=== PATIENT | male | born 1950 | race Caucasian/White ===

== ENCOUNTER 2018-12-31 09:21 | Inpatient (IN) | payer OTHER, MEDICARE ==
[~2018-12-31] VITALS: Ht 175.3 cm; Wt 100.0 kg
[2018-12-31] VITALS (9 sets, daily range): BP systolic 106–131; BP diastolic 40–55
[~2018-12-31 09:21] MED LIST: ALBU8.5H8 INH; ASPI-1264 PO; ASPI-1265 PO; COR3.125T PO; CYAN1TAB2 PO; FENO160T; FOLI400T4 PO; FURO-150 PO; IPRA14.7 IH; LANS30CA56 PO; LISI-600 PO; MOME13HF2 INH; MONT10TA21 PO; PIOG15TA8 PO; SIMV20TA5 PO
[2018-12-31] MEDS ORDERED: normal saline 1000ML IV soln IVB ONE ×2 (10:00→13:30)
[2018-12-31 10:15] LABS: BASOPHILS % (AUTO) 0.5 % (0-1); EOSINOPHILS % (AUTO) 0.4 % (0-6); HEMATOCRIT 24.1 % (42.0-52.0); HEMOGLOBIN 8.4 g/dl (14.0-17.9); LYMPHOCYTES # (AUTO) 0.3 X10'3 (1.1-4.8); LYMPHOCYTES % (AUTO) 2.9 % (21-51); MEAN CORPUSCULAR HEMOGLOBIN 36.3 PG (27.0-31.0); MEAN CORPUSCULAR HGB CONC 34.7 g/dL (33.0-36.5); MEAN CORPUSCULAR VOLUME 104.8 FL (78-98); MEAN PLATELET VOLUME 9.1 FL (7.4-10.4); MONOCYTES # (AUTO) 0.1 X10'3 (0-0.9); NEUTROPHILS # (AUTO) 9.1 X10'3 (1.8-7.7); NEUTROPHILS % (AUTO) 95.2 % (42-75); PLATELET COUNT 168 X10'3 (140-440); WHITE BLOOD COUNT 9.5 X10'3 (4.5-11.0)
[2018-12-31 10:32] LABS: CLARITY,URINE CLOUDY (Clear); COLOR,URINE YELLOW (Yellow); GLUCOSE, URINE NEGATIVE (Neg); KETONES,URINE TRACE mg/dl (Neg); LEUKOCYTE ESTERASE ,URINE SMALL (Neg); NITRITES, URINE NEGATIVE (Neg); OCCULT BLOOD,URINE LARGE (Neg); PROTEIN,URINE 30 mg/dl (Neg)
[2018-12-31 10:36] LABS: ALANINE AMINOTRANSFERASE 52 U/L (12-78); ALBUMIN 2.4 G/DL (3.4-5.0); ALBUMIN/GLOBULIN RATIO 0.7 (1.1-1.5); ALKALINE PHOSPHATASE 71 IU/L (46-116); ANION GAP 18 (8-16); ASPARTATE AMINO TRANSFERASE 36 U/L (10-37); BILIRUBIN,TOTAL 0.6 MG/DL (0.1-1.0); BLOOD UREA NITROGEN 89 MG/DL (7-18); BUN/CREATININE RATIO 26.9 (5.4-32.0); CHLORIDE 94 MMOL/L (99-107); CREATININE 3.31 MG/DL (0.60-1.10); GLUCOSE 187 MG/DL (70-104); POTASSIUM 4.3 MMOL/L (3.5-5.1); SODIUM 129 MMOL/L (135-145); TOTAL CARBON DIOXIDE 16.6 MMOL/L (24-32); TOTAL PROTEIN 5.9 G/DL (6.4-8.2); eGFR 19 ML/MIN
[2018-12-31 10:37] LABS: UA COLLECTION TYPE FOLEY CATH
[2018-12-31 10:45] LABS: AMORPHOUS URATES 1+; BACTERIA,URINE NONE SEEN /HPF (Neg); MUCUS STRANDS FEW /LPF (Neg); RBC,URINE 0-2 /HPF (0-2); SQUAMOUS EPITHELIAL CELL,UR NONE SEEN /LPF (FEW); WBC,URINE 0-4 /HPF (0-4)
[2018-12-31 10:54] LABS: MAGNESIUM 1.6 MG/DL (1.5-2.4); PLATELET ESTIMATE NORMAL; TOTAL CELLS COUNTED 100
[2018-12-31] MEDS ORDERED: ipratropium/albuterol 3ml nebule NEB ONE (11:05)
[2018-12-31] MEDS ORDERED: CARV-50 PO (11:15)
[2018-12-31] MEDS ORDERED: IBUP-24 PO (11:16)
[2018-12-31] MEDS ORDERED: TRAM50TA2 PO (11:17)
[2018-12-31] MEDS ORDERED: ERGO500041 PO (11:19)
--- NOTE | 2018-12-31 12:06 | NUR ---
CHHAYA JAY (PT ) CELL NUMBER [phone] HOME PHONE [phone]
[2018-12-31] MEDS ORDERED: amox tr/potassium clavulanate 875/125mg TAB PO ONE (12:20)
--- NOTE | 2018-12-31 12:29 | NUR ---
SPOKE TO PROVIDER RE BP 83/42 OBTAINED ORDER 1l NS
[2018-12-31] MEDS ORDERED: normal saline 1000ml 1,000 ML IV ONE ×3 (12:30→13:26)
[2018-12-31] MEDS: normal saline 1000ml 1,000 ML IV SCH ×2 (14:13→20:49)
[2018-12-31] MEDS ORDERED: potassium Cl 40MEQ/NS 500ml 500 ML IV PRN ×2 (14:15)
[2018-12-31] MEDS ORDERED: acetaminophen 325mg tablet PO PRN (14:15)
[2018-12-31] MEDS ORDERED: morphine 4 MG/ML inj SYRINge IV PRN ×2 (14:15)
[2018-12-31] MEDS ORDERED: potassium Cl 20 mEq SR tablet PO PRN (14:15)
[2018-12-31] MEDS ORDERED: aspirin 325mg tablet PO PRN (14:20)
[2018-12-31] MEDS: montelukast 10mg tablet PO SCH (14:20)
[2018-12-31] MEDS: aspirin 81mg tab.chew PO SCH (14:20)
[2018-12-31] MEDS ORDERED: pioglitazone 15mg tablet PO SCH (14:20)
[2018-12-31] MEDS ORDERED: albuterol 2.5 MG/3 ML nebule NEB PRN (14:35)
[2018-12-31] MEDS ORDERED: albuterol 2.5 MG/3 ML nebule NEB SCH (15:00)
[2018-12-31] MEDS: ipratropium/albuterol 3ml nebule IH SCH ×3 (16:07→22:55)
--- NOTE | 2018-12-31 18:48 | NUR ---
Patient in room CICU 2010. I have received report from Casey Soto and had the opportunity to ask questions and assume patient care.
[2018-12-31] MEDS: BUDESONIDE 0.25 MG/2 ML AMPUL.NEB IH SCH (19:01)
[2018-12-31] MEDS: heparin, porcine 5000 units/ml vial SQ SCH (19:52)
[2018-12-31] MEDS: docusate sod 100mg capsule PO SCH (19:53)
[2018-12-31] MEDS: nicotine 14mg patch - 24hr TD SCH (19:53)
[2018-12-31] MEDS ORDERED: non-formulary drug (Mometasone/Formoterol (Dulera 100 Mcg/5 Mcg Inhaler) 2 PUFFS) INH SCH (20:00)
[2018-12-31] MEDS: tamsulosin 0.4mg capsule PO SCH (20:49)
[2018-12-31] MEDS: atorvastatin 10mg tablet PO SCH (20:50)
--- NOTE | 2018-12-31 22:38 | NUR ---
called HORSE TREKKING GUIDE Ilan in regards to patients rate of fluids of 150 mls/hr as pt is here for exacerbation of CHF, per Ilan, change rate to 50 mls/hr, no other new orders at this time.
[2019-01-01] VITALS (17 sets, daily range): BP systolic 102–141; BP diastolic 33–96
[2019-01-01] MEDS ORDERED: insulin Lispro (HumaLOG) vial - multi-dose SQ SCH (02:50)
[2019-01-01] MEDS ORDERED: dextrose 50%-water 50ml dispensing syringe IV PRN ×2 (02:50)
[2019-01-01] MEDS ORDERED: MESSAGE TO PHARMACY PO ONE (02:50)
[2019-01-01] MEDS ORDERED: dextrose ORAL solution 15 GM/59 ML bottle PO PRN ×2 (02:50)
[2019-01-01] MEDS ORDERED: glucagon, human recombinant 1mg kit SUBCUT PRN (02:50)
[2019-01-01] MEDS: ipratropium/albuterol 3ml nebule IH SCH ×6 (02:54→23:50)
[2019-01-01 05:32] LABS: ALANINE AMINOTRANSFERASE 41 U/L (12-78); ALBUMIN 2.1 G/DL (3.4-5.0); ALBUMIN/GLOBULIN RATIO 0.6 (1.1-1.5); ALKALINE PHOSPHATASE 56 IU/L (46-116); ANION GAP 17 (8-16); ASPARTATE AMINO TRANSFERASE 36 U/L (10-37); BILIRUBIN,TOTAL 0.6 MG/DL (0.1-1.0); BLOOD UREA NITROGEN 83 MG/DL (7-18); BUN/CREATININE RATIO 28.2 (5.4-32.0); CALCIUM 7.3 MG/DL (8.5-10.1); CHLORIDE 100 MMOL/L (99-107); CREATININE 2.94 MG/DL (0.60-1.10); GLUCOSE 165 MG/DL (70-104); MAGNESIUM 1.5 MG/DL (1.5-2.4); POTASSIUM 4.5 MMOL/L (3.5-5.1); SODIUM 134 MMOL/L (135-145); TOTAL CARBON DIOXIDE 16.7 MMOL/L (24-32); TOTAL PROTEIN 5.5 G/DL (6.4-8.2); eGFR 21 ML/MIN
[2019-01-01 05:50] LABS: EOSINOPHILS % (AUTO) 0 % (0-6); HEMOGLOBIN 8.3 g/dl (14.0-17.9)
[2019-01-01 05:51] LABS: BASOPHILS # (AUTO) 0.1 X10'3 (0-0.2); BASOPHILS % (AUTO) 0.9 % (0-1); HEMATOCRIT 23.6 % (42.0-52.0); LYMPHOCYTES # (AUTO) 0.2 X10'3 (1.1-4.8); LYMPHOCYTES % (AUTO) 1.7 % (21-51); MEAN CORPUSCULAR HEMOGLOBIN 36.6 PG (27.0-31.0); MEAN CORPUSCULAR HGB CONC 35.1 g/dL (33.0-36.5); MEAN CORPUSCULAR VOLUME 104.2 FL (78-98); MEAN PLATELET VOLUME 10.2 FL (7.4-10.4); MONOCYTES # (AUTO) 0.4 X10'3 (0-0.9); MONOCYTES % (AUTO) 2.9 % (2-12); NEUTROPHILS # (AUTO) 13.9 X10'3 (1.8-7.7); NEUTROPHILS % (AUTO) 94.5 % (42-75); PLATELET COUNT 154 X10'3 (140-440); RED BLOOD COUNT 2.27 X10'6 (4.70-6.10); WHITE BLOOD COUNT 14.6 X10'3 (4.5-11.0)
--- NOTE | 2019-01-01 06:19 | NUR ---
Problems reprioritized. Patient report given, questions answered & plan of care reviewed with Casey RN.
[2019-01-01] MEDS: docusate sod 100mg capsule PO SCH ×2 (06:51→20:00)
[2019-01-01] MEDS: aspirin 81mg tab.chew PO SCH (07:30)
[2019-01-01] MEDS: montelukast 10mg tablet PO SCH (07:30)
[2019-01-01] MEDS: vitamin B comp w/Vit. C tab 1 TAB TABLET PO SCH (07:30)
[2019-01-01] MEDS: acetaminophen 325mg tablet PO PRN (07:30)
[2019-01-01] MEDS: heparin, porcine 5000 units/ml vial SQ SCH ×2 (07:31→21:26)
[2019-01-01] MEDS: BUDESONIDE 0.25 MG/2 ML AMPUL.NEB IH SCH ×2 (07:58→18:56)
[2019-01-01] MEDS ORDERED: CYANOCOBALAMIN PO SCH (08:00)
[2019-01-01] MEDS ORDERED: [UNRECOGNIZED DRUG - OTHER] PO SCH (08:00)
[2019-01-01] MEDS ORDERED: PYRIDOXINE PO SCH (08:00)
[2019-01-01] MEDS: fenofibrate 145mg tablet PO SCH (08:54)
[2019-01-01 11:43] LABS: SODIUM,URINE RANDOM < 15 MEQ/L
[2019-01-01 12:48] LABS: UA EOSINOPHILS NO EOS /HPF
[2019-01-01] MEDS ORDERED: pneumococcal 23-VAL P-sac vacc 25 mcg/0.5ml vial IMVAC ONE (13:05)
--- NOTE | 2019-01-01 14:00 | NUR ---
Patient in room MED 307. I have received report from Casey ANN and had the opportunity to ask questions and assume patient care.
--- NOTE | 2019-01-01 14:10 | NUR ---
Patient arrived to room 307 in his hospital bed, vital signs stable. Oriented to room and call light. Patient hard of hearing.
[2019-01-01] MEDS: traMADol 50MG tablet PO PRN ×2 (14:35→21:30)
[2019-01-01] MEDS: normal saline 1000ml 1,000 ML IV SCH (14:36)
--- NOTE | 2019-01-01 15:19 | NUR ---
Called Dr Munoz to notify him that patient's states that he normally drinks whiskey every day. Patient is pretty shaky at this time. Asked doctor if he would like the ETOH protocol ordered. He stated that I could add 100mg thiamin, 1mg folic acid, and one multivitamin, all daily. He also stated that patient could have one beer with each meal.
[2019-01-01] MEDS: lactose-reduced food (Ensure High Protein) 237ml bottle PO SCH (17:30)
--- NOTE | 2019-01-01 18:18 | NUR ---
Problems reprioritized. Patient report given, questions answered & plan of care reviewed with Niraj ANN.
[2019-01-01] MEDS: insulin glargine (Lantus) pen - multi-dose SQ SCH (21:00)
[2019-01-01] MEDS: atorvastatin 10mg tablet PO SCH (21:25)
[2019-01-01] MEDS: nicotine 14mg patch - 24hr TD SCH (21:27)
[2019-01-01] MEDS: tamsulosin 0.4mg capsule PO SCH (21:38)
[2019-01-02 02:00] VITALS: BP 132/63
[2019-01-02] MEDS: ipratropium/albuterol 3ml nebule IH SCH ×6 (03:00→22:59)
[2019-01-02 06:00] VITALS: BP 115/56
[2019-01-02 06:23] LABS: ALANINE AMINOTRANSFERASE 42 U/L (12-78); ALBUMIN 1.9 G/DL (3.4-5.0); ALBUMIN/GLOBULIN RATIO 0.6 (1.1-1.5); ALKALINE PHOSPHATASE 62 IU/L (46-116); ANION GAP 18 (8-16); ASPARTATE AMINO TRANSFERASE 40 U/L (10-37); BILIRUBIN,TOTAL 0.5 MG/DL (0.1-1.0); BLOOD UREA NITROGEN 87 MG/DL (7-18); BUN/CREATININE RATIO 32.7 (5.4-32.0); CALCIUM 7.6 MG/DL (8.5-10.1); CHLORIDE 100 MMOL/L (99-107); CREATININE 2.66 MG/DL (0.60-1.10); GLUCOSE 115 MG/DL (70-104); MAGNESIUM 1.6 MG/DL (1.5-2.4); PHOSPHORUS 4.5 MG/DL (2.3-4.5); POTASSIUM 3.6 MMOL/L (3.5-5.1); SODIUM 133 MMOL/L (135-145); TOTAL CARBON DIOXIDE 15.5 MMOL/L (24-32); TOTAL PROTEIN 5.3 G/DL (6.4-8.2); eGFR 24 ML/MIN
[2019-01-02 06:26] LABS: HEMATOCRIT 22.2 % (42.0-52.0); HEMOGLOBIN 7.6 g/dl (14.0-17.9); LYMPHOCYTES # (AUTO) 0.6 X10'3 (1.1-4.8); MEAN CORPUSCULAR HEMOGLOBIN 35.3 PG (27.0-31.0); MEAN CORPUSCULAR HGB CONC 34.2 g/dL (33.0-36.5); MEAN PLATELET VOLUME 10.2 FL (7.4-10.4); NEUTROPHILS # (AUTO) 10.8 X10'3 (1.8-7.7); PLATELET COUNT 136 X10'3 (140-440); RED BLOOD COUNT 2.16 X10'6 (4.70-6.10); RED CELL DISTRIBUTION WIDTH 14.1 % (11.5-14.5); WHITE BLOOD COUNT 12.3 X10'3 (4.5-11.0)
--- NOTE | 2019-01-02 06:26 | NUR ---
Problems reprioritized. Patient report given, questions answered & plan of care reviewed with Salomon ANN.
--- NOTE | 2019-01-02 06:29 | NUR ---
Patient in room MED 307. I have received report from Niraj ANN and had the opportunity to ask questions and assume patient care.
[2019-01-02 06:31] LABS: BASOPHILS % (AUTO) 0.2 % (0-1); EOSINOPHILS % (AUTO) 0.2 % (0-6); LYMPHOCYTES % (AUTO) 4.7 % (21-51); MONOCYTES % (AUTO) 7.7 % (2-12); NEUTROPHILS % (AUTO) 87.2 % (42-75)
[2019-01-02] MEDS: BUDESONIDE 0.25 MG/2 ML AMPUL.NEB IH SCH ×2 (06:43→19:55)
[2019-01-02] MEDS: lactose-reduced food (Ensure High Protein) 237ml bottle PO SCH ×2 (07:51→17:31)
[2019-01-02] MEDS: aspirin 81mg tab.chew PO SCH (07:55)
[2019-01-02] MEDS: thiamine 100mg tablet PO SCH (07:55)
[2019-01-02] MEDS: montelukast 10mg tablet PO SCH (07:55)
[2019-01-02] MEDS: heparin, porcine 5000 units/ml vial SQ SCH ×2 (07:55→20:17)
[2019-01-02] MEDS: traMADol 50MG tablet PO PRN ×3 (07:55→23:49)
[2019-01-02] MEDS: fenofibrate 145mg tablet PO SCH (07:55)
[2019-01-02] MEDS: folic acid 1mg tablet PO SCH (07:55)
[2019-01-02] MEDS: multivitamins, therapeutics tablet PO SCH (07:55)
[2019-01-02] MEDS: vitamin B comp w/Vit. C tab 1 TAB TABLET PO SCH (07:55)
[2019-01-02] MEDS: docusate sod 100mg capsule PO SCH ×2 (07:56→20:00)
[2019-01-02] MEDS: carvedilol 6.25mg tablet PO SCH ×2 (09:15→20:00)
--- NOTE | 2019-01-02 09:16 | NUR ---
Problems reprioritized. Patient report given, questions answered & plan of care reviewed with Casey RN.
[2019-01-02] MEDS: normal saline 1000ml 1,000 ML IV SCH (09:33)
--- NOTE | 2019-01-02 10:28 | NUR ---
Low Young: Pt triggered with low Young score of 12. Per physical assessment pt with an open area to rt sacrum that was a blister but is now open. Pt previously with poor PO intake however documented 100% of meal and 50% of milk at breakfast this AM. As of this morning pt now receiving Ensure High Protein BID with breakfast and dinner with 100% intake meeting nutrient needs with additional protein provided to help with skin integrity. Will continue to follow. Addendum: 01/02/19 at [address] Amended: Links added.
[2019-01-02 11:00] VITALS: BP 118/57
--- NOTE | 2019-01-02 11:00 | NUR ---
RECEIVED FROM ACC VIA BED. AGREE WITH PRIOR ASSESSMENT. VS TO BE TAKEN BY PCT. IN VISITING.
--- NOTE | 2019-01-02 11:07 | NUR ---
Pt. delivered to U room 3020. Pt. made comfortable and give call light. Casey RN notified pt. was in the room and all questions answered.
[2019-01-02 12:38] LABS: C DIFFICILE TOXINS A&B NEGATIVE (Neg)
[2019-01-02 12:39] LABS: C DIFF ANTIGEN NEGATIVE (NEGATIVE); C DIFF SPECIMEN=DIARRHEA? ACCEPTABLE
[2019-01-02 15:00] VITALS: BP 114/52
[2019-01-02 18:00] VITALS: BP 94/42
--- NOTE | 2019-01-02 18:30 | NUR ---
Problems reprioritized. Patient report given, questions answered & plan of care reviewed with MARISSA OATES.
[2019-01-02] MEDS: insulin glargine (Lantus) pen - multi-dose SQ SCH (20:06)
[2019-01-02] MEDS: tamsulosin 0.4mg capsule PO SCH (20:14)
[2019-01-02] MEDS: atorvastatin 10mg tablet PO SCH (20:14)
[2019-01-02] MEDS: nicotine 14mg patch - 24hr TD SCH (20:16)
[2019-01-02 22:00] VITALS: BP 93/61
[2019-01-03] VITALS (10 sets, daily range): BP systolic 108–146; BP diastolic 46–87
[2019-01-03] MEDS: ipratropium/albuterol 3ml nebule IH SCH ×6 (03:32→22:47)
[2019-01-03 05:37] LABS: BASOPHILS % (AUTO) 0.2 % (0-1); EOSINOPHILS # (AUTO) 0.1 X10'3 (0-0.9); EOSINOPHILS % (AUTO) 1.1 % (0-6); LYMPHOCYTES # (AUTO) 0.6 X10'3 (1.1-4.8); LYMPHOCYTES % (AUTO) 5.2 % (21-51); MEAN CORPUSCULAR HEMOGLOBIN 36.4 PG (27.0-31.0); MEAN CORPUSCULAR HGB CONC 35.2 g/dL (33.0-36.5); MEAN CORPUSCULAR VOLUME 103.4 FL (78-98); MEAN PLATELET VOLUME 9.8 FL (7.4-10.4); MONOCYTES # (AUTO) 0.9 X10'3 (0-0.9); MONOCYTES % (AUTO) 8.1 % (2-12); NEUTROPHILS # (AUTO) 9.1 X10'3 (1.8-7.7); NEUTROPHILS % (AUTO) 85.4 % (42-75); PLATELET COUNT 143 X10'3 (140-440); RED BLOOD COUNT 1.88 X10'6 (4.70-6.10); RED CELL DISTRIBUTION WIDTH 13.7 % (11.5-14.5); WHITE BLOOD COUNT 10.6 X10'3 (4.5-11.0)
[2019-01-03 05:42] LABS: ALANINE AMINOTRANSFERASE 37 U/L (12-78); ALBUMIN 1.7 G/DL (3.4-5.0); ALBUMIN/GLOBULIN RATIO 0.5 (1.1-1.5); ALKALINE PHOSPHATASE 69 IU/L (46-116); ANION GAP 16 (8-16); ASPARTATE AMINO TRANSFERASE 35 U/L (10-37); BILIRUBIN,TOTAL 0.4 MG/DL (0.1-1.0); BLOOD UREA NITROGEN 87 MG/DL (7-18); BUN/CREATININE RATIO 34.3 (5.4-32.0); CALCIUM 7.4 MG/DL (8.5-10.1); CHLORIDE 99 MMOL/L (99-107); CREATININE 2.54 MG/DL (0.60-1.10); GLUCOSE 111 MG/DL (70-104); MAGNESIUM 1.4 MG/DL (1.5-2.4); PHOSPHORUS 3.7 MG/DL (2.3-4.5); POTASSIUM 3.3 MMOL/L (3.5-5.1); SODIUM 132 MMOL/L (135-145); eGFR 25 ML/MIN
[2019-01-03 06:05] LABS: HEMATOCRIT 19.4 % (42.0-52.0); HEMOGLOBIN 6.8 g/dl (14.0-17.9)
[2019-01-03] MEDS: normal saline 1000ml 1,000 ML IV SCH (06:25)
--- NOTE | 2019-01-03 06:40 | NUR ---
Patient in room PCU 3020. I have received report from MARISSA OATES and had the opportunity to ask questions and assume patient care.
--- NOTE | 2019-01-03 06:47 | NUR ---
Problems reprioritized. Patient report given, questions answered & plan of care reviewed with Casey RN.
--- NOTE | 2019-01-03 06:56 | NUR ---
K+ 3.4, HAS REPLACEMENT ORDERS. DISCUSSED WITH BRENDAN 2. PHARMACIST, RE: JOSEPH 2.54. BRENDAN STATES YOU SHOULD GIVE THE FULL REPLACEMENT DOSE, DO NOT GIVE 1/2 THE DOSE ".
[2019-01-03] MEDS: lactose-reduced food (Ensure High Protein) 237ml bottle PO SCH ×2 (07:30→18:47)
[2019-01-03] MEDS: heparin, porcine 5000 units/ml vial SQ SCH ×2 (08:00→19:28)
[2019-01-03] MEDS: docusate sod 100mg capsule PO SCH ×2 (08:00→19:27)
[2019-01-03] MEDS: BUDESONIDE 0.25 MG/2 ML AMPUL.NEB IH SCH ×2 (08:22→19:22)
[2019-01-03] MEDS: aspirin 81mg tab.chew PO SCH (08:30)
[2019-01-03] MEDS: carvedilol 6.25mg tablet PO SCH ×2 (08:30→20:27)
[2019-01-03] MEDS: montelukast 10mg tablet PO SCH (08:31)
[2019-01-03] MEDS: folic acid 1mg tablet PO SCH (08:31)
[2019-01-03] MEDS: vitamin B comp w/Vit. C tab 1 TAB TABLET PO SCH (08:32)
[2019-01-03] MEDS: multivitamins, therapeutics tablet PO SCH (08:32)
[2019-01-03] MEDS: thiamine 100mg tablet PO SCH (08:32)
[2019-01-03] MEDS: potassium Cl 20 mEq SR tablet PO PRN ×3 (08:33→16:46)
[2019-01-03] MEDS: traMADol 50MG tablet PO PRN ×2 (08:41→16:45)
[2019-01-03] MEDS: fenofibrate 145mg tablet PO SCH (08:42)
--- NOTE | 2019-01-03 13:48 | NUR ---
RHYS RT: Addendum: 01/03/19 at 1348 by Vinicio Rodriguez RN LISA IS REQUESTING RESP TREATMENT FOR SOB. ADRIEL [id number]. TY.
--- NOTE | 2019-01-03 14:31 | NUR ---
PAGED RT:[id number] IS REQUESTING PRN TREATMENT FOR SOB. ADRIEL [id number]. TY.
--- NOTE | 2019-01-03 15:55 | NUR ---
DR. GARCES NOTIFIED OF HEPARIN HELD THIS AM R/T CRITICAL H+H,MG+ 1.4 WITHOUT REPLACEMENT ORDERS.
[2019-01-03] MEDS: loperamide 2mg capsule PO PRN (16:46)
[2019-01-03] MEDS: furosemide 40mg tablet PO SCH (16:51)
[2019-01-03 18:46] LABS: % IRON SATURATION 19 % (11-46); IRON 33 UG/DL (53-167); TOTAL IRON BINDING CAPACITY 174 UG/DL (259-388)
--- NOTE | 2019-01-03 18:46 | NUR ---
Problems reprioritized. Patient report given, questions answered & plan of care reviewed with MARISSA MAYA.
[2019-01-03] MEDS: ondansetron/PF 4mg/2ml inj IV PRN (18:50)
[2019-01-03 19:06] LABS: FERRITIN 245 NG/ML (26-388)
[2019-01-03] MEDS ORDERED: proCHLORperazine 10 MG/2 ml inj IM ONE (19:35)
[2019-01-03] MEDS ORDERED: proCHLORperazine 10 MG/2 ml inj IV ONE (19:40)
[2019-01-03] MEDS: atorvastatin 10mg tablet PO SCH (20:27)
[2019-01-03] MEDS: nicotine 14mg patch - 24hr TD SCH (20:27)
[2019-01-03] MEDS: tamsulosin 0.4mg capsule PO SCH (20:27)
[2019-01-03] MEDS: insulin glargine (Lantus) pen - multi-dose SQ SCH (20:27)
[2019-01-03 23:43] LABS: HEMATOCRIT 24.7 % (42.0-52.0); HEMOGLOBIN 8.3 g/dl (14.0-17.9); MEAN CORPUSCULAR HEMOGLOBIN 33.7 PG (27.0-31.0); MEAN CORPUSCULAR HGB CONC 33.5 g/dL (33.0-36.5); MEAN CORPUSCULAR VOLUME 100.7 FL (78-98); MEAN PLATELET VOLUME 9.8 FL (7.4-10.4); PLATELET COUNT 154 X10'3 (140-440); RED BLOOD COUNT 2.45 X10'6 (4.70-6.10); RED CELL DISTRIBUTION WIDTH 15.1 % (11.5-14.5); WHITE BLOOD COUNT 11.4 X10'3 (4.5-11.0)
[2019-01-04] MEDS: ondansetron/PF 4mg/2ml inj IV PRN ×2 (02:23→20:17)
[2019-01-04] MEDS: ipratropium/albuterol 3ml nebule IH SCH ×7 (02:51→23:14)
[2019-01-04 03:00] VITALS: BP 129/88
[2019-01-04 05:07] LABS: BASOPHILS % (AUTO) 0.2 % (0-1); EOSINOPHILS % (AUTO) 0.3 % (0-6); HEMATOCRIT 23.3 % (42.0-52.0); HEMOGLOBIN 8.1 g/dl (14.0-17.9); LYMPHOCYTES # (AUTO) 0.4 X10'3 (1.1-4.8); MEAN CORPUSCULAR HEMOGLOBIN 34.8 PG (27.0-31.0); MEAN CORPUSCULAR HGB CONC 34.7 g/dL (33.0-36.5); MEAN CORPUSCULAR VOLUME 100.3 FL (78-98); MEAN PLATELET VOLUME 9.9 FL (7.4-10.4); MONOCYTES # (AUTO) 0.7 X10'3 (0-0.9); NEUTROPHILS # (AUTO) 9.3 X10'3 (1.8-7.7); NEUTROPHILS % (AUTO) 88.5 % (42-75); PLATELET COUNT 157 X10'3 (140-440); RED BLOOD COUNT 2.32 X10'6 (4.70-6.10); RED CELL DISTRIBUTION WIDTH 15.5 % (11.5-14.5); WHITE BLOOD COUNT 10.5 X10'3 (4.5-11.0)
[2019-01-04 05:53] LABS: ALANINE AMINOTRANSFERASE 36 U/L (12-78); ALBUMIN 1.7 G/DL (3.4-5.0); ALBUMIN/GLOBULIN RATIO 0.5 (1.1-1.5); ALKALINE PHOSPHATASE 72 IU/L (46-116); ANION GAP 15 (8-16); ASPARTATE AMINO TRANSFERASE 33 U/L (10-37); BILIRUBIN,TOTAL 0.6 MG/DL (0.1-1.0); BLOOD UREA NITROGEN 82 MG/DL (7-18); CALCIUM 7.9 MG/DL (8.5-10.1); CHLORIDE 101 MMOL/L (99-107); CREATININE 2.28 MG/DL (0.60-1.10); GLUCOSE 149 MG/DL (70-104); MAGNESIUM 1.4 MG/DL (1.5-2.4); PHOSPHORUS 3.7 MG/DL (2.3-4.5); POTASSIUM 3.9 MMOL/L (3.5-5.1); SODIUM 134 MMOL/L (135-145); TOTAL CARBON DIOXIDE 17.9 MMOL/L (24-32); eGFR 29 ML/MIN
--- NOTE | 2019-01-04 06:24 | NUR ---
Problems reprioritized. Patient report given, questions answered & plan of care reviewed with Jennifer ANN.
[2019-01-04 06:30] VITALS: BP 130/67
[2019-01-04] MEDS: BUDESONIDE 0.25 MG/2 ML AMPUL.NEB IH SCH ×2 (06:38→19:28)
[2019-01-04] MEDS: lactose-reduced food (Ensure High Protein) 237ml bottle PO SCH ×2 (07:30→17:30)
[2019-01-04] MEDS: docusate sod 100mg capsule PO SCH ×2 (08:00→20:00)
[2019-01-04] MEDS: heparin, porcine 5000 units/ml vial SQ SCH ×2 (08:08→20:18)
[2019-01-04] MEDS: multivitamins, therapeutics tablet PO SCH (08:09)
[2019-01-04] MEDS: vitamin B comp w/Vit. C tab 1 TAB TABLET PO SCH (08:11)
[2019-01-04] MEDS: montelukast 10mg tablet PO SCH (08:11)
[2019-01-04] MEDS: aspirin 81mg tab.chew PO SCH (08:11)
[2019-01-04] MEDS: fenofibrate 145mg tablet PO SCH (08:11)
[2019-01-04] MEDS: furosemide 40mg tablet PO SCH (08:11)
[2019-01-04] MEDS: thiamine 100mg tablet PO SCH (08:12)
[2019-01-04] MEDS: carvedilol 6.25mg tablet PO SCH ×2 (08:12→20:18)
[2019-01-04] MEDS: folic acid 1mg tablet PO SCH (08:15)
[2019-01-04] MEDS: traMADol 50MG tablet PO PRN ×2 (08:34→18:45)
[2019-01-04] MEDS: metroNIDAZOLE-Flagyl 500mg/NS 100 ML IV SCH ×3 (10:26→23:55)
[2019-01-04 11:11] VITALS: BP 104/99
[2019-01-04] MEDS: lisinopril 5mg tablet PO SCH (11:20)
[2019-01-04 15:15] VITALS: BP 139/60
--- NOTE | 2019-01-04 18:03 | NUR ---
REPORT GIVEN TO ZULMA ANN
[2019-01-04 18:30] VITALS: BP 129/62
[2019-01-04] MEDS: lactobacillus rhamnosus 10,000 MMU CELLS/CAPSULE PO SCH (20:18)
[2019-01-04] MEDS: nicotine 14mg patch - 24hr TD SCH (20:18)
[2019-01-04] MEDS: tamsulosin 0.4mg capsule PO SCH (20:18)
[2019-01-04] MEDS: atorvastatin 10mg tablet PO SCH (20:18)
[2019-01-04] MEDS: insulin glargine (Lantus) pen - multi-dose SQ SCH (21:00)
[2019-01-04 22:15] VITALS: BP 123/56
[2019-01-04] MEDS: acetaminophen 325mg tablet PO PRN (22:47)
[2019-01-04 23:57] LABS: OCCULT BLOOD STOOL NEGATIVE (Neg)
[2019-01-05 02:05] VITALS: BP 136/61
[2019-01-05] MEDS: ipratropium/albuterol 3ml nebule IH SCH ×6 (02:45→22:54)
[2019-01-05] MEDS: ondansetron/PF 4mg/2ml inj IV PRN ×2 (03:02→09:00)
--- NOTE | 2019-01-05 05:15 | NUR ---
Student documentation: I have reviewed and agree with all interventions, assessments performed and documented by Stacey MINOR.
--- NOTE | 2019-01-05 05:15 | NUR ---
Student Medication Administration: For this medication-pass time frame, all medication were reviewed, dispensed, administered and documented per hospital policy by Stacey MINOR.
--- NOTE | 2019-01-05 06:13 | NUR ---
Problems reprioritized. Patient report given, questions answered & plan of care reviewed with Albina ANN.
[2019-01-05 06:17] LABS: BASOPHILS % (AUTO) 0.1 % (0-1); EOSINOPHILS # (AUTO) 0.1 X10'3 (0-0.9); EOSINOPHILS % (AUTO) 0.6 % (0-6); HEMATOCRIT 22.7 % (42.0-52.0); HEMOGLOBIN 7.9 g/dl (14.0-17.9); LYMPHOCYTES # (AUTO) 0.6 X10'3 (1.1-4.8); LYMPHOCYTES % (AUTO) 6.3 % (21-51); MEAN CORPUSCULAR HEMOGLOBIN 35.1 PG (27.0-31.0); MEAN CORPUSCULAR VOLUME 100.1 FL (78-98); MEAN PLATELET VOLUME 9.8 FL (7.4-10.4); MONOCYTES % (AUTO) 9.6 % (2-12); NEUTROPHILS # (AUTO) 8.5 X10'3 (1.8-7.7); NEUTROPHILS % (AUTO) 83.4 % (42-75); PLATELET COUNT 172 X10'3 (140-440); RED BLOOD COUNT 2.26 X10'6 (4.70-6.10); RED CELL DISTRIBUTION WIDTH 15.6 % (11.5-14.5); WHITE BLOOD COUNT 10.2 X10'3 (4.5-11.0)
[2019-01-05 06:35] LABS: ALANINE AMINOTRANSFERASE 33 U/L (12-78); ALBUMIN 1.7 G/DL (3.4-5.0); ALBUMIN/GLOBULIN RATIO 0.6 (1.1-1.5); ALKALINE PHOSPHATASE 77 IU/L (46-116); ANION GAP 15 (8-16); ASPARTATE AMINO TRANSFERASE 32 U/L (10-37); BILIRUBIN,TOTAL 0.5 MG/DL (0.1-1.0); BLOOD UREA NITROGEN 81 MG/DL (7-18); BUN/CREATININE RATIO 35.4 (5.4-32.0); CALCIUM 7.7 MG/DL (8.5-10.1); CHLORIDE 101 MMOL/L (99-107); CREATININE 2.29 MG/DL (0.60-1.10); GLUCOSE 119 MG/DL (70-104); MAGNESIUM 1.3 MG/DL (1.5-2.4); PHOSPHORUS 3.3 MG/DL (2.3-4.5); SODIUM 134 MMOL/L (135-145); TOTAL CARBON DIOXIDE 18.2 MMOL/L (24-32); TOTAL PROTEIN 4.7 G/DL (6.4-8.2); eGFR 28 ML/MIN
--- NOTE | 2019-01-05 06:40 | NUR ---
Patient in room PCU 3020. I have received report from MARISSA Duong and had the opportunity to ask questions and assume patient care.
[2019-01-05 07:00] VITALS: BP 142/74
[2019-01-05 07:12] LABS: TOTAL CELLS COUNTED 100
[2019-01-05 07:18] LABS: ANISOCYTOSIS 1+; PLATELET ESTIMATE NORMAL; POLYCHROMASIA 1+; ROULEAUX 1+; TOXIC GRANULATION 1+
[2019-01-05] MEDS: lactose-reduced food (Ensure High Protein) 237ml bottle PO SCH ×2 (07:30→17:45)
[2019-01-05] MEDS: BUDESONIDE 0.25 MG/2 ML AMPUL.NEB IH SCH ×2 (08:10→19:44)
[2019-01-05] MEDS: furosemide 40mg tablet PO SCH (08:32)
[2019-01-05] MEDS: lisinopril 5mg tablet PO SCH (08:32)
[2019-01-05] MEDS: lactobacillus rhamnosus 10,000 MMU CELLS/CAPSULE PO SCH ×2 (08:32→20:22)
[2019-01-05] MEDS: folic acid 1mg tablet PO SCH (08:33)
[2019-01-05] MEDS: aspirin 81mg tab.chew PO SCH (08:33)
[2019-01-05] MEDS: carvedilol 6.25mg tablet PO SCH ×2 (08:33→20:22)
[2019-01-05] MEDS: thiamine 100mg tablet PO SCH (08:33)
[2019-01-05] MEDS: vitamin B comp w/Vit. C tab 1 TAB TABLET PO SCH (08:33)
[2019-01-05] MEDS: metroNIDAZOLE-Flagyl 500mg/NS 100 ML IV SCH ×2 (08:34→16:27)
[2019-01-05] MEDS: montelukast 10mg tablet PO SCH (08:34)
[2019-01-05] MEDS: fenofibrate 145mg tablet PO SCH (08:34)
[2019-01-05] MEDS: multivitamins, therapeutics tablet PO SCH (08:34)
[2019-01-05] MEDS: docusate sod 100mg capsule PO SCH ×2 (08:35→20:00)
[2019-01-05] MEDS: heparin, porcine 5000 units/ml vial SQ SCH ×2 (08:35→20:22)
[2019-01-05] MEDS: traMADol 50MG tablet PO PRN ×2 (09:00→17:20)
[2019-01-05 11:00] VITALS: BP 119/53
[2019-01-05 15:00] VITALS: BP 138/55
[2019-01-05] MEDS: famotidine 20mg tablet PO SCH ×2 (16:27→20:22)
--- NOTE | 2019-01-05 17:16 | NUR ---
Initial: Pt admit with chronic back pain and Edema.Per documentation pt is w/ peripheral edema 2-3+. Per documentation pt po intake previously 0-50% for the last two days w/ one meal 25% of protein, likely not meeting needs possibly due to pt on a Clear Liquid diet. Spoke with RN who stated PO intake this AM was 50% and 100% at lunch continues to not meet needs on clear liquid diet. RN stated to me she is unsure why pt is on clear liquid diet and is waiting to hear back from MD. Pt drinks 25% of High Protein-Muscle. [facility] [place] 01/04 Will continue to monitor. Rec. 1.Advance diet to CHO as medically tolerated 2.Continue Ensure High Protein when diet advanced 3.Wt per rx Addendum: 01/05/19 at [address] Amended: Links added. Addendum: 01/05/19 at [address] RD agree with note
--- NOTE | 2019-01-05 18:09 | NUR ---
Problems reprioritized. Patient report given, questions answered & plan of care reviewed with MARISSA Duong.
[2019-01-05 18:30] VITALS: BP 124/52
[2019-01-05] MEDS: nicotine 14mg patch - 24hr TD SCH (20:21)
[2019-01-05] MEDS: atorvastatin 10mg tablet PO SCH (20:22)
[2019-01-05] MEDS: tamsulosin 0.4mg capsule PO SCH (20:22)
[2019-01-05] MEDS: Melatonin 3mg tablet PO SCH (20:23)
[2019-01-05] MEDS: loperamide 2mg capsule PO PRN (20:35)
[2019-01-05] MEDS: HYDROcodone/acetaminophen 5mg/325mg tablet PO PRN (20:35)
[2019-01-05] MEDS: insulin glargine (Lantus) pen - multi-dose SQ SCH (21:00)
[2019-01-05 22:45] VITALS: BP 114/50
[2019-01-06] MEDS: metroNIDAZOLE-Flagyl 500mg/NS 100 ML IV SCH ×2 (00:33→09:29)
[2019-01-06] MEDS: HYDROcodone/acetaminophen 5mg/325mg tablet PO PRN (00:35)
[2019-01-06 02:10] VITALS: BP 115/48
[2019-01-06] MEDS: traMADol 50MG tablet PO PRN ×2 (02:48→21:44)
[2019-01-06] MEDS: ipratropium/albuterol 3ml nebule IH SCH ×6 (03:26→22:53)
--- NOTE | 2019-01-06 05:26 | NUR ---
Student Medication Administration: For this medication-pass time frame, all medication were reviewed, dispensed, administered and documented per hospital policy by Stacey MINOR. Student documentation: I have reviewed and agree with all interventions, assessments performed and documented by Stacey MINOR.
--- NOTE | 2019-01-06 06:10 | NUR ---
Problems reprioritized. Patient report given, questions answered & plan of care reviewed with Albina ANN.
[2019-01-06 07:00] VITALS: BP 123/56
--- NOTE | 2019-01-06 07:03 | NUR ---
Patient in room PCU 3020A. I have received report from MARISSA MAYA and had the opportunity to ask questions and assume patient care.
[2019-01-06 07:04] LABS: BASOPHILS % (AUTO) 0.3 % (0-1); EOSINOPHILS # (AUTO) 0.2 X10'3 (0-0.9); EOSINOPHILS % (AUTO) 1.9 % (0-6); HEMATOCRIT 22.5 % (42.0-52.0); HEMOGLOBIN 7.6 g/dl (14.0-17.9); LYMPHOCYTES # (AUTO) 0.9 X10'3 (1.1-4.8); LYMPHOCYTES % (AUTO) 10.5 % (21-51); MEAN CORPUSCULAR HEMOGLOBIN 34.3 PG (27.0-31.0); MEAN CORPUSCULAR HGB CONC 33.8 g/dL (33.0-36.5); MEAN CORPUSCULAR VOLUME 101.5 FL (78-98); MEAN PLATELET VOLUME 9.8 FL (7.4-10.4); MONOCYTES # (AUTO) 0.8 X10'3 (0-0.9); MONOCYTES % (AUTO) 9.1 % (2-12); NEUTROPHILS # (AUTO) 6.7 X10'3 (1.8-7.7); NEUTROPHILS % (AUTO) 78.2 % (42-75); PLATELET COUNT 189 X10'3 (140-440); RED BLOOD COUNT 2.22 X10'6 (4.70-6.10); RED CELL DISTRIBUTION WIDTH 15.2 % (11.5-14.5); WHITE BLOOD COUNT 8.6 X10'3 (4.5-11.0)
[2019-01-06 07:06] LABS: ALANINE AMINOTRANSFERASE 26 U/L (12-78); ALBUMIN 1.5 G/DL (3.4-5.0); ALBUMIN/GLOBULIN RATIO 0.5 (1.1-1.5); ALKALINE PHOSPHATASE 63 IU/L (46-116); ANION GAP 12 (8-16); ASPARTATE AMINO TRANSFERASE 25 U/L (10-37); BILIRUBIN,TOTAL 0.4 MG/DL (0.1-1.0); BLOOD UREA NITROGEN 82 MG/DL (7-18); BUN/CREATININE RATIO 36.8 (5.4-32.0); CALCIUM 7.5 MG/DL (8.5-10.1); CHLORIDE 101 MMOL/L (99-107); CREATININE 2.23 MG/DL (0.60-1.10); GLUCOSE 101 MG/DL (70-104); MAGNESIUM 1.2 MG/DL (1.5-2.4); PHOSPHORUS 3.2 MG/DL (2.3-4.5); POTASSIUM 3.4 MMOL/L (3.5-5.1); SODIUM 132 MMOL/L (135-145); TOTAL CARBON DIOXIDE 18.6 MMOL/L (24-32); TOTAL PROTEIN 4.4 G/DL (6.4-8.2); eGFR 29 ML/MIN
[2019-01-06] MEDS: lactose-reduced food (Ensure High Protein) 237ml bottle PO SCH ×2 (07:30→08:30)
[2019-01-06] MEDS: aspirin 81mg tab.chew PO SCH (08:00)
[2019-01-06] MEDS: BUDESONIDE 0.25 MG/2 ML AMPUL.NEB IH SCH ×2 (08:30→18:57)
[2019-01-06] MEDS: carvedilol 6.25mg tablet PO SCH ×2 (09:03→21:38)
[2019-01-06] MEDS: famotidine 20mg tablet PO SCH ×2 (09:03→21:38)
[2019-01-06] MEDS: docusate sod 100mg capsule PO SCH ×2 (09:03→20:00)
[2019-01-06] MEDS: multivitamins, therapeutics tablet PO SCH (09:04)
[2019-01-06] MEDS: folic acid 1mg tablet PO SCH (09:04)
[2019-01-06] MEDS: lactobacillus rhamnosus 10,000 MMU CELLS/CAPSULE PO SCH ×2 (09:05→21:38)
[2019-01-06] MEDS: montelukast 10mg tablet PO SCH (09:05)
[2019-01-06] MEDS: lisinopril 5mg tablet PO SCH (09:05)
[2019-01-06] MEDS: furosemide 40mg tablet PO SCH (09:05)
[2019-01-06] MEDS: fenofibrate 145mg tablet PO SCH (09:05)
[2019-01-06] MEDS: thiamine 100mg tablet PO SCH (09:06)
[2019-01-06 09:09] LABS: ANISOCYTOSIS 1+; PLATELET ESTIMATE NORMAL; POLYCHROMASIA 1+; ROULEAUX 1+; TOTAL CELLS COUNTED 100; TOXIC GRANULATION 1+
[2019-01-06] MEDS: vitamin B comp w/Vit. C tab 1 TAB TABLET PO SCH (09:09)
[2019-01-06] MEDS: heparin, porcine 5000 units/ml vial SQ SCH ×2 (09:17→21:43)
[2019-01-06] MEDS ORDERED: tuberculin, purif. prot. deriv. 5 units/0.1ml ID ONE ×2 (09:40→10:35)
[2019-01-06 11:00] VITALS: BP 112/40
[2019-01-06 15:00] VITALS: BP 136/44
[2019-01-06] MEDS: amox tr/potassium clavulanate 875/125mg TAB PO SCH (17:38)
[2019-01-06] MEDS: ferrous sulfate 325mg tablet PO SCH (17:38)
[2019-01-06 18:00] VITALS: BP 126/56
--- NOTE | 2019-01-06 18:14 | NUR ---
Problems reprioritized. Patient report given, questions answered & plan of care reviewed with MARISSA PALACIOS . Addendum: 01/06/19 at 1823 by Su Reyes RN MARISSA PERDOMO
--- NOTE | 2019-01-06 19:15 | NUR ---
Patient in room PCU 3020. I have received report from Albina ANN and had the opportunity to ask questions and assume patient care.
[2019-01-06] MEDS: insulin glargine (Lantus) pen - multi-dose SQ SCH (21:00)
[2019-01-06] MEDS: Melatonin 3mg tablet PO SCH (21:38)
[2019-01-06] MEDS: tamsulosin 0.4mg capsule PO SCH (21:38)
[2019-01-06] MEDS: loperamide 2mg capsule PO PRN (21:38)
[2019-01-06] MEDS: nicotine 14mg patch - 24hr TD SCH (21:40)
[2019-01-06] MEDS: atorvastatin 10mg tablet PO SCH (21:41)
[2019-01-06 22:00] VITALS: BP 128/63
[2019-01-07 02:00] VITALS: BP 149/53
[2019-01-07] MEDS: ipratropium/albuterol 3ml nebule IH SCH ×6 (02:53→22:52)
[2019-01-07] MEDS: traMADol 50MG tablet PO PRN ×2 (03:42→15:58)
[2019-01-07 05:36] LABS: BASOPHILS % (AUTO) 0.4 % (0-1); EOSINOPHILS # (AUTO) 0.1 X10'3 (0-0.9); EOSINOPHILS % (AUTO) 1.2 % (0-6); HEMATOCRIT 23.2 % (42.0-52.0); HEMOGLOBIN 7.9 g/dl (14.0-17.9); LYMPHOCYTES # (AUTO) 0.9 X10'3 (1.1-4.8); LYMPHOCYTES % (AUTO) 8.8 % (21-51); MEAN CORPUSCULAR HEMOGLOBIN 34.5 PG (27.0-31.0); MEAN CORPUSCULAR VOLUME 101.4 FL (78-98); MEAN PLATELET VOLUME 9.4 FL (7.4-10.4); MONOCYTES # (AUTO) 0.7 X10'3 (0-0.9); MONOCYTES % (AUTO) 7.7 % (2-12); NEUTROPHILS % (AUTO) 81.9 % (42-75); PLATELET COUNT 216 X10'3 (140-440); RED BLOOD COUNT 2.29 X10'6 (4.70-6.10); WHITE BLOOD COUNT 9.7 X10'3 (4.5-11.0)
[2019-01-07 06:09] LABS: ALANINE AMINOTRANSFERASE 27 U/L (12-78); ALBUMIN 1.6 G/DL (3.4-5.0); ALBUMIN/GLOBULIN RATIO 0.5 (1.1-1.5); ALKALINE PHOSPHATASE 62 IU/L (46-116); ANION GAP 14 (8-16); ASPARTATE AMINO TRANSFERASE 24 U/L (10-37); BILIRUBIN,TOTAL 0.5 MG/DL (0.1-1.0); BLOOD UREA NITROGEN 79 MG/DL (7-18); CALCIUM 7.7 MG/DL (8.5-10.1); CHLORIDE 101 MMOL/L (99-107); CREATININE 2.26 MG/DL (0.60-1.10); GLUCOSE 103 MG/DL (70-104); MAGNESIUM 1.1 MG/DL (1.5-2.4); PHOSPHORUS 3.5 MG/DL (2.3-4.5); POTASSIUM 3.6 MMOL/L (3.5-5.1); SODIUM 131 MMOL/L (135-145); TOTAL CARBON DIOXIDE 16.3 MMOL/L (24-32); TOTAL PROTEIN 4.6 G/DL (6.4-8.2); eGFR 29 ML/MIN
--- NOTE | 2019-01-07 06:13 | NUR ---
Problems reprioritized. Patient report given, questions answered & plan of care reviewed with Albina ANN.
--- NOTE | 2019-01-07 06:25 | NUR ---
Patient in room PCU 3020. I have received report from MARISSA Patel and had the opportunity to ask questions and assume patient care.
[2019-01-07 07:00] VITALS: BP 114/55
[2019-01-07] MEDS: lactose-reduced food (Ensure High Protein) 237ml bottle PO SCH ×2 (07:30→17:38)
[2019-01-07] MEDS: docusate sod 100mg capsule PO SCH ×2 (08:00→19:54)
[2019-01-07] MEDS: BUDESONIDE 0.25 MG/2 ML AMPUL.NEB IH SCH ×2 (08:00→19:08)
[2019-01-07] MEDS: lisinopril 5mg tablet PO SCH (09:30)
[2019-01-07] MEDS: multivitamins, therapeutics tablet PO SCH (09:30)
[2019-01-07] MEDS: famotidine 20mg tablet PO SCH ×2 (09:31→19:52)
[2019-01-07] MEDS: vitamin B comp w/Vit. C tab 1 TAB TABLET PO SCH (09:31)
[2019-01-07] MEDS: montelukast 10mg tablet PO SCH (09:31)
[2019-01-07] MEDS: folic acid 1mg tablet PO SCH (09:31)
[2019-01-07] MEDS: HYDROcodone/acetaminophen 5mg/325mg tablet PO PRN (09:32)
[2019-01-07] MEDS: aspirin 81mg tab.chew PO SCH (09:32)
[2019-01-07] MEDS: thiamine 100mg tablet PO SCH (09:33)
[2019-01-07] MEDS: fenofibrate 145mg tablet PO SCH (09:33)
[2019-01-07] MEDS: carvedilol 6.25mg tablet PO SCH ×2 (09:33→19:52)
[2019-01-07] MEDS: ferrous sulfate 325mg tablet PO SCH ×2 (09:33→17:48)
[2019-01-07] MEDS: amox tr/potassium clavulanate 875/125mg TAB PO SCH ×2 (09:34→17:51)
[2019-01-07] MEDS: furosemide 40mg tablet PO SCH (09:34)
[2019-01-07] MEDS: lactobacillus rhamnosus 10,000 MMU CELLS/CAPSULE PO SCH ×2 (09:35→19:52)
[2019-01-07] MEDS: heparin, porcine 5000 units/ml vial SQ SCH ×2 (09:36→19:52)
[2019-01-07 11:00] VITALS: BP 120/67
--- NOTE | 2019-01-07 12:00 | NUR ---
PTS MG 1.1, NOTIFIED FERNANDO TAPIA - SHE DOES NOT WISH TO REPLACE THIS ELECTROLYTE AT THIS TIME DUE TO THE PATIENT'S KIDNEY CONDITION AND THE POSSIBILITY OF MG BUILDING UP IN THE PT BODY.
[2019-01-07 15:00] VITALS: BP 119/52
--- NOTE | 2019-01-07 17:18 | NUR ---
[place] Medication Administration: For this medication-pass time frame, medications were reviewed, dispensed, administered and documented by MARISSA Wilkinson.
--- NOTE | 2019-01-07 18:14 | NUR ---
Patient in room PCU 3020. I have received report from Albina ANN and had the opportunity to ask questions and assume patient care.
--- NOTE | 2019-01-07 18:18 | NUR ---
Problems reprioritized. Patient report given, questions answered & plan of care reviewed with MARISSA Khan.
[2019-01-07 19:00] VITALS: BP 136/59
[2019-01-07] MEDS: nicotine 14mg patch - 24hr TD SCH (19:55)
[2019-01-07] MEDS: insulin glargine (Lantus) pen - multi-dose SQ SCH (21:00)
[2019-01-07] MEDS: tamsulosin 0.4mg capsule PO SCH (22:04)
[2019-01-07] MEDS: atorvastatin 10mg tablet PO SCH (22:04)
[2019-01-07] MEDS: traMADol 50MG tablet PO SCH (22:05)
[2019-01-07] MEDS: Melatonin 3mg tablet PO SCH (22:05)
[2019-01-07 23:00] VITALS: BP 120/50
[2019-01-08 03:00] VITALS: BP 117/57
[2019-01-08] MEDS: ipratropium/albuterol 3ml nebule IH SCH ×6 (03:00→22:55)
[2019-01-08 05:55] LABS: BASOPHILS % (AUTO) 0.4 % (0-1); EOSINOPHILS # (AUTO) 0.2 X10'3 (0-0.9); EOSINOPHILS % (AUTO) 2.3 % (0-6); HEMATOCRIT 23.6 % (42.0-52.0); LYMPHOCYTES # (AUTO) 0.8 X10'3 (1.1-4.8); LYMPHOCYTES % (AUTO) 8.9 % (21-51); MEAN CORPUSCULAR HGB CONC 33.7 g/dL (33.0-36.5); MEAN CORPUSCULAR VOLUME 100.9 FL (78-98); MEAN PLATELET VOLUME 9.2 FL (7.4-10.4); MONOCYTES # (AUTO) 0.4 X10'3 (0-0.9); MONOCYTES % (AUTO) 4.7 % (2-12); NEUTROPHILS # (AUTO) 7.3 X10'3 (1.8-7.7); NEUTROPHILS % (AUTO) 83.7 % (42-75); PLATELET COUNT 264 X10'3 (140-440); RED BLOOD COUNT 2.34 X10'6 (4.70-6.10); RED CELL DISTRIBUTION WIDTH 15.1 % (11.5-14.5); WHITE BLOOD COUNT 8.8 X10'3 (4.5-11.0)
[2019-01-08 06:00] VITALS: BP 121/59
[2019-01-08 06:22] LABS: ALANINE AMINOTRANSFERASE 22 U/L (12-78); ALBUMIN 1.6 G/DL (3.4-5.0); ALBUMIN/GLOBULIN RATIO 0.5 (1.1-1.5); ALKALINE PHOSPHATASE 60 IU/L (46-116); ANION GAP 13 (8-16); ASPARTATE AMINO TRANSFERASE 23 U/L (10-37); BILIRUBIN,TOTAL 0.5 MG/DL (0.1-1.0); BLOOD UREA NITROGEN 72 MG/DL (7-18); BUN/CREATININE RATIO 31.7 (5.4-32.0); CALCIUM 7.7 MG/DL (8.5-10.1); CHLORIDE 102 MMOL/L (99-107); CREATININE 2.27 MG/DL (0.60-1.10); GLUCOSE 99 MG/DL (70-104); MAGNESIUM 1.1 MG/DL (1.5-2.4); PHOSPHORUS 3.6 MG/DL (2.3-4.5); POTASSIUM 3.5 MMOL/L (3.5-5.1); SODIUM 134 MMOL/L (135-145); TOTAL CARBON DIOXIDE 19.3 MMOL/L (24-32); TOTAL PROTEIN 4.6 G/DL (6.4-8.2); eGFR 29 ML/MIN
--- NOTE | 2019-01-08 06:30 | NUR ---
Patient in room PCU 3020. I have received report from MARISSA Khan and had the opportunity to ask questions and assume patient care.
--- NOTE | 2019-01-08 06:32 | NUR ---
Problems reprioritized. Patient report given, questions answered & plan of care reviewed with Emily ANN.
[2019-01-08] MEDS: lactose-reduced food (Ensure High Protein) 237ml bottle PO SCH ×2 (07:30→17:43)
[2019-01-08] MEDS: lactobacillus rhamnosus 10,000 MMU CELLS/CAPSULE PO SCH ×3 (08:00→20:00)
[2019-01-08] MEDS: docusate sod 100mg capsule PO SCH ×2 (08:00→18:39)
[2019-01-08] MEDS: multivitamins, therapeutics tablet PO SCH ×2 (08:00→08:44)
[2019-01-08] MEDS: BUDESONIDE 0.25 MG/2 ML AMPUL.NEB IH SCH ×2 (08:00→19:08)
[2019-01-08] MEDS: vitamin B comp w/Vit. C tab 1 TAB TABLET PO SCH ×2 (08:00→08:44)
[2019-01-08] MEDS: amox tr/potassium clavulanate 875/125mg TAB PO SCH ×2 (08:30→17:36)
[2019-01-08] MEDS: fenofibrate 145mg tablet PO SCH ×2 (08:30→08:44)
[2019-01-08] MEDS: ferrous sulfate 325mg tablet PO SCH ×3 (08:30→17:37)
[2019-01-08] MEDS: traMADol 50MG tablet PO SCH ×3 (08:41→20:01)
[2019-01-08] MEDS: famotidine 20mg tablet PO SCH ×2 (08:41→19:59)
[2019-01-08] MEDS: furosemide 40mg tablet PO SCH (08:41)
[2019-01-08] MEDS: carvedilol 6.25mg tablet PO SCH ×2 (08:42→20:00)
[2019-01-08] MEDS: lisinopril 5mg tablet PO SCH (08:42)
[2019-01-08] MEDS: montelukast 10mg tablet PO SCH (08:43)
[2019-01-08] MEDS: folic acid 1mg tablet PO SCH (08:43)
[2019-01-08] MEDS: aspirin 81mg tab.chew PO SCH (08:44)
[2019-01-08] MEDS: thiamine 100mg tablet PO SCH (08:44)
[2019-01-08] MEDS: heparin, porcine 5000 units/ml vial SQ SCH ×2 (08:45→20:01)
[2019-01-08 11:00] VITALS: BP 117/56
--- NOTE | 2019-01-08 12:00 | NUR ---
reassessment: Pt PO 25-50% carb controlled soft to chew meals. Glucerna TIDWM added since receiving ONS prior to diet advancement from clear liquids. LBM 01/07 diarrhea documented but volume not documented; last imudium dose 01/06. CAROL d/w RN regarding Mg replacement per MD approval since . today on lasix. Will continue to monitor for ONS acceptance and additional protein needs. Rec. 1. continue carb controlled/soft to chew diet per MD 2. Glucerna TIDWM 3. Wt per rx Addendum: 01/08/19 at [address] Amended: Links added.
[2019-01-08] MEDS ORDERED: NUT.TX.GLUC.INTOLER,LAC-FR,SOY (GLUCERNA) 237 ML PO SCH (13:00)
[2019-01-08 15:00] VITALS: BP 121/63
[2019-01-08] MEDS: HYDROcodone/acetaminophen 5mg/325mg tablet PO PRN (17:37)
[2019-01-08 18:00] VITALS: BP 125/62
--- NOTE | 2019-01-08 18:29 | NUR ---
Student Medication Administration: For this medication-pass time frame, all medication were reviewed, dispensed, administered and documented per hospital policy by MARISSA Sapp.
--- NOTE | 2019-01-08 18:29 | NUR ---
Student documentation: I have reviewed and agree with all interventions, assessments performed and documented by MARISSA Sapp.
--- NOTE | 2019-01-08 18:29 | NUR ---
Problems reprioritized. Patient report given, questions answered & plan of care reviewed with MARISSA Mo.
--- NOTE | 2019-01-08 18:45 | NUR ---
Patient in room U 3020. I have received report from MARISSA Diaz and had the opportunity to ask questions and assume patient care. Addendum: 01/08/19 at 1845 by Chely Ramirez RN Amended: Links added.
[2019-01-08] MEDS: ondansetron/PF 4mg/2ml inj IV PRN (19:30)
[2019-01-08] MEDS: atorvastatin 10mg tablet PO SCH (19:59)
[2019-01-08] MEDS: nicotine 14mg patch - 24hr TD SCH (19:59)
[2019-01-08] MEDS: Melatonin 3mg tablet PO SCH (20:00)
[2019-01-08] MEDS: tamsulosin 0.4mg capsule PO SCH (20:00)
[2019-01-08] MEDS: insulin glargine (Lantus) pen - multi-dose SQ SCH (21:00)
[2019-01-08 22:00] VITALS: BP 119/63
[2019-01-09] MEDS: ondansetron/PF 4mg/2ml inj IV PRN (01:14)
[2019-01-09 02:00] VITALS: BP 118/41
[2019-01-09] MEDS: ipratropium/albuterol 3ml nebule IH SCH ×6 (02:56→23:36)
[2019-01-09 05:52] LABS: ALANINE AMINOTRANSFERASE 21 U/L (12-78); ALBUMIN 1.6 G/DL (3.4-5.0); ALBUMIN/GLOBULIN RATIO 0.5 (1.1-1.5); ALKALINE PHOSPHATASE 61 IU/L (46-116); ANION GAP 12 (8-16); ASPARTATE AMINO TRANSFERASE 27 U/L (10-37); BILIRUBIN,TOTAL 0.5 MG/DL (0.1-1.0); BLOOD UREA NITROGEN 69 MG/DL (7-18); BUN/CREATININE RATIO 31.9 (5.4-32.0); CALCIUM 7.7 MG/DL (8.5-10.1); CHLORIDE 100 MMOL/L (99-107); CREATININE 2.16 MG/DL (0.60-1.10); GLUCOSE 133 MG/DL (70-104); MAGNESIUM 1.2 MG/DL (1.5-2.4); PHOSPHORUS 4.1 MG/DL (2.3-4.5); POTASSIUM 3.3 MMOL/L (3.5-5.1); SODIUM 134 MMOL/L (135-145); TOTAL CARBON DIOXIDE 22.3 MMOL/L (24-32); TOTAL PROTEIN 4.8 G/DL (6.4-8.2); eGFR 30 ML/MIN
[2019-01-09 06:00] VITALS: BP 123/67
[2019-01-09 06:11] LABS: HEMOGLOBIN 8.4 g/dl (14.0-17.9); PLATELET COUNT 282 X10'3 (140-440)
--- NOTE | 2019-01-09 06:11 | NUR ---
Problems reprioritized. Patient report given, questions answered & plan of care reviewed with MARISSA Correia. Addendum: 01/09/19 at 0611 by Chely Ramirez RN Amended: Links added.
[2019-01-09 06:12] LABS: HEMATOCRIT 24.6 % (42.0-52.0); MEAN CORPUSCULAR HEMOGLOBIN 34.3 PG (27.0-31.0); MEAN CORPUSCULAR HGB CONC 34.2 g/dL (33.0-36.5); MEAN CORPUSCULAR VOLUME 100.5 FL (78-98); MEAN PLATELET VOLUME 9.2 FL (7.4-10.4); RED BLOOD COUNT 2.45 X10'6 (4.70-6.10); RED CELL DISTRIBUTION WIDTH 14.7 % (11.5-14.5); WHITE BLOOD COUNT 10.6 X10'3 (4.5-11.0)
--- NOTE | 2019-01-09 06:30 | NUR ---
Patient in room PCU 3020. I have received report from Chely ANN and had the opportunity to ask questions and assume patient care. Patient resting comfortably in bed. In no acute distress. Will continue to monitor.
[2019-01-09 06:43] LABS: TOTAL CELLS COUNTED 100
[2019-01-09 06:44] LABS: HYPOCHROMASIA 1+; PLATELET ESTIMATE NORMAL; TOXIC VACUOLATION 1+
[2019-01-09] MEDS: lactose-reduced food (Ensure High Protein) 237ml bottle PO SCH ×2 (07:30→17:30)
[2019-01-09] MEDS: docusate sod 100mg capsule PO SCH ×2 (08:00→21:36)
[2019-01-09] MEDS: folic acid 1mg tablet PO SCH (08:00)
[2019-01-09] MEDS: lactobacillus rhamnosus 10,000 MMU CELLS/CAPSULE PO SCH ×2 (08:00→21:37)
[2019-01-09] MEDS: multivitamins, therapeutics tablet PO SCH (08:00)
[2019-01-09] MEDS: BUDESONIDE 0.25 MG/2 ML AMPUL.NEB IH SCH ×2 (08:21→19:22)
[2019-01-09] MEDS: amox tr/potassium clavulanate 875/125mg TAB PO SCH ×2 (08:30→09:04)
[2019-01-09] MEDS: lisinopril 5mg tablet PO SCH (09:00)
[2019-01-09] MEDS: montelukast 10mg tablet PO SCH (09:00)
[2019-01-09] MEDS: vitamin B comp w/Vit. C tab 1 TAB TABLET PO SCH (09:01)
[2019-01-09] MEDS: carvedilol 6.25mg tablet PO SCH ×2 (09:01→21:42)
[2019-01-09] MEDS: furosemide 40mg tablet PO SCH (09:01)
[2019-01-09] MEDS: thiamine 100mg tablet PO SCH (09:01)
[2019-01-09] MEDS: fenofibrate 145mg tablet PO SCH (09:01)
[2019-01-09] MEDS: ferrous sulfate 325mg tablet PO SCH ×2 (09:02→17:50)
[2019-01-09] MEDS: traMADol 50MG tablet PO SCH ×3 (09:02→21:50)
[2019-01-09] MEDS: famotidine 20mg tablet PO SCH ×2 (09:02→21:36)
[2019-01-09] MEDS: aspirin 81mg tab.chew PO SCH (09:02)
[2019-01-09] MEDS: heparin, porcine 5000 units/ml vial SQ SCH ×2 (09:04→21:45)
--- NOTE | 2019-01-09 09:15 | NUR ---
Patient refused to take 0800 dose of augmentin. Patient stated it upsets his stomach. Offered patient PRN zofran and patient refused.
[2019-01-09 11:00] VITALS: BP 105/56
[2019-01-09 11:21] LABS: HBSAG SCREEN Negative (Negative)
[2019-01-09] MEDS ORDERED: LIDOcaine 1% 30ml vial 5 ML in potassium Cl 40MEQ/NS 500ml 500 ML IV ONE (11:45)
[2019-01-09 15:00] VITALS: BP 136/60
[2019-01-09 18:00] VITALS: BP 119/68
--- NOTE | 2019-01-09 18:35 | NUR ---
Problems reprioritized. Patient report given, questions answered & plan of care reviewed with Bren Soto.
--- NOTE | 2019-01-09 18:49 | NUR ---
Problems reprioritized. Patient report given, questions answered & plan of care reviewed with Saundra ANN.
[2019-01-09] MEDS: nicotine 14mg patch - 24hr TD SCH (20:00)
[2019-01-09] MEDS: insulin glargine (Lantus) pen - multi-dose SQ SCH (21:00)
[2019-01-09] MEDS: piperacillin/tazo 3.375gm/50ml 50 ML IV SCH (21:34)
[2019-01-09] MEDS: Melatonin 3mg tablet PO SCH (21:36)
[2019-01-09] MEDS: tamsulosin 0.4mg capsule PO SCH (21:38)
[2019-01-09] MEDS: atorvastatin 10mg tablet PO SCH (21:38)
[2019-01-09 22:00] VITALS: BP 107/50
[2019-01-10 02:00] VITALS: BP 115/65
[2019-01-10] MEDS: ipratropium/albuterol 3ml nebule IH SCH ×6 (03:37→23:47)
--- NOTE | 2019-01-10 04:05 | NUR ---
Patient took a wahs cloth for his hands and face at beginning of shift, but declined a bed bath stating that he just wanted to sleep. Cruz care to be given. Addendum: 01/10/19 at 0410 by Saundra Daly RN Amended: Links added.
[2019-01-10] MEDS: HYDROcodone/acetaminophen 5mg/325mg tablet PO PRN (04:18)
[2019-01-10 05:50] LABS: BASOPHILS # (AUTO) 0.1 X10'3 (0-0.2); BASOPHILS % (AUTO) 0.7 % (0-1); EOSINOPHILS # (AUTO) 0.1 X10'3 (0-0.9); EOSINOPHILS % (AUTO) 1.4 % (0-6); HEMATOCRIT 23.3 % (42.0-52.0); HEMOGLOBIN 7.9 g/dl (14.0-17.9); LYMPHOCYTES # (AUTO) 0.8 X10'3 (1.1-4.8); LYMPHOCYTES % (AUTO) 10.2 % (21-51); MEAN CORPUSCULAR HEMOGLOBIN 34.1 PG (27.0-31.0); MEAN CORPUSCULAR VOLUME 100.2 FL (78-98); MEAN PLATELET VOLUME 8.9 FL (7.4-10.4); MONOCYTES # (AUTO) 0.6 X10'3 (0-0.9); MONOCYTES % (AUTO) 8.1 % (2-12); NEUTROPHILS # (AUTO) 6.2 X10'3 (1.8-7.7); NEUTROPHILS % (AUTO) 79.6 % (42-75); PLATELET COUNT 296 X10'3 (140-440); RED BLOOD COUNT 2.33 X10'6 (4.70-6.10); RED CELL DISTRIBUTION WIDTH 14.8 % (11.5-14.5); WHITE BLOOD COUNT 7.8 X10'3 (4.5-11.0)
[2019-01-10 06:00] VITALS: BP 113/53
--- NOTE | 2019-01-10 06:00 | NUR ---
Patient in room PCU 3020. I have received report from Judit and had the opportunity to ask questions and assume patient care. Patient was sleeping comfortably, and observed no distress with breathing.
[2019-01-10 06:17] LABS: ALANINE AMINOTRANSFERASE 20 U/L (12-78); ALBUMIN 1.6 G/DL (3.4-5.0); ALBUMIN/GLOBULIN RATIO 0.5 (1.1-1.5); ALKALINE PHOSPHATASE 52 IU/L (46-116); ANION GAP 12 (8-16); ASPARTATE AMINO TRANSFERASE 28 U/L (10-37); BILIRUBIN,TOTAL 0.5 MG/DL (0.1-1.0); BLOOD UREA NITROGEN 66 MG/DL (7-18); BUN/CREATININE RATIO 30.3 (5.4-32.0); CALCIUM 7.8 MG/DL (8.5-10.1); CHLORIDE 101 MMOL/L (99-107); CREATININE 2.18 MG/DL (0.60-1.10); GLUCOSE 109 MG/DL (70-104); MAGNESIUM 1.2 MG/DL (1.5-2.4); PHOSPHORUS 3.3 MG/DL (2.3-4.5); POTASSIUM 3.2 MMOL/L (3.5-5.1); SODIUM 137 MMOL/L (135-145); TOTAL CARBON DIOXIDE 24.3 MMOL/L (24-32); TOTAL PROTEIN 4.7 G/DL (6.4-8.2); eGFR 30 ML/MIN
--- NOTE | 2019-01-10 06:30 | NUR ---
Patient in room PCU 3020. I have received report from Saundra ANN and had the opportunity to ask questions and assume patient care.
--- NOTE | 2019-01-10 06:36 | NUR ---
Problems reprioritized. Patient report given, questions answered & plan of care reviewed with Bren hogan.
[2019-01-10] MEDS ORDERED: LIDOcaine 1% 30ml vial 5 ML in potassium Cl 40MEQ/NS 500ml 500 ML IV NR (06:50)
[2019-01-10 07:06] LABS: TOTAL CELLS COUNTED 100
[2019-01-10 07:07] LABS: PLATELET ESTIMATE NORMAL
[2019-01-10] MEDS: lactose-reduced food (Ensure High Protein) 237ml bottle PO SCH ×2 (07:30→17:30)
[2019-01-10] MEDS: lactobacillus rhamnosus 10,000 MMU CELLS/CAPSULE PO SCH ×2 (07:35→20:30)
[2019-01-10] MEDS: vitamin B comp w/Vit. C tab 1 TAB TABLET PO SCH (07:35)
[2019-01-10] MEDS: lisinopril 5mg tablet PO SCH (07:35)
[2019-01-10] MEDS: aspirin 81mg tab.chew PO SCH (07:35)
[2019-01-10] MEDS: famotidine 20mg tablet PO SCH ×2 (07:36→20:30)
[2019-01-10] MEDS: furosemide 40mg tablet PO SCH (07:36)
[2019-01-10] MEDS: montelukast 10mg tablet PO SCH (07:36)
[2019-01-10] MEDS: multivitamins, therapeutics tablet PO SCH (07:36)
[2019-01-10] MEDS: thiamine 100mg tablet PO SCH (07:36)
[2019-01-10] MEDS: carvedilol 6.25mg tablet PO SCH ×2 (07:36→20:29)
[2019-01-10] MEDS: piperacillin/tazo 3.375gm/50ml 50 ML IV SCH ×2 (07:37→20:38)
[2019-01-10] MEDS: folic acid 1mg tablet PO SCH (07:37)
[2019-01-10] MEDS: heparin, porcine 5000 units/ml vial SQ SCH ×2 (07:38→20:31)
[2019-01-10] MEDS: traMADol 50MG tablet PO SCH ×3 (07:41→20:30)
[2019-01-10] MEDS: BUDESONIDE 0.25 MG/2 ML AMPUL.NEB IH SCH ×2 (07:57→19:53)
[2019-01-10] MEDS: docusate sod 100mg capsule PO SCH ×2 (08:00→20:00)
[2019-01-10 11:00] VITALS: BP 113/51
[2019-01-10] MEDS: ferrous sulfate 325mg tablet PO SCH ×2 (11:34→16:53)
[2019-01-10] MEDS: fenofibrate 145mg tablet PO SCH (11:34)
[2019-01-10 15:00] VITALS: BP 108/54
[2019-01-10 18:00] VITALS: BP 147/67
--- NOTE | 2019-01-10 18:41 | NUR ---
Patient in room PCU 3020. I have received report from Reji RN/MARISSA Correia and had the opportunity to ask questions and assume patient care.
--- NOTE | 2019-01-10 19:02 | NUR ---
Problems reprioritized. Patient report given, questions answered & plan of care reviewed with Cher ANN.
--- NOTE | 2019-01-10 19:04 | NUR ---
[place] documentation: I have reviewed and agree with all interventions, assessments performed and documented by Reji ANN. [place] Medication Administration: For this medication-pass time frame, all medication were reviewed, dispensed, administered and documented per hospital policy by Reji ANN.
[2019-01-10] MEDS: atorvastatin 10mg tablet PO SCH (20:29)
[2019-01-10] MEDS: tamsulosin 0.4mg capsule PO SCH (20:29)
[2019-01-10] MEDS: Melatonin 3mg tablet PO SCH (20:29)
[2019-01-10] MEDS: magnesium Cl slow-release 64mg tablet PO SCH (20:30)
[2019-01-10] MEDS: nicotine 14mg patch - 24hr TD SCH (20:31)
[2019-01-10] MEDS: insulin glargine (Lantus) pen - multi-dose SQ SCH (21:00)
[2019-01-10 22:00] VITALS: BP 135/54
[2019-01-11 02:00] VITALS: BP 121/52
[2019-01-11] MEDS: ipratropium/albuterol 3ml nebule IH SCH ×6 (03:53→23:37)
[2019-01-11 06:00] VITALS: BP 113/53
--- NOTE | 2019-01-11 06:25 | NUR ---
Patient in room PCU 3020. I have received report from MARISSA BANG and had the opportunity to ask questions and assume patient care.
--- NOTE | 2019-01-11 06:30 | NUR ---
Problems reprioritized. Patient report given, questions answered & plan of care reviewed with MARISSA Cuevas.
[2019-01-11 06:42] LABS: BASOPHILS # (AUTO) 0.1 X10'3 (0-0.2); BASOPHILS % (AUTO) 0.9 % (0-1); EOSINOPHILS # (AUTO) 0.1 X10'3 (0-0.9); HEMATOCRIT 23.9 % (42.0-52.0); HEMOGLOBIN 8.2 g/dl (14.0-17.9); LYMPHOCYTES # (AUTO) 0.8 X10'3 (1.1-4.8); LYMPHOCYTES % (AUTO) 10.9 % (21-51); MEAN CORPUSCULAR HEMOGLOBIN 34.4 PG (27.0-31.0); MEAN CORPUSCULAR HGB CONC 34.5 g/dL (33.0-36.5); MEAN CORPUSCULAR VOLUME 99.6 FL (78-98); MEAN PLATELET VOLUME 9.1 FL (7.4-10.4); MONOCYTES # (AUTO) 0.6 X10'3 (0-0.9); MONOCYTES % (AUTO) 8.9 % (2-12); NEUTROPHILS # (AUTO) 5.5 X10'3 (1.8-7.7); NEUTROPHILS % (AUTO) 77.3 % (42-75); PLATELET COUNT 298 X10'3 (140-440); RED CELL DISTRIBUTION WIDTH 14.7 % (11.5-14.5); WHITE BLOOD COUNT 7.1 X10'3 (4.5-11.0)
[2019-01-11 06:50] LABS: ALANINE AMINOTRANSFERASE 26 U/L (12-78); ALBUMIN 1.6 G/DL (3.4-5.0); ALBUMIN/GLOBULIN RATIO 0.5 (1.1-1.5); ALKALINE PHOSPHATASE 51 IU/L (46-116); ANION GAP 10 (8-16); ASPARTATE AMINO TRANSFERASE 29 U/L (10-37); BILIRUBIN,TOTAL 0.5 MG/DL (0.1-1.0); BLOOD UREA NITROGEN 63 MG/DL (7-18); CALCIUM 8.2 MG/DL (8.5-10.1); CHLORIDE 98 MMOL/L (99-107); CREATININE 2.17 MG/DL (0.60-1.10); GLUCOSE 110 MG/DL (70-104); MAGNESIUM 1.2 MG/DL (1.5-2.4); PHOSPHORUS 3.3 MG/DL (2.3-4.5); POTASSIUM 3.4 MMOL/L (3.5-5.1); SODIUM 132 MMOL/L (135-145); TOTAL CARBON DIOXIDE 23.6 MMOL/L (24-32); TOTAL PROTEIN 4.8 G/DL (6.4-8.2); eGFR 30 ML/MIN
[2019-01-11] MEDS: lactose-reduced food (Ensure High Protein) 237ml bottle PO SCH ×2 (07:30→17:30)
[2019-01-11] MEDS: thiamine 100mg tablet PO SCH (08:00)
[2019-01-11] MEDS: lactobacillus rhamnosus 10,000 MMU CELLS/CAPSULE PO SCH ×2 (08:00→20:29)
[2019-01-11] MEDS: multivitamins, therapeutics tablet PO SCH (08:00)
[2019-01-11] MEDS: docusate sod 100mg capsule PO SCH ×2 (08:00→20:00)
[2019-01-11] MEDS: vitamin B comp w/Vit. C tab 1 TAB TABLET PO SCH (08:00)
[2019-01-11] MEDS: folic acid 1mg tablet PO SCH (08:00)
[2019-01-11] MEDS: BUDESONIDE 0.25 MG/2 ML AMPUL.NEB IH SCH ×2 (08:01→19:29)
[2019-01-11] MEDS: fenofibrate 145mg tablet PO SCH (08:30)
[2019-01-11] MEDS: magnesium Cl slow-release 64mg tablet PO SCH ×2 (08:49→20:30)
[2019-01-11] MEDS: famotidine 20mg tablet PO SCH ×2 (08:49→20:30)
[2019-01-11] MEDS: montelukast 10mg tablet PO SCH (08:49)
[2019-01-11] MEDS: aspirin 81mg tab.chew PO SCH (08:49)
[2019-01-11] MEDS: ferrous sulfate 325mg tablet PO SCH ×2 (08:49→17:58)
[2019-01-11] MEDS: traMADol 50MG tablet PO SCH ×3 (08:50→20:31)
[2019-01-11] MEDS: lisinopril 5mg tablet PO SCH (08:50)
[2019-01-11] MEDS: furosemide 40mg tablet PO SCH (08:50)
[2019-01-11] MEDS: carvedilol 6.25mg tablet PO SCH ×2 (08:50→20:29)
[2019-01-11] MEDS: heparin, porcine 5000 units/ml vial SQ SCH ×2 (08:52→20:33)
[2019-01-11] MEDS: piperacillin/tazo 3.375gm/50ml 50 ML IV SCH ×2 (09:04→20:35)
--- NOTE | 2019-01-11 10:11 | NUR ---
refused boost drink Addendum: 01/11/19 at 1011 by Faith Holcomb RN Amended: Links added.
[2019-01-11 11:00] VITALS: BP 100/56
--- NOTE | 2019-01-11 11:47 | NUR ---
Reassessment: SILVANO resolved and pt with EF 45% per MD progress notes. Pt continues CHO controlled soft to chew diet with documented PO intake 0-25% however increased intake of 100% at breakfast this AM. Pt receiving ONS with intake 50% and 75% 01/10 however refused this AM. Pt likely meeting nutrient needs this AM. Per physical assessment pt with difficulty clearing secretions, RD consulted MOTEL FRONT DESK ATTENDANT for BSS. Per MOTEL FRONT DESK ATTENDANT pt has chest discomfort when swallowing however no aspiration noted and pt has difficulty with regular solids. MOTEL FRONT DESK ATTENDANT has downgraded patient's diet to pureed food and thin liquids. LBM 01/11. Will continue to follow and make recommendations as appropriate. Rec. 1. continue carb controlled/pureed food with thin liq per MOTEL FRONT DESK ATTENDANT 2. Glucerna TIDWM 3. Wt per rx Addendum: 01/11/19 at [address] Amended: Links added.
[2019-01-11 15:00] VITALS: BP 107/42
--- NOTE | 2019-01-11 18:15 | NUR ---
Received report from Faith ANN pt is awake on RA, in no apaprent distress
--- NOTE | 2019-01-11 18:25 | NUR ---
Problems reprioritized. Patient report given, questions answered & plan of care reviewed with MARISSA CARRILLO.
[2019-01-11 19:00] VITALS: BP 116/48
[2019-01-11] MEDS: tamsulosin 0.4mg capsule PO SCH (20:30)
[2019-01-11] MEDS: Melatonin 3mg tablet PO SCH (20:32)
[2019-01-11] MEDS: atorvastatin 10mg tablet PO SCH (20:32)
[2019-01-11] MEDS: nicotine 14mg patch - 24hr TD SCH (20:33)
[2019-01-11] MEDS: insulin glargine (Lantus) pen - multi-dose SQ SCH (20:58)
[2019-01-11 23:16] VITALS: BP 111/49
[2019-01-12] MEDS: ipratropium/albuterol 3ml nebule IH SCH ×3 (02:47→11:16)
[2019-01-12 03:00] VITALS: BP 127/71
[2019-01-12 06:21] LABS: BASOPHILS # (AUTO) 0.1 X10'3 (0-0.2); EOSINOPHILS # (AUTO) 0.1 X10'3 (0-0.9); HEMOGLOBIN 7.4 g/dl (14.0-17.9); LYMPHOCYTES % (AUTO) 15.3 % (21-51); MEAN CORPUSCULAR HEMOGLOBIN 34.6 PG (27.0-31.0); MEAN CORPUSCULAR HGB CONC 34.6 g/dL (33.0-36.5); MEAN CORPUSCULAR VOLUME 100.2 FL (78-98); MEAN PLATELET VOLUME 8.9 FL (7.4-10.4); MONOCYTES # (AUTO) 0.6 X10'3 (0-0.9); MONOCYTES % (AUTO) 9.2 % (2-12); NEUTROPHILS # (AUTO) 4.7 X10'3 (1.8-7.7); NEUTROPHILS % (AUTO) 72.5 % (42-75); PLATELET COUNT 285 X10'3 (140-440); RED BLOOD COUNT 2.14 X10'6 (4.70-6.10); RED CELL DISTRIBUTION WIDTH 14.7 % (11.5-14.5); WHITE BLOOD COUNT 6.5 X10'3 (4.5-11.0)
--- NOTE | 2019-01-12 06:25 | NUR ---
Patient in room PCU 3020. I have received report from MARISSA Reyes and had the opportunity to ask questions and assume patient care.
[2019-01-12 06:30] VITALS: BP 116/53
--- NOTE | 2019-01-12 06:31 | NUR ---
Gave report to Katiuska ANN pt currently getting VS taken, D/C pts F/C, pt on RA in no apparent distress
[2019-01-12 06:37] LABS: ALANINE AMINOTRANSFERASE 22 U/L (12-78); ALBUMIN 1.5 G/DL (3.4-5.0); ALBUMIN/GLOBULIN RATIO 0.5 (1.1-1.5); ALKALINE PHOSPHATASE 40 IU/L (46-116); ANION GAP 9 (8-16); ASPARTATE AMINO TRANSFERASE 28 U/L (10-37); BILIRUBIN,TOTAL 0.5 MG/DL (0.1-1.0); BLOOD UREA NITROGEN 61 MG/DL (7-18); BUN/CREATININE RATIO 27.7 (5.4-32.0); CALCIUM 7.8 MG/DL (8.5-10.1); CHLORIDE 100 MMOL/L (99-107); GLUCOSE 109 MG/DL (70-104); MAGNESIUM 1.2 MG/DL (1.5-2.4); POTASSIUM 3.2 MMOL/L (3.5-5.1); SODIUM 133 MMOL/L (135-145); TOTAL CARBON DIOXIDE 23.9 MMOL/L (24-32); TOTAL PROTEIN 4.5 G/DL (6.4-8.2); eGFR 30 ML/MIN
[2019-01-12 06:47] LABS: HEMATOCRIT 21.4 % (42.0-52.0)
[2019-01-12] MEDS: BUDESONIDE 0.25 MG/2 ML AMPUL.NEB IH SCH (07:20)
[2019-01-12 07:29] LABS: TOTAL CELLS COUNTED 100
[2019-01-12 07:30] LABS: ANISOCYTOSIS 1+; HYPOCHROMASIA 1+; PLATELET ESTIMATE NORMAL; POLYCHROMASIA 1+; ROULEAUX 1+
[2019-01-12] MEDS: lactose-reduced food (Ensure High Protein) 237ml bottle PO SCH (07:30)
[2019-01-12] MEDS: docusate sod 100mg capsule PO SCH (08:00)
[2019-01-12] MEDS: aspirin 81mg tab.chew PO SCH (09:17)
[2019-01-12] MEDS: piperacillin/tazo 3.375gm/50ml 50 ML IV SCH (09:17)
[2019-01-12] MEDS: folic acid 1mg tablet PO SCH (09:18)
[2019-01-12] MEDS: lactobacillus rhamnosus 10,000 MMU CELLS/CAPSULE PO SCH (09:18)
[2019-01-12] MEDS: carvedilol 6.25mg tablet PO SCH (09:18)
[2019-01-12] MEDS: furosemide 40mg tablet PO SCH (09:19)
[2019-01-12] MEDS: famotidine 20mg tablet PO SCH (09:19)
[2019-01-12] MEDS: magnesium Cl slow-release 64mg tablet PO SCH (09:20)
[2019-01-12] MEDS: thiamine 100mg tablet PO SCH (09:20)
[2019-01-12] MEDS: montelukast 10mg tablet PO SCH (09:20)
[2019-01-12] MEDS: multivitamins, therapeutics tablet PO SCH (09:21)
[2019-01-12] MEDS: lisinopril 5mg tablet PO SCH (09:21)
[2019-01-12] MEDS: vitamin B comp w/Vit. C tab 1 TAB TABLET PO SCH (09:21)
[2019-01-12] MEDS: fenofibrate 145mg tablet PO SCH (09:22)
[2019-01-12] MEDS: ferrous sulfate 325mg tablet PO SCH (09:22)
[2019-01-12] MEDS: traMADol 50MG tablet PO SCH ×2 (09:23→14:32)
[2019-01-12] MEDS: heparin, porcine 5000 units/ml vial SQ SCH (09:24)
[2019-01-12 11:30] VITALS: BP 99/57
[2019-01-12] MEDS ORDERED: magnesium Cl slow-release 64mg tablet PO ONE (14:15)
--- NOTE | 2019-01-12 14:30 | NUR ---
Patient discharged. PIV removed: cath tip intact. Patient is being transferred to [facility] for rehab. Patient alert and oriented.
[2019-01-13] MEDS ORDERED: HYDR-3965 PO (23:48)
[2019-01-13] MEDS ORDERED: FERR325T28 PO (23:48)
[2019-01-13] MEDS ORDERED: ATOR10TA87 PO (23:48)
[2019-01-13] MEDS ORDERED: MAGN400O6 PO (23:48)
[2019-01-13] MEDS ORDERED: OMEP40CA37 PO (23:48)
[2019-01-13] MEDS ORDERED: DOCU-20 PO (23:48)
[2019-01-13] MEDS ORDERED: IPRA3AMP31 IH (23:48)
[2019-01-13] MEDS ORDERED: FAMO20TA8 PO (23:48)
[2019-01-13] MEDS ORDERED: LOPE2CAP PO (23:48)
[2019-01-13] MEDS ORDERED: MULT-685 PO (23:48)
[2019-01-13] MEDS ORDERED: NICO-630 TOP (23:48)
[2019-01-13] MEDS ORDERED: BUDE0.5A11 IH (23:48)
[2019-01-13] MEDS ORDERED: MELA3TAB PO (23:48)
[2019-01-13] MEDS ORDERED: THIA100T66 PO (23:48)
[2019-01-13] MEDS ORDERED: LISI10TA4 PO (23:48)
[2019-01-13] MEDS ORDERED: FLO0.4C PO (23:48)
[2019-01-13] MEDS ORDERED: HEPA1DIS10 (23:48)
== END 2019-01-12 14:40 | DRG 682 ==
LOC: ER 09:21 → ED HOLD 14:13 → CICU 2S 15:27 → MED 3N 01-01 14:22 → PCU 3S 01-02 10:53
PROVIDERS: ADMIT Internal Medicine Critical Care Medicine; ATTEND Internal Medicine Critical Care Medicine
PROC: 3E02340 Introduction of Influenza Vaccine into Muscle, Percutaneous Approach (ICD-10-PCS; principal; 2019-01-01)
PROC: 3E0234Z Introduction of Serum, Toxoid and Vaccine into Muscle, Percutaneous Approach (ICD-10-PCS; 2019-01-01)
PROC: 30233N1 Transfusion of Nonautologous Red Blood Cells into Peripheral Vein, Percutaneous Approach (ICD-10-PCS; 2019-01-03)
DX: N17.9 Acute kidney failure, unspecified (principal); I50.23 Acute on chronic systolic (congestive) heart failure; I13.0 Hypertensive heart and chronic kidney disease with heart failure and stage 1 through stage 4 chronic kidney disease, or unspecified chronic kidney disease; K57.92 Diverticulitis of intestine, part unspecified, without perforation or abscess without bleeding; N18.4 Chronic kidney disease, stage 4 (severe); I95.9 Hypotension, unspecified; E11.22 Type 2 diabetes mellitus with diabetic chronic kidney disease; E78.00 Pure hypercholesterolemia, unspecified; S91.301A Unspecified open wound, right foot, initial encounter; E78.5 Hyperlipidemia, unspecified; F17.210 Nicotine dependence, cigarettes, uncomplicated; R33.9 Retention of urine, unspecified; G89.29 Other chronic pain; I25.10 Atherosclerotic heart disease of native coronary artery without angina pectoris; X58.XXXA Exposure to other specified factors, initial encounter; D50.9 Iron deficiency anemia, unspecified; J44.9 Chronic obstructive pulmonary disease, unspecified; K21.9 Gastro-esophageal reflux disease without esophagitis; M10.9 Gout, unspecified; F10.20 Alcohol dependence, uncomplicated; M54.9 Dorsalgia, unspecified; R00.0 Tachycardia, unspecified; Z71.41 Alcohol abuse counseling and surveillance of alcoholic; Z79.84 Long term (current) use of oral hypoglycemic drugs; Z95.5 Presence of coronary angioplasty implant and graft; Z23 Encounter for immunization; Z91.012 Allergy to eggs; Z79.899 Other long term (current) drug therapy; Z79.82 Long term (current) use of aspirin; Z71.6 Tobacco abuse counseling; Y93.89 Activity, other specified; Y92.89 Other specified places as the place of occurrence of the external cause; Y99.8 Other external cause status
CPT/HCPCS: 36415; 71045; 73630; 73660; 74176; 80053; 81001; 82272; 82570; 82728; 82948; 83036; 83540; 83550; 83605; 83735; 83880; 84100; 84132; 84145; 84300; 84484; 85025; 85027; 86885; 86900; 86901; 86920; 87040; 87070; 87088; 87207; 87324; 87340; 87449; 90732; 92616; 93005; 93306; 93922; 93925; 93970; 94640; 94760; 96360; 96361; 97110; 97162; 97530; 99285; G0378; J0780; J1644; J1815; J2270; J2405; J2543; J3480; J3490; J7030; P9016

== ENCOUNTER 2019-01-13 23:22 | Inpatient (IN) | payer OTHER, MEDICARE ==
[~2019-01-13] VITALS: Ht 177.8 cm; Wt 95.8 kg
[~2019-01-13 23:22] MED LIST changes: +CARV-50 PO; -COR3.125T PO; +ERGO500041 PO; +IBUP-24 PO; +TRAM50TA2 PO
[2019-01-13] MEDS ORDERED: FLO0.4C PO (23:48)
[2019-01-13] MEDS ORDERED: BUDE0.5A11 IH (23:48)
[2019-01-13] MEDS ORDERED: THIA100T66 PO (23:48)
[2019-01-13] MEDS ORDERED: IPRA3AMP31 IH (23:48)
[2019-01-13] MEDS ORDERED: FAMO20TA8 PO (23:48)
[2019-01-13] MEDS ORDERED: MELA3TAB PO (23:48)
[2019-01-13] MEDS ORDERED: HYDR-3965 PO (23:48)
[2019-01-13] MEDS ORDERED: DOCU-20 PO (23:48)
[2019-01-13] MEDS ORDERED: OMEP40CA37 PO (23:48)
[2019-01-13] MEDS ORDERED: MAGN400O6 PO (23:48)
[2019-01-13] MEDS ORDERED: FERR325T28 PO (23:48)
[2019-01-13] MEDS ORDERED: MULT-685 PO (23:48)
[2019-01-13] MEDS ORDERED: LOPE2CAP PO (23:48)
[2019-01-13] MEDS ORDERED: NICO-630 TOP (23:48)
[2019-01-13] MEDS ORDERED: ATOR10TA87 PO (23:48)
[2019-01-13] MEDS ORDERED: LISI10TA4 PO (23:48)
[2019-01-13] MEDS ORDERED: HEPA1DIS10 (23:48)
--- NOTE | 2019-01-13 23:51 | NUR ---
pictures of wounds on bilat feet taken and added to chart
[2019-01-14] VITALS (11 sets, daily range): BP systolic 86–115; BP diastolic 40–60
[2019-01-14 00:10] LABS: BASOPHILS # (AUTO) 0.1 X10'3 (0-0.2); EOSINOPHILS # (AUTO) 0.1 X10'3 (0-0.9); HEMATOCRIT 22.4 % (42.0-52.0); HEMOGLOBIN 7.6 g/dl (14.0-17.9); LYMPHOCYTES # (AUTO) 1.2 X10'3 (1.1-4.8); LYMPHOCYTES % (AUTO) 14.9 % (21-51); MEAN CORPUSCULAR HEMOGLOBIN 33.5 PG (27.0-31.0); MEAN CORPUSCULAR HGB CONC 33.7 g/dL (33.0-36.5); MEAN CORPUSCULAR VOLUME 99.3 FL (78-98); MEAN PLATELET VOLUME 8.6 FL (7.4-10.4); MONOCYTES # (AUTO) 0.7 X10'3 (0-0.9); MONOCYTES % (AUTO) 8.3 % (2-12); NEUTROPHILS # (AUTO) 6.2 X10'3 (1.8-7.7); NEUTROPHILS % (AUTO) 74.8 % (42-75); PLATELET COUNT 332 X10'3 (140-440); RED BLOOD COUNT 2.26 X10'6 (4.70-6.10); RED CELL DISTRIBUTION WIDTH 14.5 % (11.5-14.5); WHITE BLOOD COUNT 8.2 X10'3 (4.5-11.0)
[2019-01-14 00:16] LABS: ALANINE AMINOTRANSFERASE 27 U/L (12-78); ALBUMIN 1.8 G/DL (3.4-5.0); ALBUMIN/GLOBULIN RATIO 0.6 (1.1-1.5); ALKALINE PHOSPHATASE 44 IU/L (46-116); ANION GAP 6 (8-16); ASPARTATE AMINO TRANSFERASE 24 U/L (10-37); BILIRUBIN,TOTAL 0.4 MG/DL (0.1-1.0); BLOOD UREA NITROGEN 67 MG/DL (7-18); BUN/CREATININE RATIO 28.9 (5.4-32.0); CALCIUM 8.4 MG/DL (8.5-10.1); CHLORIDE 100 MMOL/L (99-107); CREATININE 2.32 MG/DL (0.60-1.10); GLUCOSE 144 MG/DL (70-104); POTASSIUM 3.1 MMOL/L (3.5-5.1); SODIUM 133 MMOL/L (135-145); TOTAL CARBON DIOXIDE 27.3 MMOL/L (24-32); TOTAL PROTEIN 4.9 G/DL (6.4-8.2); eGFR 28 ML/MIN
--- NOTE | 2019-01-14 00:16 | NUR ---
pt is nauseaus and painful to his abdomen. labs drawn, straight cathed (well tolerated), hr 101, otherwise vss. photos taken of pt's wound to his toes. awaiting er md. pt just called his she will be in to see him shortly.
[2019-01-14 00:17] LABS: INR 1.3 INR; PROTHROMBIN TIME 12.7 SECONDS (9.0-12.0)
--- NOTE | 2019-01-14 00:32 | NUR ---
DR. EDWARDS UPDATED THAT PT PAINFUL IN HIS ABDOMEN AND IS NAUSEAUS. SHE WILL ORDER ZOFRAN AND SEE HIM SHORTLY AND THEN DECIDE ON PAIN MEDS. PT BOOSTED UP IN BED TO HELP WITH PAIN AND RR OF 26. CURRENT VSS.
[2019-01-14 00:37] LABS: CLARITY,URINE CLEAR (Clear); COLOR,URINE YELLOW (Yellow); GLUCOSE, URINE NEGATIVE (Neg); KETONES,URINE NEGATIVE (Neg); LEUKOCYTE ESTERASE ,URINE NEGATIVE (Neg); NITRITES, URINE NEGATIVE (Neg); OCCULT BLOOD,URINE NEGATIVE (Neg); PH,URINE 5.5 (4.8-8.0); PROTEIN,URINE NEGATIVE (Neg); UROBILINOGEN,URINE 0.2 E.U/dL (0.2-1.0)
[2019-01-14 00:40] LABS: UA COLLECTION TYPE STRAIGHT CATH
[2019-01-14] MEDS ORDERED: ondansetron/PF 4mg/2ml inj IV ONE (01:00)
--- NOTE | 2019-01-14 01:05 | NUR ---
to ct for ct abdomen no contrast. just given zofran iv
[2019-01-14] MEDS ORDERED: mag hydrox/Alum hydrox/simeth 30ml oral suspension PO PRN (01:10)
[2019-01-14] MEDS ORDERED: glucagon, human recombinant 1mg kit SUBCUT PRN (01:10)
[2019-01-14] MEDS ORDERED: insulin Lispro (HumaLOG) vial - multi-dose SQ SCH (01:10)
[2019-01-14] MEDS ORDERED: magnesium hydroxide 30ml (MOM) UD suspension PO PRN ×2 (01:10→01:15)
[2019-01-14] MEDS ORDERED: ondansetron/PF 4mg/2ml inj IV PRN (01:10)
[2019-01-14] MEDS ORDERED: potassium Cl 20 mEq SR tablet PO PRN (01:10)
[2019-01-14] MEDS ORDERED: potassium Cl 40MEQ/NS 500ml 500 ML IV PRN ×2 (01:10)
[2019-01-14] MEDS ORDERED: dextrose 50%-water 50ml dispensing syringe IV PRN ×2 (01:10)
[2019-01-14] MEDS ORDERED: dextrose ORAL solution 15 GM/59 ML bottle PO PRN ×2 (01:10)
[2019-01-14] MEDS ORDERED: acetaminophen 325mg tablet PO PRN (01:10)
[2019-01-14] MEDS ORDERED: MESSAGE TO PHARMACY PO ONE (01:10)
[2019-01-14] MEDS ORDERED: loperamide 2mg capsule PO PRN (01:15)
[2019-01-14] MEDS ORDERED: albuterol 2.5 MG/3 ML nebule NEB PRN (01:15)
--- NOTE | 2019-01-14 01:20 | NUR ---
DR STEELE AT BEDSIDE AND TALKING WITH DR. DUNN. PT TO BE TAKEN TO GI LAB FOR ENDOSCOPY SHORTLY.
[2019-01-14] MEDS ORDERED: pantoprazole 40 MG vial IV ONE (01:30)
--- NOTE | 2019-01-14 01:44 | NUR ---
PT'S RHEA AT BEDSIDE NOW. DR. DUNN TALKING WITH HER ABOUT PLAN OF CARE. PT TO BE ADMITTED TO MEDICAL LEVEL WITH TELE. AWAITING IPA. VOMITING 200 CC'S WATERY RED WITH COFFE GROUND . GASTROCULT POSITIVE.
--- NOTE | 2019-01-14 01:53 | NUR ---
PT TAKEN TO GI LAB. FOLLOWING.
[2019-01-14] MEDS ORDERED: LIDOcaine Viscous 15ml cup ONE (02:02)
[2019-01-14] MEDS ORDERED: MIDAZolam 5mg/5ml vial ONE (02:02)
[2019-01-14] MEDS ORDERED: fentaNYL/PF 50MCG/1 ML 2ML syringe ONE (02:02)
--- NOTE | 2019-01-14 02:50 | NUR ---
ADMITTED A 68 Y.O. MALE FROM [facility] TO ROOM 351.
[2019-01-14] MEDS: normal saline 1000ml 1,000 ML IV SCH ×3 (03:03→17:00)
[2019-01-14 03:06] LABS: OCCULT BLOOD STOOL POSITIVE (Neg)
[2019-01-14 03:07] LABS: GASTRIC OCCULT BLOOD POSITIVE (Neg)
[2019-01-14] MEDS: pantoprazole 40MG/NS 100ML BAG 100 ML IV SCH ×4 (03:34→20:04)
[2019-01-14] MEDS: ipratropium/albuterol 3ml nebule IH SCH ×6 (04:01→22:53)
[2019-01-14] MEDS ORDERED: MIDAZolam 5mg/ml 2ml vial IV ONE (04:05)
[2019-01-14] MEDS ORDERED: fentaNYL/PF 50MCG/1 ML 2ML syringe IV ONE (04:05)
--- NOTE | 2019-01-14 06:15 | NUR ---
Patient in room DANTE 351. I have received report from MARISSA Ba and had the opportunity to ask questions and assume patient care.
--- NOTE | 2019-01-14 06:30 | NUR ---
Problems reprioritized. Patient report given, questions answered & plan of care reviewed with RIDDHI ANN.
[2019-01-14] MEDS ORDERED: pantoprazole 40mg Tablet.DR PO SCH (07:30)
[2019-01-14] MEDS: budesonide 0.5mg/2ml UD nebule IH SCH ×2 (07:45→19:18)
[2019-01-14] MEDS ORDERED: FOLIC ACID PO SCH (08:00)
[2019-01-14] MEDS ORDERED: non-formulary drug (Mometasone/Formoterol (Dulera 100 Mcg/5 Mcg Inhaler) 2 PUFFS) INH SCH (08:00)
[2019-01-14] MEDS ORDERED: pioglitazone 15mg tablet PO SCH (08:00)
[2019-01-14] MEDS: docusate sod 100mg capsule PO SCH ×2 (08:00→19:51)
[2019-01-14] MEDS ORDERED: famotidine 20mg tablet PO SCH (08:00)
[2019-01-14] MEDS: K and/or MAG REPLACEMENT MC SCH (08:00)
[2019-01-14] MEDS ORDERED: [UNRECOGNIZED DRUG - OTHER] PO SCH (08:00)
[2019-01-14] MEDS ORDERED: VITAMIN B COMP W C PO SCH (08:00)
[2019-01-14] MEDS: carVEDilol 12.5mg tablet PO SCH ×2 (09:14→19:52)
[2019-01-14] MEDS: folic acid 0.4mg tablet PO SCH (09:15)
[2019-01-14] MEDS: tamsulosin 0.4mg capsule PO SCH (09:15)
[2019-01-14] MEDS: ferrous sulfate 325mg tablet PO SCH ×2 (09:15→19:52)
[2019-01-14] MEDS: furosemide 40mg tablet PO SCH (09:15)
[2019-01-14] MEDS: atorvastatin 10mg tablet PO SCH (09:16)
[2019-01-14] MEDS: montelukast 10mg tablet PO SCH (09:16)
[2019-01-14] MEDS: vitamin B comp w/Vit. C tab 1 TAB TABLET PO SCH (09:17)
[2019-01-14] MEDS: multivitamins, therapeutics tablet PO SCH (09:17)
[2019-01-14] MEDS: thiamine 100mg tablet PO SCH (09:17)
[2019-01-14] MEDS: lisinopril 5mg tablet PO SCH (09:17)
[2019-01-14] MEDS: fenofibrate 145mg tablet PO SCH (09:18)
[2019-01-14] MEDS ORDERED: levoFLOXACIN-Levaquin 500mg/D5 100 ML IV SCH (09:45)
--- NOTE | 2019-01-14 11:00 | NUR ---
Spoke to Dr. Gardiner about the patient not being able to void. Went to place the galvan and the patient had voided 300. He hadn't voided at all since 0300 when he arrived during shift mechanic. Patients' sometimes does intermittent straight catheterization at home. She said that his voiding has become more and more of a problem recently. I bladder scanned him and he had 257mls. So I talked to her again and she agreed that we should hold off on the galvan and see how he does.
[2019-01-14] MEDS: metroNIDAZOLE-Flagyl 500mg/NS 100 ML IV SCH (15:35)
[2019-01-14 16:23] LABS: BASOPHILS # (AUTO) 0.1 X10'3 (0-0.2); BASOPHILS % (AUTO) 0.5 % (0-1); EOSINOPHILS # (AUTO) 0.1 X10'3 (0-0.9); EOSINOPHILS % (AUTO) 0.9 % (0-6); HEMATOCRIT 22.8 % (42.0-52.0); HEMOGLOBIN 7.6 g/dl (14.0-17.9); LYMPHOCYTES # (AUTO) 1.4 X10'3 (1.1-4.8); MEAN CORPUSCULAR HEMOGLOBIN 33.5 PG (27.0-31.0); MEAN CORPUSCULAR HGB CONC 33.2 g/dL (33.0-36.5); MEAN CORPUSCULAR VOLUME 100.7 FL (78-98); MEAN PLATELET VOLUME 9.3 FL (7.4-10.4); MONOCYTES # (AUTO) 0.6 X10'3 (0-0.9); MONOCYTES % (AUTO) 5.7 % (2-12); NEUTROPHILS # (AUTO) 8.5 X10'3 (1.8-7.7); NEUTROPHILS % (AUTO) 79.9 % (42-75); PLATELET COUNT 322 X10'3 (140-440); RED BLOOD COUNT 2.27 X10'6 (4.70-6.10); RED CELL DISTRIBUTION WIDTH 14.6 % (11.5-14.5); WHITE BLOOD COUNT 10.7 X10'3 (4.5-11.0)
[2019-01-14 16:33] LABS: ALANINE AMINOTRANSFERASE 25 U/L (12-78); ALBUMIN 1.9 G/DL (3.4-5.0); ALBUMIN/GLOBULIN RATIO 0.6 (1.1-1.5); ALKALINE PHOSPHATASE 46 IU/L (46-116); ANION GAP 6 (8-16); ASPARTATE AMINO TRANSFERASE 22 U/L (10-37); BILIRUBIN,TOTAL 0.4 MG/DL (0.1-1.0); BLOOD UREA NITROGEN 69 MG/DL (7-18); BUN/CREATININE RATIO 30.1 (5.4-32.0); CALCIUM 8.3 MG/DL (8.5-10.1); CHLORIDE 102 MMOL/L (99-107); CREATININE 2.29 MG/DL (0.60-1.10); GLUCOSE 121 MG/DL (70-104); POTASSIUM 3.3 MMOL/L (3.5-5.1); SODIUM 134 MMOL/L (135-145); TOTAL CARBON DIOXIDE 25.9 MMOL/L (24-32); TOTAL PROTEIN 5.1 G/DL (6.4-8.2); eGFR 28 ML/MIN
--- NOTE | 2019-01-14 18:24 | NUR ---
Received report from MARISSA Harp. Patient is awake and alert on room air, in no apparent distress. Call light and items of frequent use within reach. Will continue to monitor.
--- NOTE | 2019-01-14 18:25 | NUR ---
Problems reprioritized. Patient report given, questions answered & plan of care reviewed with MARISSA Oquendo.
[2019-01-14] MEDS: lactobacillus rhamnosus 10,000 MMU CELLS/CAPSULE PO SCH (19:52)
[2019-01-14] MEDS: HYDROcodone/acetaminophen 5mg/325mg tablet PO PRN (19:57)
[2019-01-14 20:45] LABS: BASOPHILS # (AUTO) 0.1 X10'3 (0-0.2); BASOPHILS % (AUTO) 0.5 % (0-1); EOSINOPHILS # (AUTO) 0.1 X10'3 (0-0.9); EOSINOPHILS % (AUTO) 0.8 % (0-6); HEMOGLOBIN 7.4 g/dl (14.0-17.9); LYMPHOCYTES # (AUTO) 1.5 X10'3 (1.1-4.8); LYMPHOCYTES % (AUTO) 14.8 % (21-51); MEAN CORPUSCULAR HEMOGLOBIN 34.1 PG (27.0-31.0); MEAN CORPUSCULAR HGB CONC 34.4 g/dL (33.0-36.5); MEAN PLATELET VOLUME 8.7 FL (7.4-10.4); MONOCYTES # (AUTO) 0.7 X10'3 (0-0.9); MONOCYTES % (AUTO) 7.5 % (2-12); NEUTROPHILS # (AUTO) 7.6 X10'3 (1.8-7.7); NEUTROPHILS % (AUTO) 76.4 % (42-75); PLATELET COUNT 336 X10'3 (140-440); RED BLOOD COUNT 2.17 X10'6 (4.70-6.10); RED CELL DISTRIBUTION WIDTH 14.6 % (11.5-14.5)
[2019-01-14 21:00] LABS: HEMATOCRIT 21.5 % (42.0-52.0)
[2019-01-14] MEDS: insulin glargine (Lantus) pen - multi-dose SQ SCH (21:00)
--- NOTE | 2019-01-14 21:02 | NUR ---
Critical lab: H/H: 7.4/21.5. MD Katie aware. "He hands out in the 7s. There will be no change in orders. Thanks"
[2019-01-15] VITALS: BP 101/47
[2019-01-15] MEDS: metroNIDAZOLE-Flagyl 500mg/NS 100 ML IV SCH ×3 (00:18→15:54)
[2019-01-15] MEDS: pantoprazole 40MG/NS 100ML BAG 100 ML IV SCH ×5 (01:33→21:16)
[2019-01-15] MEDS: ipratropium/albuterol 3ml nebule IH SCH ×6 (03:50→23:31)
[2019-01-15 05:17] LABS: ALBUMIN 1.7 G/DL (3.4-5.0); ANION GAP 9 (8-16); BLOOD UREA NITROGEN 65 MG/DL (7-18); BUN/CREATININE RATIO 28.3 (5.4-32.0); CALCIUM 7.8 MG/DL (8.5-10.1); CHLORIDE 104 MMOL/L (99-107); GLUCOSE 105 MG/DL (70-104); POTASSIUM 3.3 MMOL/L (3.5-5.1); SODIUM 137 MMOL/L (135-145); TOTAL CARBON DIOXIDE 24.3 MMOL/L (24-32); eGFR 28 ML/MIN
[2019-01-15 05:24] LABS: BASOPHILS % (AUTO) 0.5 % (0-1); EOSINOPHILS # (AUTO) 0.1 X10'3 (0-0.9); EOSINOPHILS % (AUTO) 1.6 % (0-6); HEMOGLOBIN 7.1 g/dl (14.0-17.9); LYMPHOCYTES # (AUTO) 1.1 X10'3 (1.1-4.8); LYMPHOCYTES % (AUTO) 16.1 % (21-51); MEAN CORPUSCULAR HEMOGLOBIN 34.1 PG (27.0-31.0); MEAN CORPUSCULAR HGB CONC 34.1 g/dL (33.0-36.5); MEAN PLATELET VOLUME 8.7 FL (7.4-10.4); MONOCYTES # (AUTO) 0.5 X10'3 (0-0.9); MONOCYTES % (AUTO) 7.1 % (2-12); NEUTROPHILS # (AUTO) 5.3 X10'3 (1.8-7.7); NEUTROPHILS % (AUTO) 74.7 % (42-75); PLATELET COUNT 277 X10'3 (140-440); RED BLOOD COUNT 2.07 X10'6 (4.70-6.10); RED CELL DISTRIBUTION WIDTH 14.8 % (11.5-14.5); WHITE BLOOD COUNT 7.1 X10'3 (4.5-11.0)
[2019-01-15 05:33] LABS: HEMATOCRIT 20.7 % (42.0-52.0)
--- NOTE | 2019-01-15 05:47 | NUR ---
Critical labs: H/H: 7.1/20.7 MD Katie notified. No change in orders. Will continue to monitor.
--- NOTE | 2019-01-15 06:10 | NUR ---
Problems reprioritized. Patient report given, questions answered & plan of care reviewed with MARISSA Dallas.
[2019-01-15] MEDS: budesonide 0.5mg/2ml UD nebule IH SCH ×2 (07:36→19:02)
[2019-01-15 08:00] VITALS: BP 129/58
[2019-01-15] MEDS: levoFLOXACIN-Levaquin 250mg/D5 50 ML IV SCH (08:08)
[2019-01-15] MEDS: atorvastatin 10mg tablet PO SCH (08:10)
[2019-01-15] MEDS: lactobacillus rhamnosus 10,000 MMU CELLS/CAPSULE PO SCH ×2 (08:10→19:34)
[2019-01-15] MEDS: docusate sod 100mg capsule PO SCH ×2 (08:10→19:52)
[2019-01-15] MEDS: potassium Cl 20 mEq SR tablet PO PRN ×2 (08:10→13:34)
[2019-01-15] MEDS: carVEDilol 12.5mg tablet PO SCH ×2 (08:10→19:36)
[2019-01-15] MEDS: fenofibrate 145mg tablet PO SCH (08:10)
[2019-01-15] MEDS: ferrous sulfate 325mg tablet PO SCH ×2 (08:10→19:35)
[2019-01-15] MEDS: multivitamins, therapeutics tablet PO SCH (08:10)
[2019-01-15] MEDS: folic acid 0.4mg tablet PO SCH (08:10)
[2019-01-15] MEDS: vitamin B comp w/Vit. C tab 1 TAB TABLET PO SCH (08:10)
[2019-01-15] MEDS: montelukast 10mg tablet PO SCH (08:11)
[2019-01-15] MEDS: furosemide 40mg tablet PO SCH (08:11)
[2019-01-15] MEDS: lisinopril 5mg tablet PO SCH (08:11)
[2019-01-15] MEDS: thiamine 100mg tablet PO SCH (08:11)
[2019-01-15] MEDS: tamsulosin 0.4mg capsule PO SCH (08:11)
[2019-01-15] MEDS: HYDROcodone/acetaminophen 5mg/325mg tablet PO PRN ×3 (08:22→23:59)
[2019-01-15] MEDS: K and/or MAG REPLACEMENT MC SCH (08:24)
[2019-01-15 12:00] VITALS: BP 116/64
[2019-01-15 13:13] LABS: BASOPHILS # (AUTO) 0.1 X10'3 (0-0.2); BASOPHILS % (AUTO) 0.8 % (0-1); EOSINOPHILS # (AUTO) 0.1 X10'3 (0-0.9); EOSINOPHILS % (AUTO) 1.4 % (0-6); HEMATOCRIT 22.3 % (42.0-52.0); HEMOGLOBIN 7.5 g/dl (14.0-17.9); LYMPHOCYTES # (AUTO) 1.2 X10'3 (1.1-4.8); LYMPHOCYTES % (AUTO) 16.8 % (21-51); MEAN CORPUSCULAR HEMOGLOBIN 33.7 PG (27.0-31.0); MEAN CORPUSCULAR HGB CONC 33.5 g/dL (33.0-36.5); MEAN CORPUSCULAR VOLUME 100.5 FL (78-98); MEAN PLATELET VOLUME 8.7 FL (7.4-10.4); MONOCYTES # (AUTO) 0.5 X10'3 (0-0.9); MONOCYTES % (AUTO) 7.3 % (2-12); NEUTROPHILS # (AUTO) 5.4 X10'3 (1.8-7.7); NEUTROPHILS % (AUTO) 73.7 % (42-75); PLATELET COUNT 298 X10'3 (140-440); RED BLOOD COUNT 2.21 X10'6 (4.70-6.10); WHITE BLOOD COUNT 7.4 X10'3 (4.5-11.0)
--- NOTE | 2019-01-15 13:30 | NUR ---
pt in at bedside informed of current H&H 7.5/22.3 and that it is a increase from 7.1/20.7
[2019-01-15] MEDS: normal saline 1000ml 1,000 ML IV SCH (14:38)
--- NOTE | 2019-01-15 18:33 | NUR ---
Problems reprioritized. Patient report given, questions answered & plan of care reviewed with Azra ANN.
[2019-01-15] MEDS: Melatonin 3mg tablet PO PRN (19:42)
[2019-01-15 20:00] VITALS: BP 96/52
[2019-01-15 20:13] LABS: BASOPHILS % (AUTO) 0.4 % (0-1); EOSINOPHILS # (AUTO) 0.1 X10'3 (0-0.9); EOSINOPHILS % (AUTO) 1.9 % (0-6); LYMPHOCYTES # (AUTO) 1.6 X10'3 (1.1-4.8); LYMPHOCYTES % (AUTO) 24.3 % (21-51); MEAN CORPUSCULAR HEMOGLOBIN 34.1 PG (27.0-31.0); MEAN CORPUSCULAR VOLUME 100.4 FL (78-98); MEAN PLATELET VOLUME 8.8 FL (7.4-10.4); MONOCYTES # (AUTO) 0.6 X10'3 (0-0.9); MONOCYTES % (AUTO) 8.3 % (2-12); NEUTROPHILS # (AUTO) 4.3 X10'3 (1.8-7.7); NEUTROPHILS % (AUTO) 65.1 % (42-75); PLATELET COUNT 255 X10'3 (140-440); RED CELL DISTRIBUTION WIDTH 14.7 % (11.5-14.5); WHITE BLOOD COUNT 6.6 X10'3 (4.5-11.0)
[2019-01-15 20:18] LABS: HEMOGLOBIN 6.5 g/dl (14.0-17.9)
--- NOTE | 2019-01-15 20:26 | NUR ---
PAGER ID: [phone] MESSAGE: Xiomara ANN [phone], pt Todd Vasquez, 351A, critical H/H 6.5/19.0. Thanks! Addendum: 01/15/19 at 204 by Xiomaar Keith RN Yordan GRANT aware, new order received "transfuse PRBC x1 unit; hemogram 2hours after transfusion."
[2019-01-15 20:58] LABS: TOTAL CELLS COUNTED 100
[2019-01-15 20:59] LABS: PLATELET ESTIMATE NORMAL
[2019-01-15] MEDS: insulin glargine (Lantus) pen - multi-dose SQ SCH (21:20)
[2019-01-15 23:43] VITALS: BP 108/48
[2019-01-16] VITALS (9 sets, daily range): BP systolic 109–141; BP diastolic 41–81
[2019-01-16] MEDS: metroNIDAZOLE-Flagyl 500mg/NS 100 ML IV SCH ×3 (00:04→16:40)
[2019-01-16] MEDS: ipratropium/albuterol 3ml nebule IH SCH ×6 (03:00→23:20)
[2019-01-16] MEDS: pantoprazole 40MG/NS 100ML BAG 100 ML IV SCH ×2 (03:35→09:30)
[2019-01-16 05:34] LABS: BASOPHILS % (AUTO) 0.7 % (0-1); EOSINOPHILS # (AUTO) 0.1 X10'3 (0-0.9); HEMOGLOBIN 7.4 g/dl (14.0-17.9); LYMPHOCYTES # (AUTO) 1.1 X10'3 (1.1-4.8); LYMPHOCYTES % (AUTO) 17.5 % (21-51); MEAN CORPUSCULAR HEMOGLOBIN 33.6 PG (27.0-31.0); MEAN CORPUSCULAR HGB CONC 34.8 g/dL (33.0-36.5); MEAN CORPUSCULAR VOLUME 96.8 FL (78-98); MEAN PLATELET VOLUME 8.8 FL (7.4-10.4); MONOCYTES # (AUTO) 0.5 X10'3 (0-0.9); MONOCYTES % (AUTO) 7.5 % (2-12); NEUTROPHILS # (AUTO) 4.7 X10'3 (1.8-7.7); NEUTROPHILS % (AUTO) 72.3 % (42-75); PLATELET COUNT 252 X10'3 (140-440); RED BLOOD COUNT 2.19 X10'6 (4.70-6.10); RED CELL DISTRIBUTION WIDTH 15.6 % (11.5-14.5); WHITE BLOOD COUNT 6.5 X10'3 (4.5-11.0)
[2019-01-16 05:41] LABS: ALBUMIN 1.7 G/DL (3.4-5.0); ANION GAP 9 (8-16); BLOOD UREA NITROGEN 55 MG/DL (7-18); BUN/CREATININE RATIO 24.6 (5.4-32.0); CALCIUM 7.6 MG/DL (8.5-10.1); CHLORIDE 107 MMOL/L (99-107); CREATININE 2.24 MG/DL (0.60-1.10); GLUCOSE 110 MG/DL (70-104); POTASSIUM 3.6 MMOL/L (3.5-5.1); SODIUM 139 MMOL/L (135-145); TOTAL CARBON DIOXIDE 22.7 MMOL/L (24-32); eGFR 29 ML/MIN
[2019-01-16 06:28] LABS: HEMATOCRIT 21.2 % (42.0-52.0)
--- NOTE | 2019-01-16 06:30 | NUR ---
PAGER ID: [phone] MESSAGE: [phone] - MARISSA Oquendo for Todd Vasquez in 351. Critical Hematocrit: 21.2 Thanks.
--- NOTE | 2019-01-16 06:33 | NUR ---
MD Yordan aware. No new orders, just continue Hemogram [id number].
--- NOTE | 2019-01-16 06:40 | NUR ---
Patient in room DANTE 351. I have received report from MARISSA Oquendo and had the opportunity to ask questions and assume patient care.
--- NOTE | 2019-01-16 06:42 | NUR ---
Problems reprioritized. Patient report given, questions answered & plan of care reviewed with MARISSA Arnett.
[2019-01-16 07:00] LABS: PLATELET ESTIMATE NORMAL; TOTAL CELLS COUNTED 100
[2019-01-16] MEDS: levoFLOXACIN-Levaquin 250mg/D5 50 ML IV SCH (07:21)
[2019-01-16] MEDS: HYDROcodone/acetaminophen 5mg/325mg tablet PO PRN (07:22)
[2019-01-16] MEDS: lactobacillus rhamnosus 10,000 MMU CELLS/CAPSULE PO SCH ×2 (07:23→20:27)
[2019-01-16] MEDS: montelukast 10mg tablet PO SCH (07:23)
[2019-01-16] MEDS: ferrous sulfate 325mg tablet PO SCH ×2 (07:23→20:25)
[2019-01-16] MEDS: tamsulosin 0.4mg capsule PO SCH (07:23)
[2019-01-16] MEDS: furosemide 40mg tablet PO SCH (07:23)
[2019-01-16] MEDS: docusate sod 100mg capsule PO SCH ×2 (07:23→20:00)
[2019-01-16] MEDS: lisinopril 5mg tablet PO SCH (07:23)
[2019-01-16] MEDS: folic acid 0.4mg tablet PO SCH (07:23)
[2019-01-16] MEDS: vitamin B comp w/Vit. C tab 1 TAB TABLET PO SCH (07:23)
[2019-01-16] MEDS: thiamine 100mg tablet PO SCH (07:23)
[2019-01-16] MEDS: atorvastatin 10mg tablet PO SCH (07:23)
[2019-01-16] MEDS: multivitamins, therapeutics tablet PO SCH (07:23)
[2019-01-16] MEDS: carVEDilol 12.5mg tablet PO SCH (07:24)
[2019-01-16] MEDS: budesonide 0.5mg/2ml UD nebule IH SCH ×2 (07:33→19:42)
[2019-01-16] MEDS: fenofibrate 145mg tablet PO SCH (07:43)
[2019-01-16] MEDS: K and/or MAG REPLACEMENT MC SCH (08:00)
[2019-01-16 12:12] LABS: HEMATOCRIT 22.7 % (42.0-52.0); HEMOGLOBIN 7.9 g/dl (14.0-17.9); MEAN CORPUSCULAR HEMOGLOBIN 33.5 PG (27.0-31.0); MEAN CORPUSCULAR HGB CONC 34.6 g/dL (33.0-36.5); MEAN CORPUSCULAR VOLUME 96.7 FL (78-98); MEAN PLATELET VOLUME 8.1 FL (7.4-10.4); PLATELET COUNT 268 X10'3 (140-440); RED BLOOD COUNT 2.35 X10'6 (4.70-6.10); RED CELL DISTRIBUTION WIDTH 15.8 % (11.5-14.5); WHITE BLOOD COUNT 6.7 X10'3 (4.5-11.0)
[2019-01-16] MEDS: HYDROcodone/acetaminophen 10/325mg tab PO PRN ×2 (13:20→20:24)
[2019-01-16] MEDS ORDERED: nicotine 14mg patch - 24hr TD ONE (14:15)
[2019-01-16] MEDS: pantoprazole 40mg Tablet.DR PO SCH (16:44)
--- NOTE | 2019-01-16 18:30 | NUR ---
Patient in room DANTE 351. I have received report from Hope ANN and had the opportunity to ask questions and assume patient care. Patient finished dinner, will continue to monitor.
--- NOTE | 2019-01-16 18:40 | NUR ---
Problems reprioritized. Patient report given, questions answered & plan of care reviewed with MARISSA Julio.
[2019-01-16] MEDS: carvedilol 6.25mg tablet PO SCH (20:26)
[2019-01-16] MEDS: insulin glargine (Lantus) pen - multi-dose SQ SCH (21:00)
[2019-01-17] MEDS: metroNIDAZOLE-Flagyl 500mg/NS 100 ML IV SCH ×2 (00:28→07:27)
[2019-01-17] MEDS: HYDROcodone/acetaminophen 10/325mg tab PO PRN ×4 (03:00→22:35)
[2019-01-17] MEDS: ipratropium/albuterol 3ml nebule IH SCH ×6 (03:00→23:00)
[2019-01-17 05:14] LABS: BASOPHILS % (AUTO) 0.7 % (0-1); EOSINOPHILS # (AUTO) 0.2 X10'3 (0-0.9); EOSINOPHILS % (AUTO) 2.9 % (0-6); HEMOGLOBIN 7.3 g/dl (14.0-17.9); LYMPHOCYTES # (AUTO) 1.1 X10'3 (1.1-4.8); LYMPHOCYTES % (AUTO) 16.5 % (21-51); MEAN CORPUSCULAR HEMOGLOBIN 33.2 PG (27.0-31.0); MEAN CORPUSCULAR HGB CONC 33.7 g/dL (33.0-36.5); MEAN CORPUSCULAR VOLUME 98.6 FL (78-98); MEAN PLATELET VOLUME 8.9 FL (7.4-10.4); MONOCYTES # (AUTO) 0.5 X10'3 (0-0.9); NEUTROPHILS # (AUTO) 4.8 X10'3 (1.8-7.7); NEUTROPHILS % (AUTO) 72.9 % (42-75); PLATELET COUNT 244 X10'3 (140-440); RED BLOOD COUNT 2.21 X10'6 (4.70-6.10); WHITE BLOOD COUNT 6.6 X10'3 (4.5-11.0)
[2019-01-17 05:16] LABS: HEMATOCRIT 21.8 % (42.0-52.0)
[2019-01-17 05:26] LABS: ALBUMIN 1.7 G/DL (3.4-5.0); ANION GAP 8 (8-16); BLOOD UREA NITROGEN 48 MG/DL (7-18); BUN/CREATININE RATIO 22.6 (5.4-32.0); CALCIUM 7.6 MG/DL (8.5-10.1); CHLORIDE 108 MMOL/L (99-107); CREATININE 2.12 MG/DL (0.60-1.10); GLUCOSE 96 MG/DL (70-104); POTASSIUM 3.3 MMOL/L (3.5-5.1); SODIUM 139 MMOL/L (135-145); eGFR 31 ML/MIN
--- NOTE | 2019-01-17 06:00 | NUR ---
Notified Dr. Farr that the patient's HCT critical 21.8 HBG 7.3. Received order to defer to dayshift hospitalist. Will continue to monitor.
--- NOTE | 2019-01-17 06:25 | NUR ---
Patient in room DANTE 351. I have received report from MARISSA Julio and had the opportunity to ask questions and assume patient care.
--- NOTE | 2019-01-17 06:39 | NUR ---
Patient in room DANTE 351. I have received report from Hope and had the opportunity to ask questions and assume patient care.
--- NOTE | 2019-01-17 06:40 | NUR ---
Patient in room DANTE 357A. I have received report from Hope and had the opportunity to ask questions and assume patient care.
--- NOTE | 2019-01-17 06:44 | NUR ---
Problems reprioritized. Patient report given, questions answered & plan of care reviewed with Hope RN. Patient resting in bed, appears in no distress.
--- NOTE | 2019-01-17 07:15 | NUR ---
Notified Dr. Isaac of critical Hct of 21.8 this am. Per MD, no change in orders.
[2019-01-17] MEDS: vitamin B comp w/Vit. C tab 1 TAB TABLET PO SCH (07:27)
[2019-01-17] MEDS: atorvastatin 10mg tablet PO SCH (07:27)
[2019-01-17] MEDS: carvedilol 6.25mg tablet PO SCH ×2 (07:27→19:50)
[2019-01-17] MEDS: lisinopril 5mg tablet PO SCH (07:27)
[2019-01-17] MEDS: furosemide 40mg tablet PO SCH (07:28)
[2019-01-17] MEDS: tamsulosin 0.4mg capsule PO SCH (07:28)
[2019-01-17] MEDS: docusate sod 100mg capsule PO SCH ×2 (07:28→19:51)
[2019-01-17] MEDS: ferrous sulfate 325mg tablet PO SCH ×2 (07:28→19:51)
[2019-01-17] MEDS: thiamine 100mg tablet PO SCH (07:28)
[2019-01-17] MEDS: folic acid 0.4mg tablet PO SCH (07:28)
[2019-01-17] MEDS: lactobacillus rhamnosus 10,000 MMU CELLS/CAPSULE PO SCH ×2 (07:28→19:50)
[2019-01-17] MEDS: montelukast 10mg tablet PO SCH (07:28)
[2019-01-17] MEDS: budesonide 0.5mg/2ml UD nebule IH SCH ×2 (07:28→20:00)
[2019-01-17] MEDS: multivitamins, therapeutics tablet PO SCH (07:29)
[2019-01-17] MEDS: nicotine 14mg patch - 24hr TD SCH (07:29)
[2019-01-17] MEDS: pantoprazole 40mg Tablet.DR PO SCH ×2 (07:37→16:43)
[2019-01-17] MEDS: fenofibrate 145mg tablet PO SCH (07:37)
[2019-01-17 08:00] VITALS: BP 117/49
[2019-01-17] MEDS: K and/or MAG REPLACEMENT MC SCH (08:00)
[2019-01-17] MEDS: levoFLOXACIN-Levaquin 250mg/D5 50 ML IV SCH (09:39)
[2019-01-17] MEDS ORDERED: magnesium 4gm in 100ml NS 100 ML IV PRN (11:25)
[2019-01-17] MEDS ORDERED: magnesium Cl slow-release 64mg tablet PO PRN (11:25)
[2019-01-17] MEDS ORDERED: potassium Cl 20 mEq SR tablet PO PRN (11:25)
[2019-01-17] MEDS ORDERED: potassium Cl 40MEQ/NS 500ml 500 ML IV PRN ×2 (11:25)
[2019-01-17 12:00] VITALS: BP 124/70
[2019-01-17] MEDS: potassium Cl 20 mEq SR tablet PO PRN ×3 (12:04→22:35)
[2019-01-17 15:05] VITALS: BP 123/69
[2019-01-17] MEDS: metroNIDAZOLE 500mg tablet PO SCH (16:08)
--- NOTE | 2019-01-17 19:03 | NUR ---
Problems reprioritized. Patient report given, questions answered & plan of care reviewed with MARISSA Richardson. .
[2019-01-17 19:41] VITALS: BP 116/52
[2019-01-17] MEDS: insulin glargine (Lantus) pen - multi-dose SQ SCH (22:41)
[2019-01-18 00:27] VITALS: BP 120/60
[2019-01-18] MEDS: Melatonin 3mg tablet PO PRN ×2 (01:20→23:21)
[2019-01-18] MEDS: metroNIDAZOLE 500mg tablet PO SCH ×4 (01:20→23:22)
[2019-01-18] MEDS: ipratropium/albuterol 3ml nebule IH SCH ×6 (03:00→23:30)
[2019-01-18] MEDS: HYDROcodone/acetaminophen 10/325mg tab PO PRN ×4 (04:20→23:22)
[2019-01-18 05:53] LABS: ALBUMIN 1.7 G/DL (3.4-5.0); ANION GAP 11 (8-16); BLOOD UREA NITROGEN 42 MG/DL (7-18); CALCIUM 7.6 MG/DL (8.5-10.1); CHLORIDE 105 MMOL/L (99-107); GLUCOSE 94 MG/DL (70-104); POTASSIUM 3.8 MMOL/L (3.5-5.1); SODIUM 137 MMOL/L (135-145); TOTAL CARBON DIOXIDE 21.5 MMOL/L (24-32); eGFR 31 ML/MIN
[2019-01-18 05:56] LABS: BASOPHILS % (AUTO) 0.6 % (0-1); EOSINOPHILS # (AUTO) 0.2 X10'3 (0-0.9); EOSINOPHILS % (AUTO) 2.5 % (0-6); HEMOGLOBIN 7.4 g/dl (14.0-17.9); LYMPHOCYTES # (AUTO) 1.4 X10'3 (1.1-4.8); LYMPHOCYTES % (AUTO) 18.3 % (21-51); MEAN CORPUSCULAR HEMOGLOBIN 33.3 PG (27.0-31.0); MEAN CORPUSCULAR HGB CONC 33.8 g/dL (33.0-36.5); MEAN CORPUSCULAR VOLUME 98.6 FL (78-98); MEAN PLATELET VOLUME 9.1 FL (7.4-10.4); MONOCYTES # (AUTO) 0.5 X10'3 (0-0.9); MONOCYTES % (AUTO) 6.9 % (2-12); NEUTROPHILS # (AUTO) 5.4 X10'3 (1.8-7.7); NEUTROPHILS % (AUTO) 71.7 % (42-75); PLATELET COUNT 224 X10'3 (140-440); RED BLOOD COUNT 2.23 X10'6 (4.70-6.10); RED CELL DISTRIBUTION WIDTH 16.1 % (11.5-14.5); WHITE BLOOD COUNT 7.6 X10'3 (4.5-11.0)
--- NOTE | 2019-01-18 06:05 | NUR ---
Patient in room DANTE 351. I have received report from MARISSA Richardson and had the opportunity to ask questions and assume patient care.
--- NOTE | 2019-01-18 06:28 | NUR ---
Problems reprioritized. Patient report given, questions answered & plan of care reviewed with MARISSA HANNON. Addendum: 01/18/19 at 3129 by Carole Rock RN Amended: Links added.
--- NOTE | 2019-01-18 06:30 | NUR ---
Patient in room DANTE 357A. I have received report from Katiuska and had the opportunity to ask questions and assume patient care.
--- NOTE | 2019-01-18 06:30 | NUR ---
Patient in room DANTE 351. I have received report from Katiuska and had the opportunity to ask questions and assume patient care.
[2019-01-18 07:11] VITALS: BP 124/61
[2019-01-18] MEDS: budesonide 0.5mg/2ml UD nebule IH SCH ×2 (07:34→19:45)
[2019-01-18] MEDS: lactobacillus rhamnosus 10,000 MMU CELLS/CAPSULE PO SCH ×2 (08:06→20:58)
[2019-01-18] MEDS: vitamin B comp w/Vit. C tab 1 TAB TABLET PO SCH (08:06)
[2019-01-18] MEDS: montelukast 10mg tablet PO SCH (08:06)
[2019-01-18] MEDS: folic acid 0.4mg tablet PO SCH (08:06)
[2019-01-18] MEDS: ferrous sulfate 325mg tablet PO SCH ×2 (08:06→20:58)
[2019-01-18] MEDS: lisinopril 5mg tablet PO SCH (08:06)
[2019-01-18] MEDS: thiamine 100mg tablet PO SCH (08:07)
[2019-01-18] MEDS: tamsulosin 0.4mg capsule PO SCH (08:07)
[2019-01-18] MEDS: carvedilol 6.25mg tablet PO SCH ×2 (08:07→20:58)
[2019-01-18] MEDS: docusate sod 100mg capsule PO SCH ×2 (08:07→20:00)
[2019-01-18] MEDS: multivitamins, therapeutics tablet PO SCH (08:07)
[2019-01-18] MEDS: atorvastatin 10mg tablet PO SCH (08:07)
[2019-01-18] MEDS: pantoprazole 40mg Tablet.DR PO SCH ×2 (08:07→16:50)
[2019-01-18] MEDS: nicotine 14mg patch - 24hr TD SCH (08:08)
[2019-01-18] MEDS: furosemide 40mg tablet PO SCH (08:08)
[2019-01-18] MEDS: K and/or MAG REPLACEMENT MC SCH (08:13)
[2019-01-18] MEDS: fenofibrate 145mg tablet PO SCH (08:42)
--- NOTE | 2019-01-18 09:03 | NUR ---
Student Medication Administration: For this medication-pass time frame, all medication were reviewed, dispensed, administered and documented per hospital policy by MILY Palomo [facility].
[2019-01-18] MEDS: levoFLOXACIN 250mg tablet PO SCH (10:49)
[2019-01-18 11:03] VITALS: BP 114/51
[2019-01-18 12:30] VITALS: BP 102/52
--- NOTE | 2019-01-18 18:00 | NUR ---
Problems reprioritized. Patient report given, questions answered & plan of care reviewed with MARISSA Richardson.
--- NOTE | 2019-01-18 18:19 | NUR ---
Patient in room DANTE 351. I have received report from MARISSA Harp and had the opportunity to ask questions and assume patient care. Addendum: 01/18/19 at 1820 by Carole Rock RN Amended: Links added.
[2019-01-18 18:30] VITALS: BP 125/64
[2019-01-18 23:54] VITALS: BP 148/64
[2019-01-19] MEDS: ipratropium/albuterol 3ml nebule IH SCH ×6 (03:03→22:40)
[2019-01-19 05:19] LABS: BASOPHILS % (AUTO) 0.3 % (0-1); EOSINOPHILS # (AUTO) 0.2 X10'3 (0-0.9); EOSINOPHILS % (AUTO) 2.3 % (0-6); HEMATOCRIT 22.6 % (42.0-52.0); HEMOGLOBIN 7.6 g/dl (14.0-17.9); LYMPHOCYTES # (AUTO) 1.3 X10'3 (1.1-4.8); LYMPHOCYTES % (AUTO) 17.2 % (21-51); MEAN CORPUSCULAR HEMOGLOBIN 33.4 PG (27.0-31.0); MEAN CORPUSCULAR HGB CONC 33.7 g/dL (33.0-36.5); MEAN PLATELET VOLUME 9.3 FL (7.4-10.4); MONOCYTES # (AUTO) 0.6 X10'3 (0-0.9); MONOCYTES % (AUTO) 8.2 % (2-12); NEUTROPHILS # (AUTO) 5.5 X10'3 (1.8-7.7); PLATELET COUNT 210 X10'3 (140-440); RED BLOOD COUNT 2.28 X10'6 (4.70-6.10); RED CELL DISTRIBUTION WIDTH 15.9 % (11.5-14.5); WHITE BLOOD COUNT 7.7 X10'3 (4.5-11.0)
[2019-01-19] MEDS: HYDROcodone/acetaminophen 10/325mg tab PO PRN ×3 (05:31→18:50)
[2019-01-19 05:32] LABS: ALBUMIN 1.7 G/DL (3.4-5.0); ANION GAP 9 (8-16); BLOOD UREA NITROGEN 37 MG/DL (7-18); BUN/CREATININE RATIO 17.2 (5.4-32.0); CALCIUM 7.7 MG/DL (8.5-10.1); CHLORIDE 103 MMOL/L (99-107); CREATININE 2.15 MG/DL (0.60-1.10); GLUCOSE 99 MG/DL (70-104); POTASSIUM 3.5 MMOL/L (3.5-5.1); SODIUM 135 MMOL/L (135-145); TOTAL CARBON DIOXIDE 22.6 MMOL/L (24-32); eGFR 31 ML/MIN
--- NOTE | 2019-01-19 06:17 | NUR ---
Problems reprioritized. Patient report given, questions answered & plan of care reviewed with MARISSA Gipson. Addendum: 01/19/19 at 0618 by Carole Rock RN Amended: Links added.
--- NOTE | 2019-01-19 06:38 | NUR ---
Patient in room DANTE 351. I have received report from Debra ANN and had the opportunity to ask questions and assume patient care.
[2019-01-19] MEDS: budesonide 0.5mg/2ml UD nebule IH SCH ×2 (07:12→19:15)
[2019-01-19 08:00] VITALS: BP 118/63
[2019-01-19] MEDS: K and/or MAG REPLACEMENT MC SCH (08:00)
[2019-01-19] MEDS: pantoprazole 40mg Tablet.DR PO SCH ×2 (08:15→15:37)
[2019-01-19] MEDS: folic acid 0.4mg tablet PO SCH (08:16)
[2019-01-19] MEDS: lactobacillus rhamnosus 10,000 MMU CELLS/CAPSULE PO SCH ×2 (08:16→20:27)
[2019-01-19] MEDS: multivitamins, therapeutics tablet PO SCH (08:16)
[2019-01-19] MEDS: vitamin B comp w/Vit. C tab 1 TAB TABLET PO SCH (08:16)
[2019-01-19] MEDS: atorvastatin 10mg tablet PO SCH (08:16)
[2019-01-19] MEDS: carvedilol 6.25mg tablet PO SCH ×2 (08:16→20:27)
[2019-01-19] MEDS: docusate sod 100mg capsule PO SCH ×2 (08:16→20:27)
[2019-01-19] MEDS: montelukast 10mg tablet PO SCH (08:16)
[2019-01-19] MEDS: metroNIDAZOLE 500mg tablet PO SCH ×3 (08:16→23:33)
[2019-01-19] MEDS: tamsulosin 0.4mg capsule PO SCH (08:16)
[2019-01-19] MEDS: ferrous sulfate 325mg tablet PO SCH ×2 (08:16→20:27)
[2019-01-19] MEDS: furosemide 40mg tablet PO SCH (08:16)
[2019-01-19] MEDS: thiamine 100mg tablet PO SCH (08:16)
[2019-01-19] MEDS: nicotine 14mg patch - 24hr TD SCH (08:17)
[2019-01-19] MEDS: fenofibrate 145mg tablet PO SCH (08:17)
[2019-01-19] MEDS: lisinopril 5mg tablet PO SCH (08:17)
[2019-01-19] MEDS: levoFLOXACIN 250mg tablet PO SCH (11:46)
[2019-01-19 13:13] VITALS: BP 100/59
--- NOTE | 2019-01-19 17:50 | NUR ---
Student documentation: I have reviewed and agree with all interventions, assessments performed and documented by Stacey DONG from [facility]. Student Medication Administration: For this medication-pass time frame, all medication were reviewed, dispensed, administered and documented per hospital policy by Stacey ANN from [facility].
--- NOTE | 2019-01-19 18:15 | NUR ---
Received report from Leonela ANN pt is awake on RA eating dinner and watching tv, pt requesting pain medication
[2019-01-19 19:00] VITALS: BP 115/36
[2019-01-19] MEDS: Melatonin 3mg tablet PO PRN (20:27)
[2019-01-20] VITALS: BP_SYST 120; BP_SYST 155; BP_DIAS 53; BP_DIAS 70
[2019-01-20] MEDS: ipratropium/albuterol 3ml nebule IH SCH ×6 (02:34→22:59)
--- NOTE | 2019-01-20 06:27 | NUR ---
Problems reprioritized. Patient report given, questions answered & plan of care reviewed with Jaja ANN.
[2019-01-20] MEDS: budesonide 0.5mg/2ml UD nebule IH SCH ×2 (07:13→19:02)
[2019-01-20] MEDS: K and/or MAG REPLACEMENT MC SCH (07:22)
[2019-01-20] MEDS: folic acid 0.4mg tablet PO SCH (07:24)
[2019-01-20] MEDS: montelukast 10mg tablet PO SCH (07:24)
[2019-01-20] MEDS: metroNIDAZOLE 500mg tablet PO SCH ×3 (07:24→23:49)
[2019-01-20] MEDS: tamsulosin 0.4mg capsule PO SCH (07:25)
[2019-01-20] MEDS: carvedilol 6.25mg tablet PO SCH ×2 (07:25→20:52)
[2019-01-20] MEDS: ferrous sulfate 325mg tablet PO SCH ×2 (07:25→20:52)
[2019-01-20] MEDS: thiamine 100mg tablet PO SCH (07:26)
[2019-01-20] MEDS: multivitamins, therapeutics tablet PO SCH (07:26)
[2019-01-20] MEDS: lactobacillus rhamnosus 10,000 MMU CELLS/CAPSULE PO SCH ×2 (07:26→20:52)
[2019-01-20] MEDS: vitamin B comp w/Vit. C tab 1 TAB TABLET PO SCH (07:26)
[2019-01-20] MEDS: lisinopril 5mg tablet PO SCH (07:26)
[2019-01-20] MEDS: docusate sod 100mg capsule PO SCH ×2 (07:27→20:00)
[2019-01-20] MEDS: furosemide 40mg tablet PO SCH (07:27)
[2019-01-20] MEDS: atorvastatin 10mg tablet PO SCH (07:27)
[2019-01-20] MEDS: pantoprazole 40mg Tablet.DR PO SCH ×2 (07:27→17:29)
[2019-01-20] MEDS: nicotine 14mg patch - 24hr TD SCH (07:28)
[2019-01-20 07:34] VITALS: BP 115/54
[2019-01-20] MEDS: HYDROcodone/acetaminophen 10/325mg tab PO PRN ×3 (07:48→20:52)
[2019-01-20] MEDS: fenofibrate 145mg tablet PO SCH (07:48)
[2019-01-20 11:19] VITALS: BP 108/66
[2019-01-20] MEDS: levoFLOXACIN 250mg tablet PO SCH (12:29)
--- NOTE | 2019-01-20 14:42 | NUR ---
Initial: Pt admit w/ UGIB s/p EGD showing no active bleed, sigmoid colitis to f/u as outpatient, and CHF EF 45-50%. Advanced to heart healthy diet PO 25-50% avg meals not meeting needs. LBM 3/7 on colace. Pt has severe pitting LE edema +4. Ensure enlive TIDWM added for additional needs; notified. Will continue to monitor. Rec: 1. continue heart healthy diet 2. ensure enlive TIDWM 3. wt per rx Addendum: 01/20/19 at [address] Amended: Links added.
[2019-01-20 18:00] VITALS: BP 121/56
--- NOTE | 2019-01-20 19:03 | NUR ---
GAVE REPORT TO MARY ALICE. PT AWAKE AND ALERT EATING DINNER AND WATCHING TV IN NO APPARENT DISTRESS.
--- NOTE | 2019-01-20 19:04 | NUR ---
Patient in room DANTE 351. I have received report from MARISSA Wilkinson and had the opportunity to ask questions and assume patient care.
[2019-01-21] VITALS: BP 103/68
[2019-01-21] MEDS: ipratropium/albuterol 3ml nebule IH SCH ×6 (03:16→22:35)
[2019-01-21] MEDS: HYDROcodone/acetaminophen 10/325mg tab PO PRN ×2 (03:28→09:29)
--- NOTE | 2019-01-21 06:19 | NUR ---
Problems reprioritized. Patient report given, questions answered & plan of care reviewed with MARISSA Wilkinson.
[2019-01-21] MEDS: budesonide 0.5mg/2ml UD nebule IH SCH ×2 (06:51→18:52)
[2019-01-21 07:17] VITALS: BP 107/59
[2019-01-21] MEDS: K and/or MAG REPLACEMENT MC SCH (08:00)
[2019-01-21] MEDS: thiamine 100mg tablet PO SCH (09:22)
[2019-01-21] MEDS: folic acid 0.4mg tablet PO SCH (09:22)
[2019-01-21] MEDS: carvedilol 6.25mg tablet PO SCH ×2 (09:22→20:16)
[2019-01-21] MEDS: lactobacillus rhamnosus 10,000 MMU CELLS/CAPSULE PO SCH ×2 (09:23→20:17)
[2019-01-21] MEDS: montelukast 10mg tablet PO SCH (09:23)
[2019-01-21] MEDS: tamsulosin 0.4mg capsule PO SCH (09:23)
[2019-01-21] MEDS: metroNIDAZOLE 500mg tablet PO SCH ×2 (09:23→15:57)
[2019-01-21] MEDS: docusate sod 100mg capsule PO SCH ×2 (09:23→20:00)
[2019-01-21] MEDS: furosemide 40mg tablet PO SCH (09:24)
[2019-01-21] MEDS: lisinopril 5mg tablet PO SCH (09:24)
[2019-01-21] MEDS: vitamin B comp w/Vit. C tab 1 TAB TABLET PO SCH (09:24)
[2019-01-21] MEDS: pantoprazole 40mg Tablet.DR PO SCH ×2 (09:24→18:50)
[2019-01-21] MEDS: ferrous sulfate 325mg tablet PO SCH ×2 (09:24→20:17)
[2019-01-21] MEDS: atorvastatin 10mg tablet PO SCH (09:24)
[2019-01-21] MEDS: multivitamins, therapeutics tablet PO SCH (09:24)
[2019-01-21] MEDS: levoFLOXACIN 250mg tablet PO SCH (09:24)
[2019-01-21] MEDS: fenofibrate 145mg tablet PO SCH (09:24)
[2019-01-21] MEDS: nicotine 14mg patch - 24hr TD SCH (09:25)
[2019-01-21 11:22] VITALS: BP 105/60
--- NOTE | 2019-01-21 14:23 | NUR ---
pt refusing to raise lower extremities to reduce swelling. does not want feet on pillows and lowers the elevation of the foot of the bed. Education provided.
[2019-01-21] MEDS ORDERED: HYDROcodone/acetaminophen 10/325mg tab PO SCH (16:00)
--- NOTE | 2019-01-21 18:40 | NUR ---
Patient in room DANTE 351. I have received report from Jaja ANN and had the opportunity to ask questions and assume patient care. Patient finishing dinner, will continue to monitor.
--- NOTE | 2019-01-21 18:47 | NUR ---
pt. in stable condition resting comfortably in bed. Gave report to Nori ANN.
[2019-01-21 20:00] VITALS: BP 120/70
[2019-01-21] MEDS: oxyCODONE/APAP 10/325mg tablet PO PRN (20:33)
--- NOTE | 2019-01-21 23:00 | NUR ---
Problems reprioritized. Patient report given, questions answered & plan of care reviewed with Myrtle ANN.
[2019-01-21 23:59] VITALS: BP 107/48
[2019-01-22] VITALS: BP 118/53
--- NOTE | 2019-01-22 | NUR ---
Patient in room DANTE 351. I have received report from Nori ANN and had the opportunity to ask questions and assume patient care.
[2019-01-22] MEDS: metroNIDAZOLE 500mg tablet PO SCH ×3 (00:05→16:08)
[2019-01-22] MEDS: ipratropium/albuterol 3ml nebule IH SCH ×6 (02:36→23:25)
[2019-01-22 06:13] LABS: BASOPHILS % (AUTO) 0.4 % (0-1); EOSINOPHILS # (AUTO) 0.3 X10'3 (0-0.9); EOSINOPHILS % (AUTO) 3.2 % (0-6); HEMOGLOBIN 7.5 g/dl (14.0-17.9); LYMPHOCYTES # (AUTO) 1.3 X10'3 (1.1-4.8); MEAN CORPUSCULAR HEMOGLOBIN 34.2 PG (27.0-31.0); MEAN CORPUSCULAR VOLUME 97.8 FL (78-98); MEAN PLATELET VOLUME 9.6 FL (7.4-10.4); MONOCYTES # (AUTO) 0.6 X10'3 (0-0.9); MONOCYTES % (AUTO) 7.1 % (2-12); NEUTROPHILS # (AUTO) 6.3 X10'3 (1.8-7.7); NEUTROPHILS % (AUTO) 74.3 % (42-75); PLATELET COUNT 212 X10'3 (140-440); RED BLOOD COUNT 2.19 X10'6 (4.70-6.10); RED CELL DISTRIBUTION WIDTH 15.7 % (11.5-14.5); WHITE BLOOD COUNT 8.5 X10'3 (4.5-11.0)
[2019-01-22 06:18] LABS: ALBUMIN 1.6 G/DL (3.4-5.0); ANION GAP 11 (8-16); BLOOD UREA NITROGEN 32 MG/DL (7-18); CHLORIDE 103 MMOL/L (99-107); CREATININE 2.13 MG/DL (0.60-1.10); GLUCOSE 109 MG/DL (70-104); POTASSIUM 3.4 MMOL/L (3.5-5.1); SODIUM 135 MMOL/L (135-145); TOTAL CARBON DIOXIDE 21.4 MMOL/L (24-32); eGFR 31 ML/MIN
[2019-01-22 06:22] LABS: HEMATOCRIT 21.4 % (42.0-52.0)
--- NOTE | 2019-01-22 06:42 | NUR ---
Problems reprioritized. Patient report given, questions answered & plan of care reviewed with Jaja ANN.
[2019-01-22] MEDS: budesonide 0.5mg/2ml UD nebule IH SCH ×2 (07:13→19:49)
[2019-01-22 07:56] VITALS: BP 104/50
[2019-01-22] MEDS: K and/or MAG REPLACEMENT MC SCH (08:00)
[2019-01-22] MEDS: multivitamins, therapeutics tablet PO SCH (08:04)
[2019-01-22] MEDS: furosemide 40mg tablet PO SCH (08:04)
[2019-01-22] MEDS: ferrous sulfate 325mg tablet PO SCH ×2 (08:04→21:29)
[2019-01-22] MEDS: pantoprazole 40mg Tablet.DR PO SCH ×2 (08:04→16:08)
[2019-01-22] MEDS: atorvastatin 10mg tablet PO SCH (08:04)
[2019-01-22] MEDS: vitamin B comp w/Vit. C tab 1 TAB TABLET PO SCH (08:04)
[2019-01-22] MEDS: lactobacillus rhamnosus 10,000 MMU CELLS/CAPSULE PO SCH ×2 (08:05→21:26)
[2019-01-22] MEDS: docusate sod 100mg capsule PO SCH ×2 (08:05→21:30)
[2019-01-22] MEDS: fenofibrate 145mg tablet PO SCH (08:05)
[2019-01-22] MEDS: oxyCODONE/APAP 10/325mg tablet PO PRN ×4 (08:05→21:29)
[2019-01-22] MEDS: carvedilol 6.25mg tablet PO SCH ×2 (08:06→21:37)
[2019-01-22] MEDS: lisinopril 5mg tablet PO SCH (08:06)
[2019-01-22] MEDS: tamsulosin 0.4mg capsule PO SCH (08:06)
[2019-01-22] MEDS: thiamine 100mg tablet PO SCH (08:06)
[2019-01-22] MEDS: folic acid 0.4mg tablet PO SCH (08:06)
[2019-01-22] MEDS: montelukast 10mg tablet PO SCH (08:06)
[2019-01-22] MEDS ORDERED: potassium Cl 20 mEq SR tablet PO PRN (08:15)
[2019-01-22] MEDS ORDERED: potassium Cl 40MEQ/NS 500ml 500 ML IV PRN ×2 (08:15)
[2019-01-22] MEDS ORDERED: magnesium Cl slow-release 64mg tablet PO PRN (08:15)
[2019-01-22] MEDS ORDERED: magnesium 4gm in 100ml NS 100 ML IV PRN (08:15)
[2019-01-22] MEDS: potassium Cl 20 mEq SR tablet PO PRN ×3 (08:40→17:54)
[2019-01-22] MEDS: levoFLOXACIN 250mg tablet PO SCH (11:35)
[2019-01-22 11:42] VITALS: BP 134/56
--- NOTE | 2019-01-22 12:35 | NUR ---
Pt. leg and noted increase in edema. At 4+ pitting edema. RLE reduced edema at 2+ pitting edema. Dopplers heard on pedal pulses. Pt. unable to lift L leg, is complaining of increased knee pain, and is refusing PT today. Pt. is taking 40mg lasix daily. made aware. New order for L Leg xray.
[2019-01-22 17:00] VITALS: BP 152/69
--- NOTE | 2019-01-22 18:15 | NUR ---
Patient in room DANTE 351. I have received report from SAM ANN and had the opportunity to ask questions and assume patient care. Addendum: 01/22/19 at 1942 by Jalyn Lema RN Amended: Links added.
--- NOTE | 2019-01-22 18:49 | NUR ---
pt. has received pain relief medication and has recently been turned, he is alert and stable laying comfortably in bed. Gave report to Jovani college student.
--- NOTE | 2019-01-22 19:11 | NUR ---
I received report from Jaja ANN and assumed care of patient
[2019-01-22 19:34] VITALS: BP 98/50
--- NOTE | 2019-01-22 20:00 | NUR ---
Student documentation: I have reviewed and agree with all interventions, assessments performed and documented by MARV FERRARO [facility] RN STUDENT. Addendum: 01/23/19 at 0216 by Jalyn Lema RN Amended: Links added.
--- NOTE | 2019-01-22 21:00 | NUR ---
pt hs meds given repositioned up in bed and to comfort. pulses posterior tibial and pedal present bilat by doppler left foot more swollen than right but doppler pulses stronger of the left than the right and pulse locations marked with a pen. steve boots on legs bilat and feet elevated.
[2019-01-22] MEDS: Melatonin 3mg tablet PO PRN (21:26)
--- NOTE | 2019-01-22 23:00 | NUR ---
pt resositioned had galvan care done no changes.
--- NOTE | 2019-01-23 00:30 | NUR ---
pt awoke for po Flagyl and repositioned up in bed and turned.
[2019-01-23] MEDS: metroNIDAZOLE 500mg tablet PO SCH ×2 (00:35→08:57)
--- NOTE | 2019-01-23 02:30 | NUR ---
resting positioned on back no changes.
[2019-01-23] MEDS: ipratropium/albuterol 3ml nebule IH SCH ×3 (03:00→11:00)
--- NOTE | 2019-01-23 03:35 | NUR ---
PT RESTING AFTER REPOSITIONING HIM.
[2019-01-23] MEDS: oxyCODONE/APAP 10/325mg tablet PO PRN (05:38)
--- NOTE | 2019-01-23 05:38 | NUR ---
PT MEDICATED FOR PAIN ON BACK AND LEGS.
[2019-01-23 05:47] LABS: BASOPHILS % (AUTO) 0.3 % (0-1); EOSINOPHILS # (AUTO) 0.3 X10'3 (0-0.9); EOSINOPHILS % (AUTO) 4.3 % (0-6); HEMATOCRIT 22.9 % (42.0-52.0); LYMPHOCYTES # (AUTO) 1.4 X10'3 (1.1-4.8); LYMPHOCYTES % (AUTO) 17.2 % (21-51); MEAN CORPUSCULAR HEMOGLOBIN 34.1 PG (27.0-31.0); MEAN CORPUSCULAR HGB CONC 35.1 g/dL (33.0-36.5); MEAN CORPUSCULAR VOLUME 97.3 FL (78-98); MEAN PLATELET VOLUME 9.5 FL (7.4-10.4); MONOCYTES # (AUTO) 0.6 X10'3 (0-0.9); MONOCYTES % (AUTO) 7.2 % (2-12); NEUTROPHILS # (AUTO) 5.7 X10'3 (1.8-7.7); PLATELET COUNT 237 X10'3 (140-440); RED BLOOD COUNT 2.35 X10'6 (4.70-6.10); RED CELL DISTRIBUTION WIDTH 15.5 % (11.5-14.5)
--- NOTE | 2019-01-23 06:13 | NUR ---
Student documentation: I have reviewed and agree with all interventions, assessments performed and documented by Yuly bruno Rn student.Student Medication Administration: For this medication-pass time frame, all medication were reviewed, dispensed, administered and documented per hospital policy by Yuly bruno Rn student. Problems reprioritized. Patient report given, questions answered & plan of care reviewed with Teresa Soto. Addendum: 01/23/19 at 0614 by Jalyn Lema RN Amended: Links added.
[2019-01-23 06:17] LABS: ALBUMIN 1.7 G/DL (3.4-5.0); ANION GAP 8 (8-16); BLOOD UREA NITROGEN 32 MG/DL (7-18); BUN/CREATININE RATIO 13.9 (5.4-32.0); CALCIUM 8.1 MG/DL (8.5-10.1); CHLORIDE 104 MMOL/L (99-107); GLUCOSE 93 MG/DL (70-104); MAGNESIUM 1.2 MG/DL (1.5-2.4); POTASSIUM 4.3 MMOL/L (3.5-5.1); SODIUM 135 MMOL/L (135-145); TOTAL CARBON DIOXIDE 22.7 MMOL/L (24-32); eGFR 28 ML/MIN
--- NOTE | 2019-01-23 06:53 | NUR ---
Problems reprioritized. Patient report given, questions answered & plan of care reviewed with Faith Soto. Addendum: 01/23/19 at 0655 by Jalyn Lema RN Amended: Links added.
--- NOTE | 2019-01-23 07:02 | NUR ---
Patient in room DANTE 351. I have received report from Jalyn ANN and had the opportunity to ask questions and assume patient care.
[2019-01-23] MEDS: budesonide 0.5mg/2ml UD nebule IH SCH (07:13)
[2019-01-23 07:21] VITALS: BP 105/48
[2019-01-23] MEDS: K and/or MAG REPLACEMENT MC SCH (08:00)
[2019-01-23] MEDS: docusate sod 100mg capsule PO SCH (08:56)
[2019-01-23] MEDS: multivitamins, therapeutics tablet PO SCH (08:56)
[2019-01-23] MEDS: tamsulosin 0.4mg capsule PO SCH (08:57)
[2019-01-23] MEDS: lisinopril 5mg tablet PO SCH (08:57)
[2019-01-23] MEDS: fenofibrate 145mg tablet PO SCH (08:57)
[2019-01-23] MEDS: pantoprazole 40mg Tablet.DR PO SCH (08:57)
[2019-01-23] MEDS: montelukast 10mg tablet PO SCH (08:57)
[2019-01-23] MEDS: thiamine 100mg tablet PO SCH (08:57)
[2019-01-23] MEDS: vitamin B comp w/Vit. C tab 1 TAB TABLET PO SCH (08:57)
[2019-01-23] MEDS: carvedilol 6.25mg tablet PO SCH (08:57)
[2019-01-23] MEDS: lactobacillus rhamnosus 10,000 MMU CELLS/CAPSULE PO SCH (08:57)
[2019-01-23] MEDS: folic acid 0.4mg tablet PO SCH (08:57)
[2019-01-23] MEDS: atorvastatin 10mg tablet PO SCH (08:57)
[2019-01-23] MEDS: furosemide 40mg tablet PO SCH (08:57)
[2019-01-23] MEDS: ferrous sulfate 325mg tablet PO SCH (08:57)
[2019-01-23] MEDS: HYDROcodone/acetaminophen 10/325mg tab PO PRN ×2 (08:58→13:33)
[2019-01-23] MEDS: levoFLOXACIN 250mg tablet PO SCH (11:16)
[2019-01-23 11:51] VITALS: BP 100/45
--- NOTE | 2019-01-23 13:52 | NUR ---
[facility] Bhupinder ANN. Patient to be picked up at 1430.
[2019-01-23] MEDS ORDERED: METR500T PO (13:53)
[2019-01-23] MEDS ORDERED: LEVO250T58 PO (13:53)
== END 2019-01-23 14:10 | DRG 377 ==
LOC: ER 23:22 → ED HOLD 01-14 01:09 → SUR 3N 01-14 02:48
PROVIDERS: ADMIT Hospitalist; ATTEND Internal Medicine
PROC: 0DJ08ZZ Inspection of Upper Intestinal Tract, Via Natural or Artificial Opening Endoscopic (ICD-10-PCS; principal; 2019-01-14)
PROC: 30233N1 Transfusion of Nonautologous Red Blood Cells into Peripheral Vein, Percutaneous Approach (ICD-10-PCS; 2019-01-15)
DX: K92.0 Hematemesis (principal); E43 Unspecified severe protein-calorie malnutrition; I13.0 Hypertensive heart and chronic kidney disease with heart failure and stage 1 through stage 4 chronic kidney disease, or unspecified chronic kidney disease; N17.9 Acute kidney failure, unspecified; E87.1 Hypo-osmolality and hyponatremia; E11.52 Type 2 diabetes mellitus with diabetic peripheral angiopathy with gangrene; J98.11 Atelectasis; E86.0 Dehydration; D64.9 Anemia, unspecified; K21.0 Gastro-esophageal reflux disease with esophagitis; E87.6 Hypokalemia; F17.210 Nicotine dependence, cigarettes, uncomplicated; N18.9 Chronic kidney disease, unspecified; F10.20 Alcohol dependence, uncomplicated; E11.22 Type 2 diabetes mellitus with diabetic chronic kidney disease; M79.602 Pain in left arm; E78.00 Pure hypercholesterolemia, unspecified; E78.5 Hyperlipidemia, unspecified; I25.10 Atherosclerotic heart disease of native coronary artery without angina pectoris; I50.9 Heart failure, unspecified; J44.9 Chronic obstructive pulmonary disease, unspecified; K52.9 Noninfective gastroenteritis and colitis, unspecified; N40.0 Benign prostatic hyperplasia without lower urinary tract symptoms; Z79.51 Long term (current) use of inhaled steroids; Z79.84 Long term (current) use of oral hypoglycemic drugs; Z79.899 Other long term (current) drug therapy; Z68.30 Body mass index [BMI] 30.0-30.9, adult
CPT/HCPCS: 36415; 70544; 70551; 71045; 72141; 73020; 73060; 73070; 73200; 73564; 73590; 74176; 80048; 80053; 81003; 82271; 82272; 82948; 83036; 83735; 84132; 85025; 85027; 85610; 86885; 86900; 86901; 86920; 87070; 93971; 94640; 94760; 96374; 97110; 97116; 97162; 97164; 97530; 99152; 99285; A4620; C9113; G0378; J1815; J1956; J2250; J2405; J3010; J3480; J3490; J7030; J7626; P9016

== ENCOUNTER 2019-02-12 13:04 | Day surgery (SDC) | payer OTHER, MEDICARE ==
[~2019-02-12] VITALS: Ht 177.8 cm; Wt 86.8 kg
[~2019-02-12 13:04] MED LIST changes: -ASPI-1264 PO; -ASPI-1265 PO; +ATOR10TA87 PO; +BUDE0.5A11 IH; -CYAN1TAB2 PO; +DOCU-20 PO; +FERR325T28 PO; +FLO0.4C PO; +HEPA1DIS10; +HYDR-3965 PO; -IBUP-24 PO; +IPRA3AMP31 IH; +LEVO250T58 PO; -LISI-600 PO; +LISI10TA4 PO; +LOPE2CAP PO; +MAGN400O6 PO; +MELA3TAB PO; +METR500T PO; +MULT-685 PO; +OMEP40CA37 PO; -SIMV20TA5 PO; +THIA100T66 PO
[2019-02-12 13:15] VITALS: BP 143/57
[2019-02-12] MEDS ORDERED: fentaNYL/PF 50MCG/1 ML 2ML syringe ONE (13:39)
[2019-02-12] MEDS ORDERED: MIDAZolam 5mg/5ml vial ONE (13:40)
[2019-02-12] MEDS ORDERED: HYDR-4353 PO (13:43)
[2019-02-12] MEDS ORDERED: ACET650T11 PO (13:47)
[2019-02-12] MEDS ORDERED: LACTC PO (13:48)
[2019-02-12] MEDS ORDERED: BISA10SU60 RC (13:49)
[2019-02-12] MEDS ORDERED: MAGN400O6 PO (13:50)
[2019-02-12] MEDS ORDERED: NA P133E4 RC (13:50)
[2019-02-12 14:10] VITALS: BP 113/65
[2019-02-12 14:20] VITALS: BP 133/68
[2019-02-12 14:30] VITALS: BP 114/64
[2019-02-12 14:40] VITALS: BP 129/75
== END 2019-02-12 15:30 | disposition home or self-care (01) ==
LOC: GI LAB 13:04
PROVIDERS: ATTEND Internal Medicine Gastroenterology
DX: K57.30 Diverticulosis of large intestine without perforation or abscess without bleeding (principal); K63.3 Ulcer of intestine; K55.9 Vascular disorder of intestine, unspecified; K64.8 Other hemorrhoids
CPT/HCPCS: 45380; 99152; 99153; J2250; J3010; J7030; 88305; A4620

== ENCOUNTER 2019-03-26 10:33 | Inpatient (IN) | payer OTHER, MEDICARE ==
[~2019-03-26] VITALS: Ht 180.3 cm; Wt 81.2 kg
[~2019-03-26 10:33] MED LIST changes: +ACET650T11 PO; +BISA10SU60 RC; -FENO160T; +FENO160T PO; -HEPA1DIS10; -HYDR-3965 PO; +HYDR-4353 PO; +LACTC PO; -LANS30CA56 PO; -LOPE2CAP PO; +NA P133E4 RC; -PIOG15TA8 PO; -TRAM50TA2 PO
--- NOTE | 2019-03-26 11:09 | NUR ---
REPAIRER PUMP STATES THEY WOULD TAKE THE PT BUT HE IS NOT CALM ENOUGH TO STAY STILL AND ARE WAITING ON MD REYNOLDS TO ORDER SOMETHING TO GIVE HIM TO HELP HIM STAY CALM
[2019-03-26 11:23] LABS: BASOPHILS # (AUTO) 0.1 X10'3 (0-0.2); BASOPHILS % (AUTO) 0.4 % (0-1); EOSINOPHILS % (AUTO) 0.3 % (0-6); HEMATOCRIT 24.4 % (42.0-52.0); HEMOGLOBIN 8.5 g/dl (14.0-17.9); LYMPHOCYTES # (AUTO) 2.3 X10'3 (1.1-4.8); LYMPHOCYTES % (AUTO) 13.7 % (21-51); MEAN CORPUSCULAR HEMOGLOBIN 35.9 PG (27.0-31.0); MEAN CORPUSCULAR HGB CONC 34.9 g/dL (33.0-36.5); MEAN PLATELET VOLUME 7.9 FL (7.4-10.4); MONOCYTES % (AUTO) 6.1 % (2-12); NEUTROPHILS # (AUTO) 13.3 X10'3 (1.8-7.7); NEUTROPHILS % (AUTO) 79.5 % (42-75); PLATELET COUNT 379 X10'3 (140-440); RED BLOOD COUNT 2.37 X10'6 (4.70-6.10); RED CELL DISTRIBUTION WIDTH 14.1 % (11.5-14.5); WHITE BLOOD COUNT 16.7 X10'3 (4.5-11.0)
[2019-03-26 11:26] LABS: PARTIAL THROMBOPLASTIN TIME 34 SECONDS (22-32)
[2019-03-26 11:33] LABS: ALANINE AMINOTRANSFERASE 29 U/L (12-78); ALBUMIN 1.5 G/DL (3.4-5.0); ALBUMIN/GLOBULIN RATIO 0.4 (1.1-1.5); ALKALINE PHOSPHATASE 82 IU/L (46-116); ANION GAP 9 (8-16); ASPARTATE AMINO TRANSFERASE 30 U/L (10-37); BILIRUBIN,TOTAL 0.8 MG/DL (0.1-1.0); BLOOD UREA NITROGEN 45 MG/DL (7-18); BUN/CREATININE RATIO 23.1 (5.4-32.0); CALCIUM 8.2 MG/DL (8.5-10.1); CHLORIDE 106 MMOL/L (99-107); CREATININE 1.95 MG/DL (0.60-1.10); ETHANOL < 0.010 GM/DL (0.0-0.010); GLUCOSE 124 MG/DL (70-104); POTASSIUM 4.3 MMOL/L (3.5-5.1); SODIUM 138 MMOL/L (135-145); TOTAL CARBON DIOXIDE 23.2 MMOL/L (24-32); TOTAL PROTEIN 5.7 G/DL (6.4-8.2); eGFR 34 ML/MIN
[2019-03-26] MEDS ORDERED: LORazepam 2 mg/ml vial IV ONE (11:40)
[2019-03-26 11:51] LABS: PLATELET ESTIMATE NORMAL
--- NOTE | 2019-03-26 12:05 | NUR ---
pt calm enough for ct. stroke nurse went with pt to ct
[2019-03-26] MEDS ORDERED: CefTRIAXone 2gm/D5W 50ml 50 ML IV ONE (12:30)
[2019-03-26 12:57] LABS: CLARITY,URINE CLEAR (Clear); COLOR,URINE YELLOW (Yellow); GLUCOSE, URINE NEGATIVE (Neg); KETONES,URINE NEGATIVE (Neg); LEUKOCYTE ESTERASE ,URINE NEGATIVE (Neg); NITRITES, URINE NEGATIVE (Neg); OCCULT BLOOD,URINE TRACE-INTACT (Neg); PH,URINE 5.5 (4.8-8.0); PROTEIN,URINE NEGATIVE (Neg); UROBILINOGEN,URINE 0.2 E.U/dL (0.2-1.0)
[2019-03-26 12:59] LABS: UA COLLECTION TYPE STRAIGHT CATH
[2019-03-26] MEDS ORDERED: normal saline 1000ml 1,000 ML IV ONE (13:05)
[2019-03-26 13:07] LABS: URINE AMPHETAMINE SCREEN NEGATIVE (Neg); URINE BARBITUATE SCREEN NEGATIVE (Neg); URINE BENZODIAZEPINES SCREEN NEGATIVE (Neg); URINE CANNABINOID SCREEN NEGATIVE (Neg); URINE COCAINE SCREEN NEGATIVE (Neg); URINE METHADONE SCREEN NEGATIVE (Neg); URINE OPIATE SCREEN POSITIVE (Neg); URINE PHENCYCLIDINE SCREEN NEGATIVE (Neg)
[2019-03-26] MEDS ORDERED: CRAN3875 PO (13:14)
[2019-03-26] MEDS ORDERED: VIT1TABL83 PO (13:14)
[2019-03-26] MEDS ORDERED: BUDE0.5A11 NEB (13:14)
[2019-03-26] MEDS ORDERED: TRAM50TA2 PO (13:14)
[2019-03-26] MEDS ORDERED: LACT10SO PO (13:14)
[2019-03-26] MEDS ORDERED: FOLI1TAB16 PO (13:14)
[2019-03-26] MEDS ORDERED: PHEN1SUP96 PR (13:14)
[2019-03-26 13:15] LABS: WBC,URINE 0-4 /HPF (0-4)
[2019-03-26 13:16] LABS: BACTERIA,URINE NONE SEEN /HPF (Neg); RBC,URINE 0-2 /HPF (0-2); SQUAMOUS EPITHELIAL CELL,UR FEW /LPF (FEW)
[2019-03-26] MEDS ORDERED: IPRA4AER IH (13:20)
[2019-03-26] MEDS ORDERED: mag hydrox/Alum hydrox/simeth 30ml oral suspension PO PRN (13:25)
[2019-03-26] MEDS ORDERED: vancomycin/NS 1 GM ADD-VANTAGE 250 ML IV SCH (13:25)
[2019-03-26] MEDS ORDERED: ondansetron/PF 4mg/2ml inj IV PRN (13:25)
[2019-03-26] MEDS ORDERED: potassium Cl 20 mEq SR tablet PO PRN ×2 (13:25)
[2019-03-26] MEDS ORDERED: magnesium Cl slow-release 64mg tablet PO PRN (13:25)
[2019-03-26] MEDS ORDERED: bisacodyl 10mg suppository rectal RC PRN (13:25)
[2019-03-26] MEDS ORDERED: magnesium 2GM in 50ml NS 50 ML IV PRN (13:25)
[2019-03-26] MEDS: K and/or MAG REPLACEMENT MC SCH (13:25)
[2019-03-26] MEDS ORDERED: magnesium 4gm in 100ml NS 100 ML IV PRN (13:25)
[2019-03-26] MEDS ORDERED: acetaminophen 325mg tablet PO PRN (13:25)
[2019-03-26] MEDS ORDERED: potassium Cl 40MEQ/NS 500ml 500 ML IV PRN ×2 (13:25)
[2019-03-26] MEDS ORDERED: magnesium hydroxide 30ml (MOM) UD suspension PO PRN ×2 (13:25→13:35)
[2019-03-26] MEDS ORDERED: [UNRECOGNIZED DRUG - OTHER] IH PRN (13:35)
[2019-03-26] MEDS ORDERED: DOBUTamine-DoBUTrex 500mg/D5W 250 ML IV SCH (13:35)
[2019-03-26] MEDS ORDERED: glucagon, human recombinant 1mg kit SUBCUT PRN (13:35)
[2019-03-26] MEDS ORDERED: ALBUTEROL SULFATE IH PRN (13:35)
[2019-03-26] MEDS ORDERED: insulin Lispro (HumaLOG) vial - multi-dose SQ SCH (13:35)
[2019-03-26] MEDS ORDERED: IPRATROPIUM IH PRN (13:35)
[2019-03-26] MEDS ORDERED: MESSAGE TO PHARMACY PO ONE (13:35)
[2019-03-26] MEDS ORDERED: Melatonin 3mg tablet PO PRN (13:35)
[2019-03-26] MEDS ORDERED: dextrose ORAL solution 15 GM/59 ML bottle PO PRN ×2 (13:35)
[2019-03-26] MEDS ORDERED: non-formulary drug (Albuterol Sulfate (Proair Hfa) 2 PUFFS) INH SCH (13:35)
[2019-03-26] MEDS ORDERED: epiNEPHrine 0.1mg/ml 10ml syringe ONE (14:00)
[2019-03-26] MEDS ORDERED: sod chloride 0.9% 10ml flush syringe IV ONE (14:00)
[2019-03-26] MEDS ORDERED: calcium chloride 100 MG/1 ML inj IV ONE (14:00)
[2019-03-26] MEDS: lactulose 20gm/30ml cup NG SCH ×2 (14:00→20:47)
[2019-03-26 14:36] LABS: ABG BASE EXCESS -2.5 mmol/L (-2.0-3.0); ABG HCO3 20.3 mmol/L (22.0-26.0); ABG PH (T) 7.479 (7.350-7.450); ABG PO2 (T) 136.6 mmHg (83-108); ALLEN'S TEST Positive; FCOHb 0.3 % (0.5-1.5); FMetHb 0.1 % (0.3-1.12); FO2Hb 97.6 % (94-100); TOTAL HEMOGLOBIN 9.2 G/dl (14.0-18.0)
[2019-03-26] MEDS ORDERED: ipratropium/albuterol 3ml nebule NEB SCH (15:00)
[2019-03-26] MEDS: albuterol 2.5 MG/3 ML nebule NEB SCH ×2 (15:00→19:00)
[2019-03-26] MEDS: pantoprazole 40 MG vial IV SCH (15:29)
--- NOTE | 2019-03-26 16:16 | NUR ---
Patient in ED . I have received report from MARISSA Ferro and had the opportunity to ask questions. Waiting pt's arrival to PCU room 8421I.
--- NOTE | 2019-03-26 16:30 | NUR ---
Pt arrived from ED via gurney & transferred in to bed using slide board. Vital signs obtained, call light within reach. Tele monitor applied, heel boots applied. Will continue to closely monitor.
[2019-03-26 16:45] VITALS: BP 120/77
[2019-03-26 17:05] LABS: HEMOGLOBIN A1C 4.3 % (4.5-6.2)
[2019-03-26 18:00] VITALS: BP 131/69
--- NOTE | 2019-03-26 18:18 | NUR ---
Problems reprioritized. Patient report given, questions answered & plan of care reviewed with MARISSA Cuevas.
--- NOTE | 2019-03-26 18:22 | NUR ---
[place]rientee documentation: I have reviewed and agree with all interventions, assessments performed and documented by MARISSA Hickey.
[2019-03-26] MEDS: cefepime 1GM/NS ADD-VANTAGE 100 ML IV SCH ×2 (18:43→23:44)
[2019-03-26] MEDS: BUDESONIDE 0.25 MG/2 ML AMPUL.NEB IH SCH (19:42)
[2019-03-26] MEDS: ipratropium/albuterol 3ml nebule IH PRN (19:42)
[2019-03-26] MEDS ORDERED: non-formulary drug (Mometasone/Formoterol (Dulera 100 Mcg/5 Mcg Inhaler) 2 PUFFS) INH SCH (20:00)
[2019-03-26] MEDS ORDERED: docusate sod 100mg capsule PO SCH (20:00)
[2019-03-26] MEDS: docusate sod 100mg capsule PO SCH (20:00)
[2019-03-26] MEDS ORDERED: non-formulary drug (Lactobacillus Acidophilus (ACIDOPHILUS capsule) 1 CAP) PO SCH (20:00)
[2019-03-26] MEDS: lactobacillus rhamnosus 10,000 MMU CELLS/CAPSULE PO SCH (20:47)
[2019-03-26] MEDS: heparin, porcine 5000 units/ml vial SQ SCH (20:47)
[2019-03-26] MEDS: ferrous sulfate 325mg tablet PO SCH (20:47)
[2019-03-26] MEDS: LORazepam 2 mg/ml vial IV PRN (21:38)
[2019-03-26 22:00] VITALS: BP 113/47
--- NOTE | 2019-03-26 22:15 | NUR ---
MD Patel called and notified of patient's increased agitation resulting in HR 130's and RR 30's and multiple attempts to pull out corpak. Orders received for ativan IV 1mg q3h PRN and mitts. Discussed Dobutamine gtt order - BPs 130s/60s - agreed to hold off on gtt.
--- NOTE | 2019-03-27 01:32 | NUR ---
Bladder scan >400. MD Patel notified; galvan placed for retention.
[2019-03-27 02:00] VITALS: BP 121/65
[2019-03-27] MEDS: lactulose 20gm/30ml cup NG SCH ×4 (02:03→20:00)
[2019-03-27 05:47] LABS: BASOPHILS # (AUTO) 0.1 X10'3 (0-0.2); BASOPHILS % (AUTO) 0.5 % (0-1); EOSINOPHILS # (AUTO) 0.1 X10'3 (0-0.9); EOSINOPHILS % (AUTO) 0.5 % (0-6); HEMATOCRIT 22.6 % (42.0-52.0); HEMOGLOBIN 7.6 g/dl (14.0-17.9); LYMPHOCYTES # (AUTO) 1.7 X10'3 (1.1-4.8); LYMPHOCYTES % (AUTO) 12.7 % (21-51); MEAN CORPUSCULAR HGB CONC 33.4 g/dL (33.0-36.5); MEAN CORPUSCULAR VOLUME 104.8 FL (78-98); MEAN PLATELET VOLUME 8.5 FL (7.4-10.4); MONOCYTES # (AUTO) 0.7 X10'3 (0-0.9); MONOCYTES % (AUTO) 5.7 % (2-12); NEUTROPHILS # (AUTO) 10.6 X10'3 (1.8-7.7); NEUTROPHILS % (AUTO) 80.6 % (42-75); PLATELET COUNT 264 X10'3 (140-440); RED BLOOD COUNT 2.16 X10'6 (4.70-6.10); RED CELL DISTRIBUTION WIDTH 14.7 % (11.5-14.5); WHITE BLOOD COUNT 13.2 X10'3 (4.5-11.0)
[2019-03-27 05:56] LABS: ALANINE AMINOTRANSFERASE 32 U/L (12-78); ALBUMIN 1.3 G/DL (3.4-5.0); ALBUMIN/GLOBULIN RATIO 0.3 (1.1-1.5); ALKALINE PHOSPHATASE 78 IU/L (46-116); ANION GAP 9 (8-16); ASPARTATE AMINO TRANSFERASE 24 U/L (10-37); BILIRUBIN,TOTAL 0.6 MG/DL (0.1-1.0); BLOOD UREA NITROGEN 42 MG/DL (7-18); CALCIUM 7.9 MG/DL (8.5-10.1); CHLORIDE 110 MMOL/L (99-107); CREATININE 1.91 MG/DL (0.60-1.10); GLUCOSE 197 MG/DL (70-104); MAGNESIUM 1.7 MG/DL (1.5-2.4); POTASSIUM 3.9 MMOL/L (3.5-5.1); SODIUM 141 MMOL/L (135-145); TOTAL CARBON DIOXIDE 21.9 MMOL/L (24-32); TOTAL PROTEIN 5.1 G/DL (6.4-8.2); eGFR 35 ML/MIN
[2019-03-27 06:00] VITALS: BP 118/58
--- NOTE | 2019-03-27 06:46 | NUR ---
Patient in room PCU 3025. I have received report from Faith and had the opportunity to ask questions and assume patient care.
[2019-03-27] MEDS: albuterol 2.5 MG/3 ML nebule NEB SCH ×4 (07:00→19:47)
[2019-03-27] MEDS: ferrous sulfate 325mg tablet PO SCH ×2 (08:00→20:00)
[2019-03-27] MEDS: folic acid 1mg tablet PO SCH (08:00)
[2019-03-27] MEDS: tamsulosin 0.4mg capsule PO SCH (08:00)
[2019-03-27] MEDS ORDERED: MULTIVITS TH W FE OTHER MIN PO SCH (08:00)
[2019-03-27] MEDS: docusate sod 100mg capsule PO SCH ×2 (08:00→20:00)
[2019-03-27] MEDS: K and/or MAG REPLACEMENT MC SCH (08:00)
[2019-03-27] MEDS ORDERED: FENOFIBRATE 145 MG PO SCH (08:00)
[2019-03-27] MEDS: thiamine 100mg tablet PO SCH (08:00)
[2019-03-27] MEDS: multivitamins, therapeutics tablet PO SCH (08:00)
[2019-03-27] MEDS: lactobacillus rhamnosus 10,000 MMU CELLS/CAPSULE PO SCH ×2 (08:00→20:00)
[2019-03-27] MEDS: atorvastatin 10mg tablet PO SCH (08:00)
[2019-03-27] MEDS: montelukast 10mg tablet PO SCH (08:00)
[2019-03-27] MEDS: fenofibrate 145mg tablet PO SCH (08:30)
[2019-03-27] MEDS: pantoprazole 40 MG vial IV SCH (08:35)
[2019-03-27] MEDS: heparin, porcine 5000 units/ml vial SQ SCH ×2 (08:35→23:18)
[2019-03-27] MEDS: cefepime 1GM/NS ADD-VANTAGE 100 ML IV SCH ×2 (08:35→16:42)
--- NOTE | 2019-03-27 10:07 | NUR ---
PAGER ID: [phone] MESSAGE: Room 3025A Pedro. corpak appeared out of nose. KUB obtained. IMPRESSION:Corpak type device the tip projecting over the stomach. Multiple gas-filled loops of bowel. Clinical correlation is recommended. please advise roly [id number]
--- NOTE | 2019-03-27 10:23 | NUR ---
Informed Dr arboleda of patients corpak being displaced, not receiving morning meds yet, ammonia level, dobutamine drip has not been started, low out put for NOC
--- NOTE | 2019-03-27 10:27 | NUR ---
Tube feeding consult. Patient currently in process of having corpak placed. Pt corpak had moved to stomach pending KUB for verified placement prior to TF initiation.Patient brought to ED by family d/t confusion, possible pneumonia,hypotensive. Has elevated ammonia 147, history of heavy EtOH and liver cirrhosis. Very poor appetite and not eating well. Additional history of COPD, CAD, and DM, A1C 4.3 and glucose 107-197 mg/dl. RD d/w RN for bed scale wt in order to determine accurate wt hx given bed scale wt 100kg in December and current 80kg pt stated. TF recs below for pt needs. Recommend: 1. Once corpak place verified, recommend Glucerna 1.2 at 90 ml/hr to provide 2160 ml volume, 2592 cals, 130 g protein, and 1750 ml free water. 2. additional water flush per MD 3. Prealbumin q Tuesday and 4. Daily weights 5. continue thiamine, folic acid, and MVM Addendum: 03/27/19 at [address] Amended: Links added.
--- NOTE | 2019-03-27 10:33 | NUR ---
Dr arboleda stated to hold dobutamine drip
--- NOTE | 2019-03-27 10:47 | NUR ---
F/u: Pt has bed scale and per RN 82.2kg current wt likely most accurate baseline dry weight. Addendum: 03/27/19 at [address] Amended: Links added.
[2019-03-27 11:00] VITALS: BP 110/57
[2019-03-27] MEDS: BUDESONIDE 0.25 MG/2 ML AMPUL.NEB IH SCH ×2 (11:13→19:47)
--- NOTE | 2019-03-27 12:00 | NUR ---
Corpak tube moved,to be moved past stomach into jejunum, feeding stopped until placement can be confirmed. MD Cotto aware.
--- NOTE | 2019-03-27 12:50 | NUR ---
Malnutrition consult: Pt has bed scale and per RN 82.2kg current wt. Likely most accurate baseline dry weight. Pt has mild edema present w/ cirrhosis hx and prior wts other scaled versions besides bed in addition to fluid changes given hx. Pt has weakness but severity not documented; in addition pt has visible muscle/fat wasting and qualifies for severe malnutrition at this time; notified. Addendum: 03/27/19 at [address] Amended: Links added.
[2019-03-27] MEDS: vancomycin/NS 1 GM ADD-VANTAGE 250 ML IV SCH (14:59)
[2019-03-27 15:00] VITALS: BP 117/64
--- NOTE | 2019-03-27 17:29 | NUR ---
PAGER ID: [phone] MESSAGE: [id number], Todd Vasquez, third KUB complete, result still "tip projecting over stomach". is this ok placement to start feeding and meds, please advise. Fito ANN [phone]
--- NOTE | 2019-03-27 17:43 | NUR ---
PAGER ID: [phone] MESSAGE: Room [id number] marichuy Vasquez. Charge nurse asking for reglan IV to help increase peristalsis. roly [phone]
[2019-03-27] MEDS ORDERED: metoclopramide 5 mg/ml inj IV ONE (17:50)
--- NOTE | 2019-03-27 18:30 | NUR ---
Patient in room PCU 3025. I have received report from Connie ANN and had the opportunity to ask questions and assume patient care. at bedside, pt lying in bed, in no distress at this time. will continue to monitor
--- NOTE | 2019-03-27 18:38 | NUR ---
Problems reprioritized. Patient report given, questions answered & plan of care reviewed with Liseth Bryan RN, pt seen at bedside.
[2019-03-27 19:00] VITALS: BP 116/53
--- NOTE | 2019-03-27 21:30 | NUR ---
reglan administered and repeat KUB ordered. if corepak still in stomach instructed by ICU gas charger to call hospitalist to see if ok to use for meds only at this time.
[2019-03-27 23:00] VITALS: BP 111/71
--- NOTE | 2019-03-27 23:03 | NUR ---
spoke with Dr Patel re repeat KUB to confirm placement, cannot tell based on xray so for now we are not to access it for TF or meds until read by radiologist. MD aware pt supposed to be getting lactulose q6h for high ammonia level, ok to non-admin this per MD. also mention HR sustaining int he 130's, little to no urine output so far this shift, order rc'd to start NS @ 50ml/hr. will continue to monitor pt closely
[2019-03-27] MEDS: normal saline 1000ml 1,000 ML IV SCH (23:24)
[2019-03-28] VITALS (11 sets, daily range): BP systolic 61–124; BP diastolic 29–66
[2019-03-28] MEDS: cefepime 1GM/NS ADD-VANTAGE 100 ML IV SCH ×4 (00:09→17:25)
[2019-03-28] MEDS: lactulose 20gm/30ml cup NG SCH (01:17)
--- NOTE | 2019-03-28 03:22 | NUR ---
called Dr Patel re pts HR still above 100, BP now dropping with SBP below 100. order rc'd for 500ml NS bolus. also asked if ok to draw AM labs now and add ammonia level to draw, ok'd.
[2019-03-28] MEDS ORDERED: normal saline 1000ml 1,000 ML IV ONE (03:25)
[2019-03-28 04:10] LABS: BASOPHILS # (AUTO) 0.1 X10'3 (0-0.2); BASOPHILS % (AUTO) 0.7 % (0-1); EOSINOPHILS # (AUTO) 0.1 X10'3 (0-0.9); EOSINOPHILS % (AUTO) 0.7 % (0-6); LYMPHOCYTES # (AUTO) 2.3 X10'3 (1.1-4.8); LYMPHOCYTES % (AUTO) 19.4 % (21-51); MEAN CORPUSCULAR HEMOGLOBIN 34.2 PG (27.0-31.0); MEAN CORPUSCULAR HGB CONC 32.8 g/dL (33.0-36.5); MEAN CORPUSCULAR VOLUME 104.3 FL (78-98); MEAN PLATELET VOLUME 7.9 FL (7.4-10.4); MONOCYTES # (AUTO) 0.5 X10'3 (0-0.9); MONOCYTES % (AUTO) 4.3 % (2-12); NEUTROPHILS # (AUTO) 8.9 X10'3 (1.8-7.7); NEUTROPHILS % (AUTO) 74.9 % (42-75); PLATELET COUNT 288 X10'3 (140-440); RED BLOOD COUNT 2.04 X10'6 (4.70-6.10); RED CELL DISTRIBUTION WIDTH 14.5 % (11.5-14.5); WHITE BLOOD COUNT 11.9 X10'3 (4.5-11.0)
[2019-03-28 04:19] LABS: HEMATOCRIT 21.3 % (42.0-52.0)
[2019-03-28 04:22] LABS: ALANINE AMINOTRANSFERASE 27 U/L (12-78); ALBUMIN 1.2 G/DL (3.4-5.0); ALBUMIN/GLOBULIN RATIO 0.3 (1.1-1.5); ALKALINE PHOSPHATASE 65 IU/L (46-116); ANION GAP 8 (8-16); ASPARTATE AMINO TRANSFERASE 23 U/L (10-37); BILIRUBIN,TOTAL 0.6 MG/DL (0.1-1.0); BLOOD UREA NITROGEN 43 MG/DL (7-18); BUN/CREATININE RATIO 22.9 (5.4-32.0); CALCIUM 7.9 MG/DL (8.5-10.1); CHLORIDE 114 MMOL/L (99-107); CREATININE 1.88 MG/DL (0.60-1.10); GLUCOSE 114 MG/DL (70-104); MAGNESIUM 1.7 MG/DL (1.5-2.4); POTASSIUM 3.8 MMOL/L (3.5-5.1); SODIUM 144 MMOL/L (135-145); TOTAL CARBON DIOXIDE 21.6 MMOL/L (24-32); TOTAL PROTEIN 5.1 G/DL (6.4-8.2); eGFR 36 ML/MIN
--- NOTE | 2019-03-28 04:36 | NUR ---
called Dr Patel re pts crit H/H: 7.0/21.3, no orders to transfuse at this time. no orders to redraw a hemogram at this time.
--- NOTE | 2019-03-28 06:26 | NUR ---
Problems reprioritized. Patient report given, questions answered & plan of care reviewed with Emily ANN.
--- NOTE | 2019-03-28 06:51 | NUR ---
Patient in room PCU 3025. I have received report from Liseth ANN and had the opportunity to ask questions and assume patient care.
[2019-03-28] MEDS: albuterol 2.5 MG/3 ML nebule NEB SCH ×4 (07:00→19:41)
[2019-03-28] MEDS: ipratropium/albuterol 3ml nebule IH PRN (07:56)
[2019-03-28] MEDS: BUDESONIDE 0.25 MG/2 ML AMPUL.NEB IH SCH ×2 (07:57→19:41)
[2019-03-28] MEDS: folic acid 1mg tablet PO SCH (08:00)
[2019-03-28] MEDS: K and/or MAG REPLACEMENT MC SCH (08:00)
[2019-03-28] MEDS: docusate sod 100mg capsule PO SCH ×2 (08:00→19:11)
[2019-03-28] MEDS: tamsulosin 0.4mg capsule PO SCH (08:00)
[2019-03-28] MEDS: atorvastatin 10mg tablet PO SCH (08:00)
[2019-03-28] MEDS: lactobacillus rhamnosus 10,000 MMU CELLS/CAPSULE PO SCH ×2 (08:00→19:12)
[2019-03-28] MEDS: montelukast 10mg tablet PO SCH (08:00)
[2019-03-28] MEDS: multivitamins, therapeutics tablet PO SCH (08:00)
[2019-03-28] MEDS: ferrous sulfate 325mg tablet PO SCH ×2 (08:00→19:12)
[2019-03-28] MEDS: thiamine 100mg tablet PO SCH (08:00)
[2019-03-28] MEDS: pantoprazole 40 MG vial IV SCH ×2 (08:10→09:17)
[2019-03-28] MEDS: heparin, porcine 5000 units/ml vial SQ SCH ×2 (08:10→19:05)
[2019-03-28] MEDS: fenofibrate 145mg tablet PO SCH (08:30)
--- NOTE | 2019-03-28 08:35 | NUR ---
0800 cephapime and protonix both IV, both pulled and set up, when attempting to flush before administration IV was painful to pt on flush, IV access lost, PICC nurse notified. medications will be held until IV access is restored.
--- NOTE | 2019-03-28 09:48 | NUR ---
Extended PIV inserted to the right upper arm basilic vein x 1 attempt after 1 failed attempt to the right upper arm cephalic vein both using ultrasound. Brien well. Addendum: 03/28/19 at 0949 by Kaylynn Chacon RN Amended: Links added.
[2019-03-28] MEDS: LORazepam 2 mg/ml vial IV PRN ×4 (11:43→22:17)
[2019-03-28] MEDS: vancomycin/NS 1 GM ADD-VANTAGE 250 ML IV SCH (15:41)
--- NOTE | 2019-03-28 16:55 | NUR ---
Dr. Cotto telephoned. Order received to D/C attempts to place NG tube. Lactulose to be given rectally.
[2019-03-28] MEDS: lactulose 20gm/30ml cup RC SCH ×2 (17:25→20:36)
--- NOTE | 2019-03-28 18:45 | NUR ---
Problems reprioritized. Patient report given, questions answered & plan of care reviewed with MARISSA Kwon.
--- NOTE | 2019-03-28 18:57 | NUR ---
Patient in room PCU 3025. I have received report from Emily RN and Fito RN and had the opportunity to ask questions and assume patient care.
[2019-03-28] MEDS: normal saline 1000ml 1,000 ML IV SCH (19:10)
[2019-03-28] MEDS: morphine 2 MG/ML inj. syringe IV PRN (20:31)
--- NOTE | 2019-03-28 22:20 | NUR ---
Patients mobile in room showed BP at 61/29, HR 113. Manual BP indicated SBP in the 70's. Mobile showed possible ST elevation. Dr. Patel called and EKG performed. Patients Zarina was called and updated on everything that was going on. She wanted pt to remain a full code because that was his wishes. Patients BP then went up to 112/56 and then 92/42. Dr. Patel would like pt's BP to be monitored at this time, no other change in orders.
[2019-03-29] VITALS (20 sets, daily range): BP systolic 71–133; BP diastolic 42–94
[2019-03-29] MEDS: cefepime 1GM/NS ADD-VANTAGE 100 ML IV SCH ×2 (00:31→08:20)
[2019-03-29] MEDS: morphine 2 MG/ML inj. syringe IV PRN ×3 (00:31→21:48)
[2019-03-29] MEDS: LORazepam 2 mg/ml vial IV PRN ×3 (01:44→23:26)
[2019-03-29] MEDS: lactulose 20gm/30ml cup RC SCH ×4 (02:26→19:38)
[2019-03-29 02:56] LABS: BASOPHILS % (AUTO) 0.4 % (0-1); EOSINOPHILS # (AUTO) 0.1 X10'3 (0-0.9); LYMPHOCYTES # (AUTO) 1.3 X10'3 (1.1-4.8); LYMPHOCYTES % (AUTO) 12.8 % (21-51); MEAN CORPUSCULAR HEMOGLOBIN 35.3 PG (27.0-31.0); MEAN CORPUSCULAR HGB CONC 33.6 g/dL (33.0-36.5); MEAN PLATELET VOLUME 7.9 FL (7.4-10.4); MONOCYTES # (AUTO) 0.7 X10'3 (0-0.9); MONOCYTES % (AUTO) 7.1 % (2-12); NEUTROPHILS # (AUTO) 7.8 X10'3 (1.8-7.7); NEUTROPHILS % (AUTO) 78.7 % (42-75); PLATELET COUNT 222 X10'3 (140-440); RED BLOOD COUNT 1.79 X10'6 (4.70-6.10); RED CELL DISTRIBUTION WIDTH 15.2 % (11.5-14.5); WHITE BLOOD COUNT 9.9 X10'3 (4.5-11.0)
[2019-03-29 03:00] LABS: HEMATOCRIT 18.8 % (42.0-52.0); HEMOGLOBIN 6.3 g/dl (14.0-17.9)
[2019-03-29 03:07] LABS: ALANINE AMINOTRANSFERASE 29 U/L (12-78); ALBUMIN 1.1 G/DL (3.4-5.0); ALBUMIN/GLOBULIN RATIO 0.3 (1.1-1.5); ALKALINE PHOSPHATASE 57 IU/L (46-116); ANION GAP 12 (8-16); ASPARTATE AMINO TRANSFERASE 27 U/L (10-37); BILIRUBIN,TOTAL 0.5 MG/DL (0.1-1.0); BLOOD UREA NITROGEN 43 MG/DL (7-18); BUN/CREATININE RATIO 23.8 (5.4-32.0); CALCIUM 7.4 MG/DL (8.5-10.1); CHLORIDE 119 MMOL/L (99-107); CREATININE 1.81 MG/DL (0.60-1.10); GLUCOSE 122 MG/DL (70-104); MAGNESIUM 1.7 MG/DL (1.5-2.4); POTASSIUM 3.4 MMOL/L (3.5-5.1); PREALBUMIN 6.2 MG/DL (19-36); SODIUM 150 MMOL/L (135-145); TOTAL CARBON DIOXIDE 19.1 MMOL/L (24-32); TOTAL PROTEIN 4.7 G/DL (6.4-8.2); eGFR 37 ML/MIN
--- NOTE | 2019-03-29 03:10 | NUR ---
Dr. Patel made aware about critical H&H. No change in orders. Dr. Patel was also made aware of patients blood pressure being decreased yet again at 89/53
[2019-03-29] MEDS: normal saline 1000ml 1,000 ML IV SCH (05:03)
--- NOTE | 2019-03-29 06:35 | NUR ---
Problems reprioritized. Patient report given, questions answered & plan of care reviewed with MARISSA Rosales
[2019-03-29] MEDS: docusate sod 100mg capsule PO SCH ×2 (08:00→19:27)
[2019-03-29] MEDS: K and/or MAG REPLACEMENT MC SCH (08:00)
[2019-03-29] MEDS: folic acid 1mg tablet PO SCH (08:00)
[2019-03-29] MEDS ORDERED: K and/or MAG REPLACEMENT MC SCH (08:00)
[2019-03-29] MEDS: heparin, porcine 5000 units/ml vial SQ SCH ×2 (08:00→19:27)
[2019-03-29] MEDS: pantoprazole 40 MG vial IV SCH (08:20)
[2019-03-29] MEDS: albuterol 2.5 MG/3 ML nebule NEB SCH (08:42)
[2019-03-29] MEDS: BUDESONIDE 0.25 MG/2 ML AMPUL.NEB IH SCH ×2 (08:42→20:43)
--- NOTE | 2019-03-29 08:45 | NUR ---
hold heparin dose due to hgb 6.3 per MD Blacku
--- NOTE | 2019-03-29 08:45 | NUR ---
informed MD Rusu of patient status; pt low output, hgb level, BP during food prep worker, no new orders, continue to monitor
[2019-03-29] MEDS ORDERED: VANCOMYCIN LEVEL IV NR (14:30)
[2019-03-29] MEDS: atorvastatin 10mg tablet PO SCH (15:41)
[2019-03-29] MEDS: thiamine 100mg tablet PO SCH (15:41)
[2019-03-29] MEDS: multivitamins, therapeutics tablet PO SCH (15:41)
[2019-03-29] MEDS: lactobacillus rhamnosus 10,000 MMU CELLS/CAPSULE PO SCH ×2 (15:41→19:38)
[2019-03-29] MEDS: ferrous sulfate 325mg tablet PO SCH ×2 (15:41→19:38)
[2019-03-29] MEDS: fenofibrate 145mg tablet PO SCH (15:41)
[2019-03-29] MEDS: tamsulosin 0.4mg capsule PO SCH (15:41)
[2019-03-29] MEDS: montelukast 10mg tablet PO SCH (15:42)
--- NOTE | 2019-03-29 16:56 | NUR ---
PAGER ID: [phone] MESSAGE: Room 1674T Todd Vasquez. blood culture positive, gram + cocci clusters @65.96 hours right arm, roly [phone]
--- NOTE | 2019-03-29 17:20 | NUR ---
PAGER ID: [phone] MESSAGE: Room 1463Y Todd Vasquez. blood culture positive, gram + cocci clusters @65.96 hours right arm, roly [phone]
--- NOTE | 2019-03-29 17:56 | NUR ---
MD Cristobal aware of patients blood culture results and patient current status
--- NOTE | 2019-03-29 18:15 | NUR ---
Problems reprioritized. Patient report given, questions answered & plan of care reviewed with Cher Manzo pt seen at bedside.
--- NOTE | 2019-03-29 18:33 | NUR ---
Patient in room PCU 3025. I have received report from MARISSA Rosales and had the opportunity to ask questions and assume patient care.
[2019-03-29] MEDS ORDERED: magnesium 2GM in 50ml NS 50 ML IV PRN (18:40)
[2019-03-29] MEDS ORDERED: magnesium Cl slow-release 64mg tablet PO PRN (18:40)
[2019-03-29] MEDS ORDERED: potassium Cl 40MEQ/NS 500ml 500 ML IV PRN ×2 (18:40)
[2019-03-29] MEDS ORDERED: potassium Cl 20 mEq SR tablet PO PRN ×2 (18:40)
[2019-03-29] MEDS ORDERED: magnesium 4gm in 100ml NS 100 ML IV PRN (18:40)
--- NOTE | 2019-03-29 19:00 | NUR ---
Dr. Camacho ordered compression stockings for patient. Unable to find compression stocking supply to give to patient.
[2019-03-29] MEDS: potassium Cl oral solution 20 MEQ/15 ML PO PRN (19:39)
[2019-03-29 23:04] LABS: HEMATOCRIT 25.5 % (42.0-52.0); HEMOGLOBIN 8.6 g/dl (14.0-17.9); MEAN CORPUSCULAR HEMOGLOBIN 34.3 PG (27.0-31.0); MEAN CORPUSCULAR HGB CONC 33.7 g/dL (33.0-36.5); MEAN CORPUSCULAR VOLUME 101.9 FL (78-98); MEAN PLATELET VOLUME 8.1 FL (7.4-10.4); PLATELET COUNT 240 X10'3 (140-440); RED CELL DISTRIBUTION WIDTH 16.7 % (11.5-14.5); WHITE BLOOD COUNT 10.5 X10'3 (4.5-11.0)
[2019-03-30] MEDS: potassium Cl oral solution 20 MEQ/15 ML PO PRN (00:03)
[2019-03-30] MEDS: lactulose 20gm/30ml cup RC SCH ×4 (01:42→20:33)
[2019-03-30] MEDS: morphine 2 MG/ML inj. syringe IV PRN (01:59)
[2019-03-30] MEDS: LORazepam 2 mg/ml vial IV PRN ×2 (02:15→05:14)
[2019-03-30] MEDS: normal saline 1000ml 1,000 ML IV SCH (02:53)
[2019-03-30 06:00] VITALS: BP 123/69
--- NOTE | 2019-03-30 06:32 | NUR ---
Problems reprioritized. Patient report given, questions answered & plan of care reviewed with MARISSA Guzman and MARISSA Srivastava.
--- NOTE | 2019-03-30 06:42 | NUR ---
Patient in room PCU 3027U. I have received report from Cher ANN at the bedside and had the opportunity to ask questions and assume patient care. Patient is laying in bed, moaning. Lab is at the bedside drawing morning labs. Tube feed currently running at 15, NS running at 50mL/hr. Patient's bed is low and locked, call light in place, patient close to nurses station. Will continue to monitor at this time.
[2019-03-30 07:32] LABS: BASOPHILS % (AUTO) 0.3 % (0-1); EOSINOPHILS # (AUTO) 0.2 X10'3 (0-0.9); EOSINOPHILS % (AUTO) 1.3 % (0-6); HEMATOCRIT 29.5 % (42.0-52.0); HEMOGLOBIN 9.6 g/dl (14.0-17.9); LYMPHOCYTES # (AUTO) 1.6 X10'3 (1.1-4.8); LYMPHOCYTES % (AUTO) 11.9 % (21-51); MEAN CORPUSCULAR HGB CONC 32.6 g/dL (33.0-36.5); MEAN CORPUSCULAR VOLUME 104.3 FL (78-98); MEAN PLATELET VOLUME 8.1 FL (7.4-10.4); MONOCYTES % (AUTO) 7.4 % (2-12); NEUTROPHILS # (AUTO) 10.8 X10'3 (1.8-7.7); NEUTROPHILS % (AUTO) 79.1 % (42-75); PLATELET COUNT 224 X10'3 (140-440); RED BLOOD COUNT 2.83 X10'6 (4.70-6.10); RED CELL DISTRIBUTION WIDTH 18.6 % (11.5-14.5); WHITE BLOOD COUNT 13.6 X10'3 (4.5-11.0)
[2019-03-30] MEDS: BUDESONIDE 0.25 MG/2 ML AMPUL.NEB IH SCH ×2 (07:50→20:22)
[2019-03-30 07:58] LABS: ALANINE AMINOTRANSFERASE 33 U/L (12-78); ALBUMIN 1.4 G/DL (3.4-5.0); ALBUMIN/GLOBULIN RATIO 0.3 (1.1-1.5); ALKALINE PHOSPHATASE 76 IU/L (46-116); ANION GAP 10 (8-16); ASPARTATE AMINO TRANSFERASE 28 U/L (10-37); BILIRUBIN,TOTAL 0.7 MG/DL (0.1-1.0); BLOOD UREA NITROGEN 40 MG/DL (7-18); BUN/CREATININE RATIO 20.8 (5.4-32.0); CALCIUM 8.3 MG/DL (8.5-10.1); CHLORIDE 123 MMOL/L (99-107); CREATININE 1.92 MG/DL (0.60-1.10); GLUCOSE 169 MG/DL (70-104); MAGNESIUM 1.9 MG/DL (1.5-2.4); POTASSIUM 3.7 MMOL/L (3.5-5.1); SODIUM 152 MMOL/L (135-145); TOTAL CARBON DIOXIDE 18.8 MMOL/L (24-32); TOTAL PROTEIN 5.5 G/DL (6.4-8.2); eGFR 35 ML/MIN
[2019-03-30] MEDS: docusate sod 100mg capsule PO SCH ×2 (08:00→20:00)
[2019-03-30] MEDS: K and/or MAG REPLACEMENT MC SCH (08:00)
[2019-03-30] MEDS: heparin, porcine 5000 units/ml vial SQ SCH ×2 (08:00→20:32)
[2019-03-30 09:16] LABS: NUCLEATED RED BLOOD CELLS 1 /100WBC (0-0); TOTAL CELLS COUNTED 0
[2019-03-30] MEDS: pantoprazole 40 MG vial IV SCH (09:23)
[2019-03-30 09:33] LABS: HYPOCHROMASIA 1+; PLATELET ESTIMATE NORMAL; POLYCHROMASIA 1+
[2019-03-30 09:34] LABS: ANISOCYTOSIS 2+
[2019-03-30] MEDS: atorvastatin 10mg tablet PO SCH (09:34)
[2019-03-30] MEDS: thiamine 100mg tablet PO SCH (09:34)
[2019-03-30] MEDS: tamsulosin 0.4mg capsule PO SCH (09:35)
[2019-03-30] MEDS: fenofibrate 145mg tablet PO SCH (09:40)
[2019-03-30] MEDS: ferrous sulfate 325mg tablet PO SCH ×2 (09:40→20:33)
[2019-03-30] MEDS: folic acid 1mg tablet PO SCH (09:43)
[2019-03-30] MEDS: lactobacillus rhamnosus 10,000 MMU CELLS/CAPSULE PO SCH ×2 (09:43→20:33)
[2019-03-30] MEDS: montelukast 10mg tablet PO SCH (09:43)
[2019-03-30] MEDS: multivitamins, therapeutics tablet PO SCH (09:43)
[2019-03-30 09:45] LABS: NEUTROPHILS % (MANUAL) 83 % (42-75)
[2019-03-30 09:46] LABS: BANDS% (MANUAL) 1 % (0-10); EOSINOPHILS % (MANUAL) 1 % (0-6); METAMYLEOCYTES% (MANUAL) 1 % (0-0); MONOCYTES % (MANUAL) 3 % (2-12)
[2019-03-30 09:47] LABS: LYMPHOCYTES % (MANUAL) 11 % (21-51)
[2019-03-30 11:00] VITALS: BP 142/69
[2019-03-30] MEDS ORDERED: albuterol 2.5 MG/3 ML nebule NEB SCH (11:00)
--- NOTE | 2019-03-30 12:28 | NUR ---
Reassessment: patient's sodium elevated at 152, MD started patient on water flush of 200 ml q 6, order in at 10:00 today. GRV up to 450 ml this morning, tube feeding turned down to 45ml/hr. Continues with liquid stools r/t lactulose, pt has rectal tube. Ammonia is decreasing, at 40 today. Continue to follow and monitor sodium and need for increase in water flush amount or frequency. Recommend: 1. Once corpak place verified, recommend Glucerna 1.2 at 90 ml/hr to provide 2160 ml volume, 2592 cals, 130 g protein, and 1750 ml free water. 2. additional water flush 200 q 6 per MD 3. Prealbumin q Tuesday and 4. Daily weights 5. continue thiamine, folic acid, and MVM Addendum: 03/30/19 at [address] Amended: Links added.
--- NOTE | 2019-03-30 13:08 | NUR ---
PAGER ID: [phone] MESSAGE: Megan ANN Ext [phone] Zarina is at bedside, thank you :)
--- NOTE | 2019-03-30 13:50 | NUR ---
PAGER ID: [phone] MESSAGE: Megan ANN Ext [phone] Pedro has 2 episodes of vomitus, lungs sound wet, they had not sounded wet earlier. Thank you.
--- NOTE | 2019-03-30 14:14 | NUR ---
Patient had 2 episodes of emesis, tube feed temporarily halted. MD aware. Will continue to monitor vomit production.
[2019-03-30 15:00] VITALS: BP 113/70
--- NOTE | 2019-03-30 15:19 | NUR ---
Spoke with Dr Cristobal who verbalized to temporarily hold off on the patients tube feeding. Dr rCistobal also requests to hold off on free flowing water until patient becomes less "wet" No change in patients cognition at this time. MD aware of patients vomitus and increased crackles. RT paged and at bedside. Will continue to monitor at this time.
--- NOTE | 2019-03-30 17:05 | NUR ---
PRESSURE ULCER EDUCATION: DEFINITION: A pressure ulcer is an area of skin that breaks down when you stay in one position too long. The constant pressure against the skin reduces the blood flow to that area and the affected tissue dies. CAUSES: "Being bedridden or in a wheelchair "Fragile skin "Having a chronic condition, such as diabetes or vascular disease "Inability to move certain parts of your body without assistance "Older age "Incontinence of urine or stool SYMPTOMS: "A reddened area that DOES NOT turn white when pressed on - this can be the beginning of a pressure ulcer "A blister, deep sore or a crater - these can be advanced pressure ulcers FIRST AID: "Relieve the pressure on this area "Keep the area clean and dry "Call your primary doctor if you see any of the above symptoms "DO NOT massage the area "DO NOT use a donut shaped or ring shaped pillow- these actually interfere with the blood flow and cause complications PREVENTION: "Check for pressure ulcers everyday "Change position at least every two hours to relieve pressure "Use items that help relieve pressure- pillows, sheepskin, foam padding, and powders. "Keep skin clean and dry "Eat healthy well balanced meals "Exercise daily IF YOU SEE ANY OF THESE SYMPTOMS WHILE IN THE HOSPITAL - TELL YOUR NURSE IMMEDIATELY. IF YOU SEE ANY OF THESE SYMPTOMS WHILE AT HOME OR HAVE ANY QUESTIONS OR CONCERNS ABOUT PRESSURE ULCERS - CALL YOUR PRIMARY DOCTOR IMMEDIATELY. Addendum: 03/30/19 at 1706 by Yanci Fairbanks RN Amended: Links added.
[2019-03-30 18:00] VITALS: BP 105/61
--- NOTE | 2019-03-30 18:22 | NUR ---
Problems reprioritized. Patient report given, questions answered & plan of care reviewed with Lilibeth ANN at the bedside. Patient hemodynamically stable at transfer of care. Any charting and medication administrations completed by Carola ANN has been reviewed. Constructive criticism given as needed.
--- NOTE | 2019-03-30 18:30 | NUR ---
Patient in room PCU 3025. I have received report from MARISSA uGzman and had the opportunity to ask questions and assume patient care.
[2019-03-30 22:00] VITALS: BP 100/71
[2019-03-31] VITALS (14 sets, daily range): BP systolic 77–123; BP diastolic 39–69
[2019-03-31] MEDS ORDERED: normal saline 500ml IV soln 500 ML IV ONE ×3 (00:25→05:40)
[2019-03-31] MEDS: lactulose 20gm/30ml cup RC SCH ×4 (02:27→19:56)
--- NOTE | 2019-03-31 05:50 | NUR ---
Responded to rapid response for patient w/low BP despite fluid resuscitation; pt unarousable, moaning; [id number], HR 120s, sats 95% on RA; pt full code; called to give update on condition and confirm code status; update given to Dr. Wilson and Dr. Wilson requesting to call him to discuss plan of care.
--- NOTE | 2019-03-31 06:00 | NUR ---
Problems reprioritized. Patient report given, questions answered & plan of care reviewed with MARISSA Guzman.
--- NOTE | 2019-03-31 06:53 | NUR ---
Patient in room PCU 3025. I have received report from Lilibeth ANN and had the opportunity to ask questions and assume patient care.
[2019-03-31] MEDS: BUDESONIDE 0.25 MG/2 ML AMPUL.NEB IH SCH ×2 (07:38→20:02)
[2019-03-31] MEDS: atorvastatin 10mg tablet PO SCH (08:00)
[2019-03-31] MEDS: K and/or MAG REPLACEMENT MC SCH (08:00)
[2019-03-31] MEDS: docusate sod 100mg capsule PO SCH ×2 (08:00→19:57)
[2019-03-31] MEDS: heparin, porcine 5000 units/ml vial SQ SCH ×2 (08:00→19:56)
[2019-03-31] MEDS: multivitamins, therapeutics tablet PO SCH (08:00)
[2019-03-31] MEDS: tamsulosin 0.4mg capsule PO SCH (08:00)
[2019-03-31] MEDS: thiamine 100mg tablet PO SCH (08:00)
[2019-03-31] MEDS: lactobacillus rhamnosus 10,000 MMU CELLS/CAPSULE PO SCH ×2 (08:00→19:56)
[2019-03-31] MEDS: ferrous sulfate 325mg tablet PO SCH ×2 (08:00→19:56)
[2019-03-31] MEDS: folic acid 1mg tablet PO SCH (08:00)
[2019-03-31] MEDS: pantoprazole 40 MG vial IV SCH (08:00)
[2019-03-31] MEDS: montelukast 10mg tablet PO SCH (08:00)
--- NOTE | 2019-03-31 08:00 | NUR ---
PAGER ID: [phone] MESSAGE: Megan ANN Ext [phone] Pedro's Zarina inquiring about ICU transfer. Thank you
[2019-03-31] MEDS: fenofibrate 145mg tablet PO SCH (08:30)
[2019-03-31] MEDS ORDERED: albumin (human) 25% 100 ML IV solution IV ONE (09:20)
[2019-03-31 09:41] LABS: ALBUMIN 1.2 G/DL (3.4-5.0); ANION GAP 13 (8-16); BASOPHILS # (AUTO) 0.1 X10'3 (0-0.2); BASOPHILS % (AUTO) 0.2 % (0-1); BLOOD UREA NITROGEN 35 MG/DL (7-18); BUN/CREATININE RATIO 14.8 (5.4-32.0); CHLORIDE 125 MMOL/L (99-107); CREATININE 2.36 MG/DL (0.60-1.10); EOSINOPHILS % (AUTO) 0.1 % (0-6); GLUCOSE 159 MG/DL (70-104); HEMATOCRIT 24.8 % (42.0-52.0); LYMPHOCYTES # (AUTO) 1.5 X10'3 (1.1-4.8); LYMPHOCYTES % (AUTO) 5.1 % (21-51); MEAN CORPUSCULAR HEMOGLOBIN 33.4 PG (27.0-31.0); MEAN CORPUSCULAR HGB CONC 32.4 g/dL (33.0-36.5); MEAN CORPUSCULAR VOLUME 103.1 FL (78-98); MEAN PLATELET VOLUME 8.6 FL (7.4-10.4); MONOCYTES % (AUTO) 3.4 % (2-12); NEUTROPHILS % (AUTO) 91.2 % (42-75); PLATELET COUNT 198 X10'3 (140-440); POTASSIUM 3.3 MMOL/L (3.5-5.1); RED CELL DISTRIBUTION WIDTH 17.8 % (11.5-14.5); TOTAL CARBON DIOXIDE 17.6 MMOL/L (24-32); eGFR 27 ML/MIN
[2019-03-31 09:43] LABS: SODIUM 156 MMOL/L (135-145)
[2019-03-31 09:48] LABS: WHITE BLOOD COUNT 28.5 X10'3 (4.5-11.0)
[2019-03-31] MEDS ORDERED: piperacillin/tazo 4.5gm/100ml 100 ML IV STA (09:51)
--- NOTE | 2019-03-31 10:01 | NUR ---
Spoke with Dr Cristobal who implemented the following orders: Q12H BMP lab draws to monitor sodium levels, Zosyn 4.5 IV Q8H with one STAT dose now to control elevated critical WBC count. Will begin to run D5 water at 75mL/hr per MD order. Dr Cristobal verbalizes wanting tube feeding to begin again, and to start at 15mL/hr. Patient again full code per families wishes. Will continue to monitor patient at this time.
[2019-03-31 10:34] LABS: ANISOCYTOSIS 1+; PLATELET ESTIMATE NORMAL; TOTAL CELLS COUNTED 100
[2019-03-31] MEDS: dextrose 5%-water 1,000 ML IV SCH ×2 (12:02→23:15)
--- NOTE | 2019-03-31 15:10 | NUR ---
reassessment: Pt TF remains at 15ml/hr even though tolerating w/ no elevated GRV since unable to take via corpak. Na 156 today w/ 200ml Q6 water flushes added likely inadequate given not enough free water in addition to low feed rate. CAROL eldridge MD for approval to advance rate to goal per protocol and increased free water to 300ml Q4; no reply at this time. Pt LBM 03/30 x7 documented via rectal tube but no ml output documented and pt still receiving colace. CAROL unable to reach RN at this time. Will continue to monitor for nutrition support advancement per ASPEN guidelines in order to optimize pt nutrition needs. Recommend: 1. Once corpak place verified, recommend Glucerna 1.2 at 90 ml/hr to provide 2160 ml volume, 2592 cals, 130 g protein, and 1750 ml free water. 2. recommend 300ml Q4 water flush; Na 156 3. Prealbumin q Tuesday and 4. Daily weights 5. continue thiamine, folic acid, and MVM 6. Advance TF to goal per ASPEN guidelines Addendum: 03/31/19 at [address] Amended: Links added.
--- NOTE | 2019-03-31 15:19 | NUR ---
Page to Dr Cristobal re: Room 0128E Todd MANUEL for NG tube placement complete, please review report and advise Heidi [phone], awaiting call back
[2019-03-31] MEDS: piperacillin/tazo 4.5gm/100ml 100 ML IV SCH ×2 (16:51→23:14)
--- NOTE | 2019-03-31 16:59 | NUR ---
NG tube pulled by patient overnight, MD aware. Unable to adequately place new NG. MD aware of medications and tube feed being temporarily halted. Dr Cristobal states to begin tube feed as soon as NG placed. Currently awaiting results from KUB to verify NG placement.
--- NOTE | 2019-03-31 18:14 | NUR ---
Problems reprioritized. Patient report given, questions answered & plan of care reviewed with Faith ANN at the bedside. Charting and med pass completed by Heidi ANN has been reviewed. Constructive criticism given as needed.
[2019-03-31 19:50] LABS: BASOPHILS % (AUTO) 0.2 % (0-1); EOSINOPHILS % (AUTO) 0.1 % (0-6); HEMATOCRIT 23.4 % (42.0-52.0); HEMOGLOBIN 7.5 g/dl (14.0-17.9); LYMPHOCYTES # (AUTO) 1.7 X10'3 (1.1-4.8); LYMPHOCYTES % (AUTO) 7.5 % (21-51); MEAN CORPUSCULAR HEMOGLOBIN 33.3 PG (27.0-31.0); MEAN CORPUSCULAR HGB CONC 32.3 g/dL (33.0-36.5); MEAN CORPUSCULAR VOLUME 103.3 FL (78-98); MEAN PLATELET VOLUME 8.6 FL (7.4-10.4); MONOCYTES # (AUTO) 0.5 X10'3 (0-0.9); MONOCYTES % (AUTO) 2.3 % (2-12); NEUTROPHILS % (AUTO) 89.9 % (42-75); PLATELET COUNT 172 X10'3 (140-440); RED BLOOD COUNT 2.26 X10'6 (4.70-6.10); RED CELL DISTRIBUTION WIDTH 17.9 % (11.5-14.5); WHITE BLOOD COUNT 22.2 X10'3 (4.5-11.0)
[2019-03-31] MEDS: ipratropium/albuterol 3ml nebule IH PRN (19:56)
[2019-03-31 20:02] LABS: ALBUMIN 1.6 G/DL (3.4-5.0); ANION GAP 15 (8-16); BLOOD UREA NITROGEN 37 MG/DL (7-18); BUN/CREATININE RATIO 14.5 (5.4-32.0); CALCIUM 8.2 MG/DL (8.5-10.1); CHLORIDE 123 MMOL/L (99-107); CREATININE 2.55 MG/DL (0.60-1.10); GLUCOSE 230 MG/DL (70-104); SODIUM 154 MMOL/L (135-145); eGFR 25 ML/MIN
[2019-03-31] MEDS: potassium Cl oral solution 20 MEQ/15 ML PO PRN ×2 (20:24→23:40)
[2019-03-31 23:33] LABS: ANISOCYTOSIS 1+; PLATELET ESTIMATE NORMAL; TOTAL CELLS COUNTED 100
[2019-04-01] MEDS: lactulose 20gm/30ml cup RC SCH ×4 (02:14→21:55)
[2019-04-01] MEDS: insulin regular, human vial - multi-dose SQ SCH ×4 (02:27→21:49)
[2019-04-01] MEDS: potassium Cl oral solution 20 MEQ/15 ML PO PRN (04:40)
[2019-04-01 05:47] LABS: ALANINE AMINOTRANSFERASE 30 U/L (12-78); ALBUMIN 1.5 G/DL (3.4-5.0); ALBUMIN/GLOBULIN RATIO 0.4 (1.1-1.5); ALKALINE PHOSPHATASE 79 IU/L (46-116); ASPARTATE AMINO TRANSFERASE 25 U/L (10-37); BILIRUBIN,TOTAL 0.5 MG/DL (0.1-1.0); BLOOD UREA NITROGEN 36 MG/DL (7-18); BUN/CREATININE RATIO 12.8 (5.4-32.0); CALCIUM 8.3 MG/DL (8.5-10.1); CHLORIDE 122 MMOL/L (99-107); CREATININE 2.81 MG/DL (0.60-1.10); GLUCOSE 274 MG/DL (70-104); TOTAL PROTEIN 5.1 G/DL (6.4-8.2); eGFR 22 ML/MIN
[2019-04-01 05:52] LABS: POTASSIUM 4.2 MMOL/L (3.5-5.1)
[2019-04-01 05:55] LABS: ANION GAP 16 (8-16); MAGNESIUM 1.8 MG/DL (1.5-2.4); SODIUM 152 MMOL/L (135-145)
[2019-04-01 06:00] VITALS: BP 116/54
[2019-04-01 06:10] LABS: TOTAL CARBON DIOXIDE 13.7 MMOL/L (24-32)
--- NOTE | 2019-04-01 06:10 | NUR ---
Critical value received from lab, notified MARISSA Patino.
--- NOTE | 2019-04-01 07:28 | NUR ---
Todd Vasquez 6252 A Critical Co2 13.7 this morning lab
--- NOTE | 2019-04-01 07:28 | NUR ---
Critical Co2 paged to Dr Levar BRIZUELA
[2019-04-01] MEDS: thiamine 100mg tablet PO SCH (08:00)
[2019-04-01] MEDS: montelukast 10mg tablet PO SCH (08:00)
[2019-04-01] MEDS: K and/or MAG REPLACEMENT MC SCH (08:00)
[2019-04-01] MEDS: docusate sod 100mg capsule PO SCH ×2 (08:00→20:00)
[2019-04-01] MEDS: albuterol 2.5 MG/3 ML nebule NEB PRN (08:22)
[2019-04-01] MEDS: BUDESONIDE 0.25 MG/2 ML AMPUL.NEB IH SCH ×2 (08:22→19:49)
[2019-04-01] MEDS: pantoprazole 40 MG vial IV SCH (08:39)
[2019-04-01] MEDS: piperacillin/tazo 4.5gm/100ml 100 ML IV SCH ×2 (08:40→15:35)
[2019-04-01] MEDS: heparin, porcine 5000 units/ml vial SQ SCH ×2 (08:42→20:00)
[2019-04-01] MEDS: folic acid 1mg tablet PO SCH (08:42)
[2019-04-01] MEDS: lactobacillus rhamnosus 10,000 MMU CELLS/CAPSULE PO SCH ×2 (08:42→21:50)
[2019-04-01] MEDS: multivitamins, therapeutics tablet PO SCH (08:42)
[2019-04-01] MEDS: ferrous sulfate 325mg tablet PO SCH ×2 (08:42→21:52)
[2019-04-01] MEDS: atorvastatin 10mg tablet PO SCH (08:43)
[2019-04-01] MEDS: fenofibrate 145mg tablet PO SCH (08:43)
[2019-04-01] MEDS: tamsulosin 0.4mg capsule PO SCH (09:30)
[2019-04-01 11:00] VITALS: BP 110/59
--- NOTE | 2019-04-01 11:29 | NUR ---
Patient Pearl Vasquezter 8718 A at the bed site she is ok with MRI test Carey ANN Phone [phone] Cristobal
--- NOTE | 2019-04-01 11:38 | NUR ---
F/u: Pt TF advanced to 55ml/hr and tolerating; held r/t episode of vomiting yesterday per RN. Abdomen x-ray 03/31 shows corpak tip in fundus and needs 10-12cm advancement to be in antrum; CAROL d/w RN recommends corpak advancement to proximal jejunum for proper post-pyloric feedings in order to optimize nutrition support and tolerance. Pt receiving 300ml Q4 water flushes now for Na per MD; down to 152 from 156 yesterday. Will continue to monitor. reassessment: Pt TF remains at 15ml/hr even though tolerating w/ no elevated GRV since unable to take via corpak. Na 156 today w/ 200ml Q6 water flushes added likely inadequate given not enough free water in addition to low feed rate. CAROL hdz.ash GRANT for approval to advance rate to goal per protocol and increased free water to 300ml Q4; no reply at this time. Pt LBM 03/30 x7 documented via rectal tube but no ml output documented and pt still receiving colace. RD unable to reach RN at this time. Will continue to monitor for nutrition support advancement per ASPEN guidelines in order to optimize pt nutrition needs. Recommend: 1. Once corpak place verified, recommend Glucerna 1.2 at 90 ml/hr to provide 2160 ml volume, 2592 cals, 130 g protein, and 1750 ml free water. 2. recommend 300ml Q4 water flush; Na 156 3. Prealbumin q Tuesday and , daily wts 4. Corpak advancement to proximal jejunum for optimal nutrition support tolerance and delivery 5. continue thiamine, folic acid, and MVM 6. Advance TF to goal per ASPEN guidelines Addendum: 04/01/19 at [address] Amended: Links added.
[2019-04-01] MEDS: dextrose 5%-water 1,000 ML IV SCH (12:45)
[2019-04-01 15:00] VITALS: BP 111/59
[2019-04-01 18:00] VITALS: BP 109/47
--- NOTE | 2019-04-01 18:43 | NUR ---
Patient in room PCU 3025. I have received report from MARISSA Patino and had the opportunity to ask questions and assume patient care.
[2019-04-01 22:00] VITALS: BP 117/57
[2019-04-02] VITALS (20 sets, daily range): BP systolic 76–123; BP diastolic 40–74
[2019-04-02] MEDS: piperacillin/tazo 4.5gm/100ml 100 ML IV SCH ×3 (00:09→16:13)
[2019-04-02] MEDS: insulin regular, human vial - multi-dose SQ SCH (02:17)
[2019-04-02] MEDS: lactulose 20gm/30ml cup RC SCH ×2 (02:18→10:20)
[2019-04-02] MEDS: dextrose 5%-water 1,000 ML IV SCH (02:50)
[2019-04-02 05:19] LABS: ALBUMIN 1.4 G/DL (3.4-5.0); ANION GAP 12 (8-16); BLOOD UREA NITROGEN 38 MG/DL (7-18); BUN/CREATININE RATIO 11.8 (5.4-32.0); CALCIUM 8.6 MG/DL (8.5-10.1); CHLORIDE 119 MMOL/L (99-107); CREATININE 3.21 MG/DL (0.60-1.10); GLUCOSE 182 MG/DL (70-104); MAGNESIUM 1.7 MG/DL (1.5-2.4); POTASSIUM 4.7 MMOL/L (3.5-5.1); SODIUM 148 MMOL/L (135-145); TOTAL CARBON DIOXIDE 16.8 MMOL/L (24-32); eGFR 19 ML/MIN
--- NOTE | 2019-04-02 05:29 | NUR ---
[place] Medication Administration: For this medication-pass time frame, all medication were reviewed, dispensed, administered and documented per hospital policy by Lorri ANN. [place] documentation: I have reviewed and agree with all interventions, assessments performed and documented by Lorri ANN.
--- NOTE | 2019-04-02 06:24 | NUR ---
Problems reprioritized. Patient report given, questions answered & plan of care reviewed with Carey ANN.
--- NOTE | 2019-04-02 06:30 | NUR ---
Assumed patient care PRATIBHA Polk RN
[2019-04-02] MEDS: albuterol 2.5 MG/3 ML nebule NEB PRN (06:54)
[2019-04-02] MEDS: BUDESONIDE 0.25 MG/2 ML AMPUL.NEB IH SCH ×2 (06:54→18:53)
[2019-04-02] MEDS: folic acid 1mg tablet PO SCH (08:00)
[2019-04-02] MEDS: tamsulosin 0.4mg capsule PO SCH (08:00)
[2019-04-02] MEDS: K and/or MAG REPLACEMENT MC SCH (08:00)
[2019-04-02] MEDS: docusate sod 100mg capsule PO SCH ×2 (08:00→20:00)
--- NOTE | 2019-04-02 08:00 | NUR ---
Called by recreation technician, HR declined, assessed patient HR dropped from 110 to 67 to 37, called rapid respond and after 4 min lost pulse called sukumar michaels at 0758 am. After successful resuscitation patient transfered to ICU at 0830 Ignacia Polk RN
[2019-04-02] MEDS ORDERED: midazolam 2 mg/2 ml injection ONE (08:45)
[2019-04-02 08:51] LABS: ABG BASE EXCESS -13.5 mmol/L (-2.0-3.0); ABG HCO3 13.5 mmol/L (22.0-26.0); ABG OXYGEN SATURATION 92.9 % (95-98); ABG PH (T) 7.203 (7.350-7.450); ABG PO2 (T) 72.8 mmHg (83-108); ALLEN'S TEST Positive; FLOW 50 L/min; FMetHb 0.2 % (0.3-1.12); FO2Hb 92.7 % (94-100); PEEP 5 cm H2O; RESPIRATORY RATE 12 b/min; TIDAL VOLUME 400 mL; TOTAL HEMOGLOBIN 11.7 G/dl (14.0-18.0)
[2019-04-02] MEDS ORDERED: midazolam 100mg in NS 100ml 100 ML IV PRN (09:00)
[2019-04-02] MEDS: FENTANYL-0.9 % NACL/PF 100 ML IV PRN (09:10)
[2019-04-02] MEDS: lactobacillus rhamnosus 10,000 MMU CELLS/CAPSULE PO SCH ×2 (10:19→20:35)
[2019-04-02] MEDS: multivitamins, therapeutics tablet PO SCH (10:19)
[2019-04-02] MEDS: ferrous sulfate 325mg tablet PO SCH ×2 (10:19→20:35)
[2019-04-02] MEDS: pantoprazole 40 MG vial IV SCH (10:20)
[2019-04-02] MEDS: thiamine 100mg tablet PO SCH (10:20)
[2019-04-02] MEDS: sodium chloride 0.45% 1,000 ML IV SCH ×3 (11:18→21:10)
[2019-04-02] MEDS ORDERED: potassium Cl 40MEQ/NS 500ml 500 ML IV PRN ×2 (11:20)
[2019-04-02] MEDS ORDERED: acetaminophen 325mg tablet PO PRN ×2 (11:20)
[2019-04-02] MEDS ORDERED: potassium Cl 20 mEq SR tablet PO PRN ×2 (11:20)
[2019-04-02] MEDS ORDERED: potassium Cl 40MEQ/250ML bag 250 ML IV PRN ×2 (11:20)
[2019-04-02] MEDS ORDERED: ondansetron/PF 4mg/2ml inj IV PRN (11:20)
[2019-04-02] MEDS ORDERED: ipratropium/albuterol 3ml nebule NEB PRN (11:20)
[2019-04-02] MEDS ORDERED: vancomycin/NS 1 GM ADD-VANTAGE 250 ML IV PRN (11:30)
[2019-04-02] MEDS ORDERED: vancomycin/NS 1 GM ADD-VANTAGE 250 ML IV ONE (11:45)
[2019-04-02] MEDS: normal saline 1000ml 1,000 ML IV PRN (12:00)
[2019-04-02 12:38] LABS: CLARITY,URINE TURBID (Clear); COLOR,URINE YELLOW (Yellow); GLUCOSE, URINE NEGATIVE (Neg); KETONES,URINE NEGATIVE (Neg); LEUKOCYTE ESTERASE ,URINE NEGATIVE (Neg); NITRITES, URINE NEGATIVE (Neg); OCCULT BLOOD,URINE LARGE (Neg); PH,URINE 5.5 (4.8-8.0); PROTEIN,URINE 100 mg/dl (Neg); UROBILINOGEN,URINE 0.2 E.U/dL (0.2-1.0)
[2019-04-02 12:44] LABS: UA COLLECTION TYPE FOLEY CATH
[2019-04-02 12:55] LABS: TOTAL PROTEIN,URINE RANDOM 244.5 MG/DL
[2019-04-02 12:58] LABS: COARSE GRANULAR CAST 0-3 /LPF (NEGATIVE); MUCUS STRANDS NONE SEEN /LPF (Neg); SQUAMOUS EPITHELIAL CELL,UR FEW /LPF (FEW)
[2019-04-02 12:59] LABS: RBC,URINE 50-100 /HPF (0-2); RENAL CELLS, URINE MODERATE /HPF; TRANSITIONAL EPI CELLS,URINE MODERATE /HPF; WBC,URINE 0-4 /HPF (0-4)
[2019-04-02 13:00] LABS: AMORPHOUS URATES 3+; BACTERIA,URINE FEW /HPF (Neg)
[2019-04-02 13:15] LABS: UA EOSINOPHILS NO EOS /HPF
[2019-04-02] MEDS: atorvastatin 10mg tablet PO SCH (14:19)
[2019-04-02] MEDS: fenofibrate 145mg tablet PO SCH (14:20)
[2019-04-02] MEDS: montelukast 10mg tablet PO SCH (14:20)
[2019-04-02] MEDS: lactulose 20gm/30ml cup OGT SCH ×2 (14:20→20:34)
[2019-04-02] MEDS: ipratropium/albuterol 3ml nebule NEB SCH ×3 (16:19→22:34)
[2019-04-02 16:51] LABS: OXYGEN SATURATION (MIXED VEN) 68.2 % (60-80); PO2 MIXED VENOUS (TEMP COR) 34.2 mmHg (35-46)
[2019-04-02] MEDS ORDERED: normal saline 1000ml 1,000 ML IV PRN (17:10)
--- NOTE | 2019-04-02 18:25 | NUR ---
Patient in room ICU 2043. I have received report from Radha ANN, and had the opportunity to ask questions and assume patient care.
--- NOTE | 2019-04-02 19:15 | NUR ---
PT is intubated and mechanically vented, tolerating settings well. O2 >97%. VSS. Pt receiving sedation, Fentanyl and versed, tolerating well. PT has Corpak to RT nare with Glucerna running @ 30ml/hr, will advance as tolerated. Cruz in place and draining to gravity. Rectal tube in place draining to gravity. Bed is locked and low. Bilat soft wrist restraints in place and secure. Will continue to monitor.
[2019-04-02] MEDS: famotidine/PF 10 mg/ml inj IV SCH (20:34)
[2019-04-02] MEDS: heparin, porcine 5000 units/ml vial SQ SCH (20:35)
[2019-04-02] MEDS: rifaximin 20mg/ml oral suspension 60 ML BOTTLE PO SCH (20:52)
--- NOTE | 2019-04-02 22:30 | NUR ---
PT resting with no s/s of distress noted at this time. VSS. Bed is locked and low. Bilat soft wrist restraints remain in place and secure. Will continue to monitor.
[2019-04-03] VITALS (24 sets, daily range): BP systolic 83–150; BP diastolic 32–68
[2019-04-03] MEDS: piperacillin/tazo 4.5gm/100ml 100 ML IV SCH ×3 (00:42→16:08)
[2019-04-03] MEDS: ipratropium/albuterol 3ml nebule NEB SCH ×6 (02:35→23:30)
[2019-04-03 02:48] LABS: BASOPHILS % (AUTO) 0.2 % (0-1); EOSINOPHILS % (AUTO) 0.3 % (0-6); HEMATOCRIT 22.2 % (42.0-52.0); HEMOGLOBIN 7.1 g/dl (14.0-17.9); LYMPHOCYTES # (AUTO) 1.3 X10'3 (1.1-4.8); LYMPHOCYTES % (AUTO) 9.5 % (21-51); MEAN CORPUSCULAR HEMOGLOBIN 33.6 PG (27.0-31.0); MEAN CORPUSCULAR HGB CONC 31.8 g/dL (33.0-36.5); MEAN CORPUSCULAR VOLUME 105.5 FL (78-98); MEAN PLATELET VOLUME 9.7 FL (7.4-10.4); MONOCYTES # (AUTO) 0.4 X10'3 (0-0.9); MONOCYTES % (AUTO) 2.7 % (2-12); NEUTROPHILS # (AUTO) 11.8 X10'3 (1.8-7.7); NEUTROPHILS % (AUTO) 87.3 % (42-75); PLATELET COUNT 92 X10'3 (140-440); RED CELL DISTRIBUTION WIDTH 18.8 % (11.5-14.5); WHITE BLOOD COUNT 13.5 X10'3 (4.5-11.0)
[2019-04-03] MEDS: lactulose 20gm/30ml cup OGT SCH ×4 (02:59→20:21)
[2019-04-03] MEDS: sodium chloride 0.45% 1,000 ML IV SCH (02:59)
[2019-04-03] MEDS: VANCOMYCIN LEVEL IV SCH (03:00)
[2019-04-03 03:08] LABS: ALANINE AMINOTRANSFERASE 25 U/L (12-78); ALBUMIN 0.9 G/DL (3.4-5.0); ALBUMIN/GLOBULIN RATIO 0.3 (1.1-1.5); ALKALINE PHOSPHATASE 75 IU/L (46-116); ANION GAP 14 (8-16); ASPARTATE AMINO TRANSFERASE 22 U/L (10-37); BILIRUBIN,TOTAL 0.4 MG/DL (0.1-1.0); BLOOD UREA NITROGEN 32 MG/DL (7-18); BUN/CREATININE RATIO 11.6 (5.4-32.0); CALCIUM 7.2 MG/DL (8.5-10.1); CHLORIDE 119 MMOL/L (99-107); CREATININE 2.76 MG/DL (0.60-1.10); GLUCOSE 162 MG/DL (70-104); MAGNESIUM 1.2 MG/DL (1.5-2.4); POTASSIUM 4.4 MMOL/L (3.5-5.1); SODIUM 146 MMOL/L (135-145); TOTAL PROTEIN 3.9 G/DL (6.4-8.2); VANCOMYCIN,RANDOM 23.9 UG/ML; eGFR 23 ML/MIN
[2019-04-03 03:15] LABS: TOTAL CARBON DIOXIDE 13.2 MMOL/L (24-32)
[2019-04-03 03:25] LABS: ANISOCYTOSIS 2+; PLATELET ESTIMATE DECREASED
[2019-04-03 03:55] LABS: ABG BASE EXCESS -15.4 mmol/L (-2.0-3.0); ABG HCO3 10.1 mmol/L (22.0-26.0); ABG OXYGEN SATURATION 95.8 % (95-98); ABG PCO2 (T) 22.2 mmHg (35.0-48.0); ABG PH (T) 7.272 (7.350-7.450); ABG PO2 (T) 84.6 mmHg (83-108); ALLEN'S TEST Positive; FCOHb 0.3 % (0.5-1.5); FMetHb 0.1 % (0.3-1.12); FO2Hb 95.4 % (94-100); MINUTE VOLUME 14 L/min; PATIENT TEMPERATURE 36.7; PEEP 5 cm H2O; RESPIRATORY RATE 20 b/min; RESPIRATORY RATE (OBSERVED) 25 b/min; TIDAL VOLUME 400 mL; TOTAL HEMOGLOBIN 7.8 G/dl (14.0-18.0)
--- NOTE | 2019-04-03 04:00 | NUR ---
Received critical CO2 and PHOS, ADDY Bo notified, states she would look over labs and put orders in. Will continue to monitor.
--- NOTE | 2019-04-03 06:30 | NUR ---
Patient in room ICU 2043. I have received report from MARISSA Polanco and had the opportunity to ask questions and assume patient care.
--- NOTE | 2019-04-03 06:56 | NUR ---
Problems reprioritized. Patient report given, questions answered & plan of care reviewed with Abby ANN.
[2019-04-03] MEDS: sodium bicarbonate (8.4%) inj. 100 MEQ in dextrose 5%-water 1,000 ML IV SCH ×2 (07:20→18:27)
[2019-04-03] MEDS: BUDESONIDE 0.25 MG/2 ML AMPUL.NEB IH SCH ×2 (07:37→19:03)
[2019-04-03] MEDS: tamsulosin 0.4mg capsule PO SCH (08:00)
[2019-04-03] MEDS: montelukast 10mg tablet PO SCH (08:00)
[2019-04-03] MEDS: fenofibrate 145mg tablet PO SCH (08:00)
[2019-04-03] MEDS: K and/or MAG REPLACEMENT MC SCH (08:00)
[2019-04-03] MEDS: docusate sod 100mg capsule PO SCH ×2 (08:00→20:00)
[2019-04-03] MEDS: ferrous sulfate 325mg tablet PO SCH ×2 (08:01→20:21)
[2019-04-03] MEDS: thiamine 100mg tablet PO SCH (08:01)
[2019-04-03] MEDS: lactobacillus rhamnosus 10,000 MMU CELLS/CAPSULE PO SCH ×2 (08:01→20:21)
[2019-04-03] MEDS: atorvastatin 10mg tablet PO SCH (08:01)
[2019-04-03] MEDS: multivitamins, therapeutics tablet PO SCH (08:01)
[2019-04-03] MEDS: rifaximin 20mg/ml oral suspension 60 ML BOTTLE PO SCH ×3 (08:02→22:33)
[2019-04-03] MEDS: heparin, porcine 5000 units/ml vial SQ SCH ×2 (08:04→22:34)
[2019-04-03] MEDS: famotidine/PF 10 mg/ml inj IV SCH ×2 (08:04→20:21)
[2019-04-03] MEDS: folic acid 1mg tablet PO SCH (08:04)
[2019-04-03] MEDS: insulin regular, human vial - multi-dose SQ SCH ×3 (08:43→20:36)
[2019-04-03] MEDS: FENTANYL-0.9 % NACL/PF 100 ML IV PRN (09:12)
--- NOTE | 2019-04-03 11:00 | NUR ---
pt is intubated, sedation off since 929, pt opens eyes to pain, does not follow verbal commands, Dr. Munoz arrived on unit and updated on pt condition. advancing TF as tolerated per MD order. updated family on plan of care.
--- NOTE | 2019-04-03 12:20 | NUR ---
Reassessment: sodium now down to 146 with free water flush of 300 ml Q4H. Tube feeding at 80 ml/hr as of 7:00 this am, closer to goal rate of 90 ml/hr. Has rectal tube placed and receiving lactulose r/t elevated ammonia, which is 189 today. documented 400 ml stool out so far. GRV is WNL. H/p EtOH and liver cirrhosis. Very poor appetite and not eating well prior to intubation. Additional history of COPD, CAD, and DM, A1C 4.3. Will continue to follow. Recommend: 1. Continue Glucerna 1.2 per corpak at 90 ml/hr to provide 2160 ml volume, 2592 cals, 130 g protein, and 1750 ml free water. 2. recommend 300ml Q4H water flush; Na 148 3. Prealbumin q Tuesday and , daily wts 4. continue thiamine, folic acid, and MVM 5. Advance TF to goal Addendum: 04/03/19 at [address] Amended: Links added.
[2019-04-03] MEDS: mineral oil/petrolatum ophthal oint EACHEYE SCH ×2 (13:53→20:21)
--- NOTE | 2019-04-03 18:30 | NUR ---
Patient in room ICU 2043. I have received report from Abby ANN, and had the opportunity to ask questions and assume patient care.
--- NOTE | 2019-04-03 20:00 | NUR ---
PT is intubated and mechanically vented, tolerating settings well. O2 >97%. VSS. Sedation is off and PT tolerating well. PT has Corpak to RT nare with Glucerna running @ goal rate of 90ml/hr. Cruz in place and draining to gravity. Rectal tube in place draining to gravity. Bed is locked and low. Will continue to monitor.
[2019-04-03] MEDS: insulin glargine (Lantus) pen - multi-dose SQ SCH (21:25)
--- NOTE | 2019-04-03 23:00 | NUR ---
PT resting with no s/s of distress noted at this time. VSS. Bed is locked and low. Will continue to monitor.
[2019-04-04] VITALS (24 sets, daily range): BP systolic 75–116; BP diastolic 36–53
[2019-04-04 01:07] LABS: BASOPHILS % (AUTO) 0.4 % (0-1); EOSINOPHILS # (AUTO) 0.1 X10'3 (0-0.9); EOSINOPHILS % (AUTO) 0.7 % (0-6); LYMPHOCYTES # (AUTO) 1.2 X10'3 (1.1-4.8); LYMPHOCYTES % (AUTO) 10.8 % (21-51); MEAN CORPUSCULAR HGB CONC 32.3 g/dL (33.0-36.5); MEAN CORPUSCULAR VOLUME 105.4 FL (78-98); MEAN PLATELET VOLUME 10.7 FL (7.4-10.4); MONOCYTES # (AUTO) 0.5 X10'3 (0-0.9); MONOCYTES % (AUTO) 4.7 % (2-12); NEUTROPHILS # (AUTO) 9.4 X10'3 (1.8-7.7); NEUTROPHILS % (AUTO) 83.4 % (42-75); RED BLOOD COUNT 2.06 X10'6 (4.70-6.10); RED CELL DISTRIBUTION WIDTH 17.9 % (11.5-14.5); WHITE BLOOD COUNT 11.3 X10'3 (4.5-11.0)
[2019-04-04 01:13] LABS: HEMATOCRIT 21.7 % (42.0-52.0)
[2019-04-04 01:20] LABS: ALANINE AMINOTRANSFERASE 23 U/L (12-78); ALBUMIN 0.9 G/DL (3.4-5.0); ALBUMIN/GLOBULIN RATIO 0.3 (1.1-1.5); ALKALINE PHOSPHATASE 77 IU/L (46-116); ANION GAP 11 (8-16); ASPARTATE AMINO TRANSFERASE 16 U/L (10-37); BILIRUBIN,TOTAL 0.4 MG/DL (0.1-1.0); BLOOD UREA NITROGEN 35 MG/DL (7-18); BUN/CREATININE RATIO 11.5 (5.4-32.0); CALCIUM 7.1 MG/DL (8.5-10.1); CHLORIDE 115 MMOL/L (99-107); CREATININE 3.05 MG/DL (0.60-1.10); GLUCOSE 278 MG/DL (70-104); MAGNESIUM 1.3 MG/DL (1.5-2.4); POTASSIUM 4.3 MMOL/L (3.5-5.1); SODIUM 142 MMOL/L (135-145); TOTAL CARBON DIOXIDE 15.7 MMOL/L (24-32); TOTAL PROTEIN 4.1 G/DL (6.4-8.2); VANCOMYCIN,RANDOM 21.7 UG/ML; eGFR 20 ML/MIN
[2019-04-04 01:21] LABS: PARTIAL THROMBOPLASTIN TIME 46 SECONDS (22-32)
[2019-04-04 01:23] LABS: PHOSPHORUS 0.6 MG/DL (2.3-4.5)
[2019-04-04 01:24] LABS: PLATELET COUNT 64 X10'3 (140-440)
[2019-04-04 01:25] LABS: ANISOCYTOSIS 1+; HYPOCHROMASIA 1+; LARGE PLATELETS FEW; PLATELET ESTIMATE DECREASED
[2019-04-04] MEDS ORDERED: magnesium 2GM in 50ml NS 50 ML IV ONE (01:40)
--- NOTE | 2019-04-04 02:00 | NUR ---
PT had a short run of SVT. Labs were drawn and Mag was 1.3. TELECOMMUNICATIONS LINESWORKER Anupam notified, received orders for replacement. Will continue to monitor.
[2019-04-04] MEDS: ipratropium/albuterol 3ml nebule NEB SCH ×6 (02:33→23:11)
[2019-04-04] MEDS: lactulose 20gm/30ml cup OGT SCH ×4 (02:33→19:47)
[2019-04-04] MEDS: piperacillin/tazo 4.5gm/100ml 100 ML IV SCH ×3 (02:33→16:37)
[2019-04-04] MEDS: mineral oil/petrolatum ophthal oint EACHEYE SCH ×4 (02:35→19:48)
[2019-04-04] MEDS: insulin regular, human vial - multi-dose SQ SCH ×4 (02:39→20:33)
[2019-04-04] MEDS: VANCOMYCIN LEVEL IV SCH (03:00)
[2019-04-04 03:46] LABS: ABG BASE EXCESS -13.7 mmol/L (-2.0-3.0); ABG HCO3 12.6 mmol/L (22.0-26.0); ABG PCO2 (T) 30.1 mmHg (35.0-48.0); ABG PH (T) 7.237 (7.350-7.450); ABG PO2 (T) 79.8 mmHg (83-108); ALLEN'S TEST Positive; FCOHb 0.3 % (0.5-1.5); FO2Hb 94.7 % (94-100); MINUTE VOLUME 14 L/min; PATIENT TEMPERATURE 36.5; PEEP 5 cm H2O; RESPIRATORY RATE 20 b/min; RESPIRATORY RATE (OBSERVED) 28 b/min; TIDAL VOLUME 400 mL; TOTAL HEMOGLOBIN 9.2 G/dl (14.0-18.0)
[2019-04-04] MEDS: sodium bicarbonate (8.4%) inj. 100 MEQ in dextrose 5%-water 1,000 ML IV SCH ×2 (05:16→16:37)
--- NOTE | 2019-04-04 06:33 | NUR ---
Problems reprioritized. Patient report given, questions answered & plan of care reviewed with Abby ANN.
[2019-04-04] MEDS: BUDESONIDE 0.25 MG/2 ML AMPUL.NEB IH SCH ×2 (07:48→21:17)
[2019-04-04] MEDS: rifaximin 20mg/ml oral suspension 60 ML BOTTLE PO SCH ×3 (07:52→20:57)
[2019-04-04] MEDS: multivitamins, therapeutics tablet PO SCH (07:53)
[2019-04-04] MEDS: fenofibrate 145mg tablet PO SCH (07:53)
[2019-04-04] MEDS: thiamine 100mg tablet PO SCH (07:53)
[2019-04-04] MEDS: montelukast 10mg tablet PO SCH (07:53)
[2019-04-04] MEDS: lactobacillus rhamnosus 10,000 MMU CELLS/CAPSULE PO SCH ×2 (07:53→19:48)
[2019-04-04] MEDS: atorvastatin 10mg tablet PO SCH (07:53)
[2019-04-04] MEDS: ferrous sulfate 325mg tablet PO SCH ×2 (07:53→19:48)
[2019-04-04] MEDS: folic acid 1mg tablet PO SCH (07:53)
[2019-04-04] MEDS: heparin, porcine 5000 units/ml vial SQ SCH ×2 (08:00→19:49)
[2019-04-04] MEDS: K and/or MAG REPLACEMENT MC SCH (08:00)
[2019-04-04] MEDS: famotidine/PF 10 mg/ml inj IV SCH ×2 (08:00→19:48)
[2019-04-04] MEDS: tamsulosin 0.4mg capsule PO SCH (08:00)
[2019-04-04] MEDS: docusate sod 100mg capsule PO SCH ×2 (08:00→19:48)
[2019-04-04 08:35] LABS: MEAN CORPUSCULAR HEMOGLOBIN 34.3 PG (27.0-31.0); MEAN CORPUSCULAR HGB CONC 33.3 g/dL (33.0-36.5); MEAN CORPUSCULAR VOLUME 103.1 FL (78-98); MEAN PLATELET VOLUME 10.7 FL (7.4-10.4); PLATELET COUNT 67 X10'3 (140-440); RED BLOOD COUNT 2.01 X10'6 (4.70-6.10); RED CELL DISTRIBUTION WIDTH 17.2 % (11.5-14.5)
[2019-04-04 09:10] LABS: HEMOGLOBIN 6.9 g/dl (14.0-17.9)
[2019-04-04 09:11] LABS: HEMATOCRIT 20.7 % (42.0-52.0)
--- NOTE | 2019-04-04 14:26 | NUR ---
Tube feed consult: sodium now down to 146 with free water flush of 300 ml Q4H. Ammonia is 229 today. Recommend change in tube feeding formula and rate to provide lower protein while still meeting caloric needs. Recommend Jevity 1.2 at 70 ml/hr. Has rectal tube placed and receiving lactulose. Documented 1700 ml stool out 04/03. H/p EtOH and liver cirrhosis. Very poor appetite and not eating well prior to intubation. Additional history of COPD, CAD, and DM, A1C 4.3. Will continue to follow. Recommend: 1. Change tube feeding per cristelaak to Jevity 1.2 at 70 ml/hr to provide 1680 ml volume, 2000 cals, 93 g protein, and 1361 ml free water. D/w RN, , and patient's family 2. recommend 300ml Q4H water flush; Na 148 3. Prealbumin q Tuesday and , daily wts 4. continue thiamine, folic acid, and MVM 5. continue lactulose per Addendum: 04/04/19 at [address] Amended: Links added.
--- NOTE | 2019-04-04 16:00 | NUR ---
head CT order by Dr. Munoz for unequal, reactive pupils. transported to CT via bed with Rt and transportation specialist. pt tolerated procedure well.
--- NOTE | 2019-04-04 17:30 | NUR ---
Dr Munoz aware of hypotension, fluid bolus order received and infusing
[2019-04-04] MEDS ORDERED: normal saline 1000ml 1,000 ML IV ONE (17:35)
--- NOTE | 2019-04-04 18:26 | NUR ---
Problems reprioritized. Patient report given, questions answered & plan of care reviewed with MARISSA Polanco.
--- NOTE | 2019-04-04 18:30 | NUR ---
Patient in room ICU 2043. I have received report from Abby ANN, and had the opportunity to ask questions and assume patient care.
--- NOTE | 2019-04-04 19:30 | NUR ---
PT is intubated and mechanically vented, tolerating settings well. O2 >97%. VSS. Sedation remains off and PT tolerating well. PT's 2 sisters are at bedside visiting. PT has Corpak to RT nare with Glucerna running @ goal rate of 70ml/hr. Cruz in place and draining to gravity. Rectal tube in place draining to gravity. Bed is locked and low. Will continue to monitor.
[2019-04-04] MEDS: insulin glargine (Lantus) pen - multi-dose SQ SCH (20:34)
--- NOTE | 2019-04-04 23:30 | NUR ---
PT resting with no s/s of distress noted at this time. VSS. Bed is locked and low. Will continue to monitor.
[2019-04-05] VITALS (25 sets, daily range): BP systolic 76–120; BP diastolic 31–59
[2019-04-05] MEDS: piperacillin/tazo 4.5gm/100ml 100 ML IV SCH ×3 (00:56→18:00)
[2019-04-05] MEDS: mineral oil/petrolatum ophthal oint EACHEYE SCH ×4 (02:09→20:57)
[2019-04-05] MEDS: lactulose 20gm/30ml cup OGT SCH ×2 (02:09→07:55)
[2019-04-05] MEDS: ipratropium/albuterol 3ml nebule NEB SCH ×6 (02:54→23:03)
[2019-04-05 02:57] LABS: BASOPHILS % (AUTO) 0.3 % (0-1); EOSINOPHILS # (AUTO) 0.1 X10'3 (0-0.9); EOSINOPHILS % (AUTO) 0.8 % (0-6); LYMPHOCYTES # (AUTO) 1.7 X10'3 (1.1-4.8); LYMPHOCYTES % (AUTO) 14.2 % (21-51); MEAN CORPUSCULAR HEMOGLOBIN 33.6 PG (27.0-31.0); MEAN CORPUSCULAR HGB CONC 32.5 g/dL (33.0-36.5); MEAN CORPUSCULAR VOLUME 103.5 FL (78-98); MEAN PLATELET VOLUME 11.8 FL (7.4-10.4); MONOCYTES # (AUTO) 0.8 X10'3 (0-0.9); MONOCYTES % (AUTO) 6.8 % (2-12); NEUTROPHILS # (AUTO) 9.2 X10'3 (1.8-7.7); NEUTROPHILS % (AUTO) 77.9 % (42-75); PLATELET COUNT 56 X10'3 (140-440); RED BLOOD COUNT 1.81 X10'6 (4.70-6.10); RED CELL DISTRIBUTION WIDTH 16.8 % (11.5-14.5); WHITE BLOOD COUNT 11.8 X10'3 (4.5-11.0)
[2019-04-05] MEDS: VANCOMYCIN LEVEL IV SCH (03:00)
[2019-04-05 03:02] LABS: HEMATOCRIT 18.7 % (42.0-52.0); HEMOGLOBIN 6.1 g/dl (14.0-17.9)
[2019-04-05 03:11] LABS: PARTIAL THROMBOPLASTIN TIME 42 SECONDS (22-32)
[2019-04-05 03:16] LABS: ALANINE AMINOTRANSFERASE 20 U/L (12-78); ALBUMIN 0.7 G/DL (3.4-5.0); ALBUMIN/GLOBULIN RATIO 0.2 (1.1-1.5); ALKALINE PHOSPHATASE 62 IU/L (46-116); ANION GAP 9 (8-16); ASPARTATE AMINO TRANSFERASE 19 U/L (10-37); BILIRUBIN,TOTAL 0.3 MG/DL (0.1-1.0); BLOOD UREA NITROGEN 40 MG/DL (7-18); BUN/CREATININE RATIO 12.2 (5.4-32.0); CALCIUM 6.8 MG/DL (8.5-10.1); CHLORIDE 111 MMOL/L (99-107); CREATININE 3.29 MG/DL (0.60-1.10); GLUCOSE 178 MG/DL (70-104); MAGNESIUM 1.4 MG/DL (1.5-2.4); POTASSIUM 4.3 MMOL/L (3.5-5.1); SODIUM 139 MMOL/L (135-145); TOTAL CARBON DIOXIDE 19.5 MMOL/L (24-32); TOTAL PROTEIN 3.8 G/DL (6.4-8.2); VANCOMYCIN,RANDOM 21.4 UG/ML; eGFR 19 ML/MIN
[2019-04-05 03:22] LABS: PHOSPHORUS 0.5 MG/DL (2.3-4.5)
[2019-04-05] MEDS: sodium bicarbonate (8.4%) inj. 100 MEQ in dextrose 5%-water 1,000 ML IV SCH ×2 (03:30→14:00)
--- NOTE | 2019-04-05 03:30 | NUR ---
Received critical H&H. ADDY Bo notified. Order received for new type and screen and to transfuse 1 unit PRBCs. Will continue to monitor.
[2019-04-05 04:00] LABS: ABG BASE EXCESS -7.6 mmol/L (-2.0-3.0); ABG HCO3 16.9 mmol/L (22.0-26.0); ABG PCO2 (T) 29.2 mmHg (35.0-48.0); ABG PH (T) 7.378 (7.350-7.450); ABG PO2 (T) 92.2 mmHg (83-108); ALLEN'S TEST Positive; FCOHb 0.3 % (0.5-1.5); FMetHb 0.2 % (0.3-1.12); FO2Hb 96.5 % (94-100); MINUTE VOLUME 11 L/min; PATIENT TEMPERATURE 36.6; PEEP 5 cm H2O; RESPIRATORY RATE 20 b/min; RESPIRATORY RATE (OBSERVED) 26 b/min; TIDAL VOLUME 400 mL; TOTAL HEMOGLOBIN 6.8 G/dl (14.0-18.0)
--- NOTE | 2019-04-05 06:30 | NUR ---
Problems reprioritized. Patient report given, questions answered & plan of care reviewed with Dennis ANN.
[2019-04-05] MEDS: normal saline 1000ml 1,000 ML IV PRN ×3 (07:44→15:29)
[2019-04-05] MEDS: lactobacillus rhamnosus 10,000 MMU CELLS/CAPSULE PO SCH (07:55)
[2019-04-05] MEDS: folic acid 1mg tablet PO SCH (07:55)
[2019-04-05] MEDS: fenofibrate 145mg tablet PO SCH (07:55)
[2019-04-05] MEDS: famotidine/PF 10 mg/ml inj IV SCH ×2 (07:56→20:56)
[2019-04-05] MEDS: multivitamins, therapeutics tablet PO SCH (07:56)
[2019-04-05] MEDS: montelukast 10mg tablet PO SCH (07:56)
[2019-04-05] MEDS: atorvastatin 10mg tablet PO SCH (07:56)
[2019-04-05] MEDS: thiamine 100mg tablet PO SCH (07:56)
[2019-04-05] MEDS: rifaximin 20mg/ml oral suspension 60 ML BOTTLE PO SCH ×3 (07:56→21:06)
[2019-04-05] MEDS: ferrous sulfate 325mg tablet PO SCH (07:57)
[2019-04-05] MEDS: tamsulosin 0.4mg capsule PO SCH (07:57)
[2019-04-05] MEDS: docusate sod 100mg capsule PO SCH (08:00)
[2019-04-05] MEDS: K and/or MAG REPLACEMENT MC SCH (08:00)
[2019-04-05] MEDS: heparin, porcine 5000 units/ml vial SQ SCH ×2 (08:00→20:00)
[2019-04-05] MEDS: BUDESONIDE 0.25 MG/2 ML AMPUL.NEB IH SCH ×2 (08:06→19:55)
[2019-04-05] MEDS ORDERED: sodium phosphate inj. 30 MMOL in dextrose 5%-water 250 ML IV ONE (09:30)
[2019-04-05] MEDS: insulin regular, human vial - multi-dose SQ SCH ×3 (09:34→21:15)
[2019-04-05] MEDS ORDERED: acetaminophen 325mg/10.15ml oral unit dose solution PO PRN (11:05)
[2019-04-05] MEDS ORDERED: acetaminophen 325mg/10.15ml oral unit dose solution CORPAK PRN (11:05)
[2019-04-05] MEDS ORDERED: dextrose ORAL solution 15 GM/59 ML bottle CORPAK PRN ×2 (11:06)
[2019-04-05] MEDS ORDERED: heparin 1,000unit/ml 10ml vial 10 ML IV ONE (11:43)
[2019-04-05] MEDS ORDERED: normal saline 1000ml 250 ML IV PRN (11:43)
[2019-04-05] MEDS ORDERED: epoetin 20,000 units/ml inj IV ONE (11:45)
[2019-04-05] MEDS ORDERED: heparin 1,000 units/ml 10ml inj HE ONE ×2 (11:50)
[2019-04-05] MEDS: lactulose 20gm/30ml cup CORPAK SCH ×2 (14:39→20:57)
[2019-04-05] MEDS: NORepinephrine 8mg/ 250ml NS 250 ML IV PRN (15:14)
[2019-04-05] MEDS: docusate sodium 100mg/10ml UD cup CORPAK SCH (20:00)
[2019-04-05] MEDS: lactobacillus rhamnosus 10,000 MMU CELLS/CAPSULE CORPAK SCH (20:56)
[2019-04-05] MEDS: ferrous sulfate 300mg/5ml UD oral liquid CORPAK SCH (20:56)
[2019-04-05] MEDS: insulin glargine (Lantus) pen - multi-dose SQ SCH (21:16)
[2019-04-06] VITALS (23 sets, daily range): BP systolic 79–128; BP diastolic 34–69
[2019-04-06] MEDS: sodium bicarbonate (8.4%) inj. 100 MEQ in dextrose 5%-water 1,000 ML IV SCH (02:46)
[2019-04-06] MEDS: lactulose 20gm/30ml cup CORPAK SCH ×4 (02:47→20:48)
[2019-04-06] MEDS: mineral oil/petrolatum ophthal oint EACHEYE SCH ×4 (02:47→20:48)
[2019-04-06] MEDS: VANCOMYCIN LEVEL IV SCH (02:47)
[2019-04-06] MEDS: insulin regular, human vial - multi-dose SQ SCH ×2 (02:49→21:23)
[2019-04-06 03:08] LABS: BASOPHILS # (AUTO) 0.1 X10'3 (0-0.2); EOSINOPHILS # (AUTO) 0.1 X10'3 (0-0.9); MONOCYTES # (AUTO) 1.4 X10'3 (0-0.9); MONOCYTES % (AUTO) 8.8 % (2-12); RED CELL DISTRIBUTION WIDTH 19.2 % (11.5-14.5)
[2019-04-06 03:10] LABS: BASOPHILS % (AUTO) 0.7 % (0-1); EOSINOPHILS % (AUTO) 0.5 % (0-6); HEMATOCRIT 25.4 % (42.0-52.0); HEMOGLOBIN 8.7 g/dl (14.0-17.9); LYMPHOCYTES # (AUTO) 2.4 X10'3 (1.1-4.8); LYMPHOCYTES % (AUTO) 15.4 % (21-51); MEAN CORPUSCULAR HEMOGLOBIN 32.6 PG (27.0-31.0); MEAN CORPUSCULAR VOLUME 95.7 FL (78-98); MEAN PLATELET VOLUME 12.2 FL (7.4-10.4); NEUTROPHILS # (AUTO) 11.7 X10'3 (1.8-7.7); NEUTROPHILS % (AUTO) 74.6 % (42-75); PLATELET COUNT 77 X10'3 (140-440); RED BLOOD COUNT 2.66 X10'6 (4.70-6.10); WHITE BLOOD COUNT 15.7 X10'3 (4.5-11.0)
[2019-04-06 03:26] LABS: ALANINE AMINOTRANSFERASE 23 U/L (12-78); ALBUMIN 0.8 G/DL (3.4-5.0); ALBUMIN/GLOBULIN RATIO 0.2 (1.1-1.5); ALKALINE PHOSPHATASE 68 IU/L (46-116); ANION GAP 10 (8-16); ASPARTATE AMINO TRANSFERASE 22 U/L (10-37); BILIRUBIN,TOTAL 0.4 MG/DL (0.1-1.0); BLOOD UREA NITROGEN 33 MG/DL (7-18); BUN/CREATININE RATIO 11.9 (5.4-32.0); CALCIUM 6.5 MG/DL (8.5-10.1); CHLORIDE 107 MMOL/L (99-107); CREATININE 2.78 MG/DL (0.60-1.10); GLUCOSE 131 MG/DL (70-104); MAGNESIUM 1.4 MG/DL (1.5-2.4); POTASSIUM 3.9 MMOL/L (3.5-5.1); SODIUM 139 MMOL/L (135-145); TOTAL CARBON DIOXIDE 22.3 MMOL/L (24-32); TOTAL PROTEIN 4.2 G/DL (6.4-8.2); VANCOMYCIN,RANDOM 19.4 UG/ML; eGFR 23 ML/MIN
[2019-04-06 03:28] LABS: PHOSPHORUS 1.2 MG/DL (2.3-4.5)
[2019-04-06] MEDS: ipratropium/albuterol 3ml nebule NEB SCH ×5 (04:03→23:07)
[2019-04-06 04:07] LABS: PARTIAL THROMBOPLASTIN TIME 37 SECONDS (22-32)
[2019-04-06 04:26] LABS: ABG BASE EXCESS -3.7 mmol/L (-2.0-3.0); ABG HCO3 18.8 mmol/L (22.0-26.0); ABG OXYGEN SATURATION 96.7 % (95-98); ABG PCO2 (T) 27.9 mmHg (35.0-48.0); ABG PH (T) 7.453 (7.350-7.450); ABG PO2 (T) 92.5 mmHg (83-108); ALLEN'S TEST Positive; FCOHb 0.3 % (0.5-1.5); FMetHb 0.1 % (0.3-1.12); FO2Hb 96.3 % (94-100); MINUTE VOLUME 12 L/min; PATIENT TEMPERATURE 38.7; PEEP 5 cm H2O; RESPIRATORY RATE 20 b/min; RESPIRATORY RATE (OBSERVED) 27 b/min; TIDAL VOLUME 400 mL; TOTAL HEMOGLOBIN 9.5 G/dl (14.0-18.0)
[2019-04-06 04:41] LABS: NUCLEATED RED BLOOD CELLS 3 /100WBC (0-0); TOTAL CELLS COUNTED 100
[2019-04-06 04:42] LABS: ANISOCYTOSIS 2+; PLATELET ESTIMATE DECREASED; POLYCHROMASIA 1+
[2019-04-06] MEDS: BUDESONIDE 0.25 MG/2 ML AMPUL.NEB IH SCH ×2 (07:42→18:58)
[2019-04-06] MEDS ORDERED: heparin 1,000 units/ml 10ml inj HE ONE ×2 (08:00)
[2019-04-06] MEDS: docusate sodium 100mg/10ml UD cup CORPAK SCH ×2 (08:00→20:00)
[2019-04-06] MEDS ORDERED: normal saline 1000ml 250 ML IV PRN (08:00)
[2019-04-06] MEDS ORDERED: heparin 1,000unit/ml 10ml vial 10 ML IV ONE (08:00)
[2019-04-06] MEDS ORDERED: epoetin 20,000 units/ml inj IV ONE (08:00)
[2019-04-06] MEDS: K and/or MAG REPLACEMENT MC SCH (08:00)
[2019-04-06] MEDS: heparin, porcine 5000 units/ml vial SQ SCH ×2 (08:00→20:00)
[2019-04-06] MEDS: ferrous sulfate 300mg/5ml UD oral liquid CORPAK SCH ×2 (08:42→20:48)
[2019-04-06] MEDS: tamsulosin 0.4mg capsule PO SCH (08:42)
[2019-04-06] MEDS: lactobacillus rhamnosus 10,000 MMU CELLS/CAPSULE CORPAK SCH ×2 (08:43→20:48)
[2019-04-06] MEDS: fenofibrate 145mg tablet CORPAK SCH (08:43)
[2019-04-06] MEDS: folic acid 1mg tablet CORPAK SCH (08:44)
[2019-04-06] MEDS: montelukast 10mg tablet CORPAK SCH (08:44)
[2019-04-06] MEDS: atorvastatin 10mg tablet CORPAK SCH (08:44)
[2019-04-06] MEDS: famotidine/PF 10 mg/ml inj IV SCH ×2 (08:44→20:48)
[2019-04-06] MEDS: thiamine 100mg tablet CORPAK SCH (08:45)
[2019-04-06] MEDS: rifaximin 20mg/ml oral suspension 60 ML BOTTLE PO SCH ×3 (08:46→20:49)
[2019-04-06] MEDS: piperacillin/tazo 4.5gm/100ml 100 ML IV SCH ×3 (09:19→16:56)
[2019-04-06] MEDS: normal saline 1000ml 1,000 ML IV PRN ×3 (10:34→14:56)
--- NOTE | 2019-04-06 10:54 | NUR ---
Reassessment: ammonia levels lower today at 138. Sodium is also down and now WNL at 139 mg/dl. Per water flush cut from 300 ml q 4 to 100 ml q 4 hours. Tolerating tube feeding at Jevity 1.2 at 70 ml/hr. Has rectal tube placed and receiving lactulose. Documented 3400 ml stool out 04/04 and 1650 ml stool output on 04/05. Lactulose continues. H/o EtOH and liver cirrhosis. Very poor appetite and not eating well prior to intubation. Additional history of COPD, CAD, and DM, A1C 4.3. Will continue to follow. Recommend: 1. Continue tube feeding with Jevity 1.2 at 70 ml/hr to provide 1680 ml volume, 2000 cals, 93 g protein, and 1361 ml free water. D/w RN, , and patient's family 2. 100 ml water flush Q4H per 3. Prealbumin q Tuesday and , daily wts 4. continue thiamine, folic acid, and MVM 5. continue lactulose per MD Addendum: 04/06/19 at [address] Amended: Links added.
[2019-04-06 12:46] LABS: OCCULT BLOOD STOOL NEGATIVE (Neg)
[2019-04-06] MEDS: multivitamin oral liquid (Certavite) 5ml cup CORPAK SCH (13:39)
[2019-04-06] MEDS: insulin glargine (Lantus) pen - multi-dose SQ SCH (21:02)
[2019-04-07] VITALS (24 sets, daily range): BP systolic 80–142; BP diastolic 44–77
[2019-04-07] MEDS: piperacillin/tazo 4.5gm/100ml 100 ML IV SCH ×4 (00:55→23:34)
[2019-04-07] MEDS: mineral oil/petrolatum ophthal oint EACHEYE SCH ×4 (02:11→20:31)
[2019-04-07] MEDS: lactulose 20gm/30ml cup CORPAK SCH ×3 (02:11→13:26)
[2019-04-07] MEDS: insulin regular, human vial - multi-dose SQ SCH ×2 (02:32→20:35)
[2019-04-07] MEDS: VANCOMYCIN LEVEL IV SCH (02:34)
[2019-04-07 02:42] LABS: BASOPHILS # (AUTO) 0.1 X10'3 (0-0.2); BASOPHILS % (AUTO) 0.3 % (0-1); EOSINOPHILS # (AUTO) 0.1 X10'3 (0-0.9); EOSINOPHILS % (AUTO) 0.3 % (0-6); HEMATOCRIT 25.7 % (42.0-52.0); HEMOGLOBIN 8.6 g/dl (14.0-17.9); LYMPHOCYTES # (AUTO) 3.3 X10'3 (1.1-4.8); LYMPHOCYTES % (AUTO) 16.9 % (21-51); MEAN CORPUSCULAR HEMOGLOBIN 32.4 PG (27.0-31.0); MEAN CORPUSCULAR HGB CONC 33.5 g/dL (33.0-36.5); MEAN CORPUSCULAR VOLUME 96.5 FL (78-98); MEAN PLATELET VOLUME 11.6 FL (7.4-10.4); MONOCYTES # (AUTO) 1.7 X10'3 (0-0.9); NEUTROPHILS # (AUTO) 14.1 X10'3 (1.8-7.7); NEUTROPHILS % (AUTO) 73.5 % (42-75); PLATELET COUNT 96 X10'3 (140-440); RED BLOOD COUNT 2.66 X10'6 (4.70-6.10); RED CELL DISTRIBUTION WIDTH 18.9 % (11.5-14.5); WHITE BLOOD COUNT 19.2 X10'3 (4.5-11.0)
[2019-04-07 02:55] LABS: PARTIAL THROMBOPLASTIN TIME 36 SECONDS (22-32)
[2019-04-07 03:06] LABS: ALANINE AMINOTRANSFERASE 23 U/L (12-78); ALBUMIN 0.8 G/DL (3.4-5.0); ALBUMIN/GLOBULIN RATIO 0.2 (1.1-1.5); ALKALINE PHOSPHATASE 69 IU/L (46-116); ANION GAP 10 (8-16); ASPARTATE AMINO TRANSFERASE 24 U/L (10-37); BILIRUBIN,TOTAL 0.4 MG/DL (0.1-1.0); BLOOD UREA NITROGEN 24 MG/DL (7-18); BUN/CREATININE RATIO 10.4 (5.4-32.0); CALCIUM 6.4 MG/DL (8.5-10.1); CHLORIDE 108 MMOL/L (99-107); CREATININE 2.31 MG/DL (0.60-1.10); GLUCOSE 127 MG/DL (70-104); MAGNESIUM 1.4 MG/DL (1.5-2.4); PHOSPHORUS 1.3 MG/DL (2.3-4.5); POTASSIUM 3.9 MMOL/L (3.5-5.1); SODIUM 140 MMOL/L (135-145); TOTAL CARBON DIOXIDE 22.1 MMOL/L (24-32); TOTAL PROTEIN 4.5 G/DL (6.4-8.2); VANCOMYCIN,RANDOM 14.9 UG/ML; eGFR 28 ML/MIN
[2019-04-07] MEDS: ipratropium/albuterol 3ml nebule NEB SCH ×6 (03:20→22:33)
[2019-04-07 03:45] LABS: ABG BASE EXCESS -2.3 mmol/L (-2.0-3.0); ABG HCO3 20.4 mmol/L (22.0-26.0); ABG OXYGEN SATURATION 95.4 % (95-98); ABG PCO2 (T) 28.1 mmHg (35.0-48.0); ALLEN'S TEST Positive; FCOHb 0.2 % (0.5-1.5); FO2Hb 95.2 % (94-100); MINUTE VOLUME 10 L/min; PATIENT TEMPERATURE 36.9; PEEP 5 cm H2O; RESPIRATORY RATE 12 b/min; RESPIRATORY RATE (OBSERVED) 25 b/min; TIDAL VOLUME 400 mL; TOTAL HEMOGLOBIN 10.2 G/dl (14.0-18.0)
[2019-04-07] MEDS: NORepinephrine 8mg/ 250ml NS 250 ML IV PRN (05:57)
--- NOTE | 2019-04-07 06:30 | NUR ---
Patient in room ICU 2043. I have received report from night nurse and had the opportunity to ask questions and assume patient care.
[2019-04-07] MEDS: BUDESONIDE 0.25 MG/2 ML AMPUL.NEB IH SCH ×2 (07:18→18:40)
[2019-04-07 07:27] LABS: NUCLEATED RED BLOOD CELLS 6 /100WBC (0-0); TOTAL CELLS COUNTED 100
[2019-04-07 07:28] LABS: ANISOCYTOSIS 2+; LARGE PLATELETS FEW; PLATELET ESTIMATE DECREASED; POLYCHROMASIA 2+
[2019-04-07] MEDS ORDERED: heparin 1,000 units/ml 10ml inj HE ONE ×2 (08:00)
[2019-04-07] MEDS: docusate sodium 100mg/10ml UD cup CORPAK SCH ×2 (08:00→20:00)
[2019-04-07] MEDS: K and/or MAG REPLACEMENT MC SCH (08:00)
[2019-04-07] MEDS ORDERED: heparin 1,000unit/ml 10ml vial 10 ML IV ONE (08:00)
[2019-04-07] MEDS: heparin, porcine 5000 units/ml vial SQ SCH ×2 (08:00→20:00)
[2019-04-07] MEDS ORDERED: normal saline 1000ml 250 ML IV PRN (08:00)
[2019-04-07] MEDS ORDERED: epoetin 20,000 units/ml inj IV ONE (08:00)
[2019-04-07] MEDS ORDERED: methylnaltrexone br 12mg/0.6ml inj***SubQ only SQ SCH (08:00)
[2019-04-07] MEDS: dextrose 50%-water 50ml dispensing syringe IV PRN (08:08)
[2019-04-07 08:10] LABS: HBSAG SCREEN Negative (Negative)
[2019-04-07] MEDS: atorvastatin 10mg tablet CORPAK SCH (08:11)
[2019-04-07] MEDS: multivitamin oral liquid (Certavite) 5ml cup CORPAK SCH (08:11)
[2019-04-07] MEDS: fenofibrate 145mg tablet CORPAK SCH (08:11)
[2019-04-07] MEDS: ferrous sulfate 300mg/5ml UD oral liquid CORPAK SCH ×2 (08:11→20:31)
[2019-04-07] MEDS: famotidine/PF 10 mg/ml inj IV SCH ×2 (08:12→20:31)
[2019-04-07] MEDS: lactobacillus rhamnosus 10,000 MMU CELLS/CAPSULE CORPAK SCH ×2 (08:12→20:31)
[2019-04-07] MEDS: thiamine 100mg tablet CORPAK SCH (08:12)
[2019-04-07] MEDS: tamsulosin 0.4mg capsule PO SCH (08:12)
[2019-04-07] MEDS: folic acid 1mg tablet CORPAK SCH (08:12)
[2019-04-07] MEDS: montelukast 10mg tablet CORPAK SCH (08:12)
[2019-04-07] MEDS: rifaximin 20mg/ml oral suspension 60 ML BOTTLE PO SCH ×3 (08:13→20:31)
--- NOTE | 2019-04-07 09:00 | NUR ---
Dr Joanna may, updated on current status, new orders received.
[2019-04-07] MEDS ORDERED: magnesium 2GM in 50ml NS 50 ML IV ONE (10:15)
[2019-04-07] MEDS ORDERED: albumin (human) 25% 100 ML IV solution IV ONE (10:15)
[2019-04-07] MEDS ORDERED: vitamin D (cholecalciferol) 1,000 unit tablet PO ONE (13:10)
[2019-04-07] MEDS: potassium phosphate inj 30 MMOL in normal saline 500ml IV soln 490 ML IV SCH ×2 (13:23→20:33)
[2019-04-07 15:15] LABS: OXYGEN SATURATION (MIXED VEN) 68.7 % (60-80); PO2 MIXED VENOUS (TEMP COR) 29.4 mmHg (35-46)
--- NOTE | 2019-04-07 17:45 | NUR ---
eyes open spontaneously, asked pt to squeeze hands, unable to do so.
[2019-04-07] MEDS: insulin glargine (Lantus) pen - multi-dose SQ SCH (20:36)
[2019-04-08] VITALS (23 sets, daily range): BP systolic 104–143; BP diastolic 52–68
[2019-04-08] MEDS: mineral oil/petrolatum ophthal oint EACHEYE SCH ×4 (02:00→19:42)
[2019-04-08] MEDS: ipratropium/albuterol 3ml nebule NEB SCH ×6 (02:36→22:34)
[2019-04-08] MEDS: VANCOMYCIN LEVEL IV SCH (03:00)
[2019-04-08 03:10] LABS: BASOPHILS # (AUTO) 0.1 X10'3 (0-0.2); LYMPHOCYTES # (AUTO) 2.3 X10'3 (1.1-4.8); MEAN CORPUSCULAR VOLUME 97.7 FL (78-98); NEUTROPHILS # (AUTO) 11.9 X10'3 (1.8-7.7)
[2019-04-08 03:11] LABS: BASOPHILS % (AUTO) 0.4 % (0-1); EOSINOPHILS % (AUTO) 0.3 % (0-6); HEMATOCRIT 22.1 % (42.0-52.0); HEMOGLOBIN 7.4 g/dl (14.0-17.9); MEAN CORPUSCULAR HEMOGLOBIN 32.6 PG (27.0-31.0); MEAN CORPUSCULAR HGB CONC 33.4 g/dL (33.0-36.5); MEAN PLATELET VOLUME 12.6 FL (7.4-10.4); MONOCYTES # (AUTO) 0.9 X10'3 (0-0.9); MONOCYTES % (AUTO) 5.7 % (2-12); NEUTROPHILS % (AUTO) 78.6 % (42-75); PLATELET COUNT 90 X10'3 (140-440); RED BLOOD COUNT 2.26 X10'6 (4.70-6.10); RED CELL DISTRIBUTION WIDTH 18.7 % (11.5-14.5); WHITE BLOOD COUNT 15.2 X10'3 (4.5-11.0)
[2019-04-08 03:15] LABS: PARTIAL THROMBOPLASTIN TIME 37 SECONDS (22-32)
[2019-04-08 03:18] LABS: ALANINE AMINOTRANSFERASE 21 U/L (12-78); ALBUMIN 1.4 G/DL (3.4-5.0); ALBUMIN/GLOBULIN RATIO 0.5 (1.1-1.5); ALKALINE PHOSPHATASE 65 IU/L (46-116); ANION GAP 5 (8-16); ASPARTATE AMINO TRANSFERASE 26 U/L (10-37); BILIRUBIN,TOTAL 0.6 MG/DL (0.1-1.0); BLOOD UREA NITROGEN 18 MG/DL (7-18); BUN/CREATININE RATIO 10.5 (5.4-32.0); CALCIUM 6.5 MG/DL (8.5-10.1); CHLORIDE 106 MMOL/L (99-107); CREATININE 1.72 MG/DL (0.60-1.10); GLUCOSE 109 MG/DL (70-104); MAGNESIUM 1.8 MG/DL (1.5-2.4); POTASSIUM 5.1 MMOL/L (3.5-5.1); SODIUM 138 MMOL/L (135-145); TOTAL CARBON DIOXIDE 27.1 MMOL/L (24-32); TOTAL PROTEIN 4.5 G/DL (6.4-8.2); VANCOMYCIN,RANDOM 12.5 UG/ML; eGFR 39 ML/MIN
[2019-04-08 04:56] LABS: ABG BASE EXCESS 0.5 mmol/L (-2.0-3.0); ABG HCO3 23.8 mmol/L (22.0-26.0); ABG OXYGEN SATURATION 94.8 % (95-98); ABG PCO2 (T) 32.5 mmHg (35.0-48.0); ABG PH (T) 7.481 (7.350-7.450); ABG PO2 (T) 73.4 mmHg (83-108); ALLEN'S TEST Positive; FCOHb 0.3 % (0.5-1.5); FMetHb 0.3 % (0.3-1.12); FO2Hb 94.2 % (94-100); MINUTE VOLUME 8 L/min; PATIENT TEMPERATURE 37.1; PEEP 5 cm H2O; RESPIRATORY RATE 0 b/min; RESPIRATORY RATE (OBSERVED) 22 b/min; TIDAL VOLUME 406 mL; TOTAL HEMOGLOBIN 7.9 G/dl (14.0-18.0)
--- NOTE | 2019-04-08 05:50 | NUR ---
RN Note -Pt waking up and becoming more responsive. Opening eyes to voice, nods intermittently to questions.
[2019-04-08 06:11] LABS: ANISOCYTOSIS 2+; NUCLEATED RED BLOOD CELLS 4 /100WBC (0-0); PLATELET ESTIMATE DECREASED; TOTAL CELLS COUNTED 100
[2019-04-08 06:12] LABS: LARGE PLATELETS FEW; POLYCHROMASIA 2+
--- NOTE | 2019-04-08 06:30 | NUR ---
Patient in room ICU 2043. I have received report from shift mgr and had the opportunity to ask questions and assume patient care.
[2019-04-08] MEDS ORDERED: sodium phosphate inj. 30 MMOL in dextrose 5%-water 250 ML IV PRN (06:55)
[2019-04-08] MEDS ORDERED: Neutra Phos packet PO PRN (06:55)
[2019-04-08] MEDS ORDERED: sodium phosphate inj. 15 MMOL in dextrose 5%-water 150 ML IV PRN ×2 (06:55→06:57)
[2019-04-08] MEDS: BUDESONIDE 0.25 MG/2 ML AMPUL.NEB IH SCH ×2 (07:30→18:30)
[2019-04-08] MEDS: piperacillin/tazo 4.5gm/100ml 100 ML IV SCH ×2 (07:50→16:43)
[2019-04-08] MEDS: ferrous sulfate 300mg/5ml UD oral liquid CORPAK SCH ×2 (07:50→19:41)
[2019-04-08] MEDS: multivitamin oral liquid (Certavite) 5ml cup CORPAK SCH (07:50)
[2019-04-08] MEDS: folic acid 1mg tablet CORPAK SCH (07:51)
[2019-04-08] MEDS: lactobacillus rhamnosus 10,000 MMU CELLS/CAPSULE CORPAK SCH ×2 (07:51→19:41)
[2019-04-08] MEDS: montelukast 10mg tablet CORPAK SCH (07:51)
[2019-04-08] MEDS: famotidine/PF 10 mg/ml inj IV SCH ×2 (07:51→19:42)
[2019-04-08] MEDS: atorvastatin 10mg tablet CORPAK SCH (07:51)
[2019-04-08] MEDS: rifaximin 20mg/ml oral suspension 60 ML BOTTLE PO SCH ×3 (07:51→21:10)
[2019-04-08] MEDS: tamsulosin 0.4mg capsule PO SCH (07:51)
[2019-04-08] MEDS: thiamine 100mg tablet CORPAK SCH (07:51)
[2019-04-08] MEDS: fenofibrate 145mg tablet CORPAK SCH (07:53)
[2019-04-08] MEDS: heparin, porcine 5000 units/ml vial SQ SCH ×2 (08:00→20:00)
[2019-04-08] MEDS: K and/or MAG REPLACEMENT MC SCH (08:00)
[2019-04-08] MEDS: docusate sodium 100mg/10ml UD cup CORPAK SCH ×2 (08:00→19:41)
[2019-04-08] MEDS: insulin regular, human vial - multi-dose SQ SCH ×2 (08:03→20:13)
--- NOTE | 2019-04-08 08:30 | NUR ---
Dr Joanna may, updated on patients status, improved neuro fuctioning, responding to commands, spontaneous eye opening, and labs.
[2019-04-08] MEDS ORDERED: normal saline 1000ml 250 ML IV PRN (08:33)
[2019-04-08] MEDS ORDERED: epoetin 20,000 units/ml inj IV ONE (08:35)
[2019-04-08] MEDS ORDERED: heparin 1,000 units/ml 10ml inj HE ONE (08:40)
[2019-04-08] MEDS ORDERED: albumin (human) 25% 100 ML IV solution IV ONE (11:30)
--- NOTE | 2019-04-08 15:40 | NUR ---
Problems reprioritized. Patient report given, questions answered & plan of care reviewed with Kye Duff RN.
--- NOTE | 2019-04-08 15:45 | NUR ---
Patient in room ICU 2043. I have received report from MARISSA Kelly and had the opportunity to ask questions and assume patient care.
--- NOTE | 2019-04-08 18:30 | NUR ---
Patient in room ICU 2043. I have received report from Kimberly ANN, and had the opportunity to ask questions and assume patient care.
--- NOTE | 2019-04-08 19:00 | NUR ---
Pt intubated and mechanically vented, on CPAP/PS mode, tolerating well, O2 Sat >92%. PT is not on any sedation and tolerating well. PT has family at bedside visiting. Corpak to RT nare with Jevity running at goal rate of 70ml/hr. Cruz cath and rectal tube in place both draining to gravity. PT is awake, opens eyes to name and tracks to voice. Bed is locked and low. Will continue to monitor.
[2019-04-08] MEDS: insulin glargine (Lantus) pen - multi-dose SQ SCH (20:14)
--- NOTE | 2019-04-08 23:00 | NUR ---
PT resting, sleeping off and on with no s/s of distress noted at this time. VSS. Bed is locked and low. Will continue to monitor.
[2019-04-09] VITALS (23 sets, daily range): BP systolic 104–151; BP diastolic 51–71
[2019-04-09] MEDS: piperacillin/tazo 4.5gm/100ml 100 ML IV SCH ×3 (00:29→16:13)
[2019-04-09] MEDS: ipratropium/albuterol 3ml nebule NEB SCH ×6 (02:23→22:43)
[2019-04-09] MEDS: mineral oil/petrolatum ophthal oint EACHEYE SCH ×4 (02:28→20:14)
[2019-04-09 02:31] LABS: BASOPHILS % (AUTO) 0.3 % (0-1); EOSINOPHILS # (AUTO) 0.1 X10'3 (0-0.9); EOSINOPHILS % (AUTO) 0.4 % (0-6); LYMPHOCYTES # (AUTO) 1.6 X10'3 (1.1-4.8); MEAN CORPUSCULAR HEMOGLOBIN 32.8 PG (27.0-31.0); MEAN CORPUSCULAR HGB CONC 32.9 g/dL (33.0-36.5); MEAN CORPUSCULAR VOLUME 99.6 FL (78-98); MONOCYTES # (AUTO) 0.7 X10'3 (0-0.9); MONOCYTES % (AUTO) 4.6 % (2-12); NEUTROPHILS % (AUTO) 83.7 % (42-75); PLATELET COUNT 86 X10'3 (140-440); RED BLOOD COUNT 2.04 X10'6 (4.70-6.10); RED CELL DISTRIBUTION WIDTH 18.3 % (11.5-14.5); WHITE BLOOD COUNT 14.3 X10'3 (4.5-11.0)
[2019-04-09] MEDS: insulin regular, human vial - multi-dose SQ SCH ×4 (02:32→20:42)
[2019-04-09 02:38] LABS: PARTIAL THROMBOPLASTIN TIME 39 SECONDS (22-32)
[2019-04-09 02:41] LABS: ALANINE AMINOTRANSFERASE 22 U/L (12-78); ALBUMIN 1.6 G/DL (3.4-5.0); ALBUMIN/GLOBULIN RATIO 0.6 (1.1-1.5); ALKALINE PHOSPHATASE 59 IU/L (46-116); ANION GAP 4 (8-16); ASPARTATE AMINO TRANSFERASE 29 U/L (10-37); BILIRUBIN,TOTAL 0.6 MG/DL (0.1-1.0); BLOOD UREA NITROGEN 12 MG/DL (7-18); BUN/CREATININE RATIO 9.3 (5.4-32.0); CALCIUM 6.9 MG/DL (8.5-10.1); CHLORIDE 104 MMOL/L (99-107); CREATININE 1.29 MG/DL (0.60-1.10); GLUCOSE 107 MG/DL (70-104); MAGNESIUM 1.7 MG/DL (1.5-2.4); POTASSIUM 4.1 MMOL/L (3.5-5.1); SODIUM 137 MMOL/L (135-145); TOTAL CARBON DIOXIDE 29.1 MMOL/L (24-32); TOTAL PROTEIN 4.4 G/DL (6.4-8.2); VANCOMYCIN,RANDOM 8.9 UG/ML; eGFR 55 ML/MIN
[2019-04-09 02:44] LABS: HEMATOCRIT 20.3 % (42.0-52.0); HEMOGLOBIN 6.7 g/dl (14.0-17.9)
[2019-04-09] MEDS: VANCOMYCIN LEVEL IV SCH (03:00)
--- NOTE | 2019-04-09 03:10 | NUR ---
Received critical Hgb of 6.7 and Hct of 20.3. Order received for Type and screen. Will continue to monitor.
[2019-04-09 03:46] LABS: ABG BASE EXCESS 4.2 mmol/L (-2.0-3.0); ABG HCO3 28.2 mmol/L (22.0-26.0); ABG PCO2 (T) 40.8 mmHg (35.0-48.0); ABG PO2 (T) 66.6 mmHg (83-108); ALLEN'S TEST Positive; FCOHb 0.2 % (0.5-1.5); FMetHb 0.2 % (0.3-1.12); FO2Hb 92.6 % (94-100); MINUTE VOLUME 8 L/min; PATIENT TEMPERATURE 37.8; PEEP 5 cm H2O; RESPIRATORY RATE 0 b/min; RESPIRATORY RATE (OBSERVED) 21 b/min; TIDAL VOLUME 339 mL; TOTAL HEMOGLOBIN 7.8 G/dl (14.0-18.0)
--- NOTE | 2019-04-09 06:13 | NUR ---
Problems reprioritized. Patient report given, questions answered & plan of care reviewed with Radha ANN.
[2019-04-09] MEDS: tamsulosin 0.4mg capsule PO SCH (06:53)
[2019-04-09] MEDS: docusate sodium 100mg/10ml UD cup CORPAK SCH (06:54)
[2019-04-09] MEDS ORDERED: vancomycin/NS 1 GM ADD-VANTAGE 250 ML IV ONE (07:05)
[2019-04-09] MEDS: famotidine/PF 10 mg/ml inj IV SCH ×2 (07:10→20:14)
[2019-04-09] MEDS: ferrous sulfate 300mg/5ml UD oral liquid CORPAK SCH ×2 (07:10→20:13)
[2019-04-09] MEDS: montelukast 10mg tablet CORPAK SCH (07:10)
[2019-04-09] MEDS: atorvastatin 10mg tablet CORPAK SCH (07:10)
[2019-04-09] MEDS: multivitamin oral liquid (Certavite) 5ml cup CORPAK SCH (07:10)
[2019-04-09] MEDS: folic acid 1mg tablet CORPAK SCH (07:10)
[2019-04-09] MEDS: thiamine 100mg tablet CORPAK SCH (07:10)
[2019-04-09] MEDS: fenofibrate 145mg tablet CORPAK SCH (07:11)
[2019-04-09] MEDS: lactobacillus rhamnosus 10,000 MMU CELLS/CAPSULE CORPAK SCH ×2 (07:11→20:14)
[2019-04-09] MEDS: rifaximin 20mg/ml oral suspension 60 ML BOTTLE PO SCH ×3 (07:12→20:14)
[2019-04-09] MEDS: BUDESONIDE 0.25 MG/2 ML AMPUL.NEB IH SCH ×2 (07:55→18:46)
[2019-04-09] MEDS: K and/or MAG REPLACEMENT MC SCH (08:00)
[2019-04-09 08:04] LABS: NUCLEATED RED BLOOD CELLS 1 /100WBC (0-0); TOTAL CELLS COUNTED 100
[2019-04-09 08:05] LABS: ANISOCYTOSIS 3+; PLATELET ESTIMATE DECREASED
[2019-04-09 08:07] LABS: HYPOCHROMASIA 1+; POLYCHROMASIA 3+; ROULEAUX 1+; TOXIC GRANULATION 1+
[2019-04-09 08:08] LABS: LARGE PLATELETS MODERATE; STOMATOCYTES 1+
--- NOTE | 2019-04-09 11:11 | NUR ---
reassessment: Pt tolerating TF at goal. Rectal tube 100ml output down from 1950ml previous on lactulose. Will continue to monitor. Recommend: 1. Continue tube feeding with Jevity 1.2 at 70 ml/hr to provide 1680 ml volume, 2000 cals, 93 g protein, and 1361 ml free water. D/w RNMD, and patient's family 2. 100 ml water flush Q4H per MD 3. Prealbumin q Tuesday and , daily wts 4. continue thiamine, folic acid, and MVM 5. continue lactulose per MD Addendum: 04/09/19 at [address] Amended: Links added.
[2019-04-09] MEDS: lactulose 20gm/30ml cup PO SCH ×2 (14:19→20:13)
--- NOTE | 2019-04-09 18:50 | NUR ---
Received pt. report from Manju ANN.
[2019-04-09] MEDS: dextrose 50%-water 50ml dispensing syringe IV PRN (19:39)
[2019-04-09] MEDS: insulin glargine (Lantus) pen - multi-dose SQ SCH (20:43)
[2019-04-10] VITALS (23 sets, daily range): BP systolic 97–152; BP diastolic 43–77
[2019-04-10] MEDS: piperacillin/tazo 4.5gm/100ml 100 ML IV SCH ×3 (00:58→16:17)
[2019-04-10] MEDS: dextrose 50%-water 50ml dispensing syringe IV PRN (01:16)
[2019-04-10 01:39] LABS: BASOPHILS % (AUTO) 0.2 % (0-1); EOSINOPHILS # (AUTO) 0.1 X10'3 (0-0.9); EOSINOPHILS % (AUTO) 0.4 % (0-6); HEMATOCRIT 22.8 % (42.0-52.0); HEMOGLOBIN 7.3 g/dl (14.0-17.9); LYMPHOCYTES # (AUTO) 1.4 X10'3 (1.1-4.8); LYMPHOCYTES % (AUTO) 9.4 % (21-51); MEAN CORPUSCULAR HGB CONC 32.1 g/dL (33.0-36.5); MEAN CORPUSCULAR VOLUME 102.8 FL (78-98); MEAN PLATELET VOLUME 12.4 FL (7.4-10.4); MONOCYTES # (AUTO) 0.7 X10'3 (0-0.9); MONOCYTES % (AUTO) 4.8 % (2-12); NEUTROPHILS # (AUTO) 12.6 X10'3 (1.8-7.7); NEUTROPHILS % (AUTO) 85.2 % (42-75); PLATELET COUNT 105 X10'3 (140-440); RED BLOOD COUNT 2.22 X10'6 (4.70-6.10); RED CELL DISTRIBUTION WIDTH 19.3 % (11.5-14.5); WHITE BLOOD COUNT 14.8 X10'3 (4.5-11.0)
[2019-04-10 01:47] LABS: ALANINE AMINOTRANSFERASE 22 U/L (12-78); ALBUMIN 1.3 G/DL (3.4-5.0); ALBUMIN/GLOBULIN RATIO 0.4 (1.1-1.5); ALKALINE PHOSPHATASE 70 IU/L (46-116); ANION GAP 10 (8-16); ASPARTATE AMINO TRANSFERASE 33 U/L (10-37); BILIRUBIN,TOTAL 0.6 MG/DL (0.1-1.0); BLOOD UREA NITROGEN 20 MG/DL (7-18); BUN/CREATININE RATIO 11.6 (5.4-32.0); CHLORIDE 103 MMOL/L (99-107); CREATININE 1.72 MG/DL (0.60-1.10); GLUCOSE 51 MG/DL (70-104); MAGNESIUM 1.7 MG/DL (1.5-2.4); POTASSIUM 4.3 MMOL/L (3.5-5.1); SODIUM 140 MMOL/L (135-145); TOTAL CARBON DIOXIDE 27.3 MMOL/L (24-32); TOTAL PROTEIN 4.5 G/DL (6.4-8.2); VANCOMYCIN,RANDOM 18.8 UG/ML; eGFR 39 ML/MIN
[2019-04-10 01:49] LABS: PARTIAL THROMBOPLASTIN TIME 36 SECONDS (22-32)
[2019-04-10] MEDS: mineral oil/petrolatum ophthal oint EACHEYE SCH ×4 (02:00→19:30)
--- NOTE | 2019-04-10 02:00 | NUR ---
Pt hypoglycemic, no insulin coverage for tube feeding given.
[2019-04-10 02:25] LABS: ANISOCYTOSIS 2+; HYPOCHROMASIA 1+; NUCLEATED RED BLOOD CELLS 1 /100WBC (0-0); PLATELET ESTIMATE DECREASED; POLYCHROMASIA 1+; TOTAL CELLS COUNTED 100
[2019-04-10 02:26] LABS: LARGE PLATELETS FEW; STOMATOCYTES FEW
[2019-04-10] MEDS: ipratropium/albuterol 3ml nebule NEB SCH ×6 (02:46→23:12)
[2019-04-10] MEDS: VANCOMYCIN LEVEL IV SCH (03:00)
[2019-04-10] MEDS: lactulose 20gm/30ml cup PO SCH ×4 (03:48→19:30)
[2019-04-10 03:51] LABS: ABG BASE EXCESS 1.9 mmol/L (-2.0-3.0); ABG HCO3 25.7 mmol/L (22.0-26.0); ABG PCO2 (T) 35.4 mmHg (35.0-48.0); ABG PH (T) 7.476 (7.350-7.450); ABG PO2 (T) 71.6 mmHg (83-108); ALLEN'S TEST Positive; FCOHb 0.2 % (0.5-1.5); FMetHb 0.2 % (0.3-1.12); FO2Hb 94.6 % (94-100); MINUTE VOLUME 8 L/min; PATIENT TEMPERATURE 36.3; PEEP 5 cm H2O; RESPIRATORY RATE 0 b/min; RESPIRATORY RATE (OBSERVED) 26 b/min; TIDAL VOLUME 341 mL; TOTAL HEMOGLOBIN 8.4 G/dl (14.0-18.0)
--- NOTE | 2019-04-10 06:13 | NUR ---
Pt. report given to Gloria ANN
[2019-04-10] MEDS: K and/or MAG REPLACEMENT MC SCH (06:29)
[2019-04-10] MEDS: tamsulosin 0.4mg capsule PO SCH (06:30)
[2019-04-10] MEDS: BUDESONIDE 0.25 MG/2 ML AMPUL.NEB IH SCH ×2 (06:44→19:37)
[2019-04-10] MEDS: atorvastatin 10mg tablet CORPAK SCH (07:08)
[2019-04-10] MEDS: ferrous sulfate 300mg/5ml UD oral liquid CORPAK SCH ×2 (07:08→19:30)
[2019-04-10] MEDS: folic acid 1mg tablet CORPAK SCH (07:08)
[2019-04-10] MEDS: fenofibrate 145mg tablet CORPAK SCH (07:08)
[2019-04-10] MEDS: famotidine/PF 10 mg/ml inj IV SCH ×2 (07:08→19:30)
[2019-04-10] MEDS: multivitamin oral liquid (Certavite) 5ml cup CORPAK SCH (07:08)
[2019-04-10] MEDS: montelukast 10mg tablet CORPAK SCH (07:08)
[2019-04-10] MEDS: thiamine 100mg tablet CORPAK SCH (07:08)
[2019-04-10] MEDS: lactobacillus rhamnosus 10,000 MMU CELLS/CAPSULE CORPAK SCH ×2 (07:08→19:30)
[2019-04-10] MEDS: rifaximin 20mg/ml oral suspension 60 ML BOTTLE PO SCH ×3 (07:09→20:31)
[2019-04-10] MEDS ORDERED: heparin 1,000unit/ml 10ml vial 10 ML IV ONE (08:00)
[2019-04-10] MEDS ORDERED: heparin 1,000 units/ml 10ml inj HE ONE ×2 (08:00)
[2019-04-10] MEDS ORDERED: epoetin 20,000 units/ml inj IV ONE (08:00)
[2019-04-10] MEDS ORDERED: normal saline 1000ml 250 ML IV PRN (08:00)
[2019-04-10] MEDS ORDERED: carVEDilol 3.125mg tablet PO ONE (14:20)
--- NOTE | 2019-04-10 18:14 | NUR ---
Patient in room ICU 2043. I have received report from Radha ANN, and had the opportunity to ask questions and assume patient care.
--- NOTE | 2019-04-10 19:30 | NUR ---
Pt intubated and mechanically vented, on CPAP/PS mode, tolerating well, O2 Sat >95%. PT is not on any sedation and tolerating well. Corpak to RT nare with Jevity running at goal rate of 70ml/hr. Cruz cath and rectal tube in place both draining to gravity. PT is awake, opens eyes to name and tracks to voice and is moving hands/fingers a bit more. Bed is locked and low. Will continue to monitor.
[2019-04-10] MEDS ORDERED: albumin (human) 25% 100 ML IV solution IV ONE (20:20)
[2019-04-10] MEDS: carVEDilol 3.125mg tablet PO SCH (20:27)
[2019-04-10] MEDS: insulin regular, human vial - multi-dose SQ SCH (20:30)
[2019-04-10] MEDS: insulin glargine (Lantus) pen - multi-dose SQ SCH (20:31)
[2019-04-10] MEDS ORDERED: DOPamine 400mg/D5W 250ml 250 ML IV ONE (23:17)
[2019-04-11] VITALS (24 sets, daily range): BP systolic 94–141; BP diastolic 34–82
[2019-04-11] MEDS: piperacillin/tazo 4.5gm/100ml 100 ML IV SCH ×3 (00:22→16:05)
[2019-04-11 02:31] LABS: ABG BASE EXCESS 5.1 mmol/L (-2.0-3.0); ABG HCO3 27.5 mmol/L (22.0-26.0); ABG OXYGEN SATURATION 93.8 % (95-98); ABG PCO2 (T) 32.5 mmHg (35.0-48.0); ABG PH (T) 7.548 (7.350-7.450); ABG PO2 (T) 67.9 mmHg (83-108); ALLEN'S TEST Positive; FCOHb 0.2 % (0.5-1.5); FMetHb 0.2 % (0.3-1.12); FO2Hb 93.4 % (94-100); MINUTE VOLUME 8 L/min; PATIENT TEMPERATURE 37.4; PEEP 5 cm H2O; RESPIRATORY RATE (OBSERVED) 23 b/min; TOTAL HEMOGLOBIN 8.1 G/dl (14.0-18.0)
[2019-04-11] MEDS: ipratropium/albuterol 3ml nebule NEB SCH ×6 (02:54→23:17)
[2019-04-11] MEDS: VANCOMYCIN LEVEL IV SCH (03:00)
[2019-04-11 03:03] LABS: BASOPHILS % (AUTO) 0.5 % (0-1); EOSINOPHILS % (AUTO) 0.2 % (0-6); LYMPHOCYTES # (AUTO) 1.5 X10'3 (1.1-4.8); MEAN CORPUSCULAR HEMOGLOBIN 33.7 PG (27.0-31.0); MEAN CORPUSCULAR HGB CONC 32.5 g/dL (33.0-36.5); MEAN CORPUSCULAR VOLUME 103.5 FL (78-98); MEAN PLATELET VOLUME 11.7 FL (7.4-10.4); MONOCYTES # (AUTO) 0.6 X10'3 (0-0.9); MONOCYTES % (AUTO) 6.1 % (2-12); NEUTROPHILS # (AUTO) 7.7 X10'3 (1.8-7.7); NEUTROPHILS % (AUTO) 78.2 % (42-75); PLATELET COUNT 138 X10'3 (140-440); RED BLOOD COUNT 1.98 X10'6 (4.70-6.10); RED CELL DISTRIBUTION WIDTH 26.8 % (11.5-14.5); WHITE BLOOD COUNT 9.9 X10'3 (4.5-11.0)
[2019-04-11] MEDS: lactulose 20gm/30ml cup PO SCH ×2 (03:03→08:33)
[2019-04-11] MEDS: mineral oil/petrolatum ophthal oint EACHEYE SCH ×4 (03:03→19:44)
[2019-04-11] MEDS: insulin regular, human vial - multi-dose SQ SCH ×4 (03:06→20:02)
[2019-04-11 03:16] LABS: ALANINE AMINOTRANSFERASE 21 U/L (12-78); ALBUMIN 1.9 G/DL (3.4-5.0); ALBUMIN/GLOBULIN RATIO 0.6 (1.1-1.5); ALKALINE PHOSPHATASE 63 IU/L (46-116); ANION GAP 8 (8-16); ASPARTATE AMINO TRANSFERASE 26 U/L (10-37); BILIRUBIN,TOTAL 0.7 MG/DL (0.1-1.0); BLOOD UREA NITROGEN 16 MG/DL (7-18); CALCIUM 7.3 MG/DL (8.5-10.1); CHLORIDE 103 MMOL/L (99-107); CREATININE 1.45 MG/DL (0.60-1.10); GLUCOSE 145 MG/DL (70-104); MAGNESIUM 1.8 MG/DL (1.5-2.4); PHOSPHORUS 2.8 MG/DL (2.3-4.5); POTASSIUM 3.7 MMOL/L (3.5-5.1); SODIUM 139 MMOL/L (135-145); TOTAL CARBON DIOXIDE 28.2 MMOL/L (24-32); TOTAL PROTEIN 4.9 G/DL (6.4-8.2); VANCOMYCIN,RANDOM 13.6 UG/ML; eGFR 48 ML/MIN
[2019-04-11 03:18] LABS: HEMATOCRIT 20.5 % (42.0-52.0); HEMOGLOBIN 6.7 g/dl (14.0-17.9)
[2019-04-11 03:37] LABS: ANISOCYTOSIS 3+; PLATELET ESTIMATE DECREASED; POLYCHROMASIA 1+
--- NOTE | 2019-04-11 03:48 | NUR ---
Received critical Hgb of 6.7 and Hcg of 20.5. ADDY Talavera notified, nonew orders received at this time. PT is A-Symptomatic at this time. Will continue to monitor.
--- NOTE | 2019-04-11 06:56 | NUR ---
Problems reprioritized. Patient report given, questions answered & plan of care reviewed with Kar ANN.
[2019-04-11] MEDS: BUDESONIDE 0.25 MG/2 ML AMPUL.NEB IH SCH ×2 (07:14→23:17)
[2019-04-11] MEDS: tamsulosin 0.4mg capsule PO SCH (08:00)
[2019-04-11] MEDS: K and/or MAG REPLACEMENT MC SCH (08:00)
[2019-04-11] MEDS: lactobacillus rhamnosus 10,000 MMU CELLS/CAPSULE CORPAK SCH ×2 (08:33→19:44)
[2019-04-11] MEDS: ferrous sulfate 300mg/5ml UD oral liquid CORPAK SCH ×2 (08:33→19:44)
[2019-04-11] MEDS: multivitamin oral liquid (Certavite) 5ml cup CORPAK SCH (08:33)
[2019-04-11] MEDS: famotidine/PF 10 mg/ml inj IV SCH ×2 (08:33→19:44)
[2019-04-11] MEDS: atorvastatin 10mg tablet CORPAK SCH (08:34)
[2019-04-11] MEDS: folic acid 1mg tablet CORPAK SCH (08:34)
[2019-04-11] MEDS: thiamine 100mg tablet CORPAK SCH (08:34)
[2019-04-11] MEDS: fenofibrate 145mg tablet CORPAK SCH (08:34)
[2019-04-11] MEDS: montelukast 10mg tablet CORPAK SCH (08:34)
[2019-04-11] MEDS: carVEDilol 3.125mg tablet PO SCH (08:34)
[2019-04-11] MEDS: rifaximin 20mg/ml oral suspension 60 ML BOTTLE PO SCH (08:35)
--- NOTE | 2019-04-11 10:39 | NUR ---
Patient's Hgb/Hct 6.7 and 20.5; Per Dr. Munoz, will hold off on blood transfusion at this time; will re-assess in the AM prior to Dialysis. Also, patient's Hari is 8 days old per Infection Control; MD aware; no new orders at this time.
[2019-04-11] MEDS ORDERED: potassium Cl 20 mEq SR tablet CORPAK PRN ×2 (11:52)
[2019-04-11] MEDS ORDERED: Neutra Phos packet CORPAK PRN (11:52)
[2019-04-11] MEDS: lactulose 20gm/30ml cup CORPAK SCH ×2 (14:18→19:44)
[2019-04-11] MEDS: rifaximin 20mg/ml oral suspension 60 ML BOTTLE CORPAK SCH ×2 (14:19→20:04)
--- NOTE | 2019-04-11 18:31 | NUR ---
Problems reprioritized. Patient report given, questions answered & plan of care reviewed with Coy ANN.
[2019-04-11] MEDS: carVEDilol 3.125mg tablet CORPAK SCH (19:44)
[2019-04-11] MEDS: insulin glargine (Lantus) pen - multi-dose SQ SCH (20:03)
[2019-04-12] VITALS (23 sets, daily range): BP systolic 94–126; BP diastolic 32–74
[2019-04-12] MEDS: piperacillin/tazo 4.5gm/100ml 100 ML IV SCH ×3 (00:36→16:04)
[2019-04-12] MEDS: VANCOMYCIN LEVEL IV SCH (02:36)
[2019-04-12] MEDS: lactulose 20gm/30ml cup CORPAK SCH ×4 (02:36→20:31)
[2019-04-12] MEDS: mineral oil/petrolatum ophthal oint EACHEYE SCH ×4 (02:36→20:31)
[2019-04-12] MEDS: insulin regular, human vial - multi-dose SQ SCH ×3 (02:57→20:36)
[2019-04-12 02:58] LABS: BASOPHILS # (AUTO) 0.1 X10'3 (0-0.2); BASOPHILS % (AUTO) 0.6 % (0-1); EOSINOPHILS % (AUTO) 0.4 % (0-6); HEMOGLOBIN 7.1 g/dl (14.0-17.9); LYMPHOCYTES # (AUTO) 1.3 X10'3 (1.1-4.8); LYMPHOCYTES % (AUTO) 14.2 % (21-51); MEAN CORPUSCULAR HEMOGLOBIN 33.8 PG (27.0-31.0); MEAN CORPUSCULAR HGB CONC 32.9 g/dL (33.0-36.5); MEAN CORPUSCULAR VOLUME 102.6 FL (78-98); MONOCYTES # (AUTO) 0.7 X10'3 (0-0.9); MONOCYTES % (AUTO) 8.3 % (2-12); NEUTROPHILS # (AUTO) 6.8 X10'3 (1.8-7.7); NEUTROPHILS % (AUTO) 76.5 % (42-75); PLATELET COUNT 180 X10'3 (140-440); RED BLOOD COUNT 2.09 X10'6 (4.70-6.10); RED CELL DISTRIBUTION WIDTH 26.5 % (11.5-14.5)
[2019-04-12 03:04] LABS: HEMATOCRIT 21.5 % (42.0-52.0)
[2019-04-12] MEDS: ipratropium/albuterol 3ml nebule NEB SCH ×6 (03:12→22:41)
[2019-04-12 03:14] LABS: ANISOCYTOSIS 3+; HYPOCHROMASIA 1+; PLATELET ESTIMATE NORMAL; POLYCHROMASIA 1+
[2019-04-12 03:23] LABS: ALANINE AMINOTRANSFERASE 24 U/L (12-78); ALBUMIN 1.4 G/DL (3.4-5.0); ALBUMIN/GLOBULIN RATIO 0.4 (1.1-1.5); ALKALINE PHOSPHATASE 65 IU/L (46-116); ANION GAP 8 (8-16); ASPARTATE AMINO TRANSFERASE 29 U/L (10-37); BILIRUBIN,TOTAL 0.6 MG/DL (0.1-1.0); BLOOD UREA NITROGEN 22 MG/DL (7-18); BUN/CREATININE RATIO 11.1 (5.4-32.0); CALCIUM 7.6 MG/DL (8.5-10.1); CHLORIDE 105 MMOL/L (99-107); CREATININE 1.99 MG/DL (0.60-1.10); GLUCOSE 105 MG/DL (70-104); MAGNESIUM 1.8 MG/DL (1.5-2.4); PHOSPHORUS 3.5 MG/DL (2.3-4.5); POTASSIUM 4.1 MMOL/L (3.5-5.1); SODIUM 140 MMOL/L (135-145); TOTAL CARBON DIOXIDE 26.8 MMOL/L (24-32); TOTAL PROTEIN 4.7 G/DL (6.4-8.2); VANCOMYCIN,RANDOM 13.2 UG/ML; eGFR 33 ML/MIN
[2019-04-12 05:36] LABS: ABG BASE EXCESS 2.8 mmol/L (-2.0-3.0); ABG HCO3 24.5 mmol/L (22.0-26.0); ABG OXYGEN SATURATION 95.6 % (95-98); ABG PCO2 (T) 26.4 mmHg (35.0-48.0); ABG PH (T) 7.586 (7.350-7.450); ABG PO2 (T) 74.5 mmHg (83-108); ALLEN'S TEST Positive; FCOHb 0.3 % (0.5-1.5); FMetHb 0.2 % (0.3-1.12); FO2Hb 95.1 % (94-100); MINUTE VOLUME 8 L/min; PATIENT TEMPERATURE 36.8; PEEP 5 cm H2O; RESPIRATORY RATE (OBSERVED) 27 b/min; TOTAL HEMOGLOBIN 7.5 G/dl (14.0-18.0)
--- NOTE | 2019-04-12 06:25 | NUR ---
Problems reprioritized. Patient report given, questions answered & plan of care reviewed with Kar ANN.
[2019-04-12] MEDS: BUDESONIDE 0.25 MG/2 ML AMPUL.NEB IH SCH ×2 (06:46→19:16)
[2019-04-12] MEDS ORDERED: heparin 1,000 units/ml 10ml inj HE ONE ×2 (08:00)
[2019-04-12] MEDS: K and/or MAG REPLACEMENT MC SCH (08:00)
[2019-04-12] MEDS: tamsulosin 0.4mg capsule PO SCH (08:00)
[2019-04-12] MEDS ORDERED: normal saline 1000ml 250 ML IV PRN (08:00)
[2019-04-12] MEDS ORDERED: heparin 1,000unit/ml 10ml vial 10 ML IV ONE (08:00)
[2019-04-12] MEDS ORDERED: epoetin 20,000 units/ml inj IV ONE (08:00)
[2019-04-12] MEDS: ferrous sulfate 300mg/5ml UD oral liquid CORPAK SCH ×2 (08:03→20:31)
[2019-04-12] MEDS: multivitamin oral liquid (Certavite) 5ml cup CORPAK SCH (08:03)
[2019-04-12] MEDS: famotidine/PF 10 mg/ml inj IV SCH ×2 (08:03→20:31)
[2019-04-12] MEDS: lactobacillus rhamnosus 10,000 MMU CELLS/CAPSULE CORPAK SCH ×2 (08:03→20:31)
[2019-04-12] MEDS: atorvastatin 10mg tablet CORPAK SCH (08:03)
[2019-04-12] MEDS: montelukast 10mg tablet CORPAK SCH (08:04)
[2019-04-12] MEDS: rifaximin 20mg/ml oral suspension 60 ML BOTTLE CORPAK SCH ×4 (08:04→21:30)
[2019-04-12] MEDS: carVEDilol 3.125mg tablet CORPAK SCH ×2 (08:04→20:31)
[2019-04-12] MEDS: folic acid 1mg tablet CORPAK SCH (08:04)
[2019-04-12] MEDS: fenofibrate 145mg tablet CORPAK SCH (08:04)
[2019-04-12] MEDS: thiamine 100mg tablet CORPAK SCH (08:04)
--- NOTE | 2019-04-12 09:17 | NUR ---
Patient's Tube feeding stopped at 0800 for TDC placement; blood sugar this AM 91; held humulin at this time, Lantus admin last night. Per Dr. Munoz, okay to hold off on D10 at this time; monitor blood sugar as needed.
[2019-04-12] MEDS ORDERED: LIDOcaine 1%/PF 5ML 10 MG/ML VIAL ONE (11:50)
--- NOTE | 2019-04-12 11:59 | NUR ---
Patient down to Angio
[2019-04-12] MEDS ORDERED: heparin 1,000unit/ml 10ml vial 10 ML ONE (12:11)
--- NOTE | 2019-04-12 18:30 | NUR ---
Patient in room ICU 2043. I have received report from Kar ANN and had the opportunity to ask questions and assume patient care.
--- NOTE | 2019-04-12 18:52 | NUR ---
Problems reprioritized. Patient report given, questions answered & plan of care reviewed with Coy ANN.
[2019-04-12] MEDS: insulin glargine (Lantus) pen - multi-dose SQ SCH (20:37)
[2019-04-13] VITALS (24 sets, daily range): BP systolic 84–116; BP diastolic 42–56
[2019-04-13] MEDS: piperacillin/tazo 4.5gm/100ml 100 ML IV SCH ×2 (00:29→07:53)
[2019-04-13] MEDS: VANCOMYCIN LEVEL IV SCH (02:05)
[2019-04-13] MEDS: mineral oil/petrolatum ophthal oint EACHEYE SCH ×4 (02:19→20:53)
[2019-04-13] MEDS: lactulose 20gm/30ml cup CORPAK SCH ×4 (02:19→20:32)
[2019-04-13] MEDS: ipratropium/albuterol 3ml nebule NEB SCH ×6 (02:27→22:49)
[2019-04-13] MEDS: insulin regular, human vial - multi-dose SQ SCH ×3 (02:38→20:35)
[2019-04-13 02:49] LABS: BASOPHILS # (AUTO) 0.1 X10'3 (0-0.2); BASOPHILS % (AUTO) 1.1 % (0-1); NEUTROPHILS # (AUTO) 4.9 X10'3 (1.8-7.7); RED BLOOD COUNT 1.93 X10'6 (4.70-6.10)
[2019-04-13 02:51] LABS: EOSINOPHILS # (AUTO) 0.1 X10'3 (0-0.9); EOSINOPHILS % (AUTO) 0.8 % (0-6); LYMPHOCYTES # (AUTO) 1.3 X10'3 (1.1-4.8); LYMPHOCYTES % (AUTO) 18.9 % (21-51); MEAN CORPUSCULAR HEMOGLOBIN 34.2 PG (27.0-31.0); MEAN CORPUSCULAR HGB CONC 33.3 g/dL (33.0-36.5); MEAN CORPUSCULAR VOLUME 102.6 FL (78-98); MEAN PLATELET VOLUME 10.4 FL (7.4-10.4); MONOCYTES # (AUTO) 0.8 X10'3 (0-0.9); MONOCYTES % (AUTO) 10.9 % (2-12); NEUTROPHILS % (AUTO) 68.3 % (42-75); PLATELET COUNT 192 X10'3 (140-440); RED CELL DISTRIBUTION WIDTH 25.1 % (11.5-14.5); WHITE BLOOD COUNT 7.1 X10'3 (4.5-11.0)
[2019-04-13 02:58] LABS: HEMATOCRIT 19.8 % (42.0-52.0); HEMOGLOBIN 6.6 g/dl (14.0-17.9)
[2019-04-13 03:04] LABS: ALANINE AMINOTRANSFERASE 25 U/L (12-78); ALBUMIN 1.2 G/DL (3.4-5.0); ALBUMIN/GLOBULIN RATIO 0.4 (1.1-1.5); ALKALINE PHOSPHATASE 68 IU/L (46-116); ANION GAP 4 (8-16); ASPARTATE AMINO TRANSFERASE 28 U/L (10-37); BILIRUBIN,TOTAL 0.6 MG/DL (0.1-1.0); BLOOD UREA NITROGEN 14 MG/DL (7-18); BUN/CREATININE RATIO 10.3 (5.4-32.0); CALCIUM 7.7 MG/DL (8.5-10.1); CHLORIDE 105 MMOL/L (99-107); CREATININE 1.36 MG/DL (0.60-1.10); GLUCOSE 111 MG/DL (70-104); MAGNESIUM 1.7 MG/DL (1.5-2.4); PHOSPHORUS 2.7 MG/DL (2.3-4.5); POTASSIUM 4.1 MMOL/L (3.5-5.1); SODIUM 139 MMOL/L (135-145); TOTAL CARBON DIOXIDE 29.9 MMOL/L (24-32); TOTAL PROTEIN 4.6 G/DL (6.4-8.2); VANCOMYCIN,RANDOM 8.3 UG/ML; eGFR 52 ML/MIN
--- NOTE | 2019-04-13 03:28 | NUR ---
H/H is 6.6/19.8 this morning. i notified Bharati Bo NP at this time. she placed orders to obtain current type and screen, and to reassess hemogram later. BP maintaining. continue to monitor.
[2019-04-13 03:50] LABS: ABG BASE EXCESS 4.8 mmol/L (-2.0-3.0); ABG OXYGEN SATURATION 95.5 % (95-98); ABG PCO2 (T) 29.9 mmHg (35.0-48.0); ABG PH (T) 7.574 (7.350-7.450); ABG PO2 (T) 74.9 mmHg (83-108); ALLEN'S TEST Positive; FCOHb 0.2 % (0.5-1.5); FMetHb 0.2 % (0.3-1.12); FO2Hb 95.1 % (94-100); MINUTE VOLUME 8 L/min; PATIENT TEMPERATURE 36.9; PEEP 5 cm H2O; TOTAL HEMOGLOBIN 7.5 G/dl (14.0-18.0)
--- NOTE | 2019-04-13 06:25 | NUR ---
Problems reprioritized. Patient report given, questions answered & plan of care reviewed with Kar ANN.
[2019-04-13] MEDS: BUDESONIDE 0.25 MG/2 ML AMPUL.NEB IH SCH ×2 (06:55→21:00)
[2019-04-13 07:01] LABS: ANISOCYTOSIS 3+; HYPOCHROMASIA 1+; PLATELET ESTIMATE NORMAL; POLYCHROMASIA 2+; STOMATOCYTES 1+
[2019-04-13] MEDS: ferrous sulfate 300mg/5ml UD oral liquid CORPAK SCH ×2 (07:52→20:32)
[2019-04-13] MEDS: famotidine/PF 10 mg/ml inj IV SCH ×2 (07:52→20:33)
[2019-04-13] MEDS: multivitamin oral liquid (Certavite) 5ml cup CORPAK SCH (07:52)
[2019-04-13] MEDS: thiamine 100mg tablet CORPAK SCH (07:53)
[2019-04-13] MEDS: fenofibrate 145mg tablet CORPAK SCH (07:53)
[2019-04-13] MEDS: lactobacillus rhamnosus 10,000 MMU CELLS/CAPSULE CORPAK SCH ×2 (07:53→20:33)
[2019-04-13] MEDS: rifaximin 20mg/ml oral suspension 60 ML BOTTLE CORPAK SCH ×3 (07:53→20:33)
[2019-04-13] MEDS: folic acid 1mg tablet CORPAK SCH (07:53)
[2019-04-13] MEDS: montelukast 10mg tablet CORPAK SCH (07:53)
[2019-04-13] MEDS: carVEDilol 3.125mg tablet CORPAK SCH ×2 (07:53→20:32)
[2019-04-13] MEDS: atorvastatin 10mg tablet CORPAK SCH (07:53)
[2019-04-13] MEDS: K and/or MAG REPLACEMENT MC SCH (07:54)
[2019-04-13] MEDS: tamsulosin 0.4mg capsule PO SCH (07:54)
[2019-04-13] MEDS ORDERED: vancomycin/NS 1 GM ADD-VANTAGE 250 ML IV ONE (08:10)
[2019-04-13] MEDS: dextrose 50%-water 50ml dispensing syringe IV PRN (08:21)
[2019-04-13 08:35] LABS: MEAN CORPUSCULAR HEMOGLOBIN 33.6 PG (27.0-31.0); MEAN CORPUSCULAR VOLUME 101.9 FL (78-98); MEAN PLATELET VOLUME 10.2 FL (7.4-10.4); PLATELET COUNT 203 X10'3 (140-440); RED BLOOD COUNT 2.04 X10'6 (4.70-6.10); RED CELL DISTRIBUTION WIDTH 25.3 % (11.5-14.5); WHITE BLOOD COUNT 8.1 X10'3 (4.5-11.0)
[2019-04-13 08:38] LABS: HEMATOCRIT 20.8 % (42.0-52.0); HEMOGLOBIN 6.9 g/dl (14.0-17.9)
--- NOTE | 2019-04-13 11:50 | NUR ---
reassessment: Pt tolerating TF at goal. Still intubated. Ammonia is down to 43 today. Rectal tube has plenty of stool output down at 2,100 ml likely d/t patient receiving lactulose. Has TDC now for HD. Will continue to monitor. No change in nutrition therapy at this time. Recommend: 1. Continue tube feeding with Jevity 1.2 at 70 ml/hr to provide 1680 ml volume, 2000 cals, 93 g protein, and 1361 ml free water. 2. 100 ml water flush Q4H per MD 3. Prealbumin q Tuesday and , daily wts 4. continue thiamine, folic acid, and MVM 5. continue lactulose per MD Addendum: 04/13/19 at [address] Amended: Links added.
[2019-04-13 16:13] LABS: % IRON SATURATION 33 % (11-46); IRON 13 UG/DL (53-167); TOTAL IRON BINDING CAPACITY 39 UG/DL (259-388)
[2019-04-13 16:29] LABS: FERRITIN 332 NG/ML (26-388)
--- NOTE | 2019-04-13 18:30 | NUR ---
Patient in room ICU 2043. I have received report from Kar ANN and had the opportunity to ask questions and assume patient care.
[2019-04-13] MEDS: insulin glargine (Lantus) pen - multi-dose SQ SCH (20:57)
[2019-04-14] VITALS (27 sets, daily range): BP systolic 94–145; BP diastolic 47–75
[2019-04-14] MEDS: insulin regular, human vial - multi-dose SQ SCH ×3 (02:50→21:11)
[2019-04-14] MEDS: lactulose 20gm/30ml cup CORPAK SCH ×4 (02:51→21:02)
[2019-04-14] MEDS: mineral oil/petrolatum ophthal oint EACHEYE SCH ×4 (02:51→21:02)
[2019-04-14] MEDS: VANCOMYCIN LEVEL IV SCH (03:00)
[2019-04-14] MEDS: ipratropium/albuterol 3ml nebule NEB SCH ×6 (03:04→22:59)
[2019-04-14 03:22] LABS: BASOPHILS # (AUTO) 0.1 X10'3 (0-0.2); EOSINOPHILS # (AUTO) 0.1 X10'3 (0-0.9); EOSINOPHILS % (AUTO) 0.6 % (0-6); MEAN CORPUSCULAR VOLUME 102.6 FL (78-98); MONOCYTES # (AUTO) 0.9 X10'3 (0-0.9)
[2019-04-14 03:26] LABS: BASOPHILS % (AUTO) 0.8 % (0-1); LYMPHOCYTES # (AUTO) 1.5 X10'3 (1.1-4.8); LYMPHOCYTES % (AUTO) 16.7 % (21-51); MEAN CORPUSCULAR HEMOGLOBIN 34.8 PG (27.0-31.0); MEAN CORPUSCULAR HGB CONC 33.9 g/dL (33.0-36.5); MEAN PLATELET VOLUME 9.8 FL (7.4-10.4); MONOCYTES % (AUTO) 9.8 % (2-12); NEUTROPHILS # (AUTO) 6.5 X10'3 (1.8-7.7); NEUTROPHILS % (AUTO) 72.1 % (42-75); PLATELET COUNT 290 X10'3 (140-440); RED BLOOD COUNT 1.98 X10'6 (4.70-6.10); RED CELL DISTRIBUTION WIDTH 25.1 % (11.5-14.5)
[2019-04-14 03:31] LABS: HEMATOCRIT 20.3 % (42.0-52.0); HEMOGLOBIN 6.9 g/dl (14.0-17.9)
[2019-04-14 03:40] LABS: ABG BASE EXCESS 3.2 mmol/L (-2.0-3.0); ABG HCO3 25.6 mmol/L (22.0-26.0); ABG OXYGEN SATURATION 95.6 % (95-98); ABG PCO2 (T) 30.1 mmHg (35.0-48.0); ABG PH (T) 7.548 (7.350-7.450); ABG PO2 (T) 79.3 mmHg (83-108); ALLEN'S TEST Positive; FCOHb 0.1 % (0.5-1.5); FMetHb 0.1 % (0.3-1.12); FO2Hb 95.4 % (94-100); PEEP 5 cm H2O; RESPIRATORY RATE (OBSERVED) 24 b/min; TOTAL HEMOGLOBIN 7.4 G/dl (14.0-18.0)
[2019-04-14 04:02] LABS: ALANINE AMINOTRANSFERASE 23 U/L (12-78); ALBUMIN 1.1 G/DL (3.4-5.0); ALBUMIN/GLOBULIN RATIO 0.3 (1.1-1.5); ALKALINE PHOSPHATASE 71 IU/L (46-116); ANION GAP 7 (8-16); ASPARTATE AMINO TRANSFERASE 23 U/L (10-37); BILIRUBIN,TOTAL 0.5 MG/DL (0.1-1.0); BLOOD UREA NITROGEN 23 MG/DL (7-18); BUN/CREATININE RATIO 11.4 (5.4-32.0); CALCIUM 7.5 MG/DL (8.5-10.1); CHLORIDE 105 MMOL/L (99-107); CREATININE 2.01 MG/DL (0.60-1.10); GLUCOSE 142 MG/DL (70-104); MAGNESIUM 1.7 MG/DL (1.5-2.4); PHOSPHORUS 3.6 MG/DL (2.3-4.5); POTASSIUM 4.4 MMOL/L (3.5-5.1); SODIUM 140 MMOL/L (135-145); TOTAL CARBON DIOXIDE 28.4 MMOL/L (24-32); TOTAL PROTEIN 4.8 G/DL (6.4-8.2); VANCOMYCIN,RANDOM 8.6 UG/ML; eGFR 33 ML/MIN
--- NOTE | 2019-04-14 06:30 | NUR ---
Patient in room ICU 2043. I have received report from MARISSA Cespedes and had the opportunity to ask questions and assume patient care.
--- NOTE | 2019-04-14 06:49 | NUR ---
Problems reprioritized. Patient report given, questions answered & plan of care reviewed with Abby ANN.
[2019-04-14] MEDS: BUDESONIDE 0.25 MG/2 ML AMPUL.NEB IH SCH ×2 (06:59→19:05)
[2019-04-14] MEDS: ferrous sulfate 300mg/5ml UD oral liquid CORPAK SCH ×2 (07:50→21:02)
[2019-04-14] MEDS: rifaximin 20mg/ml oral suspension 60 ML BOTTLE CORPAK SCH ×3 (07:50→22:15)
[2019-04-14] MEDS: multivitamin oral liquid (Certavite) 5ml cup CORPAK SCH (07:50)
[2019-04-14] MEDS: famotidine/PF 10 mg/ml inj IV SCH ×2 (07:51→21:02)
[2019-04-14] MEDS: fenofibrate 145mg tablet CORPAK SCH (07:51)
[2019-04-14] MEDS: carVEDilol 3.125mg tablet CORPAK SCH ×2 (07:51→21:04)
[2019-04-14] MEDS: lactobacillus rhamnosus 10,000 MMU CELLS/CAPSULE CORPAK SCH ×2 (07:51→21:02)
[2019-04-14] MEDS: atorvastatin 10mg tablet CORPAK SCH (07:51)
[2019-04-14] MEDS: folic acid 1mg tablet CORPAK SCH (07:51)
[2019-04-14] MEDS: montelukast 10mg tablet CORPAK SCH (07:51)
[2019-04-14] MEDS: thiamine 100mg tablet CORPAK SCH (07:52)
[2019-04-14] MEDS: tamsulosin 0.4mg capsule PO SCH (07:52)
[2019-04-14] MEDS: K and/or MAG REPLACEMENT MC SCH (08:00)
--- NOTE | 2019-04-14 10:00 | NUR ---
pt is awake and alert, nod head with yes or no question. Dr. Nunez arrived on unit and assessed pt, plan for dialysis and transfusing for low H&H. updated family on plan of care.
[2019-04-14] MEDS ORDERED: normal saline 1000ml 250 ML IV PRN (11:21)
[2019-04-14] MEDS ORDERED: heparin 1,000unit/ml 10ml vial 10 ML IV ONE (11:21)
[2019-04-14] MEDS ORDERED: epoetin 20,000 units/ml inj IV ONE (11:25)
[2019-04-14] MEDS ORDERED: heparin 1,000 units/ml 10ml inj HE ONE ×2 (11:25)
--- NOTE | 2019-04-14 18:30 | NUR ---
Patient in room ICU 2043. I have received report from Abby ANN and had the opportunity to ask questions and assume patient care. Pt on vent via ETT, vent set to CPAP mode with Fio2 at 30%. Extended PIV at TKO. See interventions for further information. All monitoring alarms audible. Will continue to monitor.
--- NOTE | 2019-04-14 18:31 | NUR ---
Problems reprioritized. Patient report given, questions answered & plan of care reviewed with MARISSA Rainey.
[2019-04-14] MEDS: insulin glargine (Lantus) pen - multi-dose SQ SCH (21:12)
[2019-04-15] VITALS (24 sets, daily range): BP systolic 101–153; BP diastolic 46–78
[2019-04-15] MEDS: lactulose 20gm/30ml cup CORPAK SCH ×4 (02:41→20:22)
[2019-04-15] MEDS: mineral oil/petrolatum ophthal oint EACHEYE SCH ×4 (02:41→20:22)
[2019-04-15] MEDS: insulin regular, human vial - multi-dose SQ SCH ×3 (02:43→20:20)
[2019-04-15 03:01] LABS: ALANINE AMINOTRANSFERASE 27 U/L (12-78); ALBUMIN 1.2 G/DL (3.4-5.0); ALBUMIN/GLOBULIN RATIO 0.3 (1.1-1.5); ALKALINE PHOSPHATASE 75 IU/L (46-116); ANION GAP 4 (8-16); ASPARTATE AMINO TRANSFERASE 26 U/L (10-37); BILIRUBIN,TOTAL 0.5 MG/DL (0.1-1.0); BLOOD UREA NITROGEN 16 MG/DL (7-18); BUN/CREATININE RATIO 11.7 (5.4-32.0); CALCIUM 7.6 MG/DL (8.5-10.1); CHLORIDE 104 MMOL/L (99-107); CREATININE 1.37 MG/DL (0.60-1.10); GLUCOSE 104 MG/DL (70-104); MAGNESIUM 1.6 MG/DL (1.5-2.4); PHOSPHORUS 2.7 MG/DL (2.3-4.5); POTASSIUM 3.9 MMOL/L (3.5-5.1); SODIUM 139 MMOL/L (135-145); TOTAL PROTEIN 4.9 G/DL (6.4-8.2); eGFR 51 ML/MIN
[2019-04-15 03:13] LABS: BASOPHILS # (AUTO) 0.1 X10'3 (0-0.2); BASOPHILS % (AUTO) 1.3 % (0-1); EOSINOPHILS # (AUTO) 0.1 X10'3 (0-0.9); EOSINOPHILS % (AUTO) 0.6 % (0-6); HEMATOCRIT 22.7 % (42.0-52.0); HEMOGLOBIN 7.6 g/dl (14.0-17.9); LYMPHOCYTES # (AUTO) 1.6 X10'3 (1.1-4.8); LYMPHOCYTES % (AUTO) 17.7 % (21-51); MEAN CORPUSCULAR HEMOGLOBIN 32.8 PG (27.0-31.0); MEAN CORPUSCULAR HGB CONC 33.3 g/dL (33.0-36.5); MEAN CORPUSCULAR VOLUME 98.6 FL (78-98); MONOCYTES # (AUTO) 0.9 X10'3 (0-0.9); MONOCYTES % (AUTO) 9.9 % (2-12); NEUTROPHILS # (AUTO) 6.3 X10'3 (1.8-7.7); NEUTROPHILS % (AUTO) 70.5 % (42-75); PLATELET COUNT 233 X10'3 (140-440); RED BLOOD COUNT 2.31 X10'6 (4.70-6.10); RED CELL DISTRIBUTION WIDTH 20.2 % (11.5-14.5); WHITE BLOOD COUNT 8.9 X10'3 (4.5-11.0)
[2019-04-15] MEDS: ipratropium/albuterol 3ml nebule NEB SCH ×6 (03:44→23:28)
[2019-04-15 04:01] LABS: ABG BASE EXCESS 4.8 mmol/L (-2.0-3.0); ABG HCO3 26.8 mmol/L (22.0-26.0); ABG OXYGEN SATURATION 95.7 % (95-98); ABG PH (T) 7.571 (7.350-7.450); ALLEN'S TEST Positive; FCOHb 0.3 % (0.5-1.5); FMetHb 0.1 % (0.3-1.12); FO2Hb 95.3 % (94-100); MINUTE VOLUME 7 L/min; PATIENT TEMPERATURE 37.2; PEEP 5 cm H2O; TOTAL HEMOGLOBIN 8.3 G/dl (14.0-18.0)
[2019-04-15 04:23] LABS: ANISOCYTOSIS 3+; PLATELET ESTIMATE NORMAL; POLYCHROMASIA FEW; STOMATOCYTES FEW
[2019-04-15 04:24] LABS: LARGE PLATELETS FEW
--- NOTE | 2019-04-15 05:00 | NUR ---
Pt tracking when in room. not squeezing hands to command but moves to tactile stimuli. Not moving lower extremities to command.
--- NOTE | 2019-04-15 06:30 | NUR ---
Patient in room ICU 2043. I have received report from MARISSA Rainey and had the opportunity to ask questions and assume patient care.
--- NOTE | 2019-04-15 06:39 | NUR ---
Problems reprioritized. Patient report given, questions answered & plan of care reviewed with Abby ANN.
[2019-04-15] MEDS: BUDESONIDE 0.25 MG/2 ML AMPUL.NEB IH SCH ×2 (06:49→19:21)
[2019-04-15] MEDS: K and/or MAG REPLACEMENT MC SCH (08:00)
[2019-04-15] MEDS: tamsulosin 0.4mg capsule PO SCH (08:00)
[2019-04-15] MEDS: lactobacillus rhamnosus 10,000 MMU CELLS/CAPSULE CORPAK SCH ×2 (08:37→20:22)
[2019-04-15] MEDS: thiamine 100mg tablet CORPAK SCH (08:37)
[2019-04-15] MEDS: montelukast 10mg tablet CORPAK SCH (08:37)
[2019-04-15] MEDS: famotidine/PF 10 mg/ml inj IV SCH ×2 (08:37→20:22)
[2019-04-15] MEDS: atorvastatin 10mg tablet CORPAK SCH (08:37)
[2019-04-15] MEDS: ferrous sulfate 300mg/5ml UD oral liquid CORPAK SCH ×2 (08:37→20:22)
[2019-04-15] MEDS: multivitamin oral liquid (Certavite) 5ml cup CORPAK SCH (08:37)
[2019-04-15] MEDS: folic acid 1mg tablet CORPAK SCH (08:37)
[2019-04-15] MEDS: fenofibrate 145mg tablet CORPAK SCH (08:38)
[2019-04-15] MEDS: rifaximin 20mg/ml oral suspension 60 ML BOTTLE CORPAK SCH ×3 (08:38→20:31)
[2019-04-15] MEDS: carVEDilol 3.125mg tablet CORPAK SCH ×2 (08:38→20:22)
--- NOTE | 2019-04-15 09:16 | NUR ---
pt is awake and calm, intubated, not on sedation. Dr. Nunez arrived on unit and assessed pt, updated on pt condition, okay to hold lactulose dose for copious amount of diarrhea via rectal tube and skin issues.
--- NOTE | 2019-04-15 10:59 | NUR ---
Wound care nurse called and left message for wound care consult.
--- NOTE | 2019-04-15 18:11 | NUR ---
Problems reprioritized. Patient report given, questions answered & plan of care reviewed with MARISSA Rainey.
--- NOTE | 2019-04-15 18:12 | NUR ---
Patient in room ICU 2043. I have received report from Abby ANN and had the opportunity to ask questions and assume patient care. Pt on vent at 30% on CPAP mode, spo2 at 97%, Extended PIV saline locked, tube feeding infusing via Corpak, Cruz cath to gravity drainage, rectal tube in place. See interventions for further information. All monitoring alarms audible. Will continue to monitor.
[2019-04-15] MEDS: insulin glargine (Lantus) pen - multi-dose SQ SCH (20:19)
[2019-04-16] VITALS (26 sets, daily range): BP systolic 97–130; BP diastolic 38–75
[2019-04-16] MEDS: lactulose 20gm/30ml cup CORPAK SCH ×2 (02:00→07:20)
[2019-04-16] MEDS: mineral oil/petrolatum ophthal oint EACHEYE SCH ×4 (02:43→19:54)
[2019-04-16] MEDS: insulin regular, human vial - multi-dose SQ SCH ×3 (02:44→13:40)
[2019-04-16 02:51] LABS: BASOPHILS # (AUTO) 0.1 X10'3 (0-0.2); BASOPHILS % (AUTO) 0.6 % (0-1); EOSINOPHILS # (AUTO) 0.1 X10'3 (0-0.9); EOSINOPHILS % (AUTO) 0.8 % (0-6); HEMATOCRIT 22.4 % (42.0-52.0); HEMOGLOBIN 7.6 g/dl (14.0-17.9); LYMPHOCYTES # (AUTO) 1.4 X10'3 (1.1-4.8); LYMPHOCYTES % (AUTO) 13.4 % (21-51); MEAN CORPUSCULAR HEMOGLOBIN 33.3 PG (27.0-31.0); MEAN CORPUSCULAR HGB CONC 33.9 g/dL (33.0-36.5); MEAN CORPUSCULAR VOLUME 98.2 FL (78-98); MEAN PLATELET VOLUME 9.6 FL (7.4-10.4); MONOCYTES # (AUTO) 1.1 X10'3 (0-0.9); MONOCYTES % (AUTO) 10.4 % (2-12); NEUTROPHILS # (AUTO) 7.9 X10'3 (1.8-7.7); NEUTROPHILS % (AUTO) 74.8 % (42-75); PLATELET COUNT 253 X10'3 (140-440); RED BLOOD COUNT 2.28 X10'6 (4.70-6.10); RED CELL DISTRIBUTION WIDTH 20.9 % (11.5-14.5); WHITE BLOOD COUNT 10.5 X10'3 (4.5-11.0)
[2019-04-16 03:07] LABS: POTASSIUM 4.4 MMOL/L (3.5-5.1); SODIUM 139 MMOL/L (135-145)
[2019-04-16] MEDS: ipratropium/albuterol 3ml nebule NEB SCH ×6 (03:08→23:20)
[2019-04-16 03:37] LABS: ALANINE AMINOTRANSFERASE 27 U/L (12-78); ALBUMIN 1.2 G/DL (3.4-5.0); ALBUMIN/GLOBULIN RATIO 0.3 (1.1-1.5); ALKALINE PHOSPHATASE 84 IU/L (46-116); ANION GAP 5 (8-16); ASPARTATE AMINO TRANSFERASE 22 U/L (10-37); BILIRUBIN,TOTAL 0.5 MG/DL (0.1-1.0); BLOOD UREA NITROGEN 30 MG/DL (7-18); BUN/CREATININE RATIO 15.8 (5.4-32.0); CALCIUM 7.8 MG/DL (8.5-10.1); CHLORIDE 104 MMOL/L (99-107); GLUCOSE 130 MG/DL (70-104); MAGNESIUM 1.7 MG/DL (1.5-2.4); PHOSPHORUS 3.8 MG/DL (2.3-4.5); eGFR 35 ML/MIN
--- NOTE | 2019-04-16 04:00 | NUR ---
Patient c/o pain during lilliana care for soiling.
[2019-04-16 04:15] LABS: ABG BASE EXCESS 2.9 mmol/L (-2.0-3.0); ABG HCO3 25.7 mmol/L (22.0-26.0); ABG OXYGEN SATURATION 96.7 % (95-98); ABG PCO2 (T) 33.6 mmHg (35.0-48.0); ABG PH (T) 7.505 (7.350-7.450); ABG PO2 (T) 89.4 mmHg (83-108); ALLEN'S TEST Positive; FCOHb 0.5 % (0.5-1.5); FMetHb 0.1 % (0.3-1.12); FO2Hb 96.1 % (94-100); MINUTE VOLUME 7 L/min; PEEP 5 cm H2O; RESPIRATORY RATE (OBSERVED) 15 b/min; TOTAL HEMOGLOBIN 8.7 G/dl (14.0-18.0)
--- NOTE | 2019-04-16 06:25 | NUR ---
Problems reprioritized. Patient report given, questions answered & plan of care reviewed with Lashonda ANN.
--- NOTE | 2019-04-16 06:51 | NUR ---
Patient in room ICU 2043. I have received report from Brigid ANN and had the opportunity to ask questions and assume patient care.
[2019-04-16] MEDS: BUDESONIDE 0.25 MG/2 ML AMPUL.NEB IH SCH ×2 (06:57→19:10)
[2019-04-16] MEDS: rifaximin 20mg/ml oral suspension 60 ML BOTTLE CORPAK SCH ×3 (07:20→21:01)
[2019-04-16] MEDS: ferrous sulfate 300mg/5ml UD oral liquid CORPAK SCH ×2 (07:20→19:54)
[2019-04-16] MEDS: carVEDilol 3.125mg tablet CORPAK SCH ×2 (07:20→19:54)
[2019-04-16] MEDS: lactobacillus rhamnosus 10,000 MMU CELLS/CAPSULE CORPAK SCH ×2 (07:20→19:54)
[2019-04-16] MEDS: multivitamin oral liquid (Certavite) 5ml cup CORPAK SCH (07:20)
[2019-04-16] MEDS: atorvastatin 10mg tablet CORPAK SCH (07:20)
[2019-04-16] MEDS: thiamine 100mg tablet CORPAK SCH (07:20)
[2019-04-16] MEDS: famotidine/PF 10 mg/ml inj IV SCH ×2 (07:20→19:54)
[2019-04-16] MEDS: folic acid 1mg tablet CORPAK SCH (07:20)
[2019-04-16] MEDS: montelukast 10mg tablet CORPAK SCH (07:21)
[2019-04-16] MEDS: tamsulosin 0.4mg capsule PO SCH (07:21)
[2019-04-16] MEDS: fenofibrate 145mg tablet CORPAK SCH (07:25)
[2019-04-16] MEDS: K and/or MAG REPLACEMENT MC SCH (07:46)
--- NOTE | 2019-04-16 09:03 | NUR ---
RN notified Dr. Samaniego of pt's weaning parameters. Pt. to receive one unit PRBC during HD today and possibly be extubated after HD per Dr. Samaniego.
--- NOTE | 2019-04-16 09:07 | NUR ---
RN spoke with HD nurse Martha regarding pt. needing one unit PRBC with HD and potentially being extubated after HD.
[2019-04-16] MEDS ORDERED: heparin 1,000unit/ml 10ml vial 10 ML IV ONE (09:13)
[2019-04-16] MEDS ORDERED: heparin 1,000 units/ml 10ml inj IV ONE (09:15)
[2019-04-16] MEDS ORDERED: epoetin 20,000 units/ml inj IV ONE (09:15)
[2019-04-16] MEDS ORDERED: heparin 1,000 units/ml 10ml inj HE ONE ×2 (09:20)
--- NOTE | 2019-04-16 10:48 | NUR ---
HD getting started now.
--- NOTE | 2019-04-16 11:25 | NUR ---
Wound care nurses changing pt's wound dressings.
--- NOTE | 2019-04-16 11:39 | NUR ---
RN notified Dr. Samaniego of pt's wounds, specifically the newer one that is secondary to the rectal tube. Order received to discontinue Lactulose but Dr. Samaniego would like to keep rectal tube in today since sacral wound is healing.
--- NOTE | 2019-04-16 12:04 | NUR ---
reassessment: Pt tolerating TF at goal. Ammonia today is 30, WNL. Per MD at rounds patient will finish his HD treatment for the day when extubation as he passed weaning parameters. Candidaak will remain to continue tube feeding as patient's PO intake prior to intubation was very poor and was unable to meet nutrition needs. Per RN patient has new wound where rectal tube is, lactulose is being discontinued for the time being. Has TDC now for HD. Will continue to monitor. No change in nutrition therapy at this time. Recommend: 1. Continue tube feeding with Jevity 1.2 at 70 ml/hr to provide 1680 ml volume, 2000 cals, 93 g protein, and 1361 ml free water. In view of documented pressure ulcers patient may benefit from slight increase in tube feeding rate to provide 100 grams of protein to better meet needs with HD, wounds, and liver cirrhosis. Recommend increase to 75 ml/hr to provide total volume of 1800 ml, 2160 cals, 100 gm protein, and 1453 ml water, will d/w MD. 2. 100 ml water flush Q4H per MD 3. Prealbumin q Tuesday and , daily wts 4. continue thiamine, folic acid, and MVM Addendum: 04/16/19 at [address] Amended: Links added.
--- NOTE | 2019-04-16 13:57 | NUR ---
HD done. 3L off. One unit PRBC administered per HD nurse.
--- NOTE | 2019-04-16 14:19 | NUR ---
Pt. not ready to be extubated per Dr. Samaniego.
--- NOTE | 2019-04-16 18:18 | NUR ---
Problems reprioritized. Patient report given, questions answered & plan of care reviewed with Radha ANN.
--- NOTE | 2019-04-16 18:49 | NUR ---
Patient in room ICU 2043. I have received report from Raquel Soto and had the opportunity to ask questions and assume patient care. Patient laying in bed with eyes closed, on ventilator on cpap mode sating 96-98%, Patient is saline locked, tube feed running at 70 ml/hr which is goal. Cruz in place draining to gravity, rectal tube in place draining to gravity. Vital signs stable will continue to monitor
[2019-04-16] MEDS: insulin glargine (Lantus) pen - multi-dose SQ SCH (21:03)
[2019-04-17] VITALS (24 sets, daily range): BP systolic 87–139; BP diastolic 44–78
--- NOTE | 2019-04-17 01:30 | NUR ---
Patient resting in bed comfortably with eyes closed, Patient wakes when oral care is performed or he is turned q2h, answers questions appropriately by nodding his head, vital signs stable no signs of distress will continue to monitor
[2019-04-17] MEDS: mineral oil/petrolatum ophthal oint EACHEYE SCH ×4 (02:00→20:00)
[2019-04-17 02:21] LABS: BASOPHILS # (AUTO) 0.1 X10'3 (0-0.2); BASOPHILS % (AUTO) 0.9 % (0-1); EOSINOPHILS % (AUTO) 0.3 % (0-6); HEMATOCRIT 25.9 % (42.0-52.0); HEMOGLOBIN 8.5 g/dl (14.0-17.9); LYMPHOCYTES # (AUTO) 1.7 X10'3 (1.1-4.8); LYMPHOCYTES % (AUTO) 13.7 % (21-51); MEAN CORPUSCULAR HEMOGLOBIN 31.1 PG (27.0-31.0); MEAN CORPUSCULAR HGB CONC 32.7 g/dL (33.0-36.5); MEAN CORPUSCULAR VOLUME 95.1 FL (78-98); MEAN PLATELET VOLUME 9.6 FL (7.4-10.4); MONOCYTES # (AUTO) 1.1 X10'3 (0-0.9); MONOCYTES % (AUTO) 8.9 % (2-12); NEUTROPHILS # (AUTO) 9.2 X10'3 (1.8-7.7); NEUTROPHILS % (AUTO) 76.2 % (42-75); PLATELET COUNT 260 X10'3 (140-440); RED BLOOD COUNT 2.73 X10'6 (4.70-6.10); RED CELL DISTRIBUTION WIDTH 21.3 % (11.5-14.5); WHITE BLOOD COUNT 12.1 X10'3 (4.5-11.0)
[2019-04-17 02:33] LABS: ALANINE AMINOTRANSFERASE 26 U/L (12-78); ALBUMIN 1.2 G/DL (3.4-5.0); ALBUMIN/GLOBULIN RATIO 0.3 (1.1-1.5); ALKALINE PHOSPHATASE 92 IU/L (46-116); ANION GAP 6 (8-16); ASPARTATE AMINO TRANSFERASE 24 U/L (10-37); BILIRUBIN,TOTAL 0.5 MG/DL (0.1-1.0); BLOOD UREA NITROGEN 20 MG/DL (7-18); BUN/CREATININE RATIO 13.4 (5.4-32.0); CALCIUM 7.6 MG/DL (8.5-10.1); CHLORIDE 102 MMOL/L (99-107); CREATININE 1.49 MG/DL (0.60-1.10); GLUCOSE 155 MG/DL (70-104); MAGNESIUM 1.6 MG/DL (1.5-2.4); PHOSPHORUS 2.8 MG/DL (2.3-4.5); POTASSIUM 4.1 MMOL/L (3.5-5.1); SODIUM 137 MMOL/L (135-145); TOTAL CARBON DIOXIDE 29.5 MMOL/L (24-32); TOTAL PROTEIN 5.2 G/DL (6.4-8.2); eGFR 46 ML/MIN
[2019-04-17 02:56] LABS: ANISOCYTOSIS 3+; PLATELET ESTIMATE NORMAL; POLYCHROMASIA 1+
[2019-04-17] MEDS: ipratropium/albuterol 3ml nebule NEB SCH ×6 (03:14→23:18)
--- NOTE | 2019-04-17 03:15 | NUR ---
Patients bottle of jevity 1.2 toi is now empty, dietary did not supply a replacement bottle. Unable to obtain jevity 1.2 toi, substituted with vital AF. Faxed dietary to bring jevity 1.2 toi
--- NOTE | 2019-04-17 06:10 | NUR ---
Problems reprioritized. Patient report given, questions answered & plan of care reviewed with Raquel ANN.
--- NOTE | 2019-04-17 06:30 | NUR ---
Patient in room ICU 2043. I have received report from Radha ANN and had the opportunity to ask questions and assume patient care. Addendum: 04/17/19 at 0719 by Raquel Vega RN Amended: Links added.
[2019-04-17] MEDS: BUDESONIDE 0.25 MG/2 ML AMPUL.NEB IH SCH ×2 (07:06→19:31)
[2019-04-17] MEDS: atorvastatin 10mg tablet CORPAK SCH (07:29)
[2019-04-17] MEDS: famotidine/PF 10 mg/ml inj IV SCH ×2 (07:29→20:23)
[2019-04-17] MEDS: folic acid 1mg tablet CORPAK SCH (07:29)
[2019-04-17] MEDS: carVEDilol 3.125mg tablet CORPAK SCH ×2 (07:29→20:23)
[2019-04-17] MEDS: thiamine 100mg tablet CORPAK SCH (07:30)
[2019-04-17] MEDS: lactobacillus rhamnosus 10,000 MMU CELLS/CAPSULE CORPAK SCH ×2 (07:30→20:23)
[2019-04-17] MEDS: montelukast 10mg tablet CORPAK SCH (07:30)
[2019-04-17] MEDS: rifaximin 20mg/ml oral suspension 60 ML BOTTLE CORPAK SCH ×3 (07:30→20:30)
[2019-04-17] MEDS: multivitamin oral liquid (Certavite) 5ml cup CORPAK SCH (07:30)
[2019-04-17] MEDS: tamsulosin 0.4mg capsule PO SCH (07:30)
[2019-04-17] MEDS: ferrous sulfate 300mg/5ml UD oral liquid CORPAK SCH ×2 (07:30→20:23)
[2019-04-17] MEDS: fenofibrate 145mg tablet CORPAK SCH (07:33)
[2019-04-17] MEDS: K and/or MAG REPLACEMENT MC SCH (07:39)
[2019-04-17] MEDS: insulin regular, human vial - multi-dose SQ SCH ×3 (07:48→20:29)
--- NOTE | 2019-04-17 08:33 | NUR ---
Dr. Rosario called to report ETT tube is at the thoracic outlet at approx. T1-T2. Findings reported to Dr. Samaniego who ordered to have ETT advanced about 1 cm. RN paged RT Avis who advanced tube.
--- NOTE | 2019-04-17 10:32 | NUR ---
Patient passed weaning parameters this am. Dr. Samaniego plans to extubate pt. RN called pt's Zarina to let her know of plans to extubate this morning.
[2019-04-17] MEDS: heparin, porcine 5000 units/ml vial SQ SCH ×2 (11:17→20:23)
--- NOTE | 2019-04-17 11:20 | NUR ---
reassessment: Pt pending possible extubation today; per MD agustin to remain for nutrition. TF will be held during extubation attempt. Would benefit from increase to 75ml/hr to meet total protein needs; CAROL d/w currently on hold for extubation. LBM 04/16. Will continue to monitor. Recommend: 1. Continue tube feeding with Jevity 1.2 at 70 ml/hr to provide 1680 ml volume, 2000 cals, 93 g protein, and 1361 ml free water. In view of documented pressure ulcers patient may benefit from slight increase in tube feeding rate to provide 100 grams of protein to better meet needs with HD, wounds, and liver cirrhosis. Recommend increase to 75 ml/hr to provide total volume of 1800 ml, 2160 cals, 100 gm protein, and 1453 ml water, will d/w . 2. 100 ml water flush Q4H per 3. Prealbumin q Tuesday and , daily wts 4. continue thiamine, folic acid, and MVM Addendum: 04/17/19 at [address] Amended: Links added.
--- NOTE | 2019-04-17 18:11 | NUR ---
Problems reprioritized. Patient report given, questions answered & plan of care reviewed with Radha ANN. Addendum: 04/17/19 at 1812 by Raquel Vega RN Amended: Links added.
--- NOTE | 2019-04-17 18:30 | NUR ---
Patient in room ICU 2043. I have received report from Raquel ANN and had the opportunity to ask questions and assume patient care. Patient in room resting with eyes closed, on 2L nc sating 97-100%, galvan in place draining to gravity, rectal tube in place draining to gravity, vital signs stable will continue to monitor
[2019-04-17] MEDS: insulin glargine (Lantus) pen - multi-dose SQ SCH (20:28)
--- NOTE | 2019-04-17 22:30 | NUR ---
patient pulled out corepack, placed a new 10F corepack waiting on radiology for verification of placement
[2019-04-18] VITALS (24 sets, daily range): BP systolic 99–148; BP diastolic 36–79
[2019-04-18] MEDS ORDERED: metoclopramide 5 mg/ml inj IV ONE (00:05)
--- NOTE | 2019-04-18 01:50 | NUR ---
blood sugar 47, sukhi notified D50 given, 15 min recheck blood sugar 117. tube feed is re started
[2019-04-18] MEDS: mineral oil/petrolatum ophthal oint EACHEYE SCH ×2 (02:00→07:18)
--- NOTE | 2019-04-18 02:12 | NUR ---
MAR done and reviewed by two RNs Justine and vamsi noted to be in place to resume tube feedings. Addendum: 04/18/19 at 0214 by Ajit Melissa RN Belén Soto & Shashank SOTO reviewed MAR for corpak placement.
--- NOTE | 2019-04-18 02:19 | NUR ---
0219..Agree with Rachelle on [facility].
[2019-04-18] MEDS: dextrose 50%-water 50ml dispensing syringe IV PRN (02:30)
[2019-04-18 02:50] LABS: BASOPHILS # (AUTO) 0.1 X10'3 (0-0.2); BASOPHILS % (AUTO) 0.6 % (0-1); EOSINOPHILS # (AUTO) 0.1 X10'3 (0-0.9); EOSINOPHILS % (AUTO) 0.5 % (0-6); HEMOGLOBIN 8.6 g/dl (14.0-17.9); LYMPHOCYTES # (AUTO) 1.4 X10'3 (1.1-4.8); LYMPHOCYTES % (AUTO) 11.5 % (21-51); MEAN CORPUSCULAR HEMOGLOBIN 31.3 PG (27.0-31.0); MEAN CORPUSCULAR HGB CONC 32.8 g/dL (33.0-36.5); MEAN CORPUSCULAR VOLUME 95.3 FL (78-98); MEAN PLATELET VOLUME 9.3 FL (7.4-10.4); MONOCYTES % (AUTO) 8.3 % (2-12); NEUTROPHILS # (AUTO) 9.3 X10'3 (1.8-7.7); NEUTROPHILS % (AUTO) 79.1 % (42-75); PLATELET COUNT 268 X10'3 (140-440); RED BLOOD COUNT 2.73 X10'6 (4.70-6.10); RED CELL DISTRIBUTION WIDTH 20.8 % (11.5-14.5); WHITE BLOOD COUNT 11.7 X10'3 (4.5-11.0)
[2019-04-18 02:59] LABS: ALANINE AMINOTRANSFERASE 24 U/L (12-78); ALBUMIN 1.1 G/DL (3.4-5.0); ALBUMIN/GLOBULIN RATIO 0.3 (1.1-1.5); ALKALINE PHOSPHATASE 94 IU/L (46-116); ANION GAP 4 (8-16); ASPARTATE AMINO TRANSFERASE 21 U/L (10-37); BILIRUBIN,TOTAL 0.5 MG/DL (0.1-1.0); BLOOD UREA NITROGEN 30 MG/DL (7-18); BUN/CREATININE RATIO 18.1 (5.4-32.0); CALCIUM 7.9 MG/DL (8.5-10.1); CHLORIDE 103 MMOL/L (99-107); CREATININE 1.66 MG/DL (0.60-1.10); GLUCOSE 54 MG/DL (70-104); MAGNESIUM 1.6 MG/DL (1.5-2.4); PHOSPHORUS 3.9 MG/DL (2.3-4.5); POTASSIUM 4.3 MMOL/L (3.5-5.1); SODIUM 137 MMOL/L (135-145); TOTAL CARBON DIOXIDE 30.3 MMOL/L (24-32); TOTAL PROTEIN 5.2 G/DL (6.4-8.2); eGFR 41 ML/MIN
[2019-04-18 03:20] LABS: ANISOCYTOSIS 3+; PLATELET ESTIMATE NORMAL; POLYCHROMASIA 1+
[2019-04-18] MEDS: ipratropium/albuterol 3ml nebule NEB SCH ×6 (04:07→23:16)
--- NOTE | 2019-04-18 06:12 | NUR ---
Problems reprioritized. Patient report given, questions answered & plan of care reviewed with Mindy ANN.
--- NOTE | 2019-04-18 06:29 | NUR ---
Patient in room ICU 2043. I have received report from MARISSA Garcia and had the opportunity to ask questions and assume patient care.
[2019-04-18] MEDS: lactobacillus rhamnosus 10,000 MMU CELLS/CAPSULE CORPAK SCH ×2 (07:17→20:39)
[2019-04-18] MEDS: folic acid 1mg tablet CORPAK SCH (07:17)
[2019-04-18] MEDS: ferrous sulfate 300mg/5ml UD oral liquid CORPAK SCH ×2 (07:17→20:39)
[2019-04-18] MEDS: tamsulosin 0.4mg capsule PO SCH (07:17)
[2019-04-18] MEDS: carVEDilol 3.125mg tablet CORPAK SCH ×2 (07:17→20:39)
[2019-04-18] MEDS: multivitamin oral liquid (Certavite) 5ml cup CORPAK SCH (07:17)
[2019-04-18] MEDS: rifaximin 20mg/ml oral suspension 60 ML BOTTLE CORPAK SCH ×3 (07:17→20:38)
[2019-04-18] MEDS: atorvastatin 10mg tablet CORPAK SCH (07:17)
[2019-04-18] MEDS: famotidine/PF 10 mg/ml inj IV SCH ×2 (07:17→20:39)
[2019-04-18] MEDS: montelukast 10mg tablet CORPAK SCH (07:17)
[2019-04-18] MEDS: thiamine 100mg tablet CORPAK SCH (07:17)
[2019-04-18] MEDS: heparin, porcine 5000 units/ml vial SQ SCH ×2 (07:18→20:40)
[2019-04-18] MEDS: fenofibrate 145mg tablet CORPAK SCH (07:28)
[2019-04-18] MEDS: insulin regular, human vial - multi-dose SQ SCH ×3 (07:34→20:46)
[2019-04-18] MEDS: K and/or MAG REPLACEMENT MC SCH (08:00)
[2019-04-18] MEDS: BUDESONIDE 0.25 MG/2 ML AMPUL.NEB IH SCH ×2 (08:05→19:40)
[2019-04-18] MEDS ORDERED: epoetin 20,000 units/ml inj IV ONE (08:55)
[2019-04-18] MEDS ORDERED: heparin 1,000 units/ml 10ml inj IV ONE (08:55)
[2019-04-18] MEDS ORDERED: albumin (Human) 5% 250ml 250 ML IV PRN (08:55)
[2019-04-18] MEDS ORDERED: heparin 1,000unit/ml 10ml vial 10 ML IV ONE (08:55)
[2019-04-18] MEDS ORDERED: heparin 1,000 units/ml 10ml inj HE ONE ×2 (09:00)
--- NOTE | 2019-04-18 11:15 | NUR ---
F/u: Pt extubated pulled corpak w/ new one placed and tolerating TF at goal. concerns for water concentration in formula and protein on HD given liver hx; stopping free water flushes. Pt meeting protein/hydration needs w/ current formula; current practice guidelines don't support protein restriction. Jevity has non-significant difference in free water compared to Nepro; also unable to meet pt needs w/o overfeeding w/ high kcal concentrated Nepro formula. LBM 6/5 on lactulose. Will continue to monitor for TF tolerance. Recommend: 1. Continue tube feeding with Jevity 1.2 at 70 ml/hr to provide 1680 ml volume, 2000 cals, 93 g protein, and 1361 ml free water. 2. free water per rn embedded on HD 3. Prealbumin q Tuesday and , daily wts 4. continue thiamine, folic acid, and MVM Addendum: 04/18/19 at [address] Amended: Links added.
[2019-04-18 14:46] LABS: ABG BASE EXCESS 3.9 mmol/L (-2.0-3.0); ABG OXYGEN SATURATION 92.3 % (95-98); ABG PCO2 (T) 40.4 mmHg (35.0-48.0); ABG PH (T) 7.459 (7.350-7.450); ABG PO2 (T) 63.2 mmHg (83-108); ALLEN'S TEST Positive; FCOHb 0.6 % (0.5-1.5); FLOW 1 L/min; FO2Hb 91.7 % (94-100); RESPIRATORY RATE (OBSERVED) 26 b/min; TOTAL HEMOGLOBIN 9.7 G/dl (14.0-18.0)
--- NOTE | 2019-04-18 18:30 | NUR ---
Problems reprioritized. Patient report given, questions answered & plan of care reviewed with MARISSA Garcia.
--- NOTE | 2019-04-18 18:30 | NUR ---
Patient in room ICU 2043. I have received report from Mindy ANN and had the opportunity to ask questions and assume patient care. Patient resting in bed with eyes closed, currently receiving HD, dialysis nurse at bedside, pt on 2l NC sating 100%, galvan draining to gravity, rectal tube draining to gravity, vital signs stable will continue to monitor
[2019-04-18] MEDS: insulin glargine (Lantus) pen - multi-dose SQ SCH (20:45)
[2019-04-19] VITALS (24 sets, daily range): BP systolic 81–131; BP diastolic 43–89
[2019-04-19 02:56] LABS: BASOPHILS # (AUTO) 0.1 X10'3 (0-0.2); EOSINOPHILS % (AUTO) 0.4 % (0-6); HEMATOCRIT 28.9 % (42.0-52.0); HEMOGLOBIN 9.6 g/dl (14.0-17.9); LYMPHOCYTES # (AUTO) 1.2 X10'3 (1.1-4.8); LYMPHOCYTES % (AUTO) 12.7 % (21-51); MEAN CORPUSCULAR HGB CONC 33.1 g/dL (33.0-36.5); MEAN CORPUSCULAR VOLUME 96.5 FL (78-98); MONOCYTES # (AUTO) 0.8 X10'3 (0-0.9); MONOCYTES % (AUTO) 8.3 % (2-12); NEUTROPHILS # (AUTO) 7.6 X10'3 (1.8-7.7); NEUTROPHILS % (AUTO) 77.6 % (42-75); PLATELET COUNT 269 X10'3 (140-440); RED BLOOD COUNT 2.99 X10'6 (4.70-6.10); RED CELL DISTRIBUTION WIDTH 20.2 % (11.5-14.5); WHITE BLOOD COUNT 9.8 X10'3 (4.5-11.0)
[2019-04-19 03:07] LABS: ALANINE AMINOTRANSFERASE 26 U/L (12-78); ALBUMIN 1.2 G/DL (3.4-5.0); ALBUMIN/GLOBULIN RATIO 0.3 (1.1-1.5); ALKALINE PHOSPHATASE 107 IU/L (46-116); ANION GAP 1 (8-16); ASPARTATE AMINO TRANSFERASE 23 U/L (10-37); BILIRUBIN,TOTAL 0.5 MG/DL (0.1-1.0); BLOOD UREA NITROGEN 16 MG/DL (7-18); BUN/CREATININE RATIO 14.5 (5.4-32.0); CALCIUM 7.9 MG/DL (8.5-10.1); CHLORIDE 104 MMOL/L (99-107); GLUCOSE 85 MG/DL (70-104); MAGNESIUM 1.6 MG/DL (1.5-2.4); PHOSPHORUS 2.9 MG/DL (2.3-4.5); SODIUM 137 MMOL/L (135-145); TOTAL CARBON DIOXIDE 31.6 MMOL/L (24-32); TOTAL PROTEIN 5.4 G/DL (6.4-8.2); eGFR 66 ML/MIN
[2019-04-19 03:29] LABS: TOTAL CELLS COUNTED 100
[2019-04-19 03:35] LABS: ANISOCYTOSIS 3+; PLATELET ESTIMATE NORMAL
[2019-04-19 03:36] LABS: POIKILOCYTOSIS FEW; POLYCHROMASIA 2+; STOMATOCYTES 1+
[2019-04-19] MEDS: ipratropium/albuterol 3ml nebule NEB SCH ×6 (03:44→23:16)
[2019-04-19] MEDS: acetaminophen 325mg/10.15ml oral unit dose solution CORPAK PRN (03:56)
--- NOTE | 2019-04-19 06:26 | NUR ---
Problems reprioritized. Patient report given, questions answered & plan of care reviewed with Brian ANN.
--- NOTE | 2019-04-19 06:29 | NUR ---
Patient in room ICU 2043. I have received report from Radha ANN and had the opportunity to ask questions and assume patient care.
[2019-04-19] MEDS: BUDESONIDE 0.25 MG/2 ML AMPUL.NEB IH SCH ×2 (07:58→19:15)
[2019-04-19] MEDS: K and/or MAG REPLACEMENT MC SCH (08:00)
[2019-04-19] MEDS: multivitamin oral liquid (Certavite) 5ml cup CORPAK SCH (10:34)
[2019-04-19] MEDS: ferrous sulfate 300mg/5ml UD oral liquid CORPAK SCH ×2 (10:34→20:38)
[2019-04-19] MEDS: folic acid 1mg tablet CORPAK SCH (10:34)
[2019-04-19] MEDS: rifaximin 20mg/ml oral suspension 60 ML BOTTLE CORPAK SCH ×2 (10:34→17:51)
[2019-04-19] MEDS: carVEDilol 3.125mg tablet CORPAK SCH ×2 (10:34→20:39)
[2019-04-19] MEDS: lactobacillus rhamnosus 10,000 MMU CELLS/CAPSULE CORPAK SCH ×2 (10:34→20:39)
[2019-04-19] MEDS: atorvastatin 10mg tablet CORPAK SCH (10:34)
[2019-04-19] MEDS: montelukast 10mg tablet CORPAK SCH (10:35)
[2019-04-19] MEDS: tamsulosin 0.4mg capsule PO SCH (10:35)
[2019-04-19] MEDS: fenofibrate 145mg tablet CORPAK SCH (10:35)
[2019-04-19] MEDS: heparin, porcine 5000 units/ml vial SQ SCH ×2 (10:42→20:39)
[2019-04-19] MEDS: famotidine/PF 10 mg/ml inj IV SCH ×2 (10:42→20:38)
[2019-04-19] MEDS: thiamine 100mg tablet CORPAK SCH (10:42)
--- NOTE | 2019-04-19 11:20 | NUR ---
Pt placed on Bipap for respiratory comfort.
[2019-04-19] MEDS: insulin regular, human vial - multi-dose SQ SCH ×2 (14:23→20:46)
[2019-04-19] MEDS ORDERED: midazolam 2 mg/2 ml injection ONE (14:41)
--- NOTE | 2019-04-19 14:55 | NUR ---
Reassessment: Tolerating tube feeding via corpak with Jevity 1.2 at goal of 70 ml/hr with GRV under 10 ml. No water flush per MD. Pt extubated is extubated. Pt meeting protein/hydration needs w/ current formula; current practice guidelines don't support protein restriction. LBM 04/19. Ammonia is WNL. Will receive HD tomorrow. Will continue to monitor. Recommend: 1. In view of documented pressure ulcers patient may benefit from slight increase in tube feeding rate to provide 100 grams of protein to better meet needs with HD, wounds, and liver cirrhosis. Recommend increase to 75 ml/hr to provide total volume of 1800 ml, 2160 cals, 100 gm protein, and 1453 ml water, will follow up with MD. 2. free water per programming intern on HD 3. Prealbumin q Tuesday and , daily wts 4. continue thiamine, folic acid, and MVM Addendum: 04/19/19 at [address] Amended: Links added. Addendum: 04/19/19 at [address] Reassessment: Tolerating tube feeding via corpak with Jevity 1.2 at goal of 70 ml/hr with GRV under 10 ml. No water flush per MD. Pt extubated. Pt meeting protein/hydration needs w/ current formula; current practice guidelines don't support protein restriction. LBM 04/19. Ammonia is WNL. Will receive HD tomorrow. Will continue to monitor. Recommend: 1. In view of documented pressure ulcers patient may benefit from slight increase in tube feeding rate to provide 100 grams of protein to better meet needs with HD, wounds, and liver cirrhosis. Recommend increase to 75 ml/hr to provide total volume of 1800 ml, 2160 cals, 100 gm protein, and 1453 ml water, will follow up with MD. 2. free water per programming intern on HD 3. Prealbumin q Tuesday and , daily wts 4. continue thiamine, folic acid, and MVM
--- NOTE | 2019-04-19 15:07 | NUR ---
Pt oxygenation dropped to 66% while and daughter at bedside. They alerted nursing, respiratory called. Breathing treatment given, pt bagged. Dr. Samaniego called. Pt intubated. Report given to Mansi ANN.
[2019-04-19] MEDS ORDERED: midazolam 100mg in NS 100ml 100 ML IV PRN (15:10)
[2019-04-19] MEDS ORDERED: FENTANYL-0.9 % NACL/PF 100 ML IV PRN (15:10)
[2019-04-19] MEDS ORDERED: etomidate 2mg/ml inj. IV ONE (16:05)
[2019-04-19] MEDS: VANCOmycin 1250MG/NS 250ml Bag 250 ML IV SCH (18:05)
[2019-04-19] MEDS: piperacillin/tazo 3.375gm/50ml 50 ML IV SCH (18:05)
--- NOTE | 2019-04-19 18:30 | NUR ---
Patient in room ICU 2043. I have received report from Robin ANN, and had the opportunity to ask questions and assume patient care.
--- NOTE | 2019-04-19 20:00 | NUR ---
PT intubated and mechanically vented, tolerating vent settings well. O2 sat >95%. PT is not on sedation. Levo was running @ 2mcg from previous shift, turned off. Will resume if needed. Cruz in place as well as rectal tube, both are draining to gravity. TF is running @ goal rate of 70ml/hr to Corpak to RT nare. Bed is locked and low. Bilat soft wrist restraints in place and secure. Will continue to monitor.
[2019-04-19] MEDS: insulin glargine (Lantus) pen - multi-dose SQ SCH (20:48)
--- NOTE | 2019-04-19 23:00 | NUR ---
PT resting with no s/s of distress noted at this time. VSS. Levo remains off. Bed is locked and low. bilat soft wrist restraints remain in place and secure. Will continue to monitor.
[2019-04-20] VITALS (26 sets, daily range): BP systolic 75–123; BP diastolic 35–58
[2019-04-20] MEDS: rifaximin 20mg/ml oral suspension 60 ML BOTTLE CORPAK SCH ×4 (01:28→21:47)
[2019-04-20] MEDS: piperacillin/tazo 3.375gm/50ml 50 ML IV SCH ×3 (01:29→16:00)
[2019-04-20] MEDS: ipratropium/albuterol 3ml nebule NEB SCH ×6 (02:53→23:44)
[2019-04-20 02:59] LABS: BASOPHILS # (AUTO) 0.1 X10'3 (0-0.2); BASOPHILS % (AUTO) 0.9 % (0-1); EOSINOPHILS % (AUTO) 0.2 % (0-6); HEMATOCRIT 23.9 % (42.0-52.0); HEMOGLOBIN 7.8 g/dl (14.0-17.9); LYMPHOCYTES # (AUTO) 1.7 X10'3 (1.1-4.8); LYMPHOCYTES % (AUTO) 12.4 % (21-51); MEAN CORPUSCULAR HEMOGLOBIN 31.2 PG (27.0-31.0); MEAN CORPUSCULAR HGB CONC 32.6 g/dL (33.0-36.5); MEAN CORPUSCULAR VOLUME 95.8 FL (78-98); MEAN PLATELET VOLUME 8.8 FL (7.4-10.4); MONOCYTES % (AUTO) 7.4 % (2-12); NEUTROPHILS # (AUTO) 10.6 X10'3 (1.8-7.7); NEUTROPHILS % (AUTO) 79.1 % (42-75); PLATELET COUNT 288 X10'3 (140-440); RED CELL DISTRIBUTION WIDTH 20.3 % (11.5-14.5); WHITE BLOOD COUNT 13.4 X10'3 (4.5-11.0)
--- NOTE | 2019-04-20 03:00 | NUR ---
PT resting with no s/s of distress noted at this time. VSS. Bed is locked and low. bilat soft wrist restraints remain in place and secure. Will continue to monitor.
[2019-04-20 03:05] LABS: ALANINE AMINOTRANSFERASE 21 U/L (12-78); ALBUMIN 1.1 G/DL (3.4-5.0); ALBUMIN/GLOBULIN RATIO 0.3 (1.1-1.5); ALKALINE PHOSPHATASE 95 IU/L (46-116); ANION GAP 3 (8-16); ASPARTATE AMINO TRANSFERASE 17 U/L (10-37); BILIRUBIN,TOTAL 0.4 MG/DL (0.1-1.0); BLOOD UREA NITROGEN 26 MG/DL (7-18); BUN/CREATININE RATIO 15.8 (5.4-32.0); CALCIUM 7.8 MG/DL (8.5-10.1); CHLORIDE 103 MMOL/L (99-107); CREATININE 1.65 MG/DL (0.60-1.10); GLUCOSE 116 MG/DL (70-104); MAGNESIUM 1.6 MG/DL (1.5-2.4); PHOSPHORUS 3.2 MG/DL (2.3-4.5); POTASSIUM 4.4 MMOL/L (3.5-5.1); SODIUM 135 MMOL/L (135-145); TOTAL PROTEIN 5.1 G/DL (6.4-8.2); eGFR 41 ML/MIN
[2019-04-20 03:25] LABS: ABG BASE EXCESS 4.7 mmol/L (-2.0-3.0); ABG HCO3 27.5 mmol/L (22.0-26.0); ABG OXYGEN SATURATION 95.2 % (95-98); ABG PCO2 (T) 35.6 mmHg (35.0-48.0); ABG PH (T) 7.508 (7.350-7.450); ABG PO2 (T) 75.4 mmHg (83-108); ALLEN'S TEST Positive; FCOHb 0.1 % (0.5-1.5); FMetHb 0.1 % (0.3-1.12); MINUTE VOLUME 10 L/min; PEEP 5 cm H2O; RESPIRATORY RATE 12 b/min; RESPIRATORY RATE (OBSERVED) 22 b/min; TIDAL VOLUME 400 mL; TOTAL HEMOGLOBIN 10.7 G/dl (14.0-18.0)
[2019-04-20 04:31] LABS: ANISOCYTOSIS 3+; PLATELET ESTIMATE NORMAL; TOTAL CELLS COUNTED 100
[2019-04-20 04:32] LABS: POIKILOCYTOSIS FEW; POLYCHROMASIA 2+; SPHEROCYTES FEW; STOMATOCYTES 1+
--- NOTE | 2019-04-20 06:30 | NUR ---
Patient in room ICU 2043. I have received report from dietetics teacher nurse and had the opportunity to ask questions and assume patient care.
--- NOTE | 2019-04-20 06:45 | NUR ---
Problems reprioritized. Patient report given, questions answered & plan of care reviewed with Robin ANN.
[2019-04-20] MEDS: K and/or MAG REPLACEMENT MC SCH (08:00)
--- NOTE | 2019-04-20 08:00 | NUR ---
skin check done, left post thigh with open area approximately 2cm x 1 cm optifoam applied, optifoam applied to scrotum for two open excoriated areas, optifoam applied to bilateral heels as preventative protection, left heel has three small dried areas.
[2019-04-20] MEDS: VANCOmycin 1250MG/NS 250ml Bag 250 ML IV SCH (08:19)
[2019-04-20] MEDS: multivitamin oral liquid (Certavite) 5ml cup CORPAK SCH (08:19)
[2019-04-20] MEDS: famotidine/PF 10 mg/ml inj IV SCH ×2 (08:20→20:16)
[2019-04-20] MEDS: heparin, porcine 5000 units/ml vial SQ SCH ×2 (08:20→20:16)
[2019-04-20] MEDS: lactobacillus rhamnosus 10,000 MMU CELLS/CAPSULE CORPAK SCH ×2 (08:21→20:16)
[2019-04-20] MEDS: carVEDilol 3.125mg tablet CORPAK SCH ×2 (08:21→20:00)
[2019-04-20] MEDS: ferrous sulfate 300mg/5ml UD oral liquid CORPAK SCH ×2 (08:21→20:16)
[2019-04-20] MEDS: montelukast 10mg tablet CORPAK SCH (08:21)
[2019-04-20] MEDS: folic acid 1mg tablet CORPAK SCH (08:21)
[2019-04-20] MEDS: atorvastatin 10mg tablet CORPAK SCH (08:21)
[2019-04-20] MEDS: tamsulosin 0.4mg capsule PO SCH (08:21)
[2019-04-20] MEDS: thiamine 100mg tablet CORPAK SCH (08:21)
[2019-04-20] MEDS: fenofibrate 145mg tablet CORPAK SCH (08:26)
[2019-04-20] MEDS ORDERED: epoetin 20,000 units/ml inj IV ONE (08:55)
[2019-04-20] MEDS ORDERED: albumin (Human) 5% 250ml 250 ML IV PRN (08:55)
[2019-04-20] MEDS ORDERED: heparin 1,000 units/ml 10ml inj HE ONE ×2 (09:00)
[2019-04-20] MEDS: insulin regular, human vial - multi-dose SQ SCH ×3 (10:13→20:19)
[2019-04-20] MEDS: acetaminophen 325mg/10.15ml oral unit dose solution CORPAK PRN (13:01)
[2019-04-20] MEDS: NORepinephrine 8mg/ 250ml NS 250 ML IV SCH (14:45)
--- NOTE | 2019-04-20 17:23 | NUR ---
Reassessment: Pt reintubated. Ammonia levels remain WNL at this time. approved changing tube feed formula to Vital AF 1.2 with goal rate of 70 mL/hr to better meet nutrient needs, d/w RN. Pt has increased protein needs r/t intubation, HD, and pressure ulcers. Pt possibly to get trach next week per notes. Will continue to follow. Recommend: 1. Pt would benefit from change in tube feeding formula to Vital AF with goal rate of 70 mL/hr to provide 126 grams of protein to better meet needs while intubated with HD, pressure ulcers, and liver cirrhosis. Recommended rate of 70 mL/hr with Vital AF to provide total volume of 1680 ml, 2016 cals, 126 gm protein, and 1362 ml water 2. free water per silo tender on HD 3. Prealbumin q Tuesday and , daily wts 4. continue thiamine, folic acid, and MVM Addendum: 04/20/19 at [address] Amended: Links added.
--- NOTE | 2019-04-20 18:30 | NUR ---
Patient in room ICU 2043. I have received report from Robin ANN, and had the opportunity to ask questions and assume patient care.
[2019-04-20] MEDS: budesonide 0.5mg/2ml UD nebule IH SCH (19:41)
[2019-04-20] MEDS: mineral oil/petrolatum ophthal oint EACHEYE SCH (20:16)
[2019-04-20] MEDS: insulin glargine (Lantus) pen - multi-dose SQ SCH (20:20)
[2019-04-21] VITALS (24 sets, daily range): BP systolic 91–132; BP diastolic 51–75
[2019-04-21] MEDS: piperacillin/tazo 3.375gm/50ml 50 ML IV SCH ×3 (00:14→15:54)
[2019-04-21] MEDS: mineral oil/petrolatum ophthal oint EACHEYE SCH ×4 (02:00→20:00)
[2019-04-21] MEDS: ipratropium/albuterol 3ml nebule NEB SCH ×6 (02:46→23:18)
[2019-04-21 03:39] LABS: BASOPHILS # (AUTO) 0.1 X10'3 (0-0.2); BASOPHILS % (AUTO) 0.7 % (0-1); EOSINOPHILS # (AUTO) 0.1 X10'3 (0-0.9); EOSINOPHILS % (AUTO) 0.4 % (0-6); RED BLOOD COUNT 2.41 X10'6 (4.70-6.10)
[2019-04-21 03:41] LABS: HEMATOCRIT 23.1 % (42.0-52.0); HEMOGLOBIN 7.7 g/dl (14.0-17.9); LYMPHOCYTES # (AUTO) 1.9 X10'3 (1.1-4.8); LYMPHOCYTES % (AUTO) 13.3 % (21-51); MEAN CORPUSCULAR HGB CONC 33.4 g/dL (33.0-36.5); MEAN CORPUSCULAR VOLUME 95.8 FL (78-98); MEAN PLATELET VOLUME 9.2 FL (7.4-10.4); MONOCYTES # (AUTO) 1.3 X10'3 (0-0.9); MONOCYTES % (AUTO) 9.3 % (2-12); NEUTROPHILS # (AUTO) 10.7 X10'3 (1.8-7.7); NEUTROPHILS % (AUTO) 76.3 % (42-75); PLATELET COUNT 292 X10'3 (140-440); RED CELL DISTRIBUTION WIDTH 21.2 % (11.5-14.5)
[2019-04-21 03:50] LABS: ABG BASE EXCESS 4.7 mmol/L (-2.0-3.0); ABG HCO3 27.1 mmol/L (22.0-26.0); ABG OXYGEN SATURATION 96.7 % (95-98); ABG PCO2 (T) 33.8 mmHg (35.0-48.0); ABG PH (T) 7.525 (7.350-7.450); ABG PO2 (T) 87.8 mmHg (83-108); ALLEN'S TEST Positive; FO2Hb 96.7 % (94-100); MINUTE VOLUME 11 L/min; PEEP 5 cm H2O; RESPIRATORY RATE 12 b/min; RESPIRATORY RATE (OBSERVED) 22 b/min; TIDAL VOLUME 400 mL; TOTAL HEMOGLOBIN 10.4 G/dl (14.0-18.0)
[2019-04-21 03:55] LABS: ALANINE AMINOTRANSFERASE 19 U/L (12-78); ALBUMIN 1.2 G/DL (3.4-5.0); ALBUMIN/GLOBULIN RATIO 0.3 (1.1-1.5); ALKALINE PHOSPHATASE 87 IU/L (46-116); ANION GAP 4 (8-16); ASPARTATE AMINO TRANSFERASE 15 U/L (10-37); BILIRUBIN,TOTAL 0.5 MG/DL (0.1-1.0); BLOOD UREA NITROGEN 18 MG/DL (7-18); BUN/CREATININE RATIO 14.6 (5.4-32.0); CALCIUM 7.6 MG/DL (8.5-10.1); CHLORIDE 103 MMOL/L (99-107); CREATININE 1.23 MG/DL (0.60-1.10); GLUCOSE 129 MG/DL (70-104); MAGNESIUM 1.5 MG/DL (1.5-2.4); PHOSPHORUS 2.5 MG/DL (2.3-4.5); POTASSIUM 4.2 MMOL/L (3.5-5.1); SODIUM 137 MMOL/L (135-145); TOTAL CARBON DIOXIDE 30.5 MMOL/L (24-32); TOTAL PROTEIN 5.3 G/DL (6.4-8.2); eGFR 58 ML/MIN
[2019-04-21 04:30] LABS: ANISOCYTOSIS 3+; PLATELET ESTIMATE NORMAL; TOTAL CELLS COUNTED 100
[2019-04-21 04:31] LABS: LARGE PLATELETS FEW; POLYCHROMASIA 1+; SPHEROCYTES FEW
[2019-04-21] MEDS: acetaminophen 325mg/10.15ml oral unit dose solution CORPAK PRN (05:41)
--- NOTE | 2019-04-21 06:15 | NUR ---
Patient in room ICU 2043. I have received report from shift supervisor melting and had the opportunity to ask questions and assume patient care.
--- NOTE | 2019-04-21 06:41 | NUR ---
Problems reprioritized. Patient report given, questions answered & plan of care reviewed with Betsy ANN.
[2019-04-21] MEDS: K and/or MAG REPLACEMENT MC SCH (08:00)
[2019-04-21] MEDS: tamsulosin 0.4mg capsule PO SCH (08:00)
[2019-04-21] MEDS: budesonide 0.5mg/2ml UD nebule IH SCH ×2 (08:24→19:49)
[2019-04-21] MEDS: heparin, porcine 5000 units/ml vial SQ SCH ×2 (10:11→20:35)
[2019-04-21] MEDS: famotidine/PF 10 mg/ml inj IV SCH ×2 (10:11→20:36)
[2019-04-21] MEDS: multivitamin oral liquid (Certavite) 5ml cup CORPAK SCH (10:11)
[2019-04-21] MEDS: rifaximin 20mg/ml oral suspension 60 ML BOTTLE CORPAK SCH ×3 (10:11→23:05)
[2019-04-21] MEDS: thiamine 100mg tablet CORPAK SCH (10:11)
[2019-04-21] MEDS: ferrous sulfate 300mg/5ml UD oral liquid CORPAK SCH ×2 (10:11→20:36)
[2019-04-21] MEDS: atorvastatin 10mg tablet CORPAK SCH (10:12)
[2019-04-21] MEDS: montelukast 10mg tablet CORPAK SCH (10:12)
[2019-04-21] MEDS: lactobacillus rhamnosus 10,000 MMU CELLS/CAPSULE CORPAK SCH ×2 (10:12→20:35)
[2019-04-21] MEDS: VANCOmycin 1250MG/NS 250ml Bag 250 ML IV SCH (10:12)
[2019-04-21] MEDS: carVEDilol 3.125mg tablet CORPAK SCH ×2 (10:12→20:36)
[2019-04-21] MEDS: folic acid 1mg tablet CORPAK SCH (10:12)
[2019-04-21] MEDS: fenofibrate 145mg tablet CORPAK SCH (10:13)
[2019-04-21] MEDS: insulin regular, human vial - multi-dose SQ SCH ×2 (10:51→20:40)
--- NOTE | 2019-04-21 18:15 | NUR ---
Problems reprioritized. Patient report given, questions answered & plan of care reviewed with oncoming shift.
--- NOTE | 2019-04-21 18:25 | NUR ---
Patient in room ICU 2043. I have received report from Betsy ANN, and had the opportunity to ask questions and assume patient care.
[2019-04-21] MEDS: acetylcysteine 200 MG/ml 4ml vial INH SCH ×3 (19:45→23:39)
[2019-04-21] MEDS: guaiFENesin ER 600mg tablet PO SCH (20:00)
--- NOTE | 2019-04-21 20:17 | NUR ---
nasal airway placed, very difficult to place due to obstruction or narrowing within the nasal cavity. managed to place airway gently without causing bleeding, but removed due to narrowing within airway was too tight to pass suction catheter.
[2019-04-21] MEDS: nystatin 500,000 unit/5ML UD oral suspension PO SCH (20:37)
[2019-04-21] MEDS: insulin glargine (Lantus) pen - multi-dose SQ SCH (20:39)
[2019-04-22] VITALS (23 sets, daily range): BP systolic 58–140; BP diastolic 34–73
[2019-04-22] MEDS: piperacillin/tazo 3.375gm/50ml 50 ML IV SCH ×3 (00:48→18:43)
[2019-04-22] MEDS: mineral oil/petrolatum ophthal oint EACHEYE SCH ×4 (02:00→20:01)
[2019-04-22] MEDS: insulin regular, human vial - multi-dose SQ SCH ×3 (02:57→20:08)
[2019-04-22 03:39] LABS: BASOPHILS # (AUTO) 0.1 X10'3 (0-0.2); BASOPHILS % (AUTO) 0.5 % (0-1); EOSINOPHILS # (AUTO) 0.1 X10'3 (0-0.9); EOSINOPHILS % (AUTO) 0.5 % (0-6); HEMATOCRIT 25.4 % (42.0-52.0); HEMOGLOBIN 8.3 g/dl (14.0-17.9); LYMPHOCYTES # (AUTO) 1.1 X10'3 (1.1-4.8); LYMPHOCYTES % (AUTO) 6.6 % (21-51); MEAN CORPUSCULAR HEMOGLOBIN 31.5 PG (27.0-31.0); MEAN CORPUSCULAR HGB CONC 32.6 g/dL (33.0-36.5); MEAN CORPUSCULAR VOLUME 96.9 FL (78-98); MONOCYTES # (AUTO) 1.3 X10'3 (0-0.9); MONOCYTES % (AUTO) 7.6 % (2-12); NEUTROPHILS % (AUTO) 84.8 % (42-75); PLATELET COUNT 308 X10'3 (140-440); RED BLOOD COUNT 2.63 X10'6 (4.70-6.10); RED CELL DISTRIBUTION WIDTH 20.9 % (11.5-14.5); WHITE BLOOD COUNT 16.5 X10'3 (4.5-11.0)
[2019-04-22 03:43] LABS: ALANINE AMINOTRANSFERASE 24 U/L (12-78); ALBUMIN 1.3 G/DL (3.4-5.0); ALBUMIN/GLOBULIN RATIO 0.3 (1.1-1.5); ALKALINE PHOSPHATASE 98 IU/L (46-116); ANION GAP 7 (8-16); ASPARTATE AMINO TRANSFERASE 20 U/L (10-37); BILIRUBIN,TOTAL 0.4 MG/DL (0.1-1.0); BLOOD UREA NITROGEN 29 MG/DL (7-18); BUN/CREATININE RATIO 18.6 (5.4-32.0); CALCIUM 8.3 MG/DL (8.5-10.1); CHLORIDE 102 MMOL/L (99-107); CREATININE 1.56 MG/DL (0.60-1.10); GLUCOSE 138 MG/DL (70-104); MAGNESIUM 1.7 MG/DL (1.5-2.4); PHOSPHORUS 3.8 MG/DL (2.3-4.5); POTASSIUM 4.1 MMOL/L (3.5-5.1); SODIUM 139 MMOL/L (135-145); TOTAL CARBON DIOXIDE 30.4 MMOL/L (24-32); TOTAL PROTEIN 5.7 G/DL (6.4-8.2); eGFR 44 ML/MIN
[2019-04-22] MEDS: ipratropium/albuterol 3ml nebule NEB SCH ×5 (03:55→19:18)
[2019-04-22] MEDS: acetylcysteine 200 MG/ml 4ml vial INH SCH ×5 (03:56→19:18)
[2019-04-22 04:20] LABS: ANISOCYTOSIS 3+; PLATELET ESTIMATE NORMAL; TOTAL CELLS COUNTED 100
[2019-04-22 04:21] LABS: LARGE PLATELETS FEW; POLYCHROMASIA FEW; SPHEROCYTES FEW
--- NOTE | 2019-04-22 06:15 | NUR ---
Patient in room ICU 2043. I have received report from glove printer and had the opportunity to ask questions and assume patient care.
--- NOTE | 2019-04-22 06:45 | NUR ---
Problems reprioritized. Patient report given, questions answered & plan of care reviewed with Betsy ANN.
[2019-04-22] MEDS ORDERED: VANCOMYCIN LEVEL IV ONE (07:30)
[2019-04-22] MEDS: lactobacillus rhamnosus 10,000 MMU CELLS/CAPSULE CORPAK SCH ×2 (07:48→20:00)
[2019-04-22] MEDS: multivitamin oral liquid (Certavite) 5ml cup CORPAK SCH (07:48)
[2019-04-22] MEDS: rifaximin 20mg/ml oral suspension 60 ML BOTTLE CORPAK SCH ×3 (07:48→21:31)
[2019-04-22] MEDS: fenofibrate 145mg tablet CORPAK SCH (07:48)
[2019-04-22] MEDS: thiamine 100mg tablet CORPAK SCH (07:48)
[2019-04-22] MEDS: atorvastatin 10mg tablet CORPAK SCH (07:49)
[2019-04-22] MEDS: montelukast 10mg tablet CORPAK SCH (07:49)
[2019-04-22] MEDS: carVEDilol 3.125mg tablet CORPAK SCH ×2 (07:49→20:00)
[2019-04-22] MEDS: heparin, porcine 5000 units/ml vial SQ SCH ×2 (07:50→20:01)
[2019-04-22] MEDS: ferrous sulfate 300mg/5ml UD oral liquid CORPAK SCH ×2 (07:50→20:00)
[2019-04-22] MEDS: VANCOmycin 1250MG/NS 250ml Bag 250 ML IV SCH (07:50)
[2019-04-22] MEDS: folic acid 1mg tablet CORPAK SCH (07:50)
[2019-04-22] MEDS: nystatin 500,000 unit/5ML UD oral suspension PO SCH ×3 (07:53→21:31)
[2019-04-22] MEDS: guaiFENesin ER 600mg tablet PO SCH ×2 (07:55→20:00)
[2019-04-22] MEDS: tamsulosin 0.4mg capsule PO SCH (07:55)
[2019-04-22] MEDS: famotidine/PF 10 mg/ml inj IV SCH ×2 (07:57→20:01)
[2019-04-22 08:06] LABS: ABG BASE EXCESS 0.4 mmol/L (-2.0-3.0); ABG HCO3 27.6 mmol/L (22.0-26.0); ABG OXYGEN SATURATION 92.9 % (95-98); ABG PCO2 (T) 57.9 mmHg (35.0-48.0); ABG PH (T) 7.296 (7.350-7.450); ABG PO2 (T) 82.1 mmHg (83-108); ALLEN'S TEST Positive; FCOHb 0.2 % (0.5-1.5); FLOW 4 L/min; FMetHb 0.1 % (0.3-1.12); FO2Hb 92.6 % (94-100); RESPIRATORY RATE (OBSERVED) 28 b/min
[2019-04-22] MEDS: budesonide 0.5mg/2ml UD nebule IH SCH (08:16)
[2019-04-22] MEDS: K and/or MAG REPLACEMENT MC SCH (08:17)
--- NOTE | 2019-04-22 11:27 | NUR ---
TF Consult: Pt TF has been changed to Vital AF and currently tolerating at goal. Quill Stripper OK change to Vital AF on 04/20 during critical care rounds appears was not changed until 04/21 per RN report today. Will continue to monitor. Recommend: 1. NGTF Vital AF w/ goal rate of 70 mL/hr to provide total volume of 1680ml, 2016 cals, 126 gm protein, and 1362 ml water 2. free water per senior major gifts officer on HD 3. Prealbumin q Tuesday and , daily wts 4. continue thiamine, folic acid, and MVM Addendum: 04/22/19 at [address] Amended: Links added.
[2019-04-22] MEDS: NORepinephrine 8mg/ 250ml NS 250 ML IV SCH (14:45)
--- NOTE | 2019-04-22 18:15 | NUR ---
Problems reprioritized. Patient report given, questions answered & plan of care reviewed with oncoming shift.
[2019-04-22] MEDS: insulin glargine (Lantus) pen - multi-dose SQ SCH (20:10)
--- NOTE | 2019-04-22 21:50 | NUR ---
PATIENT SUDDENLY BRADYCARDIC 27-32 AND SLOWLY DROPPING, RR DIMINISH TO ZERO, PATIENT IS A DNR/DNI AND NO BIPAP. THIS WAS CLARIFIED BEFORE RHEA - - LEFT FOR THE EVENING JUST HOURS AGO. I IMMEDIATELY CALLED THE RHEA TO LET HER KNOW PATIENT WAS IN THE PROCESS OF DYINING. SINCE RHEA LIVES IN [place] - SHE IS ON HER WAY BUT SAID SHE WILL CALL HER DAUGHTER ALSO BECAUSE SHE LIVES [place] AND CAN GET HERE SOONER. OFFICIAL DECLARED @ 22:13. NO RHYTHM, NO SPONTANEOUS BREATH, NO VS. I CALLED BRENDAN GHOSH NP - TO MAKE HIM AWARE
--- NOTE | 2019-04-22 22:13 | NUR ---
RN IS TO DOCUMENT YES TO ALL APPLICABLE AREAS Pronouncement of :2212 1. Time Physician Notified:2214 2. Date of :04/22/2019 3. Time of : 2212 4. DNR/Withdraw life support documented:YES 5. Monitor strip has been placed on chart:YES 6. Assessment process is of one-minute duration and includes following criteria: a) Patient is unresponsive to all stimuli: YES b) Pupils fixed and non-reactive:YES c) Auscultation of precordium reveals absence of heart tones:YES d) Auscultation of lungs reveals absence of breath sounds:YES e) Absence of blood pressure / all vital signs:YES f) QRS complexes are not present on monitor / EKG strip:YES g) Pacer spikes without capture:N/A 4. Comments: AND DAUGHTER AT BEDSIDE. PATIENT TO GO TO [facility]
[2019-04-23] MEDS ORDERED: VANCOMYCIN LEVEL IV ONE (03:00)
== END 2019-04-22 22:15 | disposition expired | DRG 870 ==
LOC: ER 10:34 → PCU 3S 16:52 → CMPBEDREQ 19:35 → ICU 2S 04-02 08:15
PROVIDERS: ADMIT Internal Medicine; ATTEND Internal Medicine
PROC: 30233N1 Transfusion of Nonautologous Red Blood Cells into Peripheral Vein, Percutaneous Approach (ICD-10-PCS; 2019-03-29)
PROC: 0BH17EZ Insertion of Endotracheal Airway into Trachea, Via Natural or Artificial Opening (ICD-10-PCS; principal; 2019-04-02)
PROC: 5A1955Z Respiratory Ventilation, Greater than 96 Consecutive Hours (ICD-10-PCS; 2019-04-02)
PROC: 5A1D70Z Performance of Urinary Filtration, Intermittent, Less than 6 Hours Per Day (ICD-10-PCS; 2019-04-05)
PROC: 02HV33Z Insertion of Infusion Device into Superior Vena Cava, Percutaneous Approach (ICD-10-PCS; 2019-04-05)
PROC: B548ZZA Ultrasonography of Superior Vena Cava, Guidance (ICD-10-PCS; 2019-04-05)
PROC: 5A1D70Z Performance of Urinary Filtration, Intermittent, Less than 6 Hours Per Day (ICD-10-PCS; 2019-04-06)
PROC: 5A1D70Z Performance of Urinary Filtration, Intermittent, Less than 6 Hours Per Day (ICD-10-PCS; 2019-04-07)
PROC: 5A1D70Z Performance of Urinary Filtration, Intermittent, Less than 6 Hours Per Day (ICD-10-PCS; 2019-04-08)
PROC: 5A1D70Z Performance of Urinary Filtration, Intermittent, Less than 6 Hours Per Day (ICD-10-PCS; 2019-04-10)
PROC: 5A1D70Z Performance of Urinary Filtration, Intermittent, Less than 6 Hours Per Day (ICD-10-PCS; 2019-04-12)
PROC: 0JH63XZ Insertion of Tunneled Vascular Access Device into Chest Subcutaneous Tissue and Fascia, Percutaneous Approach (ICD-10-PCS; 2019-04-12)
PROC: 02H633Z Insertion of Infusion Device into Right Atrium, Percutaneous Approach (ICD-10-PCS; 2019-04-12)
PROC: B2141ZZ Fluoroscopy of Right Heart using Low Osmolar Contrast (ICD-10-PCS; 2019-04-12)
PROC: B244ZZZ Ultrasonography of Right Heart (ICD-10-PCS; 2019-04-12)
PROC: 5A1D70Z Performance of Urinary Filtration, Intermittent, Less than 6 Hours Per Day (ICD-10-PCS; 2019-04-14)
PROC: 5A1D70Z Performance of Urinary Filtration, Intermittent, Less than 6 Hours Per Day (ICD-10-PCS; 2019-04-16)
PROC: 5A1D70Z Performance of Urinary Filtration, Intermittent, Less than 6 Hours Per Day (ICD-10-PCS; 2019-04-18)
PROC: 5A09357 Assistance with Respiratory Ventilation, Less than 24 Consecutive Hours, Continuous Positive Airway Pressure (ICD-10-PCS; 2019-04-19)
PROC: 0BH17EZ Insertion of Endotracheal Airway into Trachea, Via Natural or Artificial Opening (ICD-10-PCS; 2019-04-19)
PROC: 5A1945Z Respiratory Ventilation, 24-96 Consecutive Hours (ICD-10-PCS; 2019-04-19)
PROC: 5A1D70Z Performance of Urinary Filtration, Intermittent, Less than 6 Hours Per Day (ICD-10-PCS; 2019-04-20)
PROC: 5A09357 Assistance with Respiratory Ventilation, Less than 24 Consecutive Hours, Continuous Positive Airway Pressure (ICD-10-PCS; 2019-04-22)
DX: A41.9 Sepsis, unspecified organism (principal); I50.23 Acute on chronic systolic (congestive) heart failure; J96.00 Acute respiratory failure, unspecified whether with hypoxia or hypercapnia; J69.0 Pneumonitis due to inhalation of food and vomit; I42.9 Cardiomyopathy, unspecified; J44.0 Chronic obstructive pulmonary disease with (acute) lower respiratory infection; N17.9 Acute kidney failure, unspecified; I13.0 Hypertensive heart and chronic kidney disease with heart failure and stage 1 through stage 4 chronic kidney disease, or unspecified chronic kidney disease; N18.4 Chronic kidney disease, stage 4 (severe); E87.1 Hypo-osmolality and hyponatremia; E87.0 Hyperosmolality and hypernatremia; R65.20 Severe sepsis without septic shock; K70.30 Alcoholic cirrhosis of liver without ascites; E11.22 Type 2 diabetes mellitus with diabetic chronic kidney disease; I25.10 Atherosclerotic heart disease of native coronary artery without angina pectoris; E78.00 Pure hypercholesterolemia, unspecified; F12.90 Cannabis use, unspecified, uncomplicated; I46.9 Cardiac arrest, cause unspecified; D64.9 Anemia, unspecified; R62.7 Adult failure to thrive; F10.20 Alcohol dependence, uncomplicated; R13.10 Dysphagia, unspecified; Z51.5 Encounter for palliative care; K70.40 Alcoholic hepatic failure without coma; Z87.891 Personal history of nicotine dependence; Z74.01 Bed confinement status; Z99.3 Dependence on wheelchair
CPT/HCPCS: 36415; 36558; 36600; 70450; 70551; 71045; 72148; 74018; 76937; 77001; 80048; 80053; 80202; 80305; 80320; 81001; 82140; 82272; 82330; 82570; 82728; 82803; 82810; 82948; 83036; 83540; 83550; 83605; 83735; 84100; 84134; 84145; 84156; 84300; 85018; 85025; 85027; 85610; 85730; 86885; 86900; 86901; 86920; 87040; 87070; 87077; 87186; 87207; 87324; 87340; 87449; 90935; 92950; 93005; 94002; 94003; 94640; 94660; 94760; 96365; 96367; 96375; 97110; 97161; 97530; 99285; A9270; C1894; C9113; G0257; G0378; J0171; J0692; J0696; J0885; J1250; J1265; J1644; J1815; J2001; J2060; J2250; J2270; J2405; J2543; J2765; J3370; J3475; J3490; J7030; J7060; J7070; J7626; P9016; P9045; P9047